=== PATIENT | male | born 1950 | race Caucasian/White ===

== ENCOUNTER → 2018-08-21 | Outpatient (CLI) | payer MEDICARE, BC ==
--- NOTE | 2018-08-21 12:12 | ECHOF ---
Referral Reason:I35.0 Nonrheumatic aortic valve stenosis MEASUREMENTS -------- HEIGHT: 170.2 cm WEIGHT: 112.9 kg BP: RVIDd: 3.4 cm (< 3.3) IVSd: 1.4 cm (0.6 - 1.1) LVIDd: 4.1 cm (3.9 - 5.3) LVPWd: 1.6 cm (0.6 - 1.1) IVSs: 1.8 cm LVIDs: 1.9 cm LVPWs: 1.7 cm Ao Diam: 2.8 cm (2.0 - 3.7) AV Cusp: 1.3 cm (1.5 - 2.6) LA Diam: 4.0 cm (2.7 - 3.8) EPSS: 0.7 cm MV E Musa: 0.61 m/s MV DecT: 271 ms MV A Musa: 0.91 m/s MV E/A Ratio: 0.67 AV maxP.73 mmHg AV meanP.42 mmHg RAP: 5.00 mmHg RVSP: 33.34 mmHg MV EF SLOPE: 54.34 mm/s (70 - 150) MV EXCURSION: 1.47 cm (> 18.000) FINDINGS -------- Sinus rhythm. This was a technically difficult study with suboptimal views. The left ventricular size is normal. There is moderate concentric left ventricular hypertrophy. O verall left ventricular systolic function is normal with, an EF between 55 - 60 %. The right ventricle is mildly enlarged. The left atrial size is normal. The right atrial size is normal. Lumason used Aortic valve is trileaflet and is moderately thickened. Trace amount of aortic regurgitation. Th ere is moderate aortic stenosis present. Peak/mean gradient across the valve is 32.73mmHg / 19.42mm Hg. The mitral valve leaflets are mildly thickened. Mild mitral regurgitation is present. Mild tricuspid regurgitation present. Right ventricular systolic pressure is normal at < 35 mmHg. The aortic root size is normal. The inferior vena cava was not well visualized. There is no pericardial effusion. CONCLUSIONS -------- 1. Sinus rhythm. 2. This was a technically difficult study with suboptimal views. 3. The left ventricular size is normal. 4. There is moderate concentric left ventricular hypertrophy. 5. Overall left ventricular systolic function is normal with, an EF between 55 - 60 %. 6. The right ventricle is mildly enlarged. 7. The left atrial size is normal. 8. The right atrial size is normal. 9. Lumason used 10. Aortic valve is trileaflet and is moderately thickened. 11. Trace amount of aortic regurgitation. 12. There is moderate aortic stenosis present. 13. Peak/mean gradient across the valve is 32.73mmHg / 19.42mmHg. 14. The mitral valve leaflets are mildly thickened. 15. Mild mitral regurgitation is present. 16. Mild tricuspid regurgitation present. 17. Right ventricular systolic pressure is normal at < 35 mmHg. 18. The aortic root size is normal. 19. The inferior vena cava was not well visualized. 20. There is no pericardial effusion. ASSEMBLER [employer] FRAMES: Gretchen Tillman RDCS
== END | disposition home or self-care (01) ==
LOC: RADECHMAIN 11:07
PROVIDERS: ATTEND Internal Medicine
DX: I08.3 Combined rheumatic disorders of mitral, aortic and tricuspid valves (principal)
CPT/HCPCS: 93306; Q9950

== ENCOUNTER → 2021-07-05 | Outpatient (CLI) | payer MEDICARE, BC ==
[2021-07-05 14:36] LABS: Anisocytosis Slight; HCT 52.4 % (39.0-53.0); HGB 17.4 gm/dL (13.0-17.5); MCH 30.4 pg (25.0-35.0); MCHC 33.2 g/dL (31.0-37.0); MCV 91.7 fL (80.0-100.0); Mean Platelet Volume 7.3; Platelet Count 239 k/uL (150-450); RBC 5.71 m/uL (4.30-5.90); RDW 16.1 % (11.5-15.5); WBC 11.8 k/uL (3.8-10.6)
[2021-07-05 15:43] LABS: Band Neutrophils % 1 %; Basophils # (M) 0.12 k/uL (0-0.2); Eosinophils # (M) 0.47 k/uL (0-0.7); Lymphocytes # (M) 1.65 k/uL (1.0-4.8); Monocytes # (M) 1.06 k/uL (0-1.0); Neutrophils % (M) 71 %; Nucleated Red Blood Cells 0 /100 WBC (0-0); Total Cells Counted 100
== END | disposition home or self-care (01) ==
LOC: LABWHC1 11:24
PROVIDERS: ATTEND Internal Medicine
DX: D72.829 Elevated white blood cell count, unspecified (principal); R68.83 Chills (without fever)
CPT/HCPCS: 36415; 84443; 85025

== ENCOUNTER → 2021-07-21 | Outpatient (CLI) | payer MEDICARE, BC ==
[2021-07-21 15:39] LABS: Anisocytosis Slight; Basophils # (A) 0.1 k/uL (0-0.2); Basophils % (A) 1 %; Eosinophils # (A) 0.5 k/uL (0-0.7); Eosinophils % (A) 5 %; HCT 48.2 % (39.0-53.0); HGB 16.3 gm/dL (13.0-17.5); Lymphocytes # (A) 2.3 k/uL (1.0-4.8); Lymphocytes % (A) 23 %; MCH 31.2 pg (25.0-35.0); MCHC 33.8 g/dL (31.0-37.0); MCV 92.2 fL (80.0-100.0); Mean Platelet Volume 7.2; Monocytes # (A) 0.7 k/uL (0-1.0); Monocytes % (A) 7 %; Neutrophils # (A) 6.5 k/uL (1.3-7.7); Neutrophils % (A) 63 %; Platelet Count 234 k/uL (150-450); RBC 5.23 m/uL (4.30-5.90); RDW 16.2 % (11.5-15.5); WBC 10.3 k/uL (3.8-10.6)
== END | disposition home or self-care (01) ==
LOC: LABWHC1 14:42
PROVIDERS: ATTEND Internal Medicine
DX: D72.829 Elevated white blood cell count, unspecified (principal)
CPT/HCPCS: 36415; 85025

== ENCOUNTER → 2021-09-16 | Outpatient (CLI) | payer MEDICARE, BC ==
[2021-09-16 17:47] LABS: HCT 48.3 % (39.6-50.0); HGB 15.7 g/dL (13.0-17.0); MCH 29.6 pg (27.0-32.0); MCHC 32.5 g/dL (32.0-37.0); MCV 91.1 fL (80.0-97.0); Mean Platelet Volume 9.3 fL (9.5-12.2); NRBC Per 100 WBC 0 /100 WBCS (0.0-0.0); Platelet Count 215 X 10*3/uL (140-440); RDW 15.2 % (11.5-14.5); WBC 9.38 X 10*3/uL (4.50-10.00)
[2021-09-16 17:58] LABS: African American GFR (CKD) 98.5 (60.0-200.0); Anion Gap 10.8 mmol/L (10.00-18.00); Blood Urea Nitrogen 19.5 mg/dL (9.0-27.0); Carbon Dioxide 27.2 mmol/L (20.0-27.5); Potassium 4.9 mmol/L (3.5-5.5)
== END | disposition home or self-care (01) ==
LOC: LABPAT 10:44
PROVIDERS: ATTEND Internal Medicine Interventional Cardiology
DX: Z01.812 Encounter for preprocedural laboratory examination (principal); R94.39 Abnormal result of other cardiovascular function study; I25.10 Atherosclerotic heart disease of native coronary artery without angina pectoris
CPT/HCPCS: 80051; 82565; 84520; 85027

== ENCOUNTER 2021-10-01 05:56 | Day surgery (SDC) | payer MEDICARE, BC ==
[2021-09-29 10:38] VITALS: BMI 39.5
[~2021-10-01 05:56] MED LIST: ALPRAZolam 0.25 MG TAB PO PRN; ALPRAZolam 0.5 MG TAB PO PRN; NITROGLYCERIN SL TABS 0.4 MG TAB SUBLINGUAL PRN; SODIUM CHLORIDE 0.9% 1,000 ML in EMPTY BAG 1 BAG IV SCH
[2021-10-01 06:24] VITALS: TEMP 97.8
[2021-10-01 06:30] LABS: Glucose,Whole Blood 108 mg/dL (70-110)
[2021-10-01] MEDS ORDERED: ASPIRIN 325 MG TAB PO ONE (07:00)
[2021-10-01] MEDS ORDERED: VERAPAMIL 2.5 MG/ML 2 ML AMP ONE (07:15)
[2021-10-01] MEDS ORDERED: fentaNYL (PF) 50 MCG/ML 2 ML AMP ONE (07:15)
[2021-10-01] MEDS ORDERED: HEPARIN SODIUM 1,000 UN/ML (10ML VL) ONE (07:15)
[2021-10-01] MEDS ORDERED: fentaNYL (PF) 50 MCG/ML 2 ML AMP IV ONE (07:35)
[2021-10-01] MEDS ORDERED: LIDOCAINE 1% INJ 10MG/ML (5 ML VIAL-PF) SQ ONE (07:38)
[2021-10-01] MEDS ORDERED: VERAPAMIL SYRINGE (5 MG/10 ML) INTRAARTER ONE (07:39)
[2021-10-01] MEDS: HEPARIN SODIUM 1,000 UN/ML (10ML VL) IV ONE ×3 (07:50→08:06)
[2021-10-01] MEDS ORDERED: CLOPIDOGREL 75 MG TAB ONE (07:54)
[2021-10-01] MEDS ORDERED: CLOPIDOGREL 75 MG TAB PO ONE (07:55)
[2021-10-01] MEDS ORDERED: MIDAZOLAM 2 MG/2 ML VIAL IV ONE (07:57)
[2021-10-01] MEDS ORDERED: IOPAMIDOL-370 125ML BTL INJ ONE (08:10)
[2021-10-01] MEDS ORDERED: NITROGLYCERIN 1000MCG/10ML SYRINGE INTRACORON ONE (08:13)
[2021-10-01] MEDS ORDERED: IOPAMIDOL-370 100ML BTL INJ ONE (08:28)
[2021-10-01] MEDS ORDERED: MAG HYDROX/AL HYDROX/SIMETH 30 ML CUP PO PRN (08:39)
[2021-10-01] MEDS ORDERED: NITROGLYCERIN SL TABS 0.4 MG TAB SUBLINGUAL PRN (08:39)
[2021-10-01] MEDS ORDERED: RX INFO: IV CONTRAST WAS GIVEN 1 EACH MISC MISCELLANE PRN (08:39)
[2021-10-01] MEDS ORDERED: ZOLPIDEM 5 MG TAB PO PRN (08:39)
[2021-10-01] MEDS ORDERED: ATROPINE SULFATE 0.1 MG/ML 10ML SYRINGE IV PRN (08:39)
[2021-10-01] MEDS ORDERED: SODIUM CHLORIDE 0.9% 1,000 ML in EMPTY BAG 1 BAG IV SCH (08:45)
--- NOTE | 2021-10-01 08:52 | P.CARDCATH ---
Date of Procedure: 10/01/21 Description of Procedure: Cardiac Catheterization: The patient is a 70-year-old male with known history of hypertension, hyperlipidemia and diabetes mellitus who has been complaining of episode of chest discomfort and had an abnormal MPI. Recommendations were made regarding cardiac catheterization, the risks and the complications were discussed with the patient who is in full understanding and agreement. Procedure Description: Patient was brought to airport maintenance laborer in fasting semi-sedated state after receiving Fentanyl and Benadryl achieiving moderate conscious sedated state. Using Xylocaine Anesthesia and Seldinger technique, a 6-Beninese sheath was introduced in the left radial artery . Subsequently, selective coronary angiography was performed using a 5-Beninese 4 bend Tamir catheter. Multiple views of the coronary artery including hemiaxial views were obtained. Following the angioplasty and stenting was performed, a 6- Beninese FL 4 guiding catheter was introduced and the system after cannulating the left main a 0.014 BMW J wire was advanced across the first OM, a 2.5 x 12 mm NC Treck was advanced into inflation at 8 tiffany were done. Attempts to advance a 2.75 X23 mm Xience Bonny point was unsuccessful, the stent was removed and a guide liner was advanced and the stent was advanced, deployed and dilated at 16 tiffany. After removing the balloon images were obtained and revealed stable successful stenting. Following that, catheter and sheath were removed. Hemostasis was obtained with deployment of TR band . There was no immediate complication. Patient was returned to room in stable condition. Of note, the patient received a total of 8000 units of intravenous heparin as well as intra-arterial verapamil. He received an oral loading dose of clopidogrel. His ACT was followed. He had no chest discomfort or EKG changes Findings: Fluoroscopy: Calcification of the LAD was noted Left main: This is a large-size vessel, bifurcating LAD and left circumflex the left main has no high-grade stenosis LAD: This vessel is large in caliber, calcified, the proximal LAD has 30-40% plaque in the mid vessel has diffuse intimal disease up to 30% with no high- grade stenosis Left circumflex: This is a large non-dominant vessel giving rise to 2 obtuse marginal branch, the first obtuse marginal branch has a long lesion of up to 90% the rest of the vessel has no high-grade stenosis RCA: This is a dominant vessel, bifurcating distally to PDA and PLV, the proximal and mid RCA has intimal disease up to 20-30%. The PLV is totally occluded at the ostium with minimal late filling. Collaterals there is collaterals from the left cornea system toward the right PLV Conclusion: 1. Calcified LAD 2. Chronically occluded PLV with collaterals from the left system 3. Critical stenosis involving OM1 4. Successful stenting of OM1 with reduction of stenosis from 90% to 0% Recommendations: The patient will continue on dual antiplatelet treatment with aspirin and Plavix without any interruption for 6 months, aggressive coronary risks modifications will be continued. If he continues to have symptoms attempt to recanalize the PLV would be done. The findings and the recommendations were discussed with the patient and the family and they were in full understanding and agreement. Duration of sedation is 52 minutes.
[2021-10-01] MEDS ORDERED: EZETIMIBE 10 MG TAB PO SCH (09:00)
[2021-10-01] MEDS ORDERED: ASPIRIN 81 MG PO SCH (09:00)
[2021-10-01] MEDS ORDERED: GLIMEPIRIDE 2 MG TAB PO SCH (09:00)
[2021-10-01] MEDS ORDERED: NON FORMULARY DRUG (Omeprazole [Prilosec] 20 MG Capsule.Dr) PO SCH (09:00)
[2021-10-01] MEDS ORDERED: PIOGLITAZONE 15 MG TAB PO SCH (09:00)
[2021-10-01] MEDS ORDERED: amLODIPine 5 MG TAB PO SCH (09:00)
[2021-10-01] MEDS ORDERED: DULoxetine HCL 30 MG CAPSULE.DR PO SCH (09:00)
[2021-10-01] MEDS ORDERED: BENAZEPRIL 10 MG PO SCH (09:00)
[2021-10-01 09:26] VITALS: RESP 16
[2021-10-01 11:18] VITALS: BP 123/72; PULSE 75
[2021-10-02] MEDS ORDERED: CLOPIDOGREL 75 MG TAB PO SCH (09:00)
== END 2021-10-01 12:07 | disposition home or self-care (01) ==
LOC: CATHCVL 05:56
PROVIDERS: ATTEND Internal Medicine Interventional Cardiology
DX: I25.10 Atherosclerotic heart disease of native coronary artery without angina pectoris (principal); I25.84 Coronary atherosclerosis due to calcified coronary lesion; I10 Essential (primary) hypertension; R94.39 Abnormal result of other cardiovascular function study; E78.2 Mixed hyperlipidemia; E11.9 Type 2 diabetes mellitus without complications; Z20.822 Contact with and (suspected) exposure to COVID-19; Z82.49 Family history of ischemic heart disease and other diseases of the circulatory system; E78.00 Pure hypercholesterolemia, unspecified; H81.09 Meniere's disease, unspecified ear; Z87.891 Personal history of nicotine dependence; I35.0 Nonrheumatic aortic (valve) stenosis; Z79.84 Long term (current) use of oral hypoglycemic drugs; Z79.82 Long term (current) use of aspirin; Z79.899 Other long term (current) drug therapy; Z88.8 Allergy status to other drugs, medicaments and biological substances
CPT/HCPCS: 93454; 87635; C9600; C1769 ×3; C1887 ×2; C1894; C1725; C1874; J2250; J2001; J3010; J1644; Q9967 ×2

== ENCOUNTER → 2021-10-28 | Outpatient (CLI) | payer MEDICARE, BC ==
--- NOTE | 2021-10-28 13:39 | NM ---
EXAMINATION TYPE: NM bone scan whole body DATE OF EXAM: 10/28/2021 COMPARISON: NONE HISTORY: Prostate cancer Delayed whole-body scanning was performed following the injection of 24.8 mCi Tc 99m MDP. Images acq uired 4 hours post injection. FINDINGS: There is abnormal uptake involving the knees bilaterally, feet bilaterally, and shoulders bilaterally most available post arthritic change. Abnormal uptake involving the right sternoclavicular joint also likely osteoarthritic. There is moderate intensity uptake throughout the thoracic and lumbar spine. Favor degenerative ramírez e over metastases. IMPRESSION: 1. No diagnostic evidence of metastases. Abnormal uptake involving the vertebral column is most likel y degenerative
== END | disposition home or self-care (01) ==
LOC: RADNMMAIN 08:41
PROVIDERS: ATTEND Radiology Radiation Oncology
DX: C61 Malignant neoplasm of prostate (principal)
CPT/HCPCS: 78306; A9503

== ENCOUNTER → 2021-12-07 | Outpatient (CLI) | payer MEDICARE, BC ==
[2021-12-07 10:30] LABS: ALT 27 U/L (10-49); AST 29 U/L (14-35); African American GFR (CKD) 102.4 (60.0-200.0); Albumin 4.2 g/dL (3.8-4.9); Albumin/Globulin Ratio 1.18 (1.60-3.17); Alkaline Phosphatase 108 U/L (41-126); BUN/Creat Ratio 22.07 Ratio (12.00-20.00); Blood Urea Nitrogen 18.1 mg/dL (9.0-27.0); Calcium 9.2 mg/dL (8.7-10.3); Carbon Dioxide 29.9 mmol/L (20.0-27.5); Chloride 100 mmol/L (96-109); Chol/HDL Ratio 5.34 Ratio; Globulin 3.5 g/dL (1.6-3.3); Glucose 146 mg/dL (70-110); LDL Cholesterol,Calculated 129.8 mg/dL (0.0-131.0); Non-African American GFR(CKD) 88.3 (60.0-200.0); Sodium 138 mmol/L (135-145); Total Protein 7.7 g/dL (6.2-8.2)
== END | disposition home or self-care (01) ==
LOC: LABWHC1 07:36
PROVIDERS: ATTEND Internal Medicine Interventional Cardiology
DX: E78.2 Mixed hyperlipidemia (principal)
CPT/HCPCS: 36415; 80053; 80061

== ENCOUNTER → 2022-10-26 | Outpatient (CLI) | payer MEDICARE, BC ==
[2022-10-26 15:34] LABS: Chol/HDL Ratio 7.63 Ratio; LDL Cholesterol,Calculated 160.9 mg/dL (0.0-131.0)
== END | disposition home or self-care (01) ==
LOC: LABWHC1 09:44
PROVIDERS: ATTEND Family Medicine
DX: E11.9 Type 2 diabetes mellitus without complications (principal)
CPT/HCPCS: 36415; 80061; 83036

== ENCOUNTER 2023-06-06 10:50 | Inpatient (IN) | payer MEDICARE, BC ==
--- NOTE | 2023-06-06 11:28 | ED ---
General Adult HPI - General Chief complaint: Shortness of Breath Stated complaint: Tightness in chest Time Seen by Provider: 06/06/23 11:07 Source: patient, family Mode of arrival: ambulatory Limitations: no limitations - History of Present Illness Initial comments: Dictation was produced using [employer] dictation software. please excuse any grammatical, word or spelling errors. Chief Complaint: 72-year-old male with history of coronary artery disease p resents to the ER for worsening weakness History of Present Illness: Patient 72-year-old male he has past medical history coronary artery disease he has a coronary artery stent. Patient states over the last month he has been having worsening exertional dyspnea and exertional weakness. He does complain of some mild tightening to his substernal chest. Patient also reports chronic intermittent episodes of rectal bleeding. Denies any current abdominal pain. Denies any constitutional symptoms. The ROS documented in this emergency department record has been reviewed and confirmed by me. Those systems with pertinent positive or negative responses have been documented in the HPI. All other systems are other negative and/or noncontributory. - Related Data Home Medications Medication Instructions Recorded Confirmed Aspirin 81 mg PO DAILY 07/11/13 10/01/21 Omeprazole [PriLOSEC] 20 mg PO DAILY 07/11/13 10/01/21 Benazepril [Lotensin] 10 mg PO DAILY 09/29/21 10/01/21 DULoxetine HCL [Cymbalta] 30 mg PO DAILY 09/29/21 10/01/21 Glimepiride [Amaryl] 2 mg PO BID 09/29/21 10/01/21 Pioglitazone [Actos] 15 mg PO DAILY 09/29/21 10/01/21 amLODIPine [Norvasc] 5 mg PO DAILY 09/29/21 10/01/21 Previous Rx's Medication Instructions Recorded Clopidogrel [Plavix] 75 mg PO DAILY #90 tab 10/01/21 Ezetimibe [Zetia] 10 mg PO DAILY #90 tab 10/01/21 Nitroglycerin Sl Tabs [Nitrostat] 0.4 mg SUBLINGUAL Q5M PRN #25 tab 10/01/21 Allergies Allergy/AdvReac Type Severity Reaction Status Date / Time Pidkrzh-GYN-JgU Reductase AdvReac MUSCLE Verified 06/06/23 11:00 Inhibitor CRAMPS IN [Rbqwsaz-Trs-Ayi Reductase LEGS Inhibitor] Review of Systems ROS Statement: Those systems with pertinent positive or pertinent negative responses have been documented in the HPI. ROS Other: All systems not noted in ROS Statement are negative. Past Medical History Past Medical History: Cancer, Chest Pain / Angina, Diabetes Mellitus, GERD/Reflux, Hearing Disorder / Deafness, Hyperlipidemia, Hypertension, Osteoarthritis (OA) Additional Past Medical History / Comment(s): HX. MENIERE'S. HX. HIATAL HERNIA. HX. 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 HX ARTHRITIS- IN HANDS,FINGERS & SHOULDERS. NEW DX PROSTATE CANCER ABOUT 2 WEEKS AGO History of Any Multi-Drug Resistant Organisms: None Reported Past Surgical History: No Surgical Hx Reported Additional Past Surgical History / Comment(s): DEVIATED SEPTUM SX. COLONOSCOPY Past Anesthesia/Blood Transfusion Reactions: No Reported Reaction Past Psychological History: Anxiety Smoking Status: Never smoker - Past Family History Mother Family Medical History: No Reported History General Exam - General Exam Comments Initial Comments: PHYSICAL EXAM: General Impression: Alert and oriented x3, not in acute distress HEENT: Normocephalic atraumatic, extra-ocular movements intact, pupils equal and reactive to light bilaterally, mucous membranes moist. Cardiovascular: Heart regular rate and rhythm Chest: Able to complete full sentences, no retractions, no tachypnea Abdomen: abdomen soft, non-tender, non-distended, no organomegaly Musculoskeletal: Pulses present and equal in all extremities, no peripheral edema Motor: no focal deficits noted Neurological: CN II-XII grossly intact, no focal motor or sensory deficits noted Skin: Intact with no visualized rashes Psych: Normal affect and mood Limitations: no limitations Course Vital Signs 06/06/23 06/06/23 10:54 11:15 Temperature 98.6 F Pulse Rate 90 Respiratory 20 18 Rate Blood Pressure 169/97 O2 Sat by Pulse 94 L Oximetry EKG Findings - EKG Comments: EKG Findings:: My EKG interpretation: Ventricular rate 84, sinus rhythm,. Number 02/27/1943, QRS 105, QTc 4 9. No [place] prolongation, no QTC prolongation, no ST or T-wave changes noted. Overall, this EKG is unremarkable Medical Decision Making - Medical Decision Making Was pt. sent in by a medical professional or institution (, PA, MOBILE GAME ENGINEER, urgent care, hospital, or prison...) When possible be specific @ -No Did you speak to anyone other than the patient for history (EMS, parent, family, police, friend...)? What history was obtained from this source @ -No Did you review nursing and triage notes (agree or disagree)? Why? @ -I reviewed and agree with nursing and triage notes Were old charts reviewed (outside hosp., previous admission, EMS record, old EK G, old radiological studies, urgent care reports/EKG's, prison records)? Report findings @ -No old charts were reviewed Differential Diagnosis (chest pain, altered mental status, abdominal pain women, abdominal pain men, vaginal bleeding, musculoskeletal, weakness, fever, dyspnea, syncope, headache, dizziness, GI bleed, back pain, seizure, CVA, palpatations, mental health)? @ -Differential Dyspnea: Coronary syndrome, arrhythmia, tamponade, asthma, COPD, pulmonary embolism, pneumonia, pneumothorax, pulmonary effusion, anaphylaxis, diabetic ketoacidosis, flailed chest, pulmonary contusion, diaphragmatic rupture, anemia, neuromuscular, this is not meant to be an all-inclusive list. EKG interpreted by me (3pts min.). @ -See above X-rays interpreted by me (1pt min.). @ -Chest x-ray shows either CHF versus pneumonia CT interpreted by me (1pt min.). @ -None done U/S interpreted by me (1pt. min.). @ -None done What testing was considered but not performed or refused? (CT, X-rays, U/S, labs)? Why? @ -None What meds were considered but not given or refused? Why? @ -None Did you discuss the management of the patient with other professionals (professionals i.e. , PA, MOBILE GAME ENGINEER, lab, RT, psych nurse, social work administrator, medical records custodian, teacher, state patrol officer, case management assistant)? Give summary @ -Case discussed with hospitalist for admission Was smoking cessation discussed for >3mins.? @ -No Was critical care preformed (if so, how long)? @ -No Were there social determinants of health that impacted care today? How? (Homelessness, low income, unemployed, alcoholism, drug addiction, transpor tation, low edu. Level, literacy, decrease access to med. care, longterm, rehab)? @ -No Was there de-escalation of care discussed even if they declined (Discuss DNR or withdrawal of care, Hospice)? DNR status @ -No What co-morbidities impacted this encounter? (DM, HTN, Smoking, COPD, CAD, Cancer, CVA, ARF, Chemo, Hep., AIDS, mental health diagnosis, sleep apnea, morbid obesity)? @ -None Was patient admitted / discharged? Hospital course, mention meds given and route, prescriptions, significant lab abnormalities, going to OR and other pertinent info. @ -72-year-old male presents emergency department for worsening exertional dyspnea. His symptoms are concerning for acute coronary syndrome. Vital signs upon arrival are within acceptable limits. Laboratory evaluation is unremarkable. BNP and troponin are negative. Chest x-ray shows vague CHF versus pneumonia. Disposition options were discussed. Patient agreeable for observation admission with cardiology consultation. Undiagnosed new problem with uncertain prognosis? @ -No Drug Therapy requiring intensive monitoring for toxicity (Heparin, Nitro, Insulin, Cardizem)? @ -No Were any procedures done? @ -No Diagnosis/symptom? Acute, or Chronic, or Acute on Chronic? Uncomplicated (without systemic symptoms) or Complicated (systemic symptoms)? @ -Exertional dyspnea Side effects of treatment? @ -No Exacerbation, Progression, or Severe Exacerbation? @ -No Poses a threat to life or bodily function? How? (Chest pain, [place], [place], pneumonia, PE, COPD, DKA, ARF, appy, cholecystitis, CVA, Diverticulitis, Homicidal, Suicidal, threat to staff... and all critical care pts) @ -yes - Lab Data Result diagrams: 06/06/23 11:25 06/06/23 11:25 Lab Results 06/06/23 06/06/23 06/06/23 Range/Units 11:25 11:25 11:25 WBC 10.6 (3.8-10.6) k/uL RBC 4.91 (4.30-5.90) m/uL Hgb 15.1 (13.0-17.5) gm/dL Hct 43.8 (39.0-53.0) % MCV 89.4 (80.0-100.0) fL MCH 30.8 (25.0-35.0) pg MCHC 34.5 (31.0-37.0) g/dL RDW 16.3 H (11.5-15.5) % Plt Count 212 (150-450) k/uL MPV 8.0 Neutrophils % 76 % Lymphocytes % 9 % Monocytes % 6 % Eosinophils % 5 % Basophils % 1 % Neutrophils # 8.0 H (1.3-7.7) k/uL Lymphocytes # 1.0 (1.0-4.8) k/uL Monocytes # 0.7 (0-1.0) k/uL Eosinophils # 0.5 (0-0.7) k/uL Basophils # 0.1 (0-0.2) k/uL Poikilocytosis Slight Anisocytosis Slight PT 13.1 H (10.0-12.5) sec INR 1.2 H (<1.2) APTT 25.3 (22.0-30.0) sec D-Dimer (<0.60) mg/L FEU Sodium 139 (137-145) mmol/L Potassium 4.3 (3.5-5.1) mmol/L Chloride 105 (98-107) mmol/L Carbon Dioxide 27 (22-30) mmol/L Anion Gap 7 mmol/L BUN 16 (9-20) mg/dL Creatinine 0.63 L (0.66-1.25) mg/dL Est GFR (CKD-EPI)AfAm >90 (>60 ml/min/1.73 sqM) Est GFR (CKD-EPI)NonAf >90 (>60 ml/min/1.73 sqM) Glucose 194 H (74-99) mg/dL Calcium 8.6 (8.4-10.2) mg/dL Total Bilirubin 1.0 (0.2-1.3) mg/dL AST 31 (17-59) U/L ALT 29 (4-49) U/L Alkaline Phosphatase 90 (38-126) U/L Troponin I (0.000-0.034) ng/mL NT-Pro-B Natriuret Pep 291 pg/mL Total Protein 6.7 (6.3-8.2) g/dL Albumin 3.8 (3.5-5.0) g/dL 06/06/23 06/06/23 Range/Units 11:25 11:25 WBC (3.8-10.6) k/uL RBC (4.30-5.90) m/uL Hgb (13.0-17.5) gm/dL Hct (39.0-53.0) % MCV (80.0-100.0) fL MCH (25.0-35.0) pg MCHC (31.0-37.0) g/dL RDW (11.5-15.5) % Plt Count (150-450) k/uL MPV Neutrophils % % Lymphocytes % % Monocytes % % Eosinophils % % Basophils % % Neutrophils # (1.3-7.7) k/uL Lymphocytes # (1.0-4.8) k/uL Monocytes # (0-1.0) k/uL Eosinophils # (0-0.7) k/uL Basophils # (0-0.2) k/uL Poikilocytosis Anisocytosis PT (10.0-12.5) sec INR (<1.2) APTT (22.0-30.0) sec D-Dimer 0.40 (<0.60) mg/L FEU Sodium (137-145) mmol/L Potassium (3.5-5.1) mmol/L Chloride (98-107) mmol/L Carbon Dioxide (22-30) mmol/L Anion Gap mmol/L BUN (9-20) mg/dL Creatinine (0.66-1.25) mg/dL Est GFR (CKD-EPI)AfAm (>60 ml/min/1.73 sqM) Est GFR (CKD-EPI)NonAf (>60 ml/min/1.73 sqM) Glucose (74-99) mg/dL Calcium (8.4-10.2) mg/dL Total Bilirubin (0.2-1.3) mg/dL AST (17-59) U/L ALT (4-49) U/L Alkaline Phosphatase (38-126) U/L Troponin I <0.012 (0.000-0.034) ng/mL NT-Pro-B Natriuret Pep pg/mL Total Protein (6.3-8.2) g/dL Albumin (3.5-5.0) g/dL Disposition Clinical Impression: Exertional dyspnea Disposition: ADMITTED IP TO THIS [facility] Condition: Fair Referrals: None,Stated [REFERRING] - 1-2 days Decision Time: 15:02
[2023-06-06 11:36] LABS: Anisocytosis Slight; Basophils # (A) 0.1 k/uL (0-0.2); Basophils % (A) 1 %; Eosinophils # (A) 0.5 k/uL (0-0.7); Eosinophils % (A) 5 %; HCT 43.8 % (39.0-53.0); HGB 15.1 gm/dL (13.0-17.5); Lymphocytes % (A) 9 %; MCH 30.8 pg (25.0-35.0); MCHC 34.5 g/dL (31.0-37.0); MCV 89.4 fL (80.0-100.0); Monocytes # (A) 0.7 k/uL (0-1.0); Monocytes % (A) 6 %; Neutrophils % (A) 76 %; Platelet Count 212 k/uL (150-450); Poikilocytosis Slight; RBC 4.91 m/uL (4.30-5.90); RDW 16.3 % (11.5-15.5); WBC 10.6 k/uL (3.8-10.6)
[2023-06-06 11:46] LABS: ALT 29 U/L (4-49); AST 31 U/L (17-59); African American GFR (CKD) >90 (>60 ml/min/1.73 sqM); Albumin 3.8 g/dL (3.5-5.0); Alkaline Phosphatase 90 U/L (38-126); Anion Gap 7 mmol/L; Blood Urea Nitrogen 16 mg/dL (9-20); Calcium 8.6 mg/dL (8.4-10.2); Carbon Dioxide 27 mmol/L (22-30); Chloride 105 mmol/L (98-107); Glucose 194 mg/dL (74-99); Non-African American GFR(CKD) >90 (>60 ml/min/1.73 sqM); Potassium 4.3 mmol/L (3.5-5.1); Sodium 139 mmol/L (137-145); Total Protein 6.7 g/dL (6.3-8.2)
[2023-06-06 11:48] LABS: INR 1.2 (<1.2); Partial Thromboplastin Time 25.3 sec (22.0-30.0); Prothrombin Time 13.1 sec (10.0-12.5)
[2023-06-06 11:54] LABS: NT-Pro-B-Type Natriuretic Pept 291 pg/mL
--- NOTE | 2023-06-06 12:01 | XR ---
EXAMINATION TYPE: XR chest 2V DATE OF EXAM: 06/06/2023 COMPARISON: 07/12/2023 TECHNIQUE: PA and lateral views submitted. HISTORY: Chest pain FINDINGS: Bilateral consolidation. Coarsened interstitium. No pneumothorax. Degenerative changes of the spine. Heart size upper limits of normal. Suspected retrocardiac density or hiatal hernia. Arthropathy of th e shoulders and diffuse osteopenia. No pneumothorax. IMPRESSION: 1. Correlate for mild CHF otherwise consider pneumonia.
[2023-06-06] MEDS ORDERED: NITROGLYCERIN SL TABS 0.4 MG TAB SUBLINGUAL PRN (14:59)
[2023-06-06] MEDS ORDERED: DEXTROSE 50% SYRINGE 50 ML IVP PRN ×2 (15:55)
[2023-06-06 16:35] LABS: Glucose,Whole Blood 169 mg/dL (70-110)
[2023-06-06] MEDS: ASPIRIN 81 MG PO STA (16:44)
[2023-06-06] MEDS: HEPARIN SODIUM,PORCINE 5,000 UNIT/ML 1 ML VIAL SQ SCH (16:44)
--- NOTE | 2023-06-06 17:12 | P.HPIM ---
History of Present Illness H&P Date: 06/06/23 Patient is a 72-year-old male with a history of CAD status post stent, hypertension, diabetes, GERD presenting with exertional dyspnea. He claims that over the last 1 month he has been noticing increasing exertional dyspnea and occasional chest tightness with exertion. He also has PND, does not complain of any orthopnea, uses 1 pillow at night. Occasional cough with minimal sputum pro duction. Denies any fevers or chills. He did recently moved from [place], and was having similar symptoms when he was down there. His last echocardiogram was 1 year ago. He denies any smoking, occasional alcohol use, no illicit drug use. In the ED, temperature was 98.6, pulse 90, respiratory rate 20, blood pressure 169/97, saturating at 94% on room air. WBC 10.6, hemoglobin 15.1, platelet 212, D-dimer 0.4, creatinine 0.63, troponin negative, proBNP 291. EKG independently interpreted, shows normal sinus rhythm. Chest x-ray independently interpreted, shows some interstitial opacities. Patient admitted for cardiac workup for progressive exertional dyspnea. Cardiology consulted. Pertinent positives and negatives as discussed in HPI, a complete review of systems was performed and all other systems are negative. Patient seen and examined at bedside. Vital signs reviewed General: nontoxic, no distress, appears at stated age, morbid obesity Derm: warm, dry Head: atraumatic, normocephalic, symmetric Eyes: EOMI, no lid lag, anicteric sclera, pupils equal round reactive to light ENT: Nose and ears atraumatic Neck: No thyromegaly, supple Mouth: no lip lesion, mucus membranes moist Cardiovascular: S1S2 reg, systolic murmur, trace peripheral edema Lungs: Bibasilar rales, no wheeze, no accessory muscle use Abdominal: soft, nontender to palpation, no guarding, no appreciable or ganomegaly Ext: no gross muscle atrophy, muscle strength muscle strength 5 out of 5 in all 4 extremities, no contractures Neuro: CN II-XII grossly intact Psych: Alert, oriented, appropriate affect Assessment/Plan: Progressive exertional dyspnea Suspected CHF exacerbation, unknown EF Aspirin 81 mg, patient has an allergy listed for statin - Continue telemetry - Cardiology consulted - Repeat troponin pending, rule out ACS - Echocardiogram ordered - One-time order of 40 IV Lasix Hypertension - Continue amlodipine 5, benazepril 10 GERD - Continue omeprazole 20 Type 2 diabetes - Sliding scale insulin, monitor for hypoglycemia -Hold home medications Morbidly obese - Structured outpatient weight loss program The patient is admitted with an anticipated less than 2 midnight stay as obser vation status for evaluation of exertional dyspnea. Surrogate decision-maker: significant other CODE STATUS: Full code DVT prophylaxis: Subcu heparin Anticipated discharge date: Pending clinical course Anticipated discharge place: Pending clinical course A total of 55 minutes was spent on the care of this complex patient more than 50% of the time was spent in counseling and care coordination. Past Medical History Past Medical History: Cancer, Chest Pain / Angina, Diabetes Mellitus, GERD/Reflux, Hearing Disorder / Deafness, Hyperlipidemia, Hypertension, Osteoarthritis (OA) Additional Past Medical History / Comment(s): HX. MENIERE'S. HX. HIATAL HERNIA. HX. 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 HX ARTHRITIS- IN HANDS,FINGERS & SHOULDERS. NEW DX PROSTATE CANCER ABOUT 2 WEEKS AGO History of Any Multi-Drug Resistant Organisms: None Reported Past Surgical History: No Surgical Hx Reported Additional Past Surgical History / Comment(s): DEVIATED SEPTUM SX. COLONOSCOPY Past Anesthesia/Blood Transfusion Reactions: No Reported Reaction Past Psychological History: Anxiety Smoking Status: Never smoker Past Alcohol Use History: Rare Past Drug Use History: None Reported - Past Family History Mother Family Medical History: No Reported History Medications and Allergies Home Medications Medication Instructions Recorded Confirmed Type Omeprazole [PriLOSEC] 20 mg PO AC-LUNCH 07/11/13 06/06/23 History Benazepril [Lotensin] 10 mg PO DAILY 09/29/21 06/06/23 History Glimepiride [Amaryl] 2 mg PO BID 09/29/21 06/06/23 History Pioglitazone [Actos] 15 mg PO HS 09/29/21 06/06/23 History amLODIPine [Norvasc] 5 mg PO DAILY 09/29/21 06/06/23 History Allergies Allergy/AdvReac Type Severity Reaction Status Date / Time Zwspaqo-KIN-DxK Reductase AdvReac MUSCLE Verified 06/06/23 15:05 Inhibitor CRAMPS IN [Ppcmevk-Ank-Wzh Reductase LEGS Inhibitor] Physical Exam Vitals: Vital Signs Temp Pulse Pulse Resp BP BP Pulse Ox 06/06/23 16:26 97.5 F L 83 16 159/94 93 L 06/06/23 16:08 79 16 131/82 94 L 06/06/23 11:15 18 06/06/23 10:54 98.6 F 90 20 169/97 94 L Intake and Output 06/06/23 06/06/23 06/06/23 06:59 14:59 22:59 Other: Weight 113.398 kg 113.398 kg Results CBC & Chem 7: 06/06/23 11:25 06/06/23 11:25 Labs: Abnormal Lab Results - Last 24 Hours (Table) 06/06/23 06/06/23 06/06/23 Range/Units 11:25 11:25 11:25 RDW 16.3 H (11.5-15.5) % Neutrophils # 8.0 H (1.3-7.7) k/uL PT 13.1 H (10.0-12.5) sec INR 1.2 H (<1.2) Creatinine 0.63 L (0.66-1.25) mg/dL Glucose 194 H (74-99) mg/dL POC Glucose (mg/dL) (70-110) mg/dL 06/06/23 Range/Units 16:34 RDW (11.5-15.5) % Neutrophils # (1.3-7.7) k/uL PT (10.0-12.5) sec INR (<1.2) Creatinine (0.66-1.25) mg/dL Glucose (74-99) mg/dL POC Glucose (mg/dL) 169 H (70-110) mg/dL
[2023-06-06] MEDS: FUROSEMIDE 10 MG/ML 4 ML VIAL IV STA (17:37)
[2023-06-06] MEDS: INSULIN ASPART (NovoLOG) 100 UNIT/ML VIAL SQ SCH (18:26)
[2023-06-06 20:16] LABS: Glucose,Whole Blood 214 mg/dL (70-110)
[2023-06-07 06:34] LABS: Glucose,Whole Blood 159 mg/dL (70-110)
[2023-06-07] MEDS ORDERED: ASPIRIN 325 MG TAB PO SCH (09:00)
[2023-06-07] MEDS: amLODIPine 5 MG TAB PO SCH (09:09)
[2023-06-07] MEDS: lisinopriL 10 MG TAB PO SCH (09:09)
[2023-06-07] MEDS: ASPIRIN 81 MG PO SCH (09:10)
[2023-06-07 11:37] LABS: BUN/Creat Ratio 14.67 Ratio (12.00-20.00); Blood Urea Nitrogen 13.2 mg/dL (9.0-27.0); Carbon Dioxide 28.4 mmol/L (21.6-31.8); Chloride 100 mmol/L (96-109); Chol/HDL Ratio 7.38 Ratio; Glucose 179 mg/dL (70-110); LDL Cholesterol,Calculated 142.1 mg/dL (0.0-131.0); Magnesium 2.1 mg/dL (1.5-2.4); Sodium 141 mmol/L (135-145)
[2023-06-07] MEDS ORDERED: ALPRAZolam 0.25 MG TAB PO PRN (12:08)
[2023-06-07] MEDS ORDERED: ALPRAZolam 0.5 MG TAB PO PRN (12:08)
[2023-06-07] MEDS ORDERED: NITROGLYCERIN SL TABS 0.4 MG TAB SUBLINGUAL PRN (12:08)
[2023-06-07] MEDS: PANTOPRAZOLE 40 MG TABLET PO SCH (12:48)
[2023-06-07 12:49] LABS: Glucose,Whole Blood 189 mg/dL (70-110)
--- NOTE | 2023-06-07 14:21 | P.PN ---
Subjective Progress Note Date: 06/07/23 Hospital Course: 72-year-old male with a history of CAD status post stent, hypertension, diabet es, GERD presenting with exertional dyspnea. In the ED, temperature was 98.6, pulse 90, respiratory rate 20, blood pressure 169/97, saturating at 94% on room air. WBC 10.6, hemoglobin 15.1, platelet 212, D-dimer 0.4, creatinine 0.63, troponin negative, proBNP 291. EKG independently interpreted, shows normal sinus rhythm. Chest x-ray independently interpreted, shows some interstitial opacities. Patient admitted for cardiac workup for progressive exertional dyspnea. Cardiology consulted. Patient given a dose of IV Lasix. Symptoms improved. Echocardiogram pending. Likely getting cardiac cath. Subjective: Patient seen and examined at bedside. No acute events overnight. Claims that respiratory function has improved. Pertinent positives and negatives as discussed above, a complete review of systems was performed and all other systems are negative. Vitals Signs Reviewed. General: Nontoxic, no distress, appears at stated age Derm: Warm, dry Head: Atraumatic, normocephalic, symmetric Eyes: EOMI, no lid lag, anicteric sclera Mouth: No lip lesion, mucus membranes moist Cardiovascular: S1S2 reg, systolic murmur Lungs: CTA bilateral, no rhonchi, no rales, no accessory muscle use Abdominal: Soft, nontender to palpation, no guarding, no appreciable organomegaly Ext: No gross muscle atrophy, no edema, no contractures Neuro: CN II-XI grossly intact, no focal neuro deficits Psych: Alert, oriented, appropriate affect Data Reviewed Today: Pertinent Labs: Potassium 4, creatinine 0.9, blood sugars range between 150 9189, total cholesterol 200, LDL 142, magnesium 2.1, A1c 7.6 Imaging: EKG independently interpreted, shows normal sinus rhythm Assessment and Plan: Progressive exertional dyspnea Suspected CHF exacerbation, unknown EF History of CAD Aspirin 81 mg, patient has an allergy listed for statin - Continue telemetry - Cardiology consulted - Echocardiogram ordered Hypertension - Continue amlodipine 5, benazepril 10 GERD History of intermittent GI bleed - Continue omeprazole 20 Plan for outpatient colonoscopy Type 2 diabetes - Sliding scale insulin, monitor for hypoglycemia -Hold home medications Morbidly obese - Structured outpatient weight loss program DVT ppx: subq heparin Code status: Anticipated discharge place: pending clinical course Anticipated discharge time: pending clinical course Objective - Vital Signs Vital signs: Vital Signs Temp 97.9 F 06/07/23 07:00 Pulse 72 06/07/23 14:00 Resp 19 06/07/23 14:00 BP 145/80 06/07/23 07:00 Pulse Ox 94 L 06/07/23 07:00 FiO2 Intake & Output 06/06/23 06/07/23 06/07/23 18:59 06:59 18:59 Intake Total 180 Balance 180 Weight 113.398 kg Intake: Oral 180 Other: Voiding Method Toilet Toilet # Voids 3 3 - Labs CBC & Chem 7: 06/06/23 11:25 06/07/23 06:44 Labs: Abnormal Lab Results - Last 24 Hours (Table) 06/06/23 06/06/23 06/07/23 Range/Units 16:34 20:15 06:33 Anion Gap (4.00-12.00) mmol/L Glucose (70-110) mg/dL POC Glucose (mg/dL) 169 H 214 H 159 H (70-110) mg/dL Hemoglobin A1c (<=6.0) % Triglycerides (0.00-149.00) mg/dL LDL Cholesterol, Calc (0.0-131.0) mg/dL HDL Cholesterol (40.00-60.00) mg/dL 06/07/23 06/07/23 06/07/23 Range/Units 06:44 06:44 12:42 Anion Gap 12.60 H (4.00-12.00) mmol/L Glucose 179 H (70-110) mg/dL POC Glucose (mg/dL) 189 H (70-110) mg/dL Hemoglobin A1c 7.6 H (<=6.0) % Triglycerides 154.00 H (0.00-149.00) mg/dL LDL Cholesterol, Calc 142.1 H (0.0-131.0) mg/dL HDL Cholesterol 27.10 L (40.00-60.00) mg/dL
[2023-06-07 18:03] LABS: Glucose,Whole Blood 142 mg/dL (70-110)
[2023-06-07 20:12] LABS: Glucose,Whole Blood 160 mg/dL (70-110)
--- NOTE | 2023-06-07 21:09 | CONS ---
CONSULTATION Mr. Chilo Alvarez is a 72-year-old gentleman, a patient of Dr. Benson with a known diagnosis of CAD, previous PCI of obtuse marginal branch of circumflex. This procedure was performed in 2021. The patient has followed up with Dr. Benson. His echo from June of last year revealed a preserved ejection fraction with ozlijncp-[id number] aortic stenosis, a mean gradient of about 35 mmHg. He came into the hospital with increasing shortness of breath with mild activity, even walking about 30 feet makes him short of breath. This is a change in the symptoms in the last 3 weeks. He has other comorbid conditions in addition to CAD and CVT RN of obtuse marginal, hypertension, diabetes, and hyperlipidemia. He is resting comfortably at the time of my evaluation. Three sets of troponins are unremarkable. EKG revealed sinus mechanism with mild borderline IVCD. No acute changes. At the time of my evaluation, the patient is resting comfortably. PAST MEDICAL HISTORY: 1. CAD with PCI of obtuse marginal branch of circumflex performed in September 2021. 2. Hypertension. 3. Diabetes. 4. Hyperlipidemia. 5. Fgjxlwqb-nx-gacvnx aortic stenosis. PHYSICAL EXAMINATION: VITAL SIGNS: Blood pressure is 140/70, pulse rate is 70 per minute. HEENT: Unremarkable. Fundus was not examined by me. NECK: Supple. There is no significant JVD. There is no carotid bruit. HEART: Reveals S1 and S2 with ejection systolic murmur. Second heart sound is not well heard. Murmur is peaking late. LUNGS: Revealed decent air entry. ABDOMEN: Soft, nontender. LOWER EXTREMITIES: Reveal normal pulses. No edema. CENTRAL NERVOUS SYSTEM: Normal. LABORATORY DATA: Suggests no evidence of any elevation of troponin. D-dimer is normal and BNP is normal. IMPRESSION: 1. Shortness of breath, recent onset. Probably manifestation of severe aortic stenosis which has progressed somewhat quickly. 2. Stable coronary artery disease with previous PCI of obtuse marginal. 3. Hypertension. 4. Hyperlipidemia. 5. Type 2 diabetes mellitus. RECOMMENDATIONS: I am recommending that we optimize his current management, discontinue the IV Lasix and place him on his home medications. I will place him also on subcu heparin. I will recommend coronary angiography and transesophageal echo to assess the severity of aortic stenosis. I will perform a transthoracic echo and discuss with Dr. Benson. I discussed my thoughts in detail with the patient. Thank you very much for the consult. SHAW / IJN: [id number] /
[2023-06-08 05:21] LABS: Glucose,Whole Blood 174 mg/dL (70-110)
[2023-06-08] MEDS: ATORVASTATIN 80 MG TAB PO ONE (05:22)
[2023-06-08] MEDS: ASPIRIN 325 MG TAB PO ONE (05:23)
[2023-06-08] MEDS ORDERED: HEPARIN SODIUM,PORCINE 10,000 UNIT in SODIUM CHLORIDE 0.9% 1,000 ML IRRIGATION PRN (07:00)
[2023-06-08] MEDS ORDERED: HEPARIN SODIUM,PORCINE (1 ML) 2,500 UNIT in SODIUM CHLORIDE 0.9% 250 ML IRRIGATION PRN (07:00)
--- NOTE | 2023-06-08 08:22 | CA ---
Transthoracic Echo Report Name: Chilo Alvarez Age: 72 Gender: M : 1950 Exam Date: 06/07/2023 11:56 Exam Location: [facility] Ht (in): 66 Wt (lb): 250 Ordering Physician: Jaime Garcia MD Attending/Referring Phys: Manager Local ML Procedure CPT: Indications: chf? Cardiac Hx: Technical Quality: Contrast 1: Definity Total Dose (mL): 3 Contrast 2: Total Dose (mL): MEASUREMENTS (Male / Female) Normal Values 2D ECHO LV Diastolic Diameter PLAX 4.3 cm 4.2 - 5.9 / 3.9 - 5.3 cm LV Systolic Diameter PLAX 3.8 cm IVS Diastolic Thickness 1.3 cm 0.6 - 1.0 / 0.6 - 0.9 cm LVPW Diastolic Thickness 1.2 cm 0.6 - 1.0 / 0.6 - 0.9 cm LV Relative Wall Thickness 0.6 Aortic Root Diameter 3.3 cm LA Systolic Diameter LX 4.6 cm 3.0 - 4.0 / 2.7 - 3.8 cm DOPPLER AV Peak Velocity 392.9 cm/s AV Peak Gradient 61.7 mmHg AV Mean Velocity 294.7 cm/s AV Mean Gradient 38.5 mmHg AV Velocity Time Integral 72.1 cm LVOT Peak Velocity 126.3 cm/s LVOT Peak Gradient 6.4 mmHg LVOT Velocity Time Integral 23.4 cm MV Area PHT 2.9 cm??? Mitral E Point Velocity 65.0 cm/s Mitral A Point Velocity 112.5 cm/s Mitral E to A Ratio 0.6 MV Deceleration Time 266.1 ms PV Peak Velocity 69.4 cm/s PV Peak Gradient 1.9 mmHg FINDINGS Left Ventricle Left ventricular ejection fraction is estimated at 50%. Moderate concentric left ventricular hypertrophy. Right Ventricle Normal right ventricular size. Right Atrium Normal right atrial size. Left Atrium Mildly increased left atrial diameter. Mitral Valve Trace to mild mitral regurgitation. Aortic Valve Severe aortic stenosis with a peak gradient of 69.38 mmHg and a mean gradient of 40.40mmHg. Tricuspid Valve Trace to mild tricuspid regurgitation. Pulmonic Valve No pulmonic regurgitation. Pericardium No pericardial effusion. Aorta Normal size aortic root. CONCLUSIONS Left ventricle is of a normal size with moderate concentric LVH preserved systolic function. There is severe aortic stenosis with a mean gradient of 40 mmHg. No pericardial effusion. No significant aortic regurgitation. Right- sided pressures are not well quantified but I don't believe there is significant pulmonary hypertension Previewed by: Dr. Sarah Cadena MD (Electronically Signed) Final Date: 08 June 2023 08:22
--- NOTE | 2023-06-08 10:25 | P.PN ---
Subjective Progress Note Date: 06/08/23 Hospital Course: 72-year-old male with a history of CAD status post stent, hypertension, diabet es, GERD presenting with exertional dyspnea. In the ED, temperature was 98.6, pulse 90, respiratory rate 20, blood pressure 169/97, saturating at 94% on room air. WBC 10.6, hemoglobin 15.1, platelet 212, D-dimer 0.4, creatinine 0.63, troponin negative, proBNP 291. EKG independently interpreted, shows normal sinus rhythm. Chest x-ray independently interpreted, shows some interstitial opacities. Patient admitted for cardiac workup for progressive exertional dyspnea. Cardiology consulted. Patient given a dose of IV Lasix. Symptoms improved. Echocardiogram shows severe aortic stenosis, LVEF 50%. Pending CATHERINE and cardiac cath. Subjective: Patient seen and examined at bedside. No acute events overnight. Claims that respiratory function has improved. Pertinent positives and negatives as discussed above, a complete review of systems was performed and all other systems are negative. Vitals Signs Reviewed. General: Nontoxic, no distress, appears at stated age Derm: Warm, dry Head: Atraumatic, normocephalic, symmetric Eyes: EOMI, no lid lag, anicteric sclera Mouth: No lip lesion, mucus membranes moist Cardiovascular: S1S2 reg, systolic murmur Lungs: CTA bilateral, no rhonchi, no rales, no accessory muscle use Abdominal: Soft, nontender to palpation, no guarding, no appreciable organomegaly Ext: No gross muscle atrophy, no edema, no contractures Neuro: CN II-XI grossly intact, no focal neuro deficits Psych: Alert, oriented, appropriate affect Data Reviewed Today: Pertinent 1 42-1 89Labs:No new changes Blood sugars range between Imaging: Echocardiogram shows LVEF 50%, and severe aortic stenosis Assessment and Plan: Symptomatic severe aortic stenosis History of CAD -Aspirin 81 mg, patient has an allergy listed for statin - Continue telemetry - Cardiology following, pending cardiac cath and CATHERINE Hypertension - Continue amlodipine 5, benazepril 10 GERD History of intermittent GI bleed - Continue omeprazole 20 Plan for outpatient colonoscopy Type 2 diabetes - Sliding scale insulin, monitor for hypoglycemia -Hold home medications Morbidly obese - Structured outpatient weight loss program DVT ppx: subq heparin Code status: Anticipated discharge place: pending clinical course Anticipated discharge time: pending clinical course Patient switched to inpatient status due to progressive symptomatic severe aortic stenosis, requiring further cardiac workup and possible intervention. Objective - Vital Signs Vital signs: Vital Signs Temp 98.6 F 06/08/23 06:26 Pulse 56 L 06/08/23 08:00 Resp 16 06/08/23 08:00 BP 147/79 06/08/23 06:26 Pulse Ox 94 L 06/08/23 06:26 FiO2 Intake & Output 06/07/23 06/08/23 06/08/23 18:59 06:59 18:59 Other: Voiding Method Toilet Toilet Toilet # Voids 3 1 - Labs CBC & Chem 7: 06/06/23 11:25 06/07/23 06:44 Labs: Abnormal Lab Results - Last 24 Hours (Table) 06/07/23 06/07/23 06/07/23 Range/Units 06:44 06:44 12:42 Anion Gap 12.60 H (4.00-12.00) mmol/L Glucose 179 H (70-110) mg/dL POC Glucose (mg/dL) 189 H (70-110) mg/dL Hemoglobin A1c 7.6 H (<=6.0) % Triglycerides 154.00 H (0.00-149.00) mg/dL LDL Cholesterol, Calc 142.1 H (0.0-131.0) mg/dL HDL Cholesterol 27.10 L (40.00-60.00) mg/dL 06/07/23 06/07/23 06/08/23 Range/Units 18:02 20:10 05:19 Anion Gap (4.00-12.00) mmol/L Glucose (70-110) mg/dL POC Glucose (mg/dL) 142 H 160 H 174 H (70-110) mg/dL Hemoglobin A1c (<=6.0) % Triglycerides (0.00-149.00) mg/dL LDL Cholesterol, Calc (0.0-131.0) mg/dL HDL Cholesterol (40.00-60.00) mg/dL
[2023-06-08] MEDS ORDERED: HEPARIN SODIUM 1,000 UN/ML (10ML VL) ONE (12:13)
[2023-06-08] MEDS ORDERED: fentaNYL (PF) 50 MCG/ML 2 ML AMP ONE (12:14)
[2023-06-08] MEDS ORDERED: VERAPAMIL 2.5 MG/ML 2 ML AMP ONE (12:14)
[2023-06-08] MEDS ORDERED: LIDOCAINE 1% INJ 10MG/ML (20 ML MDV) ONE (12:14)
[2023-06-08] MEDS: fentaNYL (PF) 50 MCG/ML 2 ML AMP IVP ONE (12:25)
[2023-06-08] MEDS: MIDAZOLAM 2 MG/2 ML VIAL IVP ONE ×2 (12:25→13:22)
[2023-06-08] MEDS: BENZOCAINE SPRAY 1 CAN TOPICAL ONE (12:25)
[2023-06-08] MEDS: IV FLUID CONTINUATION 700 ML IV ONE (12:26)
--- NOTE | 2023-06-08 12:45 | P.PCN ---
Date of Procedure: 06/08/23 Description of Procedure: Indication: Aortic stenosis Procedure Description: After explaining the procedure to the patient, it's risk and complications, blood pressure, heart rate and O2 saturation were monitored. The throat was sprayed with Cetacaine. Patient received 2 mg intravenous Versed, 50 mcg intra venous fentanyl. The probe was introduced into the esophagus without difficulty. Images were obtained. Following that, the probe was removed. There was no immediate complication. Findings: Left atrial size is mildly dilated, left atrial appendage is normal. The left ventricle size and systolic function are normal. The aortic valve is a tricuspid valve with severe fibrocalcific changes and reduced opening. By planimetry the aortic valve area is 0.6 cm. Mitral and is calcification was noted. The tricuspid valve appears to be normal. Descending thoracic aorta appears to be normal. Contrast bubble study revealed no shunting across the interatrial septum with Valsalva maneuver. Doppler: Pulse wave and color Doppler were obtained, and revealed mild to moderate mitral and aortic regurgitation. The peak gradient across the aortic valve was 53 mmHg with a mean of 36 mmHg. There was no shunting by color Doppler study. Conclusion: 1. Mildly dilated left atrium 2. Normal ventricle size and systolic function 3. Severe aortic stenosis with mild to moderate aortic regurgitation 4. Mild to moderate mitral regurgitation 5. No shunting across the interatrial septum
[2023-06-08] MEDS: LIDOCAINE 1% INJ 10MG/ML (20 ML MDV) SQ ONE (12:52)
[2023-06-08] MEDS: VERAPAMIL SYRINGE (5 MG/10 ML) INTRAARTER ONE (12:53)
[2023-06-08] MEDS: HEPARIN SODIUM 1,000 UN/ML (10ML VL) IV ONE (13:19)
[2023-06-08 13:23] LABS: O2 Sat Blood Gas 75.8 %
[2023-06-08 13:25] LABS: O2 Sat Blood Gas 94.9 %
[2023-06-08 13:33] LABS: O2 Sat Blood Gas 73.4 %
[2023-06-08] MEDS: IOPAMIDOL-370 100ML BTL INJ ONE ×2 (13:44→13:50)
[2023-06-08] MEDS ORDERED: RX INFO: IV CONTRAST WAS GIVEN 1 EACH MISC MISCELLANE PRN (14:05)
--- NOTE | 2023-06-08 14:14 | P.CARDCATH ---
Date of Procedure: 06/08/23 Description of Procedure: Cardiac Catheterization: The patient is a 72-year-old male with a known history of CAD, status post stenting history of hypertension, diabetes and history of aortic valve disease who presented with symptoms of progressive dyspnea and was found to have significant progression of his aortic stenosis. Recommendations were made regarding cardiac catheterization, the risks and the complications were discussed with the patient who is in full understanding and agreement. Procedure Description: Patient was brought to labourers in fasting semi-sedated state after receiving Fentanyl and Benadryl achieiving moderate conscious sedated state. Using Xylocaine Anesthesia and modified Seldinger technique, a 6-Portuguese sheath was introduced in the right radial artery . The venous catheter in the right basilic vein was exchanged to a 6 Portuguese sheath and right heart catheterization was performed using Stryker-Ileana catheter, multiple samples and pressures were obtained. Cardiac output by thermodilution was calculated. Because of significant spasm in the right radial artery and tortuosity using a micro puncture catheter a 6 Portuguese sheath was introduced in the right femoral artery. Subsequently, selective coronary angiography was performed using a 6-Portuguese 4 bend Tamir catheter. Multiple views of the coronary artery including hemiaxial views were obtained. Attempt to cannulate the right coronary artery from the right radial using a 5 Portuguese 3.5 and 5 bend right Tamir as well is a 5 Portuguese Amado were unsuccessful. The right Tamir catheter was used to cross the aortic valve and LVEDP was calculated. Following that, catheter and sheath were removed. Hemostasis was obtained with deployment of vascular band . There was no immediate complication. Patient was returned to room in stable condition. Of note, the patient received a total of 5000 units of intravenous heparin as well as intra-arterial verapamil. Findings: Fluoroscopy: Calcification of the coronary arteries was noted Left main: This is a large size vessel, bifurcating into LAD and left circumflex, left main has no significant obstructive disease LAD: This is a large size vessel, reaching to the apex, giving rise to 2 diagonal branch. The LAD has intimal disease in the proximal and mid segment of 20 to 30% with no high-grade stenosis Left circumflex: This is a nondominant vessel large in caliber giving rise to 2 obtuse marginal branch. The stented segment in the first obtuse marginal branch shows no evidence of restenosis. There is mild plaque distal to the first obtuse marginal branch of 20 to 30%. RCA: This is a large dominant vessel, bifurcating to PDA and PLV. The right coronary artery in the mid segment has diffuse intimal disease of the 30 to 40%. The right PLV is chronically occluded at the ostium with collaterals from the left system. Left Ventriculogram: Not performed Hemodynamics: Cardiac output by Tyler 7.6 L/min and by thermodilution 6 L/min. Right atrial saturation 76%, pulmonary artery 73%, arterial 95%. Pulmonary artery systolic pressure 35, diastolic 12 with a mean of 20 mmHg. Pulmonary capillary wedge pressure A-wave of 6 V wave of 6 with a mean of 5 mmHg. Right ventricle systolic pressure of 34 with a diastolic of 6 mmHg. Right atrium A wave of 8 V wave of 4 with a mean of 4 mmHg. Left ventricle end-diastolic pressure of 16 to 18 mmHg. Peak gradient across the aortic valve of 51 mmHg and a mean of 53 mmHg, aortic valve area of 1.8 cm. Conclusion: 1. Calcified coronary arteries 2. Patent stent in the left circumflex 3. Chronically occluded right PLV 4. Mild disease in the LAD 5. Severe aortic stenosis Recommendations: I have recommended to proceed with evaluation for aortic valve replacement with TAVR. In the meantime he will continue aggressive coronary risks modifications. The findings and the recommendations were discussed with the patient and the family and they were in full understanding and agreement. Duration of sedation is 63 minutes.
[2023-06-08 14:25] LABS: Glucose,Whole Blood 134 mg/dL (70-110)
[2023-06-08] MEDS: SODIUM CHLORIDE 0.9% 1,000 ML IV SCH (14:36)
[2023-06-08 15:45] LABS: African American GFR (CKD) >90 (>60 ml/min/1.73 sqM); Anion Gap 6 mmol/L; Blood Urea Nitrogen 18 mg/dL (9-20); Calcium 8.5 mg/dL (8.4-10.2); Carbon Dioxide 24 mmol/L (22-30); Chloride 106 mmol/L (98-107); Glucose 141 mg/dL (74-99); Non-African American GFR(CKD) >90 (>60 ml/min/1.73 sqM); Sodium 136 mmol/L (137-145)
[2023-06-08] MEDS: ACETAMINOPHEN TAB 325 MG TAB PO PRN (15:49)
[2023-06-08 18:04] LABS: Glucose,Whole Blood 214 mg/dL (70-110)
[2023-06-08 19:09] LABS: Anisocytosis Slight; Basophils # (A) 0.1 k/uL (0-0.2); Basophils % (A) 1 %; Eosinophils # (A) 0.6 k/uL (0-0.7); Eosinophils % (A) 6 %; HCT 45.3 % (39.0-53.0); Lymphocytes # (A) 1.2 k/uL (1.0-4.8); Lymphocytes % (A) 12 %; MCH 30.3 pg (25.0-35.0); MCHC 33.1 g/dL (31.0-37.0); MCV 91.5 fL (80.0-100.0); Monocytes # (A) 0.6 k/uL (0-1.0); Monocytes % (A) 6 %; Neutrophils # (A) 7.3 k/uL (1.3-7.7); Neutrophils % (A) 74 %; Platelet Count 219 k/uL (150-450); RBC 4.95 m/uL (4.30-5.90); RDW 16.2 % (11.5-15.5)
[2023-06-08 21:05] LABS: Glucose,Whole Blood 217 mg/dL (70-110)
--- NOTE | 2023-06-09 | PN ---
PROGRESS NOTE SUBJECTIVE: Mr. Alvarez is a gentleman with aortic stenosis and CAD. Echo revealed severe aortic stenosis. I am recommending a transesophageal echo and cardiac cath and discussed with Dr. Benson who agrees. Procedure will be performed today. OBJECTIVE: VITAL SIGNS: Stable. NECK: No JVD. HEART: S1, S2 with ejection systolic murmur, late-peaking. LUNGS: Clear. ABDOMEN: Unchanged. EXTREMITIES: Lower extremity exam unchanged. PLAN: To proceed with cardiac cath and based on findings intervention as advised by Dr. Benson. MMODL / IJN: [id number] /
[2023-06-09 06:26] LABS: Glucose,Whole Blood 165 mg/dL (70-110)
[2023-06-09 07:17] VITALS: BP 127/72; RESP 19; TEMP 97.9
[2023-06-09] MEDS: ASPIRIN 81 MG PO SCH (10:02)
--- NOTE | 2023-06-09 10:58 | P.DS ---
Providers Date of admission: 06/08/23 09:00 Expected date of discharge: 06/09/23 Attending physician: Gale Pérez DO Consults: 06/06/23 14:59 Consult Physician Urgent Consulting Provider: Oscar Osborn Consult Reason/Comments: exertional dyspnea Do you want consulting provider notified?: Yes Primary care physician: David Neville MD Hospital Course: Discharge Diagnosis: Symptomatic severe aortic stenosis History of CAD s/p stent Hypertension GERD History of intermittent GI bleed Type 2 diabetes Morbidly obese Hospital Course: 72-year-old male with a history of CAD status post stent, hypertension, diabetes, GERD presenting with exertional dyspnea. In the ED, temperature was 98.6, pulse 90, respiratory rate 20, blood pressure 169/97, saturating at 94% on room air. WBC 10.6, hemoglobin 15.1, platelet 212, D-dimer 0.4, creatinine 0.63, troponin negative, proBNP 291. EKG independently interpreted, shows normal sinus rhythm. Chest x-ray independently interpreted, shows some interstitial opacities. Patient admitted for cardiac workup for progressive exertional dyspnea. Cardiology consulted. Patient given a dose of IV Lasix. Symptoms improved. Echocardiogram shows severe aortic stenosis, LVEF 50%. CATHERINE showed mildly dilated left atrium, severe aortic stenosis with mild to moderate aortic regurgitation, mild to moderate mitral regurgitation. Cardiac cath showed calcified coronary arteries, patent stent in the left circumflex, chronically occluded right PLV, mild disease in the LAD and severe aortic stenosis. Plan for TAVR in the near future. Patient being discharged home with close follow-up with cardiology. Patient has plans for follow-up with GI for outpatient colonoscopy for intermittent rectal bleeding. Patient seen and examined at bedside. Vital signs reviewed and stable. General: Nontoxic, no distress, appears at stated age, morbidly obese Derm: Warm, dry Head: Atraumatic, normocephalic, symmetric Eyes: EOMI, no lid lag, anicteric sclera Mouth: No lip lesion, mucus membranes moist Cardiovascular: S1S2 reg, systolic murmur Lungs: CTA bilateral, no rhonchi, no rales, no accessory muscle use Abdominal: Soft, nontender to palpation, no guarding, no appreciable organomegaly Ext: No gross muscle atrophy, no edema, no contractures Neuro: CN II-XI grossly intact, no focal neuro deficits Psych: Alert, oriented, appropriate affect A total of 33 minutes of time were spent preparing this complex discharge summary. Patient was discharged on 06/09/2023 at 949. Patient Condition at Discharge: Stable Plan - Discharge Summary Discharge Rx Participant: No New Discharge Prescriptions: New Aspirin 81 mg PO DAILY #60 tab Continue Omeprazole [PriLOSEC] 20 mg PO AC-LUNCH Benazepril [Lotensin] 10 mg PO DAILY amLODIPine [Norvasc] 5 mg PO DAILY Pioglitazone [Actos] 15 mg PO HS Glimepiride [Amaryl] 2 mg PO BID Discharge Medication List Omeprazole [PriLOSEC] 20 mg PO AC-LUNCH 07/11/13 [History] Benazepril [Lotensin] 10 mg PO DAILY 09/29/21 [History] Glimepiride [Amaryl] 2 mg PO BID 09/29/21 [History] Pioglitazone [Actos] 15 mg PO HS 09/29/21 [History] amLODIPine [Norvasc] 5 mg PO DAILY 09/29/21 [History] Aspirin 81 mg PO DAILY #60 tab 06/09/23 [Rx] Follow up Appointment(s)/Referral(s): Anastacio Benson MD [STAFF PHYSICIAN] - 06/20/23 10:30 am America Chandler MD [REFERRING] - 1 Week None,Stated [REFERRING] - 1-2 days Patient Instructions/Handouts: *Surgery [facility] - After Heart Catheterization - Senior Program Analyst Instructions, Aortic Stenosis (DC), Heart Catheterization (DC), After Radial Heart Catheterization (GEN), Angio-Seal (DC) Activity/Diet/Wound Care/Special Instructions: Please see cardiology and PCP. Cardiothoracic surgery will call you and schedule outpatient follow up for TAVR procedure. Discharge Disposition: HOME SELF-CARE
[2023-06-09 11:33] VITALS: PULSE 77
--- NOTE | 2023-06-09 12:51 | PN ---
PROGRESS NOTE SUBJECTIVE: Mr. Alvarez is a patient with CAD and aortic stenosis. He underwent a cardiac catheterization and transesophageal echo surgery. These studies suggested severe aortic stenosis, no significant progression of CAD, has a PLV branch occlusion of RCA, stented obtuse marginal is patent. He is doing well otherwise. I have advised that he can be discharged with an appointment in the [facility] for aortic valve replacement by percutaneous approach. OBJECTIVE: VITALS: Stable. HEART: S1, S2 with ejection systolic murmur is audible. His cath sites are clean and dry. He can be discharged and follow up with Dr. Benson in 1 week. Advised not to do any strenuous activity. MMODL / IJN: [id number] /
== END 2023-06-09 11:56 | disposition home or self-care (01) | DRG 287 ==
LOC: EC 10:50 → 6NMEDSUR 15:01 → OBSVTOIN 06-08 09:00
PROVIDERS: ADMIT Internal Medicine; ATTEND Internal Medicine
PROC: B246ZZ4 Ultrasonography of Right and Left Heart, Transesophageal (ICD-10-PCS; 2023-06-07)
PROC: 4A023N7 Measurement of Cardiac Sampling and Pressure, Left Heart, Percutaneous Approach (ICD-10-PCS; principal; 2023-06-08 09:00)
PROC: B2111ZZ Fluoroscopy of Multiple Coronary Arteries using Low Osmolar Contrast (ICD-10-PCS; 2023-06-08 09:00)
DX: I08.3 Combined rheumatic disorders of mitral, aortic and tricuspid valves (principal); K62.5 Hemorrhage of anus and rectum; K21.9 Gastro-esophageal reflux disease without esophagitis; E66.01 Morbid (severe) obesity due to excess calories; I25.10 Atherosclerotic heart disease of native coronary artery without angina pectoris; Z95.5 Presence of coronary angioplasty implant and graft; E78.5 Hyperlipidemia, unspecified; I11.0 Hypertensive heart disease with heart failure; I50.9 Heart failure, unspecified; F41.9 Anxiety disorder, unspecified; I08.1 Rheumatic disorders of both mitral and tricuspid valves; H91.91 Unspecified hearing loss, right ear; J44.9 Chronic obstructive pulmonary disease, unspecified; E11.9 Type 2 diabetes mellitus without complications; M19.90 Unspecified osteoarthritis, unspecified site; Z79.02 Long term (current) use of antithrombotics/antiplatelets; Z79.82 Long term (current) use of aspirin; Z79.84 Long term (current) use of oral hypoglycemic drugs; Z79.899 Other long term (current) drug therapy; Z85.46 Personal history of malignant neoplasm of prostate
CPT/HCPCS: 36415; 71046; 80048; 80053; 80061; 82810; 83036; 83735; 83880; 84484; 85018; 85025; 85379; 85610; 85730; 93005; 93306; 93312; 93320; 93325; 93460; 99285

== ENCOUNTER → 2023-06-15 | Outpatient (CLI) | payer MEDICARE, BC ==
[2023-06-15 10:30] LABS: INR 1.2 (<1.2); Partial Thromboplastin Time 24.9 sec (22.0-30.0); Prothrombin Time 12.6 sec (10.0-12.5)
[2023-06-15 10:31] LABS: Anisocytosis Slight; Basophils # (A) 0.2 k/uL (0-0.2); Basophils % (A) 2 %; Eosinophils # (A) 0.5 k/uL (0-0.7); Eosinophils % (A) 6 %; HCT 45.5 % (39.0-53.0); HGB 15.1 gm/dL (13.0-17.5); Lymphocytes # (A) 1.2 k/uL (1.0-4.8); Lymphocytes % (A) 13 %; MCH 30.5 pg (25.0-35.0); MCHC 33.1 g/dL (31.0-37.0); MCV 92.1 fL (80.0-100.0); Mean Platelet Volume 7.7; Monocytes # (A) 0.4 k/uL (0-1.0); Monocytes % (A) 5 %; Neutrophils # (A) 6.8 k/uL (1.3-7.7); Neutrophils % (A) 73 %; Platelet Count 237 k/uL (150-450); RBC 4.95 m/uL (4.30-5.90); RDW 16.3 % (11.5-15.5); WBC 9.3 k/uL (3.8-10.6)
[2023-06-15 11:12] LABS: ALT 27 U/L (4-49); AST 30 U/L (17-59); African American GFR (CKD) >90 (>60 ml/min/1.73 sqM); Albumin 4.1 g/dL (3.5-5.0); Albumin/Globulin Ratio 1.4; Alkaline Phosphatase 114 U/L (38-126); Anion Gap 9 mmol/L; Blood Urea Nitrogen 23 mg/dL (9-20); Carbon Dioxide 26 mmol/L (22-30); Chloride 105 mmol/L (98-107); Glucose 237 mg/dL (74-99); Magnesium 2.1 mg/dL (1.6-2.3); Non-African American GFR(CKD) >90 (>60 ml/min/1.73 sqM); Potassium 4.5 mmol/L (3.5-5.1); Sodium 140 mmol/L (137-145); Total Bilirubin 0.8 mg/dL (0.2-1.3); Total Protein 7.1 g/dL (6.3-8.2)
[2023-06-15 11:16] LABS: NT-Pro-B-Type Natriuretic Pept 91 pg/mL
[2023-06-15 11:33] LABS: Appearance,Urine Cloudy (Clear); Bilirubin,Urine Negative (Negative); Blood,Urine Negative (Negative); Color,Urine Light Yellow; Glucose,Urine (UA) 4+ (Negative); Ketones,Urine Negative (Negative); Leukocyte Esterase,Urine Negative (Negative); Mucus,Urine Rare /hpf; Nitrite,Urine Negative (Negative); Protein,Urine Trace (Negative); RBC,Urine 1 /hpf (0-5); Specific Gravity,Urine 1.031 (1.001-1.035); Squamous Epithelial Cell,Urine <1 /hpf (0-4); Uric Acid Crystals,Urine Rare /hpf; Urobilinogen,Urine <2.0 mg/dL (<2.0); WBC,Urine 1 /hpf (0-5)
[2023-06-15 16:17] LABS: Chol/HDL Ratio 6.45 Ratio; LDL Cholesterol,Calculated 113.7 mg/dL (0.0-131.0)
[2023-06-15 16:34] LABS: Hepatitis A Antibody IgM Nonreactive (Nonreactive); Hepatitis B Core IgM Nonreactive (Nonreactive); Hepatitis B Surface Antigen Nonreactive (Nonreactive); Hepatitis C IgG Antibody Nonreactive (Nonreactive)
--- NOTE | 2023-06-15 17:12 | US ---
EXAMINATION TYPE: US carotid duplex BILAT DATE OF EXAM: 06/15/2023 COMPARISON: NONE CLINICAL INDICATION: Male, 72 years old with history of R55 SYNCOPE AND COLLAPSE; TAVR TECHNIQUE: Carotid duplex ultrasound examination. Indirect Doppler criteria was utilized. FINDINGS: EXAM MEASUREMENTS: RIGHT: Peak Systolic Velocity (PSV) cm/sec ----- Right CCA: 69.0 ----- Right ICA: 74.2 ----- Right ECA: 86.9 ICA/CCA ratio: 1.1 RIGHT: End Diastole cm/sec ----- Right CCA: 23.3 ----- Right ICA: 24.7 ----- Right ECA: 10.9 LEFT: Peak Systolic Velocity (PSV) cm/sec ----- Left CCA: 42.6 ----- Left ICA: 76.3 ----- Left ECA: 36.6 ICA/CCA ratio: 1.8 LEFT: End Diastole cm/sec ----- Left CCA: 14.2 ----- Left ICA: 23.0 ----- Left ECA: 10.8 VERTEBRALS (direction of flow): Right Vertebral: Antegrade Left Vertebral: Antegrade Rhythm: Normal INSOLE RASPER NOTES: Mild atherosclerotic, examination of lt ICA limited due to deep diving tortuous c ourse of vessel IMPRESSION: Minimal plaque formation in the carotid bifurcations but based on peak systolic velocities and ratios as well as color and grayscale imaging, no hemodynamically significant stenosis bilaterally. Criteria for Assigning % of Stenosis / Diameter reduction (Estimation based on the indirect measurements of the internal carotid artery velocities (ICA PSV). 1. Normal (no stenosis)=ICA PSV < 125 cm/s: ratio < 2.0: ICA EDV<40 cm/s. 2. Less than 50% stenosis=ICA PSV < 125 cm/s: ratio < 2.0: ICA EDV<40 cm/s. 3. 50 to 69% stenosis=ICA PSV of 125 to 230 cm/s: ration 2.0 ? 4.0: ICA EDV 40-100 cm/s. 4. Greater than 70% stenosis to near occlusion= ICA PSV > 230 cm/s: ratio > 4.0: ICA EDV > 100 cm/s. 5. Near occlusion= ICA PSV velocities may be low or undetectable: variable ratio and ICA EDV. 6. Total occlusion=unable to detect flow.
--- NOTE | 2023-06-16 16:06 | CT ---
EXAMINATION TYPE: CT TAVR Planning DATE OF EXAM: 06/15/2023 COMPARISON: None HISTORY: Non-rheumatic aortic valve stenosis TAVR planning CT DLP: 2990.50 mGycm Automated exposure control for dose reduction was used. Contrast: None Technique: Axial images 5 mm thick sections. FINDINGS: There is a 0.9 cm nodule along the inferior lateral right costophrenic angle. Series 10 image 67. Great vessels appear unremarkable. Ascending thoracic aorta at the main pulmonary artery is 3.7 cm. The main pulmonary artery at the bifurcation measures 3.2 cm. Coronary artery calcifications noted. Significant calcification within the aorta is not identified. T here is a moderate-sized hiatal hernia present. IMPRESSION: 1. CT FOR TAVR PLANNING
== END | disposition home or self-care (01) ==
LOC: LABWHC1 09:38
PROVIDERS: ATTEND Thoracic Surgery (Cardiothoracic Vascular Surgery)
DX: Z01.818 Encounter for other preprocedural examination (principal); I35.0 Nonrheumatic aortic (valve) stenosis; E87.8 Other disorders of electrolyte and fluid balance, not elsewhere classified; E11.9 Type 2 diabetes mellitus without complications; N28.9 Disorder of kidney and ureter, unspecified; E78.5 Hyperlipidemia, unspecified; E07.9 Disorder of thyroid, unspecified; R35.0 Frequency of micturition; R55 Syncope and collapse; Z79.899 Other long term (current) drug therapy; Z79.01 Long term (current) use of anticoagulants
CPT/HCPCS: 94150; 83880; 80061; 80053; 80074; 84443; 83735; 85025; 85610; 85730; 81001; 87086; 83036; 93880; 71275; 74174; 36415; Q9967

== ENCOUNTER 2023-08-01 07:05 | Observation (INO) | payer MEDICARE, BC ==
[2023-08-01 07:53] LABS: Anisocytosis Slight; Basophils # (A) 0.1 k/uL (0-0.2); Basophils % (A) 0 %; Eosinophils # (A) 0.3 k/uL (0-0.7); Eosinophils % (A) 1 %; HCT 44.1 % (39.0-53.0); HGB 14.5 gm/dL (13.0-17.5); Lymphocytes # (A) 0.8 k/uL (1.0-4.8); Lymphocytes % (A) 3 %; MCH 30.2 pg (25.0-35.0); MCHC 32.9 g/dL (31.0-37.0); MCV 91.5 fL (80.0-100.0); Mean Platelet Volume 8.2; Monocytes # (A) 1.2 k/uL (0-1.0); Monocytes % (A) 5 %; Neutrophils # (A) 21.5 k/uL (1.3-7.7); Neutrophils % (A) 89 %; Platelet Count 231 k/uL (150-450); RBC 4.82 m/uL (4.30-5.90); RDW 16.7 % (11.5-15.5); WBC 24.1 k/uL (3.8-10.6)
[2023-08-01 08:03] LABS: INR 1.4 (<1.2); Partial Thromboplastin Time 26.2 sec (22.0-30.0); Prothrombin Time 14.5 sec (10.0-12.5)
[2023-08-01 08:10] LABS: ALT 29 U/L (4-49); AST 32 U/L (17-59); African American GFR (CKD) >90 (>60 ml/min/1.73 sqM); Albumin 4.1 g/dL (3.5-5.0); Alkaline Phosphatase 95 U/L (38-126); Anion Gap 6 mmol/L; Blood Urea Nitrogen 14 mg/dL (9-20); Calcium 8.6 mg/dL (8.4-10.2); Carbon Dioxide 26 mmol/L (22-30); Chloride 105 mmol/L (98-107); Glucose 164 mg/dL (74-99); Magnesium 1.9 mg/dL (1.6-2.3); Non-African American GFR(CKD) 88 (>60 ml/min/1.73 sqM); Potassium 4.1 mmol/L (3.5-5.1); Sodium 137 mmol/L (137-145); Total Bilirubin 1.9 mg/dL (0.2-1.3); Total Protein 6.8 g/dL (6.3-8.2)
[2023-08-01] MEDS ORDERED: NALOXONE 0.4 MG/ML 1 ML VIAL IV PRN (09:07)
--- NOTE | 2023-08-01 09:07 | ED ---
GI Bleed HPI - General Chief complaint: GI Bleed Stated complaint: Post op complications from colonostapy Source: patient Mode of arrival: ambulatory Limitations: no limitations - History of Present Illness Initial comments: 72-year-old male who presents emergency department reporting GI bleed. Patient had a colonoscopy yesterday with Dr. Rodrigez and was diagnosed with radiation prostatitis. States that since he went home last night his bleeding has been heavier. He called Dr. Rodrigez this morning who told him to come back to the hospital. He does not take any blood thinners. Admits to fatigue. No syncope but admits to near syncope. Denies any hematemesis. No other alleviating, precipitating or modifying factors - Related Data Home Medications Medication Instructions Recorded Confirmed Omeprazole [PriLOSEC] 20 mg PO AC-LUNCH 07/11/13 06/06/23 Benazepril [Lotensin] 10 mg PO DAILY 09/29/21 06/06/23 Glimepiride [Amaryl] 2 mg PO BID 09/29/21 06/06/23 Pioglitazone [Actos] 15 mg PO HS 09/29/21 06/06/23 amLODIPine [Norvasc] 5 mg PO DAILY 09/29/21 06/06/23 Previous Rx's Medication Instructions Recorded Aspirin 81 mg PO DAILY #60 tab 06/09/23 Allergies Allergy/AdvReac Type Severity Reaction Status Date / Time Mgtqugf-KJB-CyQ Reductase AdvReac MUSCLE Verified 08/01/23 07:10 Inhibitor CRAMPS IN [Jyzadli-Aon-Nsa Reductase LEGS Inhibitor] Review of Systems ROS Statement: Those systems with pertinent positive or pertinent negative responses have been documented in the HPI. ROS Other: All systems not noted in ROS Statement are negative. Past Medical History Past Medical History: Cancer, Chest Pain / Angina, Diabetes Mellitus, GERD/Reflux, Hearing Disorder / Deafness, Hyperlipidemia, Hypertension, Oste oarthritis (OA) Additional Past Medical History / Comment(s): HX. MENIERE'S. HX. HIATAL HERNIA. HX. 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 HX ARTHRITIS- IN EPSTEIN DS,FINGERS & SHOULDERS. NEW DX PROSTATE CANCER ABOUT 2 WEEKS AGO History of Any Multi-Drug Resistant Organisms: None Reported Past Surgical History: No Surgical Hx Reported Additional Past Surgical History / Comment(s): DEVIATED SEPTUM SX. COLONOSCOPY Past Anesthesia/Blood Transfusion Reactions: No Reported Reaction Past Psychological History: Anxiety Smoking Status: Never smoker Past Alcohol Use History: Rare Past Drug Use History: None Reported - Past Family History Mother Family Medical History: No Reported History General Exam Limitations: no limitations Course Vital Signs 08/01/23 08/01/23 07:08 09:04 Temperature 98.3 F Pulse Rate 87 68 Respiratory 20 18 Rate Blood Pressure 128/82 123/72 O2 Sat by Pulse 93 L Oximetry Medical Decision Making - Lab Data Result diagrams: 08/01/23 07:39 08/01/23 07:39 Lab Results 08/01/23 08/01/23 08/01/23 Range/Units 07:39 07:39 07:39 WBC 24.1 H (3.8-10.6) k/uL RBC 4.82 (4.30-5.90) m/uL Hgb 14.5 (13.0-17.5) gm/dL Hct 44.1 (39.0-53.0) % MCV 91.5 (80.0-100.0) fL MCH 30.2 (25.0-35.0) pg MCHC 32.9 (31.0-37.0) g/dL RDW 16.7 H (11.5-15.5) % Plt Count 231 (150-450) k/uL MPV 8.2 Neutrophils % 89 % Lymphocytes % 3 % Monocytes % 5 % Eosinophils % 1 % Basophils % 0 % Neutrophils # 21.5 H (1.3-7.7) k/uL Lymphocytes # 0.8 L (1.0-4.8) k/uL Monocytes # 1.2 H (0-1.0) k/uL Eosinophils # 0.3 (0-0.7) k/uL Basophils # 0.1 (0-0.2) k/uL Anisocytosis Slight PT 14.5 H (10.0-12.5) sec INR 1.4 H (<1.2) APTT 26.2 (22.0-30.0) sec Sodium 137 (137-145) mmol/L Potassium 4.1 (3.5-5.1) mmol/L Chloride 105 (98-107) mmol/L Carbon Dioxide 26 (22-30) mmol/L Anion Gap 6 mmol/L BUN 14 (9-20) mg/dL Creatinine 0.81 (0.66-1.25) mg/dL Est GFR (CKD-EPI)AfAm >90 (>60 ml/min/1.73 sqM) Est GFR (CKD-EPI)NonAf 88 (>60 ml/min/1.73 sqM) Glucose 164 H (74-99) mg/dL Plasma Lactic Acid Russ (0.7-2.0) mmol/L Calcium 8.6 (8.4-10.2) mg/dL Magnesium 1.9 (1.6-2.3) mg/dL Total Bilirubin 1.9 H (0.2-1.3) mg/dL AST 32 (17-59) U/L ALT 29 (4-49) U/L Alkaline Phosphatase 95 (38-126) U/L Troponin I (0.000-0.034) ng/mL Total Protein 6.8 (6.3-8.2) g/dL Albumin 4.1 (3.5-5.0) g/dL Blood Type Blood Type Confirm Blood Type Recheck Bld Type Recheck Status Antibody Screen Spec Expiration Date 08/01/23 08/01/23 08/01/23 Range/Units 07:39 07:39 07:39 WBC (3.8-10.6) k/uL RBC (4.30-5.90) m/uL Hgb (13.0-17.5) gm/dL Hct (39.0-53.0) % MCV (80.0-100.0) fL MCH (25.0-35.0) pg MCHC (31.0-37.0) g/dL RDW (11.5-15.5) % Plt Count (150-450) k/uL MPV Neutrophils % % Lymphocytes % % Monocytes % % Eosinophils % % Basophils % % Neutrophils # (1.3-7.7) k/uL Lymphocytes # (1.0-4.8) k/uL Monocytes # (0-1.0) k/uL Eosinophils # (0-0.7) k/uL Basophils # (0-0.2) k/uL Anisocytosis PT (10.0-12.5) sec INR (<1.2) APTT (22.0-30.0) sec Sodium (137-145) mmol/L Potassium (3.5-5.1) mmol/L Chloride (98-107) mmol/L Carbon Dioxide (22-30) mmol/L Anion Gap mmol/L BUN (9-20) mg/dL Creatinine (0.66-1.25) mg/dL Est GFR (CKD-EPI)AfAm (>60 ml/min/1.73 sqM) Est GFR (CKD-EPI)NonAf (>60 ml/min/1.73 sqM) Glucose (74-99) mg/dL Plasma Lactic Acid Russ 1.7 (0.7-2.0) mmol/L Calcium (8.4-10.2) mg/dL Magnesium (1.6-2.3) mg/dL Total Bilirubin (0.2-1.3) mg/dL AST (17-59) U/L ALT (4-49) U/L Alkaline Phosphatase (38-126) U/L Troponin I 0.013 (0.000-0.034) ng/mL Total Protein (6.3-8.2) g/dL Albumin (3.5-5.0) g/dL Blood Type O Negative Blood Type Confirm Blood Type Recheck No Previous Record Bld Type Recheck Status CABO Indicated Antibody Screen NEGATIVE Spec Expiration Date 08/04/2023 - 233808/01/23 Range/Units 07:40 WBC (3.8-10.6) k/uL RBC (4.30-5.90) m/uL Hgb (13.0-17.5) gm/dL Hct (39.0-53.0) % MCV (80.0-100.0) fL MCH (25.0-35.0) pg MCHC (31.0-37.0) g/dL RDW (11.5-15.5) % Plt Count (150-450) k/uL MPV Neutrophils % % Lymphocytes % % Monocytes % % Eosinophils % % Basophils % % Neutrophils # (1.3-7.7) k/uL Lymphocytes # (1.0-4.8) k/uL Monocytes # (0-1.0) k/uL Eosinophils # (0-0.7) k/uL Basophils # (0-0.2) k/uL Anisocytosis PT (10.0-12.5) sec INR (<1.2) APTT (22.0-30.0) sec Sodium (137-145) mmol/L Potassium (3.5-5.1) mmol/L Chloride (98-107) mmol/L Carbon Dioxide (22-30) mmol/L Anion Gap mmol/L BUN (9-20) mg/dL Creatinine (0.66-1.25) mg/dL Est GFR (CKD-EPI)AfAm (>60 ml/min/1.73 sqM) Est GFR (CKD-EPI)NonAf (>60 ml/min/1.73 sqM) Glucose (74-99) mg/dL Plasma Lactic Acid Russ (0.7-2.0) mmol/L Calcium (8.4-10.2) mg/dL Magnesium (1.6-2.3) mg/dL Total Bilirubin (0.2-1.3) mg/dL AST (17-59) U/L ALT (4-49) U/L Alkaline Phosphatase (38-126) U/L Troponin I (0.000-0.034) ng/mL Total Protein (6.3-8.2) g/dL Albumin (3.5-5.0) g/dL Blood Type Blood Type Confirm O Negative Blood Type Recheck Bld Type Recheck Status Antibody Screen Spec Expiration Date Disposition Clinical Impression: Hematochezia Disposition: ADMITTED IP TO THIS [facility] Condition: Serious Is patient prescribed a controlled substance at d/c from ED?: No Referrals: David Neville MD [Primary Care Provider] - 1-2 days Time of Disposition: 09:07 Decision to Admit Reason: Admit from EC Decision Date: 08/01/23 Decision Time: 09:07
[2023-08-01] MEDS: SODIUM CHLORIDE 0.9% 1,000 ML IV SCH (10:35)
--- NOTE | 2023-08-01 10:47 | P.HPIM ---
History of Present Illness H&P Date: 08/01/23 History of Presenting Illness: Patient is a very pleasant 72-year-old male with a past medical history of prostate cancer status post radiation therapy, valvular heart disease, hypertension, GERD, and type II mwr-khcbnen-diafatvcu diabetes mellitus. He presented to the emergency department secondary to rectal bleeding with reports of bright red blood per rectum along with multiple clots status post colonoscopy with polypectomy on 07/31/2023. He reports he underwent colonoscopy secondary to intermittent episodes of rectal bleeding over the past 5 months resulting in diagnosis of proctitis with cauterization of site. Patient reports in addition to rectal bleeding he has also been experiencing intermittent cramping to suprapubic/left lower quadrant of his abdomen. He denies having any fevers, chills, diaphoresis, headache, lightheadedness, dizziness, chest pain, palpitations, shortness of breath, nausea, vomiting, or any other complaints at this time. On arrival to our facility, patient underwent evaluation in the emergency department. Vital signs upon arrival show blood pressure 128/82, heart rate 87, respiratory rate 20, temp 98.3 F, and SpO2 of 93% on room air. KUB negative for acute abdominal process. Labs completed and reviewed. CBC showing leukocytosis with WBC count of 24.1 stable hemoglobin of 14.5 and platelet count of 231. Coagulation profile showing elevated PT of 14.5 and INR of 1.4. BMP showing hyperglycemia with glucose of 164 otherwise normal findings. Magnesium 1.9. Lactic acid 1.7. Liver profile showing elevated total bili of 1.9 otherwise normal findings. Troponin was 0.013. Fecal occult was positive. Patient was admitted under our services with consultation to gastroenterology for evaluation. Review of systems: Pertinent positives and negatives as discussed in HPI, a complete review of systems was performed and all other systems are negative. Physical exam: Vital signs reviewed and stable. General: Nontoxic, no distress and appears stated age. Obese. Derm: Skin warm and dry, normal coloration for ethnicity. Head: Atraumatic, normocephalic and symmetric. Eyes: EOMs intact, no lid lag, and anicteric sclera Mouth: no lip lesions, mucus membranes moist Cardiovascular: regular rate and rhythm with normal S1S2, systolic murmur, positive posterior tibial pulses bilaterally, and cap refill < 2 seconds. Lungs: Respirations even, regular, and unlabored on room air. Lungs CTA bilaterally, no rhonchi, no rales, no wheezing, and no accessory muscle usage. Abdominal: soft, mild discomfort reported to left lower quadrant/suprapubic region upon palpation, no guarding, no appreciable organomegaly Ext: ROM intact. No gross muscle atrophy, 1+ bilateral lower extremity edema, no contractures Neuro: Speech clear, face symmetrical and CN II-XII grossly intact with no noted focal neuro deficits Psych: Alert and oriented to person, place, time, and situation. Appropriate and pleasant affect. Assessment and Plan of Care: GI bleed status post colonoscopy and polypectomy History of prostate cancer status postradiation therapy and recent diagnosis of proctitis Leukocytosis, likely reactive -Commercial Roofing Estimator consulted, appreciate recommendations. -N.p.o. pending evaluation by GI -GI prophylaxis with Protonix 40 mg IVP twice daily -Hold aspirin -Trend hemoglobin with repeat CBC and transfuse as indicated for symptomatic anemia and/for hemoglobin less than 7. -CHARMAINE gilmore and Ej for DVT prophylaxis -Telemetry monitoring. -Continue with gentle IV fluid hydration with 0.9% normal saline at 75 cc/h. Type II slo-yjjtepz-ozmrtjlqz diabetes mellitus with hyperglycemia -Hold Actos and glimepiride and place patient on glycemic protocol with NovoLog sliding scale. Valvular heart disease Hypertension -Hold aspirin secondary to GI bleeding continue daily medication regimen with amlodipine 5 mg daily and benazepril 10 mg daily. Data and imaging reviewed: As stated above in HPI. The patient is admitted with an anticipated greater than 2 midnight stay for evaluation of hematochezia CODE STATUS: Full code DVT prophylaxis: CHARMAINE gilmore and AMANDAs Anticipated discharge date: Pending clinical course Anticipated discharge place: Patient was seen independently by Nurse Practitioner. This document was prepared using [employer] dictation software. Please allow for errors in environmental emergencies planner while rare they do occur. Ramírez Jaeger NP rendered care for this patient independently, reviewed the findings and plan as documented in the note above. I did not physically speak with or examine the patient on this date. Past Medical History Past Medical History: Cancer, Chest Pain / Angina, Diabetes Mellitus, GERD/Reflux, Hearing Disorder / Deafness, Hyperlipidemia, Hypertension, Osteoarthritis (OA) Additional Past Medical History / Comment(s): HX. MENIERE'S. HX. HIATAL HERNIA. HX. 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 HX ARTHRITIS- IN HANDS,FINGERS & SHOULDERS. NEW DX PROSTATE CANCER ABOUT 2 WEEKS AGO History of Any Multi-Drug Resistant Organisms: None Reported Past Surgical History: No Surgical Hx Reported Additional Past Surgical History / Comment(s): DEVIATED SEPTUM SX. COLONOSCOPY Past Anesthesia/Blood Transfusion Reactions: No Reported Reaction Past Psychological History: Anxiety Smoking Status: Never smoker Past Alcohol Use History: Rare Past Drug Use History: None Reported - Past Family History Mother Family Medical History: No Reported History Medications and Allergies Home Medications Medication Instructions Recorded Confirmed Type Omeprazole [PriLOSEC] 20 mg PO AC-LUNCH 07/11/13 08/01/23 History Benazepril [Lotensin] 10 mg PO DAILY 09/29/21 08/01/23 History Glimepiride [Amaryl] 2 mg PO BID 09/29/21 08/01/23 History Pioglitazone [Actos] 15 mg PO HS 09/29/21 08/01/23 History amLODIPine [Norvasc] 5 mg PO DAILY 09/29/21 08/01/23 History Aspirin 81 mg PO DAILY #60 tab 06/09/23 08/01/23 Rx Allergies Allergy/AdvReac Type Severity Reaction Status Date / Time Kybwrog-TKA-KbB Reductase AdvReac MUSCLE Verified 08/01/23 10:19 Inhibitor CRAMPS IN [Ygwnlsn-Etk-Hkx Reductase LEGS Inhibitor] Physical Exam Vitals: Vital Signs Temp Pulse Resp BP Pulse Ox 08/01/23 10:31 16 104/85 08/01/23 09:04 68 18 123/72 08/01/23 07:08 98.3 F 87 20 128/82 93 L Intake and Output 07/31/23 08/01/23 08/01/23 22:59 06:59 14:59 Other: Weight 110.223 kg Results CBC & Chem 7: 08/02/23 07:25 08/02/23 07:25 Labs: Abnormal Lab Results - Last 24 Hours (Table) 08/01/23 08/01/23 08/01/23 Range/Units 07:39 07:39 07:39 WBC 24.1 H (3.8-10.6) k/uL RDW 16.7 H (11.5-15.5) % Neutrophils # 21.5 H (1.3-7.7) k/uL Lymphocytes # 0.8 L (1.0-4.8) k/uL Monocytes # 1.2 H (0-1.0) k/uL PT 14.5 H (10.0-12.5) sec INR 1.4 H (<1.2) Glucose 164 H (74-99) mg/dL Total Bilirubin 1.9 H (0.2-1.3) mg/dL
[2023-08-01] MEDS: PANTOPRAZOLE 40 MG/10 ML VIAL IVP SCH (11:41)
--- NOTE | 2023-08-01 12:04 | XR ---
EXAMINATION TYPE: XR abdomen acute w cxr DATE OF EXAM: 08/01/2023 11:46 AM CLINICAL INDICATION:Male, 72 years old with history of lower abdominal pain hematochezia s/p colonosc opy; [facility] COMPARISON: 06/15/2023 TECHNIQUE: Two radiographic views of the abdomen (upright and supine) and a frontal chest radiograph were obtained. FINDINGS CHEST: Lungs/Pleura: The lungs are clear. There is no evidence of pleural effusion, focal consolidation or p neumothorax. Mediastinum: Unremarkable. Small hiatal hernia present. Vasculature: Normal. Heart: Normal in size. Musculoskeletal: The osseous structures are intact. Other findings: No significant. FINDINGS ABDOMEN: Bowel gas pattern: Normal without dilated loops of small or large bowel. Fecal material and gas are d emonstrated throughout the colon and rectum. Abnormal calcifications: None. Musculoskeletal: Multilevel degeneration changes throughout the spine. Degeneration of the hips with osteophyte formation. Other: None. IMPRESSION: 1. No radiographic evidence for acute abdominal process. Consider cross-sectional imaging if this con cern for perforation. 2. No acute cardiopulmonary process
[2023-08-01] MEDS ORDERED: DEXTROSE 50% SYRINGE 50 ML IVP PRN ×2 (12:05)
[2023-08-01 12:15] LABS: Glucose,Whole Blood 106 mg/dL (70-110)
[2023-08-01] MEDS: INSULIN ASPART (NovoLOG) 100 UNIT/ML VIAL SQ SCH (12:20)
--- NOTE | 2023-08-01 14:58 | P.CONS ---
History of Present Illness - Reason for Consult Consult date: 08/01/23 Lower GI bleed Requesting physician: Yanni Ramirez - Chief Complaint Rectal bleeding - History of Present Illness This is a pleasant 72-year-old male who presented to the emergency department with complaints of rectal bleeding with clots. He underwent colonoscopy yesterd ay with Dr. Jensen at [facility]. He has a history of prostate cancer status post radiation therapy and states that he has been having bleeding for 4 to 5 months. He has coronary artery disease and was initially going to undergo possible TAVR but now will need to have open heart surgery.. He was noted to have proctitis with some oozing which was cauterized, also had 1 colon polyp status post polypectomy.. Patient states that he had gone home and later in the evening he had bloody bowel movement and had 4-5 more throughout the night with clots in it. He denies any anticoagulation use, does take a baby aspirin 81 mg daily. Noted to have leukocytosis with WBC 24, hemoglobin 14.5 platelet count 231,000 INR 1.4. Bleeding has slowed down and subsided. He states he has some lower abdominal cramping and fullness. No nausea or vomiting. He has been afebrile. He was reporting some dizziness and weakness. No shortness of breath or chest pain. Review of Systems REVIEW OF SYSTEMS: CARDIOPULMONARY: No chest pain or shortness of breath. Gastrointestinal: Abdominal bloating, cramping. No nausea or vomiting. No hematemesis, coffee-ground emesis. Rectal bleeding bright red blood with clots. GENITOURINARY: No dysuria or hematuria. MUSCULOSKELETAL: Reports normal range of motion. SKIN: No rashes. No jaundice. ENDOCRINE: No chills, fevers. No excessive weight gain or loss. No polydipsia or polyuria. PSYCHIATRIC: Unremarkable. NEUROLOGY: No change in mental status. Reports dizziness. ENT: Vision unremarkable. CONSTITUTIONAL: No recent weight loss. No fever, chills, night sweats. Generalized weakness. Past Medical History Past Medical History: Cancer, Chest Pain / Angina, Diabetes Mellitus, GERD/Reflux, Hearing Disorder / Deafness, Hyperlipidemia, Hypertension, Osteoarthritis (OA) Additional Past Medical History / Comment(s): HX. MENIERE'S. HX. HIATAL HERNIA. HX. 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 HX ARTHRITIS- IN HANDS,FINGERS & SHOULDERS. NEW DX PROSTATE CANCER ABOUT 2 WEEKS AGO History of Any Multi-Drug Resistant Organisms: None Reported Past Surgical History: No Surgical Hx Reported Additional Past Surgical History / Comment(s): DEVIATED SEPTUM SX. COLONOSCOPY Past Anesthesia/Blood Transfusion Reactions: No Reported Reaction Past Psychological History: Anxiety Smoking Status: Never smoker Past Alcohol Use History: Rare Past Drug Use History: None Reported - Past Family History Mother Family Medical History: No Reported History Medications and Allergies Home Medications Medication Instructions Recorded Confirmed Type Omeprazole [PriLOSEC] 20 mg PO AC-LUNCH 07/11/13 08/01/23 History Benazepril [Lotensin] 10 mg PO DAILY 09/29/21 08/01/23 History Glimepiride [Amaryl] 2 mg PO BID 09/29/21 08/01/23 History Pioglitazone [Actos] 15 mg PO HS 09/29/21 08/01/23 History amLODIPine [Norvasc] 5 mg PO DAILY 09/29/21 08/01/23 History Aspirin 81 mg PO DAILY #60 tab 06/09/23 08/01/23 Rx Allergies Allergy/AdvReac Type Severity Reaction Status Date / Time Hydsaoq-IQB-XbD Reductase AdvReac MUSCLE Verified 08/01/23 10:19 Inhibitor CRAMPS IN [Uvohmrq-Irh-Kuu Reductase LEGS Inhibitor] Physical Exam Vitals: Vital Signs Temp Pulse Resp BP Pulse Ox 08/01/23 13:53 98.5 F 64 18 105/73 08/01/23 11:39 99.0 F 69 16 106/87 08/01/23 10:31 16 104/85 08/01/23 09:04 68 18 123/72 08/01/23 07:08 98.3 F 87 20 128/82 93 L Intake and Output 07/31/23 08/01/23 08/01/23 22:59 06:59 14:59 Other: Weight 110.223 kg General appearance: The patient is alert, oriented, appears in no acute distress. HET: Head is normocephalic and atraumatic. Conjunctiva pink. Sclera anicteric. Neck: Supple without lymphadenopathy. Trachea midline. Heart: Regular. Lungs: Equal expansion, normal respiratory effort. Abdomen: Soft, mild lower abdominal tenderness, nondistended. Skin: No rashes. No jaundice. Extremities: Normal skin color and turgor. No pedal edema. Neurological: No focal deficits. Alert and oriented x3. Results CBC & Chem 7: 08/01/23 07:39 08/01/23 07:39 Labs: Abnormal Lab Results - Last 24 Hours (Table) 08/01/23 08/01/23 08/01/23 Range/Units 07:39 07:39 07:39 WBC 24.1 H (3.8-10.6) k/uL RDW 16.7 H (11.5-15.5) % Neutrophils # 21.5 H (1.3-7.7) k/uL Lymphocytes # 0.8 L (1.0-4.8) k/uL Monocytes # 1.2 H (0-1.0) k/uL PT 14.5 H (10.0-12.5) sec INR 1.4 H (<1.2) Glucose 164 H (74-99) mg/dL Total Bilirubin 1.9 H (0.2-1.3) mg/dL Assessment and Plan (1) Hematochezia Narrative/Plan: 72-year-old male who underwent colonoscopy yesterday for history of rectal bleeding and screening for prior to open heart surgery. Patient was noted to have proctitis he is status post radiation therapy for prostate cancer. He had some oozing which was treated with cautery. Also status post polypectomy. Apparently he had some further bleeding yesterday evening 4-5 times with some clots. He was concerned and presented to the emergency department. Patient to be admitted will plan for flex sigmoidoscopy tomorrow with argon plasma coagulation. Monitor CBC, transfuse for hemoglobin less than 7. Current Visit: Yes Status: Acute Code(s): K92.1 - MELENA SNOMED Code(s): 575653513 Plan: 1. Patient may have clear liquid diet 2. N.p.o. after midnight 3. Plan for flex sigmoidoscopy tomorrow with possible argon plasma coagulation 4. Patient will need to fleets enema, 1 to 2 hours prior and one 1 hour prior to sigmoidoscopy 5. Daily CBC, transfuse for hemoglobin less than 7 Thank you for this consultation, we will continue to follow. Dr. Juan Jensen I agree with the dictator's note, documented as a scribe by Renee Leong.
[2023-08-01 16:01] LABS: Anisocytosis Slight; HCT 41.1 % (39.0-53.0); HGB 13.4 gm/dL (13.0-17.5); MCH 29.8 pg (25.0-35.0); MCHC 32.5 g/dL (31.0-37.0); MCV 91.7 fL (80.0-100.0); Mean Platelet Volume 7.9; Platelet Count 232 k/uL (150-450); RBC 4.49 m/uL (4.30-5.90); RDW 16.9 % (11.5-15.5); WBC 21.9 k/uL (3.8-10.6)
[2023-08-01 17:25] LABS: Glucose,Whole Blood 104 mg/dL (70-110)
[2023-08-01 20:03] LABS: Glucose,Whole Blood 166 mg/dL (70-110)
[2023-08-02 01:41] VITALS: RESP 18
[2023-08-02] MEDS: SODIUM CHLORIDE 0.9% 500 ML 500 ML IV ONE (02:30)
[2023-08-02 07:18] LABS: Glucose,Whole Blood 131 mg/dL (70-110)
[2023-08-02] MEDS: lisinopriL 10 MG TAB PO SCH (09:02)
[2023-08-02] MEDS: amLODIPine 5 MG TAB PO SCH (09:03)
[2023-08-02 10:30] LABS: Blood Urea Nitrogen 8.8 mg/dL (9.0-27.0); Glucose 136 mg/dL (70-110)
[2023-08-02 10:31] LABS: ALT 20 U/L (10-49); AST 20 U/L (14-35); Albumin 3.8 g/dL (3.8-4.9); Albumin/Globulin Ratio 1.73 Ratio (1.60-3.17); Alkaline Phosphatase 86 U/L (41-126); Calcium 8.6 mg/dL (8.7-10.3); Chloride 104 mmol/L (96-109); Globulin 2.2 g/dL (1.6-3.3); Sodium 139 mmol/L (135-145); Total Bilirubin 1.2 mg/dL (0.3-1.2)
[2023-08-02 10:36] LABS: Basophils # (A) 0.08 X 10*3/uL (0.00-0.10); Basophils % (A) 0.6 %; Eosinophils # (A) 0.31 X 10*3/uL (0.04-0.35); Eosinophils % (A) 2.4 %; HCT 39.8 % (39.6-50.0); HGB 13.1 g/dL (13.0-17.0); Lymphocytes # (A) 0.94 X 10*3/uL (0.90-5.00); Lymphocytes % (A) 7.3 %; MCH 30.2 pg (27.0-32.0); MCHC 32.9 g/dL (32.0-37.0); MCV 91.7 FL (80.0-97.0); Mean Platelet Volume 9.7 FL (9.5-12.2); Monocytes # (A) 0.92 X 10*3/uL (0.20-1.00); Monocytes % (A) 7.1 %; NRBC Per 100 WBC 0 X 10*3/uL (0.00-0.01); Neutrophils # (A) 10.58 X 10*3/uL (1.80-7.70); Neutrophils % (A) 81.8 %; Platelet Count 191 X 10*3/uL (140-440); RBC 4.34 X 10*6/uL (4.40-5.60); WBC 12.93 X 10*3/uL (4.50-10.00)
[2023-08-02] MEDS: NA PHOS,M-B/NA PHOS,DI-BA 133 ML ENEMA RECTAL ONE ×2 (10:49→11:58)
[2023-08-02] MEDS ORDERED: ZINC OXIDE PASTE (Z-GUARD) 1 APPLIC TOPICAL PRN (12:08)
[2023-08-02 12:31] LABS: Glucose,Whole Blood 125 mg/dL (70-110)
[2023-08-02] MEDS ORDERED: PROPOFOL 10 MG/ML 20 ML VIAL IV ONE (14:00)
[2023-08-02] MEDS: IV FLUID CONTINUATION 300 ML IV ONE (14:07)
--- NOTE | 2023-08-02 14:23 | P.PCN ---
Date of Procedure: 08/02/23 Procedure(s) Performed: BRIEF HISTORY: Patient is a 74-year-old pleasant white male admitted to hospital with severe rectal bleeding of 2 days duration. He had an outpatient colonoscopy 2 days ago at [facility] for intermittent rectal bleeding and was diagnosed with radiation proctitis. He underwent cautery for the radiation proctitis. The following day he had several episodes of bright red blood per rectum with clots and hence he was admitted to hospital for further management. Hemoglobin stable at 13 g/dL. He is scheduled for a flexible sigmoidoscopy Procedure PERFORMED: Flexible sigmoidoscopy with argon plasma coagulation PREOPERATIVE DIAGNOSIS: Rectal bleeding from radiation proctitis. IV sedation per Anesthesia. PROCEDURE: After informed consent was obtained, the patient, was brought into the endoscopy unit. IV sedation was administered by Anesthesia under continuous monitoring. Digital rectal examination was normal. Initially the Olympus CF-160 flexible video colonoscope was then inserted in the rectum, gradually advanced into the descending colon. Mucosa of the descending colon, sigmoid colon appeared normal. There was some oozing noted in the distal rectum may be related telangiectasias consistent with radiation proctitis. There are some cauterized areas from recent colonoscopy with cautery noted in the distal rectum. At this time other possible coagulation was performed and all the telangiectasias in the distal rectum probably related. The patient tolerated the procedure well. IMPRESSION: Mild oozing in the distal rectum with scattered telangiectasias consistent with radiation proctitis s/p other plasma coagulation as described above Cauterized areas in the distal rectum from recent colonoscopy done 2 days ago RECOMMENDATIONS: Findings of this examination were discussed with the patient as well as his family. He was advised to be on a high-fiber diet and stool softeners and avoid straining and constipation. Follow-up in the office in 2 weeks following discharge from the hospital
--- NOTE | 2023-08-02 16:57 | P.PN ---
Subjective Progress Note Date: 08/02/23 Hospital Course: Patient is a very pleasant 72-year-old male with a past medical history of prostate cancer status post radiation therapy, valvular heart disease, hypertension, GERD, and type II wic-fgonykj-clyuoggna diabetes mellitus. He pre sented to the emergency department secondary to rectal bleeding with reports of bright red blood per rectum along with multiple clots status post colonoscopy with polypectomy on 07/31/2023. He reports he underwent colonoscopy secondary to intermittent episodes of rectal bleeding over the past 5 months resulting in diagnosis of proctitis with cauterization of site. Patient reports in addition to rectal bleeding he has also been experiencing intermittent cramping to suprapubic/left lower quadrant of his abdomen. He denies having any fevers, chills, diaphoresis, headache, lightheadedness, dizziness, chest pain, palpitations, shortness of breath, nausea, vomiting, or any other complaints at this time. On arrival to our facility, patient underwent evaluation in the emergency department. Vital signs upon arrival show blood pressure 128/82, heart rate 87, respiratory rate 20, temp 98.3 F, and SpO2 of 93% on room air. KUB negative for acute abdominal process. Labs completed and reviewed. CBC showing leukocytosis with WBC count of 24.1 stable hemoglobin of 14.5 and platelet count of 231. Coagulation profile showing elevated PT of 14.5 and INR of 1.4. BMP showing hyperglycemia with glucose of 164 otherwise normal findings. Magnesium 1.9. Lactic acid 1.7. Liver profile showing elevated total bili of 1.9 otherwise normal findings. Troponin was 0.013. Fecal occult was positive. Patient was admitted under our services with consultation to gastroenterology for evaluation. Physical exam: Patient seen and fully evaluated at bedside. He currently reports abdominal pain/discomfort has resolved at this time. He does report intermittent cramping to left lower quadrant/suprapubic region, but nontender upon palpation this morning. Patient awaiting to be taken down for sigmoidoscopy with g astroenterologist later today. Vital signs reviewed and stable. General: Nontoxic, no distress and appears stated age. Obese. Derm: Skin warm and dry, normal coloration for ethnicity. Head: Atraumatic, normocephalic and symmetric. Eyes: EOMs intact, no lid lag, and anicteric sclera Mouth: no lip lesions, mucus membranes moist Cardiovascular: regular rate and rhythm with normal S1S2, systolic murmur, positive posterior tibial pulses bilaterally, and cap refill < 2 seconds. Lungs: Respirations even, regular, and unlabored on room air. Lungs CTA bilaterally, no rhonchi, no rales, no wheezing, and no accessory muscle usage. Abdominal: soft, mild discomfort reported to left lower quadrant/suprapubic region upon palpation, no guarding, no appreciable organomegaly Ext: ROM intact. No gross muscle atrophy, 1+ bilateral lower extremity edema, no contractures Neuro: Speech clear, face symmetrical and CN II-XII grossly intact with no noted focal neuro deficits Psych: Alert and oriented to person, place, time, and situation. Appropriate and pleasant affect. Assessment and Plan of Care: GI bleed status post colonoscopy and polypectomy History of prostate cancer status postradiation therapy and recent diagnosis of radiation proctitis Leukocytosis, likely reactive -Ham Facer consulted, taking patient for sigmoidoscopy later today. -N.p.o. -GI prophylaxis with Protonix 40 mg IVP twice daily -Hold aspirin -Trend hemoglobin with repeat CBC and transfuse as indicated for symptomatic anemia and/for hemoglobin less than 7. Hemoglobin was trended throughout the night resulting at 14.5, 13.4, and 13.1 -CHARMAINE gilmore and AMANDAs for DVT prophylaxis -Telemetry monitoring. -Continue with gentle IV fluid hydration with 0.9% normal saline at 75 cc/h. Type II drb-fnyuimd-haibaxohn diabetes mellitus with hyperglycemia -Hold Actos and glimepiride and place patient on glycemic protocol with NovoLog sliding scale.. -Hemoglobin A1c 6.6%. Valvular heart disease Hypertension -Hold aspirin secondary to GI bleeding continue daily medication regimen with amlodipine 5 mg daily and benazepril 10 mg daily. Data and imaging reviewed: Hemoglobin was trended throughout the night resulting at 14.5, 13.4, and 13.1. Repeat morning CBC showing significant improvement of leukocytosis decreasing from initial 21.9 down to 12.93. Hemoglobin A1c 6.6%. Vital signs reviewed. Blood pressure 116/74, heart rate 65, respiratory rate 18, temp 98.1 F, and SpO2 of 94% on room air. CODE STATUS: Full code DVT prophylaxis: CHARMAINE gilmore and SCDs Anticipated discharge date: Pending clinical course Anticipated discharge place: Patient was seen independently by Nurse Practitioner. This document was prepared using the grafter dictation software. Please allow for errors in automotive service advisor while rare they do occur. Ramírez Jaeger, BACK ROLL LATHE OPERATOR rendered care for this patient independently, reviewed the findings and plan as documented in the note above. I did not physically speak with or examine the patient on this date. Objective - Vital Signs Vital signs: Vital Signs Temp 98.1 F 08/02/23 07:16 Pulse 65 08/02/23 07:16 Resp 18 08/02/23 07:16 BP 116/74 08/02/23 07:16 Pulse Ox 94 L 08/02/23 07:16 FiO2 Intake & Output 08/01/23 08/02/23 08/02/23 18:59 06:59 18:59 Output Total 400 Balance -400 Weight 110.223 kg 110.223 kg Output: Urine 400 - Labs CBC & Chem 7: 08/02/23 07:25 08/02/23 07:25 Labs: Abnormal Lab Results - Last 24 Hours (Table) 08/01/23 08/01/23 08/02/23 Range/Units 15:21 19:54 07:17 WBC 21.9 H (3.8-10.6) k/uL RDW 16.9 H (11.5-15.5) % POC Glucose (mg/dL) 166 H 131 H (70-110) mg/dL
[2023-08-02 17:17] LABS: Glucose,Whole Blood 176 mg/dL (70-110)
[2023-08-02 20:19] LABS: Glucose,Whole Blood 158 mg/dL (70-110)
[2023-08-03 01:48] VITALS: TEMP 98.7
[2023-08-03 07:23] LABS: Glucose,Whole Blood 139 mg/dL (70-110)
[2023-08-03 08:45] VITALS: BP 133/85; PULSE 66
[2023-08-03 09:47] LABS: ALT 17 U/L (10-49); AST 20 U/L (14-35); Albumin 3.5 g/dL (3.8-4.9); Albumin/Globulin Ratio 1.52 Ratio (1.60-3.17); Alkaline Phosphatase 89 U/L (41-126); BUN/Creat Ratio 12.11 Ratio (12.00-20.00); Blood Urea Nitrogen 10.9 mg/dL (9.0-27.0); Calcium 8.2 mg/dL (8.7-10.3); Carbon Dioxide 23.9 mmol/L (21.6-31.8); Chloride 106 mmol/L (96-109); Globulin 2.3 g/dL (1.6-3.3); Glucose 128 mg/dL (70-110); Magnesium 2.1 mg/dL (1.5-2.4); Sodium 140 mmol/L (135-145); Total Bilirubin 0.8 mg/dL (0.3-1.2); Total Protein 5.8 g/dL (6.2-8.2)
[2023-08-03 09:53] LABS: HCT 38.7 % (39.6-50.0); HGB 12.7 g/dL (13.0-17.0); MCH 29.8 pg (27.0-32.0); MCHC 32.8 g/dL (32.0-37.0); MCV 90.8 FL (80.0-97.0); Mean Platelet Volume 9.4 FL (9.5-12.2); NRBC Per 100 WBC 0 X 10*3/uL (0.00-0.01); Platelet Count 201 X 10*3/uL (140-440); RBC 4.26 X 10*6/uL (4.40-5.60); RDW 15.9 % (11.5-14.5); WBC 13.65 X 10*3/uL (4.50-10.00)
[2023-08-03 11:45] LABS: Glucose,Whole Blood 119 mg/dL (70-110)
--- NOTE | 2023-08-03 11:49 | P.DS ---
Providers Date of admission: 08/01/23 09:07 Expected date of discharge: 08/03/23 Attending physician: Bandar Leal MD Consults: 08/01/23 09:07 Consult Physician Urgent Consulting Provider: Imelda Jensen Consult Reason/Comments: lower gi bleed Do you want consulting provider notified?: Already Contacted Primary care physician: David Neville MD Hospital Course: Discharge Diagnosis: GI bleed status post colonoscopy and polypectomy secondary to radiation proctitis. Acute blood loss anemia secondary to GI bleed History of prostate cancer status postradiation therapy and recent diagnosis of radiation proctitis Leukocytosis, likely reactive Type II wmx-cwjypkp-bkzyfmdns diabetes mellitus with hyperglycemia Hemoglobin A1c 6.6%. Valvular heart disease Hypertension Hospital Course: Patient is a very pleasant 72-year-old male with a past medical history of prostate cancer status post radiation therapy, valvular heart disease, hypertension, GERD, and type II zgq-qtjtxry-ecnrikilf diabetes mellitus. He presented to the emergency department secondary to rectal bleeding with reports of bright red blood per rectum along with multiple clots status post colonoscopy with polypectomy on 07/31/2023. He reports he underwent colonoscopy secondary to intermittent episodes of rectal bleeding over the past 5 months resulting in diagnosis of proctitis with cauterization of site. Patient reports in addition to rectal bleeding he has also been experiencing intermittent cramping to suprapubic/left lower quadrant of his abdomen. He denies having any fevers, chills, diaphoresis, headache, lightheadedness, dizziness, chest pain, palpitations, shortness of breath, nausea, vomiting, or any other complaints at this time. On arrival to our facility, patient underwent evaluation in the emergency department. Vital signs upon arrival show blood pressure 128/82, heart rate 87, respiratory rate 20, temp 98.3 F, and SpO2 of 93% on room air. KUB negative for acute abdominal process. Labs completed and reviewed. CBC showing leukocytosis with WBC count of 24.1 stable hemoglobin of 14.5 and platelet count of 231. Coagulation profile showing elevated PT of 14.5 and INR of 1.4. BMP showing hyperglycemia with glucose of 164 otherwise normal findings. Magnesium 1.9. Lactic acid 1.7. Liver profile showing elevated total bili of 1.9 otherwise normal findings. Troponin was 0.013. Fecal occult was positive. Patient was admitted under our services with consultation to gastroenterology for evaluation. Hemoglobin was trended throughout the night resulting at 14.5, 13.4, and 13.1. On 08/02/2023 patient was taken to the OR by chemical reclamation equipment operator and underwent flexible sigmoidoscopy with argon plasma coagulation secondary to his rectal bleeding from radiation proctitis. Patient monitored overnight. Hemoglobin remained stable. Patient reports rectal bleeding significantly improved and states only a small amount on wiping. Repeat morning labs reviewed showing WBC count of 13.65, stable hemoglobin of 12.7, and platelet count of 201. BMP was unremarkable. Magnesium normal findings at 2.1. Patient again evaluated by gastroenterology clearing patient from their perspective recommending outpatient follow-up in office in 2 weeks. Medically, patient stable for discharge at this time. Patient cleared to resume aspirin along with daily medications including Protonix, Lotensin, amlodipine, Actos, and glimepiride. Patient to follow-up outpatient with PCP in 1 to 2 days and with chemical reclamation equipment operator in 1 to 2 weeks. Physical exam: Vital signs reviewed and stable. General: Nontoxic, no distress and appears stated age. Obese. Derm: Skin warm and dry, normal coloration for ethnicity. Head: Atraumatic, normocephalic and symmetric. Eyes: EOMs intact, no lid lag, and anicteric sclera Mouth: no lip lesions, mucus membranes moist Cardiovascular: regular rate and rhythm with normal S1S2, systolic murmur, positive posterior tibial pulses bilaterally, and cap refill < 2 seconds. Lungs: Respirations even, regular, and unlabored on room air. Lungs CTA bilaterally, no rhonchi, no rales, no wheezing, and no accessory muscle usage. Abdominal: soft, nontender upon palpation, no guarding, no appreciable organomegaly Ext: ROM intact. No gross muscle atrophy, 1+ bilateral lower extremity edema, no contractures Neuro: Speech clear, face symmetrical and CN II-XII grossly intact with no noted focal neuro deficits Psych: Alert and oriented to person, place, time, and situation. Appropriate and pleasant affect. A total of 36 minutes of time were spent preparing this complex discharge summary. Pt was discharged on 08/03/23 at 11:48 AM Patient was seen independently by Nurse Practitioner. This document was prepared using Mabaya dictation software. Please allow for errors in change management manager while rare they do occur. Ramírez Heide, GLASSWARE MAKER DEMONSTRATOR rendered care for this patient independently, reviewed the findings and plan as documented in the note above. I did not physically speak with or examine the patient on this date. Patient Condition at Discharge: Stable Plan - Discharge Summary Discharge Rx Participant: Yes New Discharge Prescriptions: Continue Omeprazole [PriLOSEC] 20 mg PO AC-LUNCH Benazepril [Lotensin] 10 mg PO DAILY amLODIPine [Norvasc] 5 mg PO DAILY Pioglitazone [Actos] 15 mg PO HS Glimepiride [Amaryl] 2 mg PO BID Aspirin 81 mg PO DAILY #60 tab Discharge Medication List Omeprazole [PriLOSEC] 20 mg PO AC-LUNCH 07/11/13 [History] Benazepril [Lotensin] 10 mg PO DAILY 09/29/21 [History] Glimepiride [Amaryl] 2 mg PO BID 09/29/21 [History] Pioglitazone [Actos] 15 mg PO HS 09/29/21 [History] amLODIPine [Norvasc] 5 mg PO DAILY 09/29/21 [History] Aspirin 81 mg PO DAILY #60 tab 06/09/23 [Rx] Follow up Appointment(s)/Referral(s): David Neville MD [Primary Care Provider] - 08/07/23 8:00 am (appointment G Hodge GLASSWARE MAKER DEMONSTRATOR) Imelda Jensen MD [STAFF PHYSICIAN] - 1 Week (please call the office to schedule a follow up appointment.) Patient Instructions/Handouts: Gastrointestinal Bleeding (DC) Activity/Diet/Wound Care/Special Instructions: Activity: As tolerated. Take breaks as needed. Diet: Heart healthy and carb consistent diet. Avoid salts, or foods with hidden salts such as canned or boxed foods and frozen dinners. Extra salt makes your heart work harder and traps the fluid in your body for longer. Special Instructions: Take all of your medications as directed and remember to keep all of your doctor's appointments and follow-up as needed. Thank you for allowing us to participate in your care, it was truly a pleasure having you for our patient!!! Discharge Disposition: HOME SELF-CARE
== END 2023-08-03 12:56 | disposition home or self-care (01) ==
LOC: EC 07:05 → 5NMEDONC 09:07
PROVIDERS: ADMIT Internal Medicine; ATTEND Internal Medicine
DX: K62.7 Radiation proctitis (principal); Y84.2 Radiological procedure and radiotherapy as the cause of abnormal reaction of the patient, or of later complication, without mention of misadventure at the time of the procedure; D62 Acute posthemorrhagic anemia; D72.829 Elevated white blood cell count, unspecified; E11.65 Type 2 diabetes mellitus with hyperglycemia; I10 Essential (primary) hypertension; I38 Endocarditis, valve unspecified; K21.9 Gastro-esophageal reflux disease without esophagitis; E78.5 Hyperlipidemia, unspecified; F41.9 Anxiety disorder, unspecified; I25.10 Atherosclerotic heart disease of native coronary artery without angina pectoris; Z85.46 Personal history of malignant neoplasm of prostate; Z79.82 Long term (current) use of aspirin; Z79.84 Long term (current) use of oral hypoglycemic drugs; Z79.899 Other long term (current) drug therapy
CPT/HCPCS: 96376 ×3; 96361; 96374; 99285; 36415; 86900; 86901; 80053 ×3; 83605; 83735 ×3; 84484; 85025 ×2; 85027 ×2; 85610; 85730; 86850; 82272; 83036; 74022; 45334; G0378 ×3; J2704; C9113 ×3

== ENCOUNTER → 2023-08-17 | Outpatient (CLI) | payer MEDICARE, BC ==
[2023-08-17 12:38] LABS: INR 1.3 (<1.2); Partial Thromboplastin Time 25.4 sec (22.0-30.0); Prothrombin Time 13.6 sec (10.0-12.5)
--- NOTE | 2023-08-17 13:07 | XR ---
EXAMINATION TYPE: XR chest 2V DATE OF EXAM: 08/17/2023 11:32 AM CLINICAL INDICATION:Male, 72 years old with history of R06.02 SHORTNESS OF BREATH; PHH COMPARISON: Chest radiographs from 06/06/2023 TECHNIQUE: XR chest 2V Frontal and lateral views of the chest. FINDINGS: Lungs/Pleura: There is no evidence of pleural effusion, focal consolidation, or pneumothorax. Pulmonary vascularity: Unremarkable. Heart/mediastinum: Cardiomediastinal silhouette is unremarkable. Musculoskeletal: No acute osseous pathology. IMPRESSION: No acute cardiopulmonary disease/process.
[2023-08-17 14:20] LABS: Basophils # (A) 0.13 X 10*3/uL (0.00-0.10); Basophils % (A) 1.3 %; HCT 43.9 % (39.6-50.0); HGB 14.8 g/dL (13.0-17.0); Lymphocytes # (A) 1.53 X 10*3/uL (0.90-5.00); Lymphocytes % (A) 15.3 %; MCH 29.8 pg (27.0-32.0); MCHC 33.7 g/dL (32.0-37.0); MCV 88.5 FL (80.0-97.0); Mean Platelet Volume 9.7 FL (9.5-12.2); Monocytes # (A) 0.84 X 10*3/uL (0.20-1.00); Monocytes % (A) 8.4 %; NRBC Per 100 WBC 0 X 10*3/uL (0.00-0.01); Neutrophils # (A) 6.85 X 10*3/uL (1.80-7.70); Neutrophils % (A) 68.8 %; Platelet Count 275 X 10*3/uL (140-440); RBC 4.96 X 10*6/uL (4.40-5.60); RDW 16.1 % (11.5-14.5); WBC 9.97 X 10*3/uL (4.50-10.00)
[2023-08-17 14:57] LABS: ALT 37 U/L (10-49); AST 34 U/L (14-35); Albumin 4.4 g/dL (3.8-4.9); Albumin/Globulin Ratio 1.57 Ratio (1.60-3.17); Alkaline Phosphatase 101 U/L (41-126); BUN/Creat Ratio 23.75 Ratio (12.00-20.00); Calcium 9.5 mg/dL (8.7-10.3); Carbon Dioxide 26.7 mmol/L (21.6-31.8); Chloride 104 mmol/L (96-109); Globulin 2.8 g/dL (1.6-3.3); Glucose 120 mg/dL (70-110); Magnesium 2.1 mg/dL (1.5-2.4); Potassium 4.8 mmol/L (3.5-5.5); Sodium 142 mmol/L (135-145); Total Bilirubin 0.7 mg/dL (0.3-1.2); Total Protein 7.2 g/dL (6.2-8.2)
[2023-08-17 19:02] LABS: Appearance,Urine Clear (Clear); Bilirubin,Urine Negative (Negative); Blood,Urine Negative (Negative); Color,Urine Yellow (Yellow); Ketones,Urine Trace (Negative); Nitrite,Urine Negative (Negative); Specific Gravity,Urine 1.027 (1.001-1.030)
== END | disposition home or self-care (01) ==
LOC: LABPAT 11:12
PROVIDERS: ATTEND Thoracic Surgery (Cardiothoracic Vascular Surgery)
DX: Z01.818 Encounter for other preprocedural examination (principal); I35.1 Nonrheumatic aortic (valve) insufficiency; R58 Hemorrhage, not elsewhere classified; R06.02 Shortness of breath; Z79.899 Other long term (current) drug therapy
CPT/HCPCS: 71046; 80053; 81003; 83735; 85025; 85610; 85730; 86850; 86900; 86901; 86920; 87086

== ENCOUNTER 2023-08-23 05:35 | Inpatient (IN) | payer MEDICARE, BC ==
[~2023-08-23 05:35] MED LIST changes: +ALBUMIN HUMAN 25% 50 ML IV ONE; +ALBUMIN HUMAN 5% 500 ML IVPB ONE; -ALPRAZolam 0.25 MG TAB PO PRN; -ALPRAZolam 0.5 MG TAB PO PRN; +ASPIRIN 325 MG TAB PO ONE; +CALCIUM CHLORIDE 100 MG/ML 10 ML SYRINGE IV ONE; +CARDIOPLEGIC SOLN (K+ 16 MEQ/L 1,000 ML with SODIUM BICARB (1 MEQ/ML) 20 ML, LIDOCAINE ... PERFUSION ONE; +CHLORHEXIDINE GLUCONATE 15 ML CUP MUCOUS MEM ONE; +CLEVIDIPINE BUTYRATE 25 MG in EMPTY BAG 1 BAG IV ONE; +HEPARIN SODIUM 1,000 UN/ML (10ML VL) IV ONE; +HEPARIN SODIUM,PORCINE (1 ML) 5,000 UNIT in SODIUM CHLORIDE 0.9% 500 ML 500 ML IV ONE; +INSULIN REGULAR 100 UNIT in SODIUM CHLORIDE 0.9% 100 ML IV ONE; +MAGNESIUM SULFATE 16.24 MEQ in EMPTY SYRINGE 1 SYR IV ONE; +MANNITOL 25% 12.5 GM/50 ML VIAL IV ONE; +NITROGLYCERIN SL TABS 0.4 MG TAB SUBLINGUAL ONE; -NITROGLYCERIN SL TABS 0.4 MG TAB SUBLINGUAL PRN; +NITROGLYCERIN-D5W PMX 25 MG/250 ML BTL IV ONE; +NITROGLYCERIN-D5W PMX 50 MG in DEXTROSE/WATER 1 250ML.BAG IV ONE; +NOREPINEPHRINE 4 MG in SODIUM CHLORIDE 0.9% 250 ML IV ONE; +PAPAVERINE 360 MG in SODIUM CHLORIDE 0.9% 90 ML IV ONE; +PHENYLEPHRINE 10 MG/ML VIAL IV ONE; +PHENYLEPHRINE 40 MG in SODIUM CHLORIDE 0.9% 250 ML IV ONE; +PROTAMINE SULFATE 10 MG/ML 25 ML VIAL IV ONE; +PROTAMINE SULFATE 250 MG in EMPTY BAG 1 BAG IV ONE; +SODIUM BICARB 8.4% 50 ML SYR (1 MEQ/ML) IV ONE; +SODIUM CHLORIDE 0.9% 1,000 ML IV ONE; -SODIUM CHLORIDE 0.9% 1,000 ML in EMPTY BAG 1 BAG IV SCH; +TRANEXAMIC ACID 2,000 MG in SODIUM CHLORIDE 0.9% 80 ML IV ONE; +ceFAZolin 1,000 MG in SODIUM CHLORIDE 0.9% IRRIGATIO 1,000 ML IRRIGATION ONE; +propofoL 1,000 MG/100 ML VIAL IV ONE
[2023-08-23 06:23] LABS: Glucose,Whole Blood 136 mg/dL (70-110)
[2023-08-23] MEDS: METOPROLOL TARTRATE 12.5 MG TAB PO ONE (06:29)
[2023-08-23] MEDS: LACTATED RINGERS 1,000 ML IV ONE (06:29)
[2023-08-23] MEDS: IV FLUID CONTINUATION 1,000 ML IV ONE (06:31)
[2023-08-23] MEDS: ATORVASTATIN 10 MG TAB PO ONE (06:38)
[2023-08-23] MEDS ORDERED: VECURONIUM 10 MG VIAL IV ONE (07:37)
[2023-08-23] MEDS ORDERED: INSULIN REGULAR 100 UNIT/ML VIAL (IV) ONE (07:37)
[2023-08-23] MEDS ORDERED: TRANEXAMIC 1,000 MG/100ML-NACL PREMIX BAG ONE (07:37)
[2023-08-23] MEDS ORDERED: CALCIUM CHLORIDE 100 MG/ML 10 ML SYRINGE ONE (07:37)
[2023-08-23] MEDS ORDERED: MIDAZOLAM HCL 10 MG/10 ML VIAL ONE (07:37)
[2023-08-23] MEDS ORDERED: PROPOFOL 10 MG/ML 20 ML VIAL IV ONE (07:37)
[2023-08-23] MEDS ORDERED: HEPARIN SODIUM,PORCINE 10,000 UNIT/ML 1 ML VIAL ONE (07:37)
[2023-08-23] MEDS ORDERED: PROTAMINE SULFATE 10 MG/ML 25 ML VIAL IV ONE (07:37)
[2023-08-23] MEDS ORDERED: fentaNYL (PF) 50 MCG/ML 50 ML VIAL ONE (07:37)
[2023-08-23] MEDS ORDERED: LIDOCAINE 2% SYG (PF) 100 MG/5 ML ONE (07:37)
[2023-08-23] MEDS ORDERED: SODIUM BICARB 8.4% 50 ML SYR (1 MEQ/ML) ONE (07:37)
[2023-08-23 08:26] LABS: ABG Base Excess -1.4 mmol/L; ABG Glucose Whole Blood 120 mg/dL (75-99); ABG HCO3 24 mmol/L (21-25); ABG Hematocrit 37 % (34.0-46.0); ABG Ionized Calcium 4.5 mg/dL (4.5-5.3); ABG Oxygen Saturation 96.7 % (94-97); ABG PCO2 41 mmHg (35-45); ABG PH 7.38 (7.35-7.45); ABG PO2 165 mmHg (83-108); ABG Potassium Whole Blood 4.1 mmol/L (3.4-4.5); ABG Sodium Whole Blood 138 mmol/L (135-146); ABG TCO2 22 mmol/L (19-24); Allen Test Performed? Yes
--- NOTE | 2023-08-23 08:59 | P.ANPRN ---
Procedure Note - Anesthesia - Invasive Line Right Central Line Time Out Performed: Yes (0715) Date of Procedure: 08/23/23 Time of Procedure: 07:16 Location of Patient: PreOp Preparation: Sterile Prep, Sterile Dressing Central Line Location: Internal Jugular (right IJ COrdis) Ultrasound Used: Yes Purpose - Visualization and Identification of Vasculature: Yes Needle Guage: 18g angio Image Stored and Saved: Yes Narrative: Invasive line placement per sterile protocol utilized. Anesthesia note Procedure: Right internal jugular central venous catheter insertion: 8.5-[place] Cordis Sterile protocol followed. Right neck prepped. Ultrasound used. Lidocaine 1% used. Using ultrasound local anesthetic was instilled site over right Internal Jugular vein. Angiocath was used to gain access via ultrasound. Once free flow non-pulsatile blood flow was confirmed, 12 inch extension tubing was then placed on Angiocath. Once central venous pressure was confirmed, J-wire was then placed through Angiocath. Angiocath was then withdrawn. Local was instilled at J-wire site. Small skin mago was then made with provided sterile scalpel. 8.5- [place] Cordis was then inserted over the wire while maintaining control of wire at all times. Uneventful insertion with dilation. Free flow nonpulsatile blood flow through Cordis. Hooked up to IV tubing. Secured with suture. Dressings applied. Drapes Removed. Attempts x1.
--- NOTE | 2023-08-23 09:00 | P.ANPRN ---
Procedure Note - Anesthesia - Invasive Line Right Hemlock Ileana Time Out Performed: Yes (0715) Date of Procedure: 08/23/23 Time of Procedure: 07:27 Location of Patient: Phase I Preparation: Sterile Prep, Sterile Dressing Hemlock Ileana Line Location: Internal Jugular (Right) Ultrasound Used: No Purpose - Visualization and Identification of Vasculature: No Image Stored and Saved: No Narrative: Invasive line placement per sterile protocol utilized. Anesthesia note Procedure right Hemlock-Ileana catheter placed through right internal jugular central venous catheter Sterile protocol maintained from previous procedure. Hemlock-Ileana catheter sterilely placed in sheath and flushed prior to insertion. After advancing 15 cm Hemlock-Ielana catheter was then slowly inserted with balloon up. Advanced through CVP, RV to PA waveform. Hemlock-Ileana catheter wedged around 51 cm. Balloon down. Catheter withdrawn 5 cm. . No wedge. Proximal and distal sites locked on sheath. Attempts x1. Sterile drapes removed and dressings applied.
--- NOTE | 2023-08-23 09:03 | P.ANPRN ---
Procedure Note - Anesthesia - CATHERINE Intraop Pre Bypass CATHERINE Intraop - Anesthesia Indication: Aortic stenosis Date of Procedure: 08/23/23 Pre-operative Diagnosis: Aortic stenosis Post-operative Diagnosis: Same Surgeon: Javi Glaser (.) Left Ventricle: Mild LVH Ejection Fraction: Normal Regional Wall Motion Abnormalities: None Left Ventricle Hypertrophy: Yes Right Ventricle: Within normal limits R. Ventricle Function: Normal Aortic Valve: Calcified. Planimetry 0.5 cm. Peak gradient 80 mean 39. Anatomy: Trileaflet Aortic Stenosis: Severe Aortic Regurgitation: Mild Mitral Stenosis: None Mitral Regurgitation: Mild Tricuspid Stenosis: None Pulmonic Stenosis: None Pulmonic Regurgitation: None R. Atrial Dilation: No R. Atrial PFO: No L. Atrial Dilation: No Aorta: Enlarged 3.5 cm Aortic Dissection: No Aortic Calcification: None Plural Effusion: None
[2023-08-23 09:04] LABS: ABG Base Excess -0.4 mmol/L; ABG Glucose Whole Blood 113 mg/dL (75-99); ABG HCO3 25 mmol/L (21-25); ABG Hematocrit 37 % (34.0-46.0); ABG Ionized Calcium 4.5 mg/dL (4.5-5.3); ABG Lactic Acid Whole Blood 1.6 mmol/L (0.5-1.6); ABG PCO2 40 mmHg (35-45); ABG PO2 217 mmHg (83-108); ABG Potassium Whole Blood 4.2 mmol/L (3.4-4.5); ABG Sodium Whole Blood 138 mmol/L (135-146); ABG TCO2 22 mmol/L (19-24); Allen Test Performed? Yes
[2023-08-23] MEDS: ceFAZolin 1,000 MG in SODIUM CHLORIDE 0.9% 1,000 ML IRRIGATION ONE (09:14)
[2023-08-23] MEDS: SODIUM CHLORIDE 0.9% 500 ML 500 ML with HEPARIN SODIUM,PORCINE (1 ML) 5,000 UNIT IV ONE (09:14)
[2023-08-23 09:26] LABS: ABG Base Excess 1.5 mmol/L; ABG Glucose Whole Blood 114 mg/dL (75-99); ABG HCO3 27 mmol/L (21-25); ABG Hematocrit 30 % (34.0-46.0); ABG Ionized Calcium 3.9 mg/dL (4.5-5.3); ABG Lactic Acid Whole Blood 1.3 mmol/L (0.5-1.6); ABG Oxygen Saturation 97.9 % (94-97); ABG PCO2 43 mmHg (35-45); ABG Potassium Whole Blood 4.2 mmol/L (3.4-4.5); ABG Sodium Whole Blood 140 mmol/L (135-146); ABG TCO2 25 mmol/L (19-24); Allen Test Performed? Yes
[2023-08-23 10:40] LABS: ABG Glucose Whole Blood 150 mg/dL (75-99); ABG HCO3 26 mmol/L (21-25); ABG Ionized Calcium 4.4 mg/dL (4.5-5.3); ABG Lactic Acid Whole Blood 1.4 mmol/L (0.5-1.6); ABG PCO2 49 mmHg (35-45); ABG PH 7.33 (7.35-7.45); ABG Potassium Whole Blood 4.6 mmol/L (3.4-4.5); ABG Sodium Whole Blood 139 mmol/L (135-146); Allen Test Performed? Yes
[2023-08-23 11:11] LABS: ABG Glucose Whole Blood 153 mg/dL (75-99); ABG HCO3 25 mmol/L (21-25); ABG Ionized Calcium 4.5 mg/dL (4.5-5.3); ABG Lactic Acid Whole Blood 1.4 mmol/L (0.5-1.6); ABG PCO2 48 mmHg (35-45); ABG PH 7.32 (7.35-7.45); ABG PO2 415 mmHg (83-108); ABG Potassium Whole Blood 4.7 mmol/L (3.4-4.5); ABG Sodium Whole Blood 140 mmol/L (135-146); Allen Test Performed? Yes
[2023-08-23 12:01] LABS: ABG Lactic Acid Whole Blood 2.5 mmol/L (0.5-1.6)
[2023-08-23 12:03] LABS: ABG PO2 >420 mmHg (83-108)
[2023-08-23 12:06] LABS: ABG Base Excess -0.4 mmol/L; ABG Oxygen Saturation 97.7 % (94-97); ABG PO2 >420 mmHg (83-108); ABG TCO2 25 mmol/L (19-24)
[2023-08-23 12:07] LABS: ABG Hematocrit 31 % (34.0-46.0)
[2023-08-23 12:10] LABS: ABG Base Excess -1.3 mmol/L; ABG Hematocrit 33 % (34.0-46.0); ABG Oxygen Saturation 97.5 % (94-97); ABG TCO2 24 mmol/L (19-24)
[2023-08-23 12:43] LABS: ABG Glucose Whole Blood 111 mg/dL (75-99); ABG HCO3 24 mmol/L (21-25); ABG Ionized Calcium 4.2 mg/dL (4.5-5.3); ABG Lactic Acid Whole Blood 1.9 mmol/L (0.5-1.6); ABG PCO2 43 mmHg (35-45); ABG PH 7.36 (7.35-7.45); ABG Sodium Whole Blood 143 mmol/L (135-146); Allen Test Performed? Yes
[2023-08-23 12:47] LABS: ABG Base Excess -1.6 mmol/L; ABG Hematocrit 25 % (34.0-46.0); ABG Oxygen Saturation 98.9 % (94-97); ABG PO2 >420 mmHg (83-108); ABG TCO2 23 mmol/L (19-24)
[2023-08-23] MEDS ORDERED: DEXTROSE 5% IN WATER 100 ML with AMIODARONE 150 MG IV PRN (12:58)
[2023-08-23] MEDS ORDERED: METOCLOPRAMIDE 5 MG/ML 2 ML VIAL IVP PRN (12:58)
[2023-08-23] MEDS ORDERED: DEXTROSE 50% SYRINGE 50 ML IVP PRN ×2 (12:58)
[2023-08-23] MEDS ORDERED: BENZOCAINE/MENTHOL LOZENG 1 EACH LOZENGE MUCOUS MEM PRN (12:58)
[2023-08-23] MEDS ORDERED: ALBUMIN HUMAN 5% 250 ML in EMPTY BAG 1 BAG IVPB PRN (12:58)
[2023-08-23] MEDS ORDERED: hydrALAZINE HCL 20 MG/ML 1 ML VIAL IVP PRN (12:58)
[2023-08-23] MEDS ORDERED: AMIODARONE 450 MG in DEXTROSE 5% IN WATER 250 ML IV PRN (12:58)
[2023-08-23] MEDS ORDERED: Magnesium Replacement Protocol 1 EACH MISC MISCELLANE PRN (12:58)
[2023-08-23] MEDS ORDERED: Potassium Replacement Protocol 1 EACH MISC MISCELLANE PRN (12:58)
[2023-08-23] MEDS ORDERED: AMIODARONE 360 MG in DEXTROSE 5% IN WATER 200 ML IV PRN (12:58)
[2023-08-23] MEDS ORDERED: DEXMEDETOMIDINE/0.9% NACL(PMX) 400 MCG in EMPTY BAG 1 BAG IV SCH (12:58)
--- NOTE | 2023-08-23 13:03 | P.OP ---
Date of Procedure: 08/23/23 Preoperative Diagnosis: Symptomatic calcific tricuspid aortic stenosis Postoperative Diagnosis: Same Procedure(s) Performed: Aortic valve replacement with 29 mm Zheng Inspiris bovine pericardial valve, root enlargement with Hemashield patch (Héctor Whitfield technique), epiaortic ultrasound, ligation of left atrial appendage with 35mm AtriCure clip. Implants: 29 mm Zheng bovine pericardial valve, Hemashield patch, AtriCure clip, plates and screws for sternal closure Anesthesia: BRITTA Surgeon: aJvi Glaser Car Pre Cooler #1: Jaswant Lechuga Car Pre Cooler #2: Paul Mckee Estimated Blood Loss (ml): 700 IV fluids (ml): 2,500 Urine output (ml): 500 Pathology: other (Aortic valve) Condition: stable Disposition: ICU Indications for Procedure: 72-year-old male presents with significantly symptomatic calcific aortic stenosis. He has calcific coronary artery disease without significant obstructive lesion. He was evaluated in the TAVR clinic. He was seen in [facility] rt with Dr. Cholo Obrien. Due to the patient's size and small aortic annulus and low surgical risk, it was felt he was best served by SAVR with root enlargement. Appropriate workup was performed he was seen back in the clinic and scheduled for elective surgery. Operative Findings: There was significant LVH and trivial mitral regurgitation on preoperative CATHERINE. Aortic valve was heavily calcific with high gradient. It appeared to be of tricuspid valve. Overall left ventricular function was good. On surgical exploration, heart was clearly enlarged. Aortic annulus was measured with CATHERINE of 22 mm. The aortic valve was calcific and tricuspid with significant calcium in the annulus. Epiaortic ultrasound revealed a relatively normal ascending aorta. A 21 mm sizer passed easily however a 23 mm sizer was extremely tight consistent with an aortic annulus at about 22 mm. The aortic annulus was enlarged using Hemashield patch and Héctor Whitfield technique. A 21 mm valve was now able to be implanted. Postoperative CATHERINE demonstrated good ventricular function, no mitral regurgitation and no paravalvular leak. Description of Procedure: Patient was brought to the operating room and placed supine in the operating table. General anesthesia was induced. The anterior torso and bilateral lower extremities were sterilely prepped and draped. Standard midline sternotomy was performed. Epiaortic ultrasonography was performed with findings as noted above. Left pleural space was opened widely and the right pleural space was opened slightly. Pericardium was opened in the midline and the heart was exposed with pericardial sutures. Patient was heparinized and cannulated for cardiopulmonary bypass with a 7 mm soft flow cannula in the distal ascending aorta and a two-stage venous cannula through the right atrial appendage into the inferior vena cava. Antegrade and retrograde cardioplegia lines were placed in standard fashion. Patient was placed on cardiopulmonary bypass and stabilized. A 35 mm clip was placed on the base of the left atrial appendage. A left atrial vent was placed through the right superior pulmonary vein. Aorta was crossclamped and the heart was arrested with cold crystalloid antegrade cardioplegia followed by retrograde cardioplegia. Immediately became evident that there was a rupture of the coronary sinus and this was repaired with pledgeted 4-0 Prolene suture. This resulted in ability to flow retrograde cardioplegia. A TachoSil was placed over this to assure good hemostasis. The aorta was opened transversely and the valve was explored. The valve leaflets were excised. Sizing immediately revealed that we would need to enlarge the valve is anticipated. The incision was carried down through the commissure between the left and noncoronary cusps onto the fibrous skeleton of the heart and CATHERINE both to the left and to the right is much as possible. Hemashield patch was then sewn into place with running 5-0 Prolene suture across the resultant to the opening and up to the sinotubular junction on either side. We now placed circumferential valve sutures first in the right coronary cusp annulus and then around onto the patch from both the right send none coronary cusp and from the left coronary cusp. We now resized the valve and opted for a 29 Zheng Inspira's bovine pericardial prosthesis. This was brought up on the field and the valve sutures were placed through the sewing ring of the valve. The valve was seated and noted to seat well and the valve sutures were tied. We now put valve sutures through the sewing ring of the valve into the patch and tied them externally completing the fixation of the annulus of the valve. Copious irrigation was performed intermittently throughout. Intermittent doses of intermittent doses of antegrade cardioplegia were administered through the root directly into the coronary artery ostia. We checked the seating of the valve and were very happy. We irrigated 1 more time and then completed the aortic closure using the remaining portion of the patch and the 5-0 Prolene suture. The left atrial vent line was removed. The patient was placed in Trendelenburg. Some CoSeal was used to seal the suture lines on the aorta and the root. Cross-clamp was removed. Atrial and ventricular pacing wires were placed. The retrograde cardioplegia line was removed. Patient was initially paced. Lung function was reinitiated with the ventilator and the heart was de-aired through the apex with an 18-gauge Angiocath. This was oversewn with a 6-0 Prolene suture. After appropriate rewarming and checking for hemostasis, we from cardiopulmonary bypass without difficulty. The aortic vent line was removed and reinforced with a 4-0 pledgeted Prolene suture. After assuring good hemodynamics and excellent findings on the CATHERINE, heparin was reversed with protamine. The patient was decannulated in standard fashion and the aortic site reinforced with a 4 oh pledgeted Prolene suture. Good hemostasis was now obtained throughout. The left pleural space was drained with a 32 Gamb[place] chest tube. The mediastinum was drained with 2 36 [place]ian chest tubes. Chest was irrigated with antibiotic solution. Sternum was reapproximated with 4 sternal wires. Sternal closure was completed with 3 plates. Fascia was closed with 0 Ethibond. Subcutaneous and subcuticular layers were closed with layers of Vicryl suture. Dry sterile dressings were applied and the patient was transferred to ICU in stable condition on no inotropic support having received no blood transfusions.
--- NOTE | 2023-08-23 13:17 | P.ANPRN ---
Procedure Note - Anesthesia - CATHERINE Intraop Post Bypass CATHERINE Intraop Post Bypass Procedure Performed: AVR, Aortic Root Enlargement Left Ventricle: unchanged Ejection Fraction: Normal Regional Wall Motion Abnormalities: None R. Ventricle Function: Normal Aortic Valve: Prosthetic valve in place. Opens well. No perivalvular leak. Residual mean gradient 4. Mitral Valve: Unchanged Tricuspid: Unchanged Pulmonic: Unchanged Aortic Dissection: No
[2023-08-23 13:25] LABS: Glucose,Whole Blood 159 mg/dL (70-110)
[2023-08-23] MEDS: IPRATROPIUM-ALBUTEROL 3 ML NEB INHALATION SCH ×2 (13:26→20:21)
[2023-08-23] MEDS: IPRATROPIUM-ALBUTEROL 3 ML NEB INHALATION PRN (13:26)
[2023-08-23 13:48] LABS: ABG Base Excess -2.5 mmol/L; ABG HCO3 24 mmol/L (21-25); ABG Oxygen Saturation 98.5 % (94-97); ABG PCO2 47 mmHg (35-45); ABG PH 7.31 (7.35-7.45); ABG PO2 248 mmHg (83-108); ABG TCO2 25 mmol/L (19-24); Allen Test Performed? Yes
[2023-08-23 13:51] LABS: Anisocytosis Slight; Basophils # (A) 0.1 k/uL (0-0.2); Basophils % (A) 0 %; Eosinophils # (A) 0.1 k/uL (0-0.7); Eosinophils % (A) 1 %; HCT 26.8 % (39.0-53.0); Lymphocytes # (A) 0.6 k/uL (1.0-4.8); Lymphocytes % (A) 3 %; MCHC 32.3 g/dL (31.0-37.0); MCV 93.1 fL (80.0-100.0); Monocytes # (A) 1.1 k/uL (0-1.0); Monocytes % (A) 6 %; Neutrophils # (A) 17.4 k/uL (1.3-7.7); Neutrophils % (A) 90 %; Platelet Count 123 k/uL (150-450); RBC 2.88 m/uL (4.30-5.90); RDW 16.7 % (11.5-15.5); WBC 19.5 k/uL (3.8-10.6)
[2023-08-23 13:52] LABS: INR 1.7 (<1.2); Partial Thromboplastin Time 30.8 sec (22.0-30.0); Prothrombin Time 17.1 sec (10.0-12.5)
[2023-08-23 13:57] LABS: HGB 8.7 gm/dL (13.0-17.5)
[2023-08-23 13:58] LABS: Ionized Calcium 4.2 mg/dL (4.5-5.3)
[2023-08-23] MEDS: NOREPINEPHRINE 4 MG in SODIUM CHLORIDE 0.9% 250 ML IV SCH (14:00)
[2023-08-23] MEDS: LACTATED RINGERS 1,000 ML IV SCH (14:00)
[2023-08-23] MEDS: CLEVIDIPINE BUTYRATE 25 MG in EMPTY BAG 1 BAG IV SCH (14:00)
[2023-08-23] MEDS: INSULIN REGULAR 100 UNIT in SODIUM CHLORIDE 0.9% 100 ML IV SCH (14:02)
--- NOTE | 2023-08-23 14:07 | XR ---
EXAMINATION TYPE: XR chest 1V portable DATE OF EXAM: 08/23/2023 1:59 PM CLINICAL INDICATION:Male, 72 years old with history of Post Operative Cardiac Surgery; [facility] COMPARISON: Chest radiographs from 08/17/2023. TECHNIQUE: XR chest 1V portable Frontal view of the chest. FINDINGS: Lungs/Pleura: There is no evidence of pleural effusion, focal consolidation, or pneumothorax. Pulmonary vascularity: Pulmonary vascular congestion. Heart/mediastinum: Cardiomediastinal silhouette is unremarkable. Left atrial appendage occlusion paola ce. Aortic valvular repair changes. Musculoskeletal: No acute osseous pathology. Sternotomy fixation present. Other findings: None Lines/Tubes: Endotracheal tube with distal tip 1.5 cm above the carmen. Nasogastric tube with its distal tip and side-port projecting under the diaphragm. There is a [place]-Ileana catheter with tip projecting over the spine. Left thoracotomy tube is present without evidence of pneumothorax. IMPRESSION: Postsurgical changes with mild pulmonary edema. Lines and tubes in appropriate position.
[2023-08-23 14:09] LABS: ALT 17 U/L (4-49); AST 39 U/L (17-59); African American GFR (CKD) >90 (>60 ml/min/1.73 sqM); Alkaline Phosphatase 42 U/L (38-126); Anion Gap 9 mmol/L; Blood Urea Nitrogen 14 mg/dL (9-20); Calcium 7.3 mg/dL (8.4-10.2); Carbon Dioxide 22 mmol/L (22-30); Chloride 110 mmol/L (98-107); Glucose 146 mg/dL (74-99); Magnesium 3.1 mg/dL (1.6-2.3); Non-African American GFR(CKD) >90 (>60 ml/min/1.73 sqM); Potassium 4.4 mmol/L (3.5-5.1); Sodium 141 mmol/L (137-145); Total Bilirubin 1.4 mg/dL (0.2-1.3); Total Protein 5.5 g/dL (6.3-8.2)
[2023-08-23] MEDS: ACETAMINOPHEN IV (For NPO) 1,000 MG in EMPTY BAG 1 BAG IVPB SCH (14:09)
[2023-08-23 14:27] LABS: Glucose,Whole Blood 151 mg/dL (70-110)
--- NOTE | 2023-08-23 14:48 | P.CNPUL ---
History of Present Illness Consult date: 08/23/23 Requesting physician: Javi Glaser Reason for consult: other (Mechanical ventilator/critical care management) Chief complaint: Dyspnea on exertion, extreme fatigue History of present illness: This is a 72-year-old male patient with a history of GI bleeding, prostate cancer with previous radiation. He had been having symptoms of progressive dyspnea on exertion and extreme fatigue. He was found to have critical aortic stenosis and was brought in today for aortic valve replacement. He had undergone aortic valve replacement with a 29 mm Zheng Inspiris bovine pericardial valve and root enlargement with Hemashield patchas well as a left atrial appendage ligation with a 35 mm atrial cure clip. He is seen postoperatively in the intensive care unit. He is intubated on the mechanical v entilator and assist-control mode at a rate of 14, tidal volume 500, FiO2 100% and a PEEP of 10. Blood gases revealed a PaO2 of 248, pCO2 of 47 and a pH of 7.31. He has a mediastinal, right and left pleural chest tubes in place. Pacer wires in place. Right IJ [place]-Ileana catheter in place. Cardiac output 4.5. Cardiac index 2.1. PA pressure 51/34, CVP 25. He is on an insulin drip at 2 units/h. He is sedated on propofol 20 mcg/kg/min. He has lactated Ringer's at 50 MLS per hour. Chest x-ray reveals catheters and lines in place. No evidence of pneumothorax. White count 19.5. Hemoglobin 8.7. Platelets 123. INR 1.7. Sodium 141. Potassium 4.4. Bicarb 22. BUN 14. Creatinine 0.59. Glucose 146. Review of Systems ROS unobtainable: due to endotracheal tube Past Medical History Past Medical History: Cancer, Diabetes Mellitus, GERD/Reflux, Hearing Disorder / Deafness, Hyperlipidemia, Hypertension, Osteoarthritis (OA) Additional Past Medical History / Comment(s): HX. MENIERE'S. HX. HIATAL HERNIA. HX. 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 HX ARTHRITIS- IN PATEL NDS,FINGERS & SHOULDERS. NEW DX PROSTATE CANCER ABOUT 2021 History of Any Multi-Drug Resistant Organisms: None Reported Past Surgical History: Heart Catheterization Additional Past Surgical History / Comment(s): DEVIATED SEPTUM SX. COLONOSCOPY Past Anesthesia/Blood Transfusion Reactions: No Reported Reaction Additional Past Anesthesia/Blood Transfusion Reaction / Comment(s): robert hx blood tranfusion Smoking Status: Never smoker - Past Family History Mother Family Medical History: No Reported History Medications and Allergies Home Medications Medication Instructions Recorded Confirmed Type Omeprazole [PriLOSEC] 20 mg PO AC-LUNCH 07/11/13 08/23/23 History Benazepril [Lotensin] 10 mg PO DAILY 09/29/21 08/21/23 History Glimepiride [Amaryl] 2 mg PO QAM 09/29/21 08/23/23 History Pioglitazone [Actos] 15 mg PO HS 09/29/21 08/23/23 History amLODIPine [Norvasc] 5 mg PO DAILY 09/29/21 08/22/23 History Aspirin 81 mg PO DAILY #60 tab 06/09/23 08/23/23 Rx Glimepiride [Amaryl] 4 mg PO HS 08/18/23 08/23/23 History "Cholesterol Med" 1 dose SQ Q90D 08/21/23 08/23/23 History Allergies Allergy/AdvReac Type Severity Reaction Status Date / Time Amoftjp-GGP-PdD Reductase AdvReac MUSCLE Verified 08/23/23 05:49 Inhibitor CRAMPS IN [Wdrofnv-Anh-Jcg Reductase LEGS Inhibitor] Physical Exam Osteopathic Statement: *. No significant issues noted on an osteopathic structural exam other than those noted in the History and Physical/Consult. Vitals: Vital Signs Temp Pulse Pulse Resp BP BP Pulse Ox 08/23/23 14:15 80 28 H 99 08/23/23 14:00 80 33 H 100 08/23/23 13:45 80 14 99 08/23/23 13:30 80 14 98 08/23/23 13:28 08/23/23 13:27 79 08/23/23 13:18 80 14 98 08/23/23 12:48 08/23/23 06:35 97.1 F L 64 16 141/65 170/77 95 FiO2 08/23/23 14:15 08/23/23 14:00 08/23/23 13:45 08/23/23 13:30 08/23/23 13:28 100 08/23/23 13:27 08/23/23 13:18 08/23/23 12:48 100 08/23/23 06:35 Intake and Output 08/22/23 08/23/23 08/23/23 22:59 06:59 14:59 Intake Total 2 Output Total 1050 Balance -1048 Intake: IV 2 Output: Urine 350 Estimated Blood Loss 700 Other: Weight 111.2 kg ABP, PAP, CO, CI - Last 8 Hours Arterial Blood Pressure 109/64 Arterial Blood Pressure 107/66 Arterial Blood Pressure 111/67 Arterial Blood Pressure 104/58 Arterial Blood Pressure 102/56 Pulmonary Artery Pressure 51/34 Pulmonary Artery Pressure 55/40 Pulmonary Artery Pressure 52/37 Cardiac Output 4.5 Cardiac Index 2.1 GENERAL EXAM: Intubated, sedated 72-year-old male patient on the mechanical ventilator, in no apparent distress. HEAD: Normocephalic. EYES: Sluggish reaction of pupils, equal size. NOSE: Clear with pink turbinates. THROAT: Oral endotracheal and gastric tube secured in place. No erythema or exudates. NECK: Right IJ [place]-Ileana catheter in place. No masses, no JVD. CHEST: Sternal dressing dry and intact. Right left and mediastinal chest tubes in place. Pacer wires in place. LUNGS: Equal air entry with no crackles, wheeze, rhonchi or dullness. CVS: S1 and S2 normal with no audible murmur, regular rhythm. ABDOMEN: No hepatosplenomegaly, no guarding or rigidity. SPINE: No scoliosis or deformity SKIN: No rashes CENTRAL NERVOUS SYSTEM: No focal deficits, tone is normal in all 4 extremities. EXTREMITIES: Right radial arterial line in place. Subhash wraps to the lower extremities. SCDs in place. Peripheral pulses are intact. Results - Laboratory Findings CBC and BMP: 08/23/23 13:20 08/23/23 13:20 ABG ABG pH 7.31 (7.35-7.45) L 08/23/23 13:38 ABG pCO2 47 mmHg (35-45) H 08/23/23 13:38 ABG pO2 248 mmHg (83-108) H 08/23/23 13:38 ABG O2 Saturation 98.5 % (94-97) H 08/23/23 13:38 PT/INR, D-dimer PT 17.1 sec (10.0-12.5) H 08/23/23 13:20 INR 1.7 (<1.2) H 08/23/23 13:20 Abnormal lab findings: Abnormal Labs 08/17/23 08/23/23 08/23/23 11:26 06:18 08:28 WBC RBC Hgb Hct RDW Plt Count Neutrophils # Lymphocytes # Monocytes # PT INR APTT ABG pH ABG pCO2 ABG pO2 165 H ABG HCO3 ABG Total CO2 ABG O2 Saturation ABG Hematocrit ABG Potassium ABG Ionized Calcium ABG Glucose 120 H ABG Lactic Acid 2.5 H* Hemoglobin 12.0 L Chloride Creatinine Glucose POC Glucose (mg/dL) 136 H Calcium Ionized Calcium [place] Magnesium Total Bilirubin Total Protein Arterial Blood Potassium Arterial Blood Glucose 120 H Crossmatch See Detail 08/23/23 08/23/23 08/23/23 09:06 09:28 10:42 WBC RBC Hgb Hct RDW Plt Count Neutrophils # Lymphocytes # Monocytes # PT INR APTT ABG pH 7.33 L ABG pCO2 49 H ABG pO2 217 H >420 H >420 H ABG HCO3 27 H 26 H ABG Total CO2 25 H 25 H ABG O2 Saturation 97.9 H 97.7 H ABG Hematocrit 30 L 31 L ABG Potassium 4.6 H ABG Ionized Calcium 3.9 L 4.4 L ABG Glucose 113 H 114 H 150 H ABG Lactic Acid Hemoglobin 12.1 L 9.8 L 10.1 L Chloride Creatinine Glucose POC Glucose (mg/dL) Calcium Ionized Calcium [place] Magnesium Total Bilirubin Total Protein Arterial Blood Potassium 4.6 H Arterial Blood Glucose 113 H 114 H 150 H Crossmatch 08/23/23 08/23/23 08/23/23 11:13 12:44 13:20 WBC 19.5 H RBC 2.88 L Hgb 8.7 L D Hct 26.8 L RDW 16.7 H Plt Count 123 L Neutrophils # 17.4 H Lymphocytes # 0.6 L Monocytes # 1.1 H PT INR APTT ABG pH 7.32 L ABG pCO2 48 H ABG pO2 415 H >420 H ABG HCO3 ABG Total CO2 ABG O2 Saturation 97.5 H 98.9 H ABG Hematocrit 33 L 25 L ABG Potassium 4.7 H ABG Ionized Calcium 4.2 L ABG Glucose 153 H 111 H ABG Lactic Acid 1.9 H Hemoglobin 10.8 L 8.3 L Chloride Creatinine Glucose POC Glucose (mg/dL) Calcium Ionized Calcium [place] Magnesium Total Bilirubin Total Protein Arterial Blood Potassium 4.7 H Arterial Blood Glucose 153 H 111 H Crossmatch 08/23/23 08/23/23 08/23/23 13:20 13:20 13:23 WBC RBC Hgb Hct RDW Plt Count Neutrophils # Lymphocytes # Monocytes # PT 17.1 H INR 1.7 H APTT 30.8 H ABG pH ABG pCO2 ABG pO2 ABG HCO3 ABG Total CO2 ABG O2 Saturation ABG Hematocrit ABG Potassium ABG Ionized Calcium ABG Glucose ABG Lactic Acid Hemoglobin Chloride 110 H Creatinine 0.59 L Glucose 146 H POC Glucose (mg/dL) 159 H Calcium 7.3 L Ionized Calcium [place] 4.2 L Magnesium 3.1 H Total Bilirubin 1.4 H Total Protein 5.5 L Arterial Blood Potassium Arterial Blood Glucose Crossmatch 08/23/23 08/23/23 13:38 14:26 WBC RBC Hgb Hct RDW Plt Count Neutrophils # Lymphocytes # Monocytes # PT INR APTT ABG pH 7.31 L ABG pCO2 47 H ABG pO2 248 H ABG HCO3 ABG Total CO2 25 H ABG O2 Saturation 98.5 H ABG Hematocrit ABG Potassium ABG Ionized Calcium ABG Glucose ABG Lactic Acid Hemoglobin Chloride Creatinine Glucose POC Glucose (mg/dL) 151 H Calcium Ionized Calcium [place] Magnesium Total Bilirubin Total Protein Arterial Blood Potassium Arterial Blood Glucose Crossmatch - Diagnostic Findings Chest x-ray: image reviewed Assessment and Plan Assessment: Severe aortic stenosis status post aortic valve replacement with a 29 mm Zheng Inspiris bovine pericardial valve, root enlargement with Hemashield patch and ligation of the left atrial appendage with a 35 mm atrial cure clip. 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 Number of minutes spent on the visit: 20.
[2023-08-23] MEDS: CALCIUM GLUCONATE IN NACL 2 GM in SALINE 1 100ML.BAG IVPB PRN (15:04)
[2023-08-23 15:26] LABS: Glucose,Whole Blood 136 mg/dL (70-110)
[2023-08-23 16:03] LABS: Glucose,Whole Blood 152 mg/dL (70-110)
[2023-08-23 16:29] LABS: Anisocytosis Slight; Basophils % (A) 0 %; Eosinophils # (A) 0.1 k/uL (0-0.7); Eosinophils % (A) 0 %; HCT 26.4 % (39.0-53.0); HGB 8.6 gm/dL (13.0-17.5); Lymphocytes # (A) 0.5 k/uL (1.0-4.8); Lymphocytes % (A) 4 %; MCH 30.2 pg (25.0-35.0); MCHC 32.5 g/dL (31.0-37.0); MCV 92.8 fL (80.0-100.0); Mean Platelet Volume 9.2; Monocytes # (A) 0.8 k/uL (0-1.0); Monocytes % (A) 6 %; Neutrophils # (A) 12.8 k/uL (1.3-7.7); Neutrophils % (A) 89 %; Platelet Count 133 k/uL (150-450); RBC 2.85 m/uL (4.30-5.90); RDW 16.6 % (11.5-15.5); WBC 14.3 k/uL (3.8-10.6)
[2023-08-23] MEDS: HEPARIN SODIUM,PORCINE 5,000 UNIT/ML 1 ML VIAL SQ SCH (16:29)
[2023-08-23 17:07] LABS: Glucose,Whole Blood 145 mg/dL (70-110)
[2023-08-23 17:45] LABS: ABG Base Excess -1.8 mmol/L; ABG HCO3 24 mmol/L (21-25); ABG Oxygen Saturation 95.9 % (94-97); ABG PCO2 44 mmHg (35-45); ABG PH 7.34 (7.35-7.45); ABG PO2 90 mmHg (83-108); ABG TCO2 25 mmol/L (19-24); Allen Test Performed? Yes
[2023-08-23] MEDS: ONDANSETRON 4 MG/2 ML VIAL IVP PRN (18:20)
[2023-08-23 18:21] LABS: Glucose,Whole Blood 144 mg/dL (70-110)
[2023-08-23 19:02] LABS: Glucose,Whole Blood 139 mg/dL (70-110)
[2023-08-23 19:09] LABS: Anisocytosis Slight; Basophils % (A) 0 %; Eosinophils # (A) 0.1 k/uL (0-0.7); Eosinophils % (A) 0 %; HCT 28.6 % (39.0-53.0); HGB 9.1 gm/dL (13.0-17.5); Lymphocytes # (A) 0.5 k/uL (1.0-4.8); Lymphocytes % (A) 3 %; MCH 29.2 pg (25.0-35.0); MCHC 31.8 g/dL (31.0-37.0); MCV 91.6 fL (80.0-100.0); Mean Platelet Volume 9.8; Monocytes # (A) 0.8 k/uL (0-1.0); Monocytes % (A) 5 %; Neutrophils # (A) 13.7 k/uL (1.3-7.7); Neutrophils % (A) 90 %; Platelet Count 126 k/uL (150-450); RBC 3.12 m/uL (4.30-5.90); RDW 16.7 % (11.5-15.5); WBC 15.2 k/uL (3.8-10.6)
[2023-08-23] MEDS ORDERED: MUPIROCIN 2% OINT 22 GM TUBE NASAL ONE (19:45)
[2023-08-23 19:57] LABS: Glucose,Whole Blood 130 mg/dL (70-110)
[2023-08-23 20:51] LABS: Glucose,Whole Blood 131 mg/dL (70-110)
[2023-08-23] MEDS: SENNOSIDES-DOCUSATE SODIUM 1 EACH TAB PO SCH (21:50)
[2023-08-23 22:05] LABS: Glucose,Whole Blood 130 mg/dL (70-110)
[2023-08-23 23:18] LABS: Glucose,Whole Blood 126 mg/dL (70-110)
[2023-08-24 00:08] LABS: Glucose,Whole Blood 128 mg/dL (70-110)
[2023-08-24 01:04] LABS: Glucose,Whole Blood 121 mg/dL (70-110)
[2023-08-24 02:10] LABS: Glucose,Whole Blood 119 mg/dL (70-110)
[2023-08-24 03:12] LABS: Glucose,Whole Blood 125 mg/dL (70-110)
[2023-08-24 04:23] LABS: Glucose,Whole Blood 127 mg/dL (70-110)
[2023-08-24 05:44] LABS: Glucose,Whole Blood 126 mg/dL (70-110)
[2023-08-24 06:48] LABS: Anisocytosis Slight; Basophils # (A) 0.1 k/uL (0-0.2); Basophils % (A) 0 %; Eosinophils # (A) 0.1 k/uL (0-0.7); Eosinophils % (A) 0 %; HCT 28.6 % (39.0-53.0); HGB 9.3 gm/dL (13.0-17.5); Hypochromasia Slight; Lymphocytes # (A) 0.8 k/uL (1.0-4.8); Lymphocytes % (A) 5 %; MCHC 32.4 g/dL (31.0-37.0); MCV 92.7 fL (80.0-100.0); Mean Platelet Volume 8.9; Monocytes # (A) 1.1 k/uL (0-1.0); Monocytes % (A) 7 %; Neutrophils # (A) 13.6 k/uL (1.3-7.7); Neutrophils % (A) 86 %; Platelet Count 145 k/uL (150-450); RBC 3.08 m/uL (4.30-5.90); RDW 16.8 % (11.5-15.5); WBC 15.8 k/uL (3.8-10.6)
[2023-08-24 07:01] LABS: Ionized Calcium 4.6 mg/dL (4.5-5.3)
[2023-08-24 07:10] LABS: ALT 24 U/L (4-49); AST 61 U/L (17-59); African American GFR (CKD) >90 (>60 ml/min/1.73 sqM); Albumin 3.8 g/dL (3.5-5.0); Alkaline Phosphatase 43 U/L (38-126); Anion Gap 5 mmol/L; Blood Urea Nitrogen 17 mg/dL (9-20); Calcium 8.4 mg/dL (8.4-10.2); Carbon Dioxide 24 mmol/L (22-30); Chloride 110 mmol/L (98-107); Glucose 104 mg/dL (74-99); Magnesium 2.3 mg/dL (1.6-2.3); Non-African American GFR(CKD) >90 (>60 ml/min/1.73 sqM); Potassium 4.6 mmol/L (3.5-5.1); Sodium 139 mmol/L (137-145); Total Bilirubin 1.3 mg/dL (0.2-1.3); Total Protein 5.5 g/dL (6.3-8.2)
[2023-08-24 07:10] LABS: Glucose,Whole Blood 132 mg/dL (70-110)
[2023-08-24 08:17] LABS: Glucose,Whole Blood 168 mg/dL (70-110)
[2023-08-24] MEDS: ATORVASTATIN 40 MG TAB PO SCH (08:30)
[2023-08-24] MEDS: METOPROLOL TARTRATE 12.5 MG TAB PO SCH (08:30)
[2023-08-24] MEDS: ASPIRIN 81 MG PO SCH (08:30)
[2023-08-24] MEDS: PANTOPRAZOLE 40 MG/10 ML VIAL IVP SCH (08:31)
--- NOTE | 2023-08-24 08:48 | XR ---
EXAMINATION TYPE: XR chest 1V portable DATE OF EXAM: 08/24/2023 5:42 AM CLINICAL INDICATION:Male, 72 years old with history of Post Operative Cardiac Surgery; H COMPARISON: Chest radiographs from TECHNIQUE: XR chest 1V portable Frontal view of the chest. FINDINGS: Lungs/Pleura: There is no evidence of pleural effusion, focal consolidation, or pneumothorax. Pulmonary vascularity: Pulmonary vascular congestion. Heart/mediastinum: Cardiomediastinal silhouette is unremarkable. Left atrial appendage occlusion paola ce. Aortic valvular repair changes. Musculoskeletal: No acute osseous pathology. Sternotomy fixation present. Other findings: None Lines/Tubes: Endotracheal tube has been removed. Nasogastric tube has been removed. There is a [place]-Ileana catheter with tip projecting over the spine. Drainage tubes with tips projecting over the mediastinum. IMPRESSION: Removal of endotracheal nasogastric tubes with postsurgical changes with mild pulmonary edema.
--- NOTE | 2023-08-24 08:50 | P.PN ---
Subjective Progress Note Date: 08/24/23 Principal diagnosis: Symptomatic calcific tricuspid aortic stenosis. Past medical history significant for coronary artery disease status post PCI to his obtuse marginal coronary artery in 2021, hypertension, hyperlipidemia, diabetes mellitus type 2, prostate cancer, GI bleed, hard of hearing and is a lifetime non-smoker. POD #1 Aortic valve replacement with 29 mm Zheng Inspiris bovine pericardial valve, root enlargement with Hemashield patch (Héctor Whitfield technique), epiaortic ultrasound, ligation of left atrial appendage with 35mm AtriCure clip and plates and screws for sternal closure. Postoperative acute blood loss anemia, expected given hemodilution and cardiopulmonary bypass. The patient was seen and examined in follow-up today August 24, 2023 at his bedside in the intensive care unit. He was successfully extubated at 5:58 PM, is currently on 2 L nasal cannula with oxygen saturations 96% and achieving 500 mL on his incentive spirometry with encouragement. He is currently sitting up to the bedside chair, is awake, alert, oriented x 3 and is in no acute apparent distress. He is complaining of some surgical type pain to his chest tube insertion site and taking a deep breath currently rating his pain 5 out of 10 on the pain scale. Denies any complaints of shortness of breath or nausea at this time. Right IJ cordis and Paoli-Ileana catheter remain in place with current hemodynamic showing a cardiac output of 4.4, cardiac index 2.0, PA pressures 44/21, CVP 11 mmHg and SVR 1289. Mediastinal and left pleural chest tubes remain in place to low continuous wall suction -20 cm H2O. Mediastinal chest tube drained 90 mL output thin serosanguineous drainage in the last 8 hours and 400 mL since surgery. Mediastinal right ankle chest tube drained 20 mL thin serosanguineous drainage in the last 8 hours and 210 since surgery. Left pleural chest tube drained 35 mL of thin serosanguineous drainage in the last 8 hours and 160 mL since surgery. Bedside telemetry showing normal sinus rhythm heart rate 75 bpm. Atrial and ventricular epicardial pacemaker wires remain in place and currently and connected to backup bedside pacemaker generator on a VVI mode of 50. Chest x-ray and laboratory results were reviewed. Objective - Vital Signs Vital signs: Vital Signs Temp 99.1 F 08/24/23 04:00 Pulse 75 06/27/24 07:00 Resp 21 08/24/23 07:00 BP 141/65 08/23/23 06:35 Pulse Ox 94 L 08/24/23 07:00 FiO2 50 08/23/23 16:00 Intake & Output 08/23/23 08/24/23 08/24/23 18:59 06:59 18:59 Intake Total 692.220 972.998 79 Output Total 1660 1065 40 Balance -967.780 -92.002 39 Weight 116.8 kg Intake: IV 647 948 79 .9 NS CO/CI 100 140 20 .9 NS pressure bags 45 108 9 ACETAMINOPHEN IV (For NPO 100 100 ) 1,000 mg In Empty Bag 1 bag @ 400 mls/hr IVPB Q6H RONNIE Rx#:[id number] Calcium Gluconate in NaCl 100 2 gm In Saline 1 100ml. bag @ 100 mls/hr IVPB ONCE PRN Rx#:[id number] Lactated Ringers 1,000 ml 250 600 50 @ 20 mls/hr IV .Q24H RONNIE Rx#:[id number] ceFAZolin 2 gm In Sodium 50 Chloride 0.9% 50 ml @ 100 mls/hr IVPB Q8HR RONNIE Rx# :[id number] Intake, IV Titration 45.220 24.998 Amount Insulin Regular 100 unit 12.583 24.998 In Sodium Chloride 0.9% 100 ml @ Per Protocol IV .Q0M RONNIE Rx#:[id number] propofoL 1,000 mg In 32.637 Empty Bag 1 bag @ Titrate IV .Q0M RONNIE Rx#: [id number] Output: Chest Tube Drainage 325 455 0 Chest Tube Left 40 130 0 Chest Tube Mediastinal 170 230 0 Chest Tube Right 115 95 0 Mediastinal Urine 635 610 40 Estimated Blood Loss 700 Other: Voiding Method Indwelling Catheter Indwelling Catheter ABP, PAP, CO, CI - Last Documented Arterial Blood Pressure 136/61 Pulmonary Artery Pressure 43/19 Cardiac Output 4.4 Cardiac Index 2 - Exam CONSTITUTIONAL: Sitting up to the bedside chair in the intensive care unit, appears comfortable, cooperative, no apparent acute distress. HEENT: Neck is supple, no JVD, no lymphadenopathy. Right IJ Cordis and Paoli- Ileana catheter in place and functioning. RESPIRATORY: Lungs sounds essentially clear throughout, diminished to his bilateral bases. Respirations are symmetrical and nonlabored. Currently on 2 L nasal cannula with oxygen saturations 96%. Able to achieve 500 mL on their incentive spirometry. Strong cough. CARDIOVASCULAR: Regular rhythm and rate. S1 and S2 present, negative for S3, gallop or murmur. Sternum is stable. Palpable peripheral pulses bilaterally, +1 edema to his bilateral lower extremities. No calf pain or tenderness noted. Heart hugger in place with patient demonstrating appropriate use. Knee-high CHARMAINE hose and sequential compression devices in place to his bilateral lower extremities. GASTROINTESTINAL: Abdomen soft, nontender, nondistended. Hypoactive bowel sounds present 4 quadrants. Tolerating diet. Denies passing flatus. No guarding or rigidity. GENITOURINARY: Mullins present draining clear, yellow urine. Urine output 305 mL in the last 8 hours INTEGUMENTARY: Skin is warm and dry with no evidence of clubbing or cyanosis. Midline sternal incision clean dry and well approximated, covered with dry intact dressing. NEUROLOGIC: Cranial nerves II through XII intact. No focal deficits. MUSKULOSKELETAL: Able to move all extremities, strength equal bilaterally, generalized weakness. PSYCHIATRIC: Alert and oriented to person place and time, appropriate affect, intact judgment and insight. INVASIVE LINES AND TUBES: Mediastinal/left pleural chest tubes present and connected to low continuous wall suction, no air leaks present. Mediastinal tube with 90 mL of thin serosanguineous drainage overnight, 400 mL output since surgery. Right ankle mediastinal chest tube with 20 mL of thin serosanguineous drainage overnight, 210 mL output since surgery. left pleural chest tube with 35 mL of thin serosanguineous drainage overnight, 160 mL output since surgery. Atrial and ventricular epicardial pacemaker wires present, connected to generator, VVI backup rate 50 bpm. Right internal jugular Paoli/Cordis, right radial arterial line present. Last CO 4.4, CI 2.0, PA 44/21 and CVP 11 mmHg, SVR 1289. - Allied health notes Allied health notes reviewed: nursing - Labs CBC & Chem 7: 08/24/23 05:40 08/24/23 05:40 Labs: Abnormal Lab Results - Last 24 Hours (Table) 08/17/23 08/23/23 08/23/23 Range/Units 11:26 08:28 09:06 WBC (3.8-10.6) k/uL RBC (4.30-5.90) m/uL Hgb (13.0-17.5) gm/dL Hct (39.0-53.0) % RDW (11.5-15.5) % Plt Count (150-450) k/uL Neutrophils # (1.3-7.7) k/uL Lymphocytes # (1.0-4.8) k/uL Monocytes # (0-1.0) k/uL PT (10.0-12.5) sec INR (<1.2) APTT (22.0-30.0) sec ABG pH (7.35-7.45) ABG pCO2 (35-45) mmHg ABG pO2 165 H 217 H (83-108) mmHg ABG HCO3 (21-25) mmol/L ABG Total CO2 (19-24) mmol/L ABG O2 Saturation (94-97) % ABG Hematocrit (34.0-46.0) % ABG Potassium (3.4-4.5) mmol/L ABG Ionized Calcium (4.5-5.3) mg/dL ABG Glucose 120 H 113 H (75-99) mg/dL ABG Lactic Acid 2.5 H* (0.5-1.6) mmol/L Hemoglobin 12.0 L 12.1 L (13.0-17.5) gm/dL Chloride (98-107) mmol/L Creatinine (0.66-1.25) mg/dL Glucose (74-99) mg/dL POC Glucose (mg/dL) (70-110) mg/dL Calcium (8.4-10.2) mg/dL Ionized Calcium Cortez (4.5-5.3) mg/dL Magnesium (1.6-2.3) mg/dL Total Bilirubin (0.2-1.3) mg/dL AST (17-59) U/L Total Protein (6.3-8.2) g/dL Arterial Blood Potassium (3.4-4.5) mmol/L Arterial Blood Glucose 120 H 113 H (75-99) mg/dL Crossmatch See Detail 08/23/23 08/23/23 08/23/23 Range/Units 09:28 10:42 11:13 WBC (3.8-10.6) k/uL RBC (4.30-5.90) m/uL Hgb (13.0-17.5) gm/dL Hct (39.0-53.0) % RDW (11.5-15.5) % Plt Count (150-450) k/uL Neutrophils # (1.3-7.7) k/uL Lymphocytes # (1.0-4.8) k/uL Monocytes # (0-1.0) k/uL PT (10.0-12.5) sec INR (<1.2) APTT (22.0-30.0) sec ABG pH 7.33 L 7.32 L (7.35-7.45) ABG pCO2 49 H 48 H (35-45) mmHg ABG pO2 >420 H >420 H 415 H (83-108) mmHg ABG HCO3 27 H 26 H (21-25) mmol/L ABG Total CO2 25 H 25 H (19-24) mmol/L ABG O2 Saturation 97.9 H 97.7 H 97.5 H (94-97) % ABG Hematocrit 30 L 31 L 33 L (34.0-46.0) % ABG Potassium 4.6 H 4.7 H (3.4-4.5) mmol/L ABG Ionized Calcium 3.9 L 4.4 L (4.5-5.3) mg/dL ABG Glucose 114 H 150 H 153 H (75-99) mg/dL ABG Lactic Acid (0.5-1.6) mmol/L Hemoglobin 9.8 L 10.1 L 10.8 L (13.0-17.5) gm/dL Chloride (98-107) mmol/L Creatinine (0.66-1.25) mg/dL Glucose (74-99) mg/dL POC Glucose (mg/dL) (70-110) mg/dL Calcium (8.4-10.2) mg/dL Ionized Calcium Cortez (4.5-5.3) mg/dL Magnesium (1.6-2.3) mg/dL Total Bilirubin (0.2-1.3) mg/dL AST (17-59) U/L Total Protein (6.3-8.2) g/dL Arterial Blood Potassium 4.6 H 4.7 H (3.4-4.5) mmol/L Arterial Blood Glucose 114 H 150 H 153 H (75-99) mg/dL Crossmatch 08/23/23 08/23/23 08/23/23 Range/Units 12:44 13:20 13:20 WBC 19.5 H (3.8-10.6) k/uL RBC 2.88 L (4.30-5.90) m/uL Hgb 8.7 L D (13.0-17.5) gm/dL Hct 26.8 L (39.0-53.0) % RDW 16.7 H (11.5-15.5) % Plt Count 123 L (150-450) k/uL Neutrophils # 17.4 H (1.3-7.7) k/uL Lymphocytes # 0.6 L (1.0-4.8) k/uL Monocytes # 1.1 H (0-1.0) k/uL PT 17.1 H (10.0-12.5) sec INR 1.7 H (<1.2) APTT 30.8 H (22.0-30.0) sec ABG pH (7.35-7.45) ABG pCO2 (35-45) mmHg ABG pO2 >420 H (83-108) mmHg ABG HCO3 (21-25) mmol/L ABG Total CO2 (19-24) mmol/L ABG O2 Saturation 98.9 H (94-97) % ABG Hematocrit 25 L (34.0-46.0) % ABG Potassium (3.4-4.5) mmol/L ABG Ionized Calcium 4.2 L (4.5-5.3) mg/dL ABG Glucose 111 H (75-99) mg/dL ABG Lactic Acid 1.9 H (0.5-1.6) mmol/L Hemoglobin 8.3 L (13.0-17.5) gm/dL Chloride (98-107) mmol/L Creatinine (0.66-1.25) mg/dL Glucose (74-99) mg/dL POC Glucose (mg/dL) (70-110) mg/dL Calcium (8.4-10.2) mg/dL Ionized Calcium Cortez (4.5-5.3) mg/dL Magnesium (1.6-2.3) mg/dL Total Bilirubin (0.2-1.3) mg/dL AST (17-59) U/L Total Protein (6.3-8.2) g/dL Arterial Blood Potassium (3.4-4.5) mmol/L Arterial Blood Glucose 111 H (75-99) mg/dL Crossmatch 08/23/23 08/23/23 08/23/23 Range/Units 13:20 13:23 13:38 WBC (3.8-10.6) k/uL RBC (4.30-5.90) m/uL Hgb (13.0-17.5) gm/dL Hct (39.0-53.0) % RDW (11.5-15.5) % Plt Count (150-450) k/uL Neutrophils # (1.3-7.7) k/uL Lymphocytes # (1.0-4.8) k/uL Monocytes # (0-1.0) k/uL PT (10.0-12.5) sec INR (<1.2) APTT (22.0-30.0) sec ABG pH 7.31 L (7.35-7.45) ABG pCO2 47 H (35-45) mmHg ABG pO2 248 H (83-108) mmHg ABG HCO3 (21-25) mmol/L ABG Total CO2 25 H (19-24) mmol/L ABG O2 Saturation 98.5 H (94-97) % ABG Hematocrit (34.0-46.0) % ABG Potassium (3.4-4.5) mmol/L ABG Ionized Calcium (4.5-5.3) mg/dL ABG Glucose (75-99) mg/dL ABG Lactic Acid (0.5-1.6) mmol/L Hemoglobin (13.0-17.5) gm/dL Chloride 110 H (98-107) mmol/L Creatinine 0.59 L (0.66-1.25) mg/dL Glucose 146 H (74-99) mg/dL POC Glucose (mg/dL) 159 H (70-110) mg/dL Calcium 7.3 L (8.4-10.2) mg/dL Ionized Calcium Cortez 4.2 L (4.5-5.3) mg/dL Magnesium 3.1 H (1.6-2.3) mg/dL Total Bilirubin 1.4 H (0.2-1.3) mg/dL AST (17-59) U/L Total Protein 5.5 L (6.3-8.2) g/dL Arterial Blood Potassium (3.4-4.5) mmol/L Arterial Blood Glucose (75-99) mg/dL Crossmatch 08/23/23 08/23/23 08/23/23 Range/Units 14:26 15:24 16:01 WBC (3.8-10.6) k/uL RBC (4.30-5.90) m/uL Hgb (13.0-17.5) gm/dL Hct (39.0-53.0) % RDW (11.5-15.5) % Plt Count (150-450) k/uL Neutrophils # (1.3-7.7) k/uL Lymphocytes # (1.0-4.8) k/uL Monocytes # (0-1.0) k/uL PT (10.0-12.5) sec INR (<1.2) APTT (22.0-30.0) sec ABG pH (7.35-7.45) ABG pCO2 (35-45) mmHg ABG pO2 (83-108) mmHg ABG HCO3 (21-25) mmol/L ABG Total CO2 (19-24) mmol/L ABG O2 Saturation (94-97) % ABG Hematocrit (34.0-46.0) % ABG Potassium (3.4-4.5) mmol/L ABG Ionized Calcium (4.5-5.3) mg/dL ABG Glucose (75-99) mg/dL ABG Lactic Acid (0.5-1.6) mmol/L Hemoglobin (13.0-17.5) gm/dL Chloride (98-107) mmol/L Creatinine (0.66-1.25) mg/dL Glucose (74-99) mg/dL POC Glucose (mg/dL) 151 H 136 H 152 H (70-110) mg/dL Calcium (8.4-10.2) mg/dL Ionized Calcium Cortez (4.5-5.3) mg/dL Magnesium (1.6-2.3) mg/dL Total Bilirubin (0.2-1.3) mg/dL AST (17-59) U/L Total Protein (6.3-8.2) g/dL Arterial Blood Potassium (3.4-4.5) mmol/L Arterial Blood Glucose (75-99) mg/dL Crossmatch 08/23/23 08/23/23 08/23/23 Range/Units 16:03 17:06 17:34 WBC 14.3 H (3.8-10.6) k/uL RBC 2.85 L (4.30-5.90) m/uL Hgb 8.6 L (13.0-17.5) gm/dL Hct 26.4 L (39.0-53.0) % RDW 16.6 H (11.5-15.5) % Plt Count 133 L (150-450) k/uL Neutrophils # 12.8 H (1.3-7.7) k/uL Lymphocytes # 0.5 L (1.0-4.8) k/uL Monocytes # (0-1.0) k/uL PT (10.0-12.5) sec INR (<1.2) APTT (22.0-30.0) sec ABG pH 7.34 L (7.35-7.45) ABG pCO2 (35-45) mmHg ABG pO2 (83-108) mmHg ABG HCO3 (21-25) mmol/L ABG Total CO2 25 H (19-24) mmol/L ABG O2 Saturation (94-97) % ABG Hematocrit (34.0-46.0) % ABG Potassium (3.4-4.5) mmol/L ABG Ionized Calcium (4.5-5.3) mg/dL ABG Glucose (75-99) mg/dL ABG Lactic Acid (0.5-1.6) mmol/L Hemoglobin (13.0-17.5) gm/dL Chloride (98-107) mmol/L Creatinine (0.66-1.25) mg/dL Glucose (74-99) mg/dL POC Glucose (mg/dL) 145 H (70-110) mg/dL Calcium (8.4-10.2) mg/dL Ionized Calcium Cortez (4.5-5.3) mg/dL Magnesium (1.6-2.3) mg/dL Total Bilirubin (0.2-1.3) mg/dL AST (17-59) U/L Total Protein (6.3-8.2) g/dL Arterial Blood Potassium (3.4-4.5) mmol/L Arterial Blood Glucose (75-99) mg/dL Crossmatch 08/23/23 08/23/23 08/23/23 Range/Units 18:09 18:57 18:57 WBC 15.2 H (3.8-10.6) k/uL RBC 3.12 L (4.30-5.90) m/uL Hgb 9.1 L (13.0-17.5) gm/dL Hct 28.6 L (39.0-53.0) % RDW 16.7 H (11.5-15.5) % Plt Count 126 L (150-450) k/uL Neutrophils # 13.7 H (1.3-7.7) k/uL Lymphocytes # 0.5 L (1.0-4.8) k/uL Monocytes # (0-1.0) k/uL PT (10.0-12.5) sec INR (<1.2) APTT (22.0-30.0) sec ABG pH (7.35-7.45) ABG pCO2 (35-45) mmHg ABG pO2 (83-108) mmHg ABG HCO3 (21-25) mmol/L ABG Total CO2 (19-24) mmol/L ABG O2 Saturation (94-97) % ABG Hematocrit (34.0-46.0) % ABG Potassium (3.4-4.5) mmol/L ABG Ionized Calcium (4.5-5.3) mg/dL ABG Glucose (75-99) mg/dL ABG Lactic Acid (0.5-1.6) mmol/L Hemoglobin (13.0-17.5) gm/dL Chloride (98-107) mmol/L Creatinine (0.66-1.25) mg/dL Glucose (74-99) mg/dL POC Glucose (mg/dL) 144 H 139 H (70-110) mg/dL Calcium (8.4-10.2) mg/dL Ionized Calcium Cortez (4.5-5.3) mg/dL Magnesium (1.6-2.3) mg/dL Total Bilirubin (0.2-1.3) mg/dL AST (17-59) U/L Total Protein (6.3-8.2) g/dL Arterial Blood Potassium (3.4-4.5) mmol/L Arterial Blood Glucose (75-99) mg/dL Crossmatch 08/23/23 08/23/23 08/23/23 Range/Units 19:55 20:50 22:04 WBC (3.8-10.6) k/uL RBC (4.30-5.90) m/uL Hgb (13.0-17.5) gm/dL Hct (39.0-53.0) % RDW (11.5-15.5) % Plt Count (150-450) k/uL Neutrophils # (1.3-7.7) k/uL Lymphocytes # (1.0-4.8) k/uL Monocytes # (0-1.0) k/uL PT (10.0-12.5) sec INR (<1.2) APTT (22.0-30.0) sec ABG pH (7.35-7.45) ABG pCO2 (35-45) mmHg ABG pO2 (83-108) mmHg ABG HCO3 (21-25) mmol/L ABG Total CO2 (19-24) mmol/L ABG O2 Saturation (94-97) % ABG Hematocrit (34.0-46.0) % ABG Potassium (3.4-4.5) mmol/L ABG Ionized Calcium (4.5-5.3) mg/dL ABG Glucose (75-99) mg/dL ABG Lactic Acid (0.5-1.6) mmol/L Hemoglobin (13.0-17.5) gm/dL Chloride (98-107) mmol/L Creatinine (0.66-1.25) mg/dL Glucose (74-99) mg/dL POC Glucose (mg/dL) 130 H 131 H 130 H (70-110) mg/dL Calcium (8.4-10.2) mg/dL Ionized Calcium Cortez (4.5-5.3) mg/dL Magnesium (1.6-2.3) mg/dL Total Bilirubin (0.2-1.3) mg/dL AST (17-59) U/L Total Protein (6.3-8.2) g/dL Arterial Blood Potassium (3.4-4.5) mmol/L Arterial Blood Glucose (75-99) mg/dL Crossmatch 08/23/23 08/24/23 08/24/23 Range/Units 23:17 00:06 01:03 WBC (3.8-10.6) k/uL RBC (4.30-5.90) m/uL Hgb (13.0-17.5) gm/dL Hct (39.0-53.0) % RDW (11.5-15.5) % Plt Count (150-450) k/uL Neutrophils # (1.3-7.7) k/uL Lymphocytes # (1.0-4.8) k/uL Monocytes # (0-1.0) k/uL PT (10.0-12.5) sec INR (<1.2) APTT (22.0-30.0) sec ABG pH (7.35-7.45) ABG pCO2 (35-45) mmHg ABG pO2 (83-108) mmHg ABG HCO3 (21-25) mmol/L ABG Total CO2 (19-24) mmol/L ABG O2 Saturation (94-97) % ABG Hematocrit (34.0-46.0) % ABG Potassium (3.4-4.5) mmol/L ABG Ionized Calcium (4.5-5.3) mg/dL ABG Glucose (75-99) mg/dL ABG Lactic Acid (0.5-1.6) mmol/L Hemoglobin (13.0-17.5) gm/dL Chloride (98-107) mmol/L Creatinine (0.66-1.25) mg/dL Glucose (74-99) mg/dL POC Glucose (mg/dL) 126 H 128 H 121 H (70-110) mg/dL Calcium (8.4-10.2) mg/dL Ionized Calcium Cortez (4.5-5.3) mg/dL Magnesium (1.6-2.3) mg/dL Total Bilirubin (0.2-1.3) mg/dL AST (17-59) U/L Total Protein (6.3-8.2) g/dL Arterial Blood Potassium (3.4-4.5) mmol/L Arterial Blood Glucose (75-99) mg/dL Crossmatch 08/24/23 08/24/23 08/24/23 Range/Units 02:08 03:11 04:21 WBC (3.8-10.6) k/uL RBC (4.30-5.90) m/uL Hgb (13.0-17.5) gm/dL Hct (39.0-53.0) % RDW (11.5-15.5) % Plt Count (150-450) k/uL Neutrophils # (1.3-7.7) k/uL Lymphocytes # (1.0-4.8) k/uL Monocytes # (0-1.0) k/uL PT (10.0-12.5) sec INR (<1.2) APTT (22.0-30.0) sec ABG pH (7.35-7.45) ABG pCO2 (35-45) mmHg ABG pO2 (83-108) mmHg ABG HCO3 (21-25) mmol/L ABG Total CO2 (19-24) mmol/L ABG O2 Saturation (94-97) % ABG Hematocrit (34.0-46.0) % ABG Potassium (3.4-4.5) mmol/L ABG Ionized Calcium (4.5-5.3) mg/dL ABG Glucose (75-99) mg/dL ABG Lactic Acid (0.5-1.6) mmol/L Hemoglobin (13.0-17.5) gm/dL Chloride (98-107) mmol/L Creatinine (0.66-1.25) mg/dL Glucose (74-99) mg/dL POC Glucose (mg/dL) 119 H 125 H 127 H (70-110) mg/dL Calcium (8.4-10.2) mg/dL Ionized Calcium Cortez (4.5-5.3) mg/dL Magnesium (1.6-2.3) mg/dL Total Bilirubin (0.2-1.3) mg/dL AST (17-59) U/L Total Protein (6.3-8.2) g/dL Arterial Blood Potassium (3.4-4.5) mmol/L Arterial Blood Glucose (75-99) mg/dL Crossmatch 08/24/23 08/24/23 08/24/23 Range/Units 05:40 05:40 05:43 WBC 15.8 H (3.8-10.6) k/uL RBC 3.08 L (4.30-5.90) m/uL Hgb 9.3 L (13.0-17.5) gm/dL Hct 28.6 L (39.0-53.0) % RDW 16.8 H (11.5-15.5) % Plt Count 145 L (150-450) k/uL Neutrophils # 13.6 H (1.3-7.7) k/uL Lymphocytes # 0.8 L (1.0-4.8) k/uL Monocytes # 1.1 H (0-1.0) k/uL PT (10.0-12.5) sec INR (<1.2) APTT (22.0-30.0) sec ABG pH (7.35-7.45) ABG pCO2 (35-45) mmHg ABG pO2 (83-108) mmHg ABG HCO3 (21-25) mmol/L ABG Total CO2 (19-24) mmol/L ABG O2 Saturation (94-97) % ABG Hematocrit (34.0-46.0) % ABG Potassium (3.4-4.5) mmol/L ABG Ionized Calcium (4.5-5.3) mg/dL ABG Glucose (75-99) mg/dL ABG Lactic Acid (0.5-1.6) mmol/L Hemoglobin (13.0-17.5) gm/dL Chloride 110 H (98-107) mmol/L Creatinine (0.66-1.25) mg/dL Glucose 104 H (74-99) mg/dL POC Glucose (mg/dL) 126 H (70-110) mg/dL Calcium (8.4-10.2) mg/dL Ionized Calcium Cortez (4.5-5.3) mg/dL Magnesium (1.6-2.3) mg/dL Total Bilirubin (0.2-1.3) mg/dL AST 61 H (17-59) U/L Total Protein 5.5 L (6.3-8.2) g/dL Arterial Blood Potassium (3.4-4.5) mmol/L Arterial Blood Glucose (75-99) mg/dL Crossmatch 08/24/23 Range/Units 07:09 WBC (3.8-10.6) k/uL RBC (4.30-5.90) m/uL Hgb (13.0-17.5) gm/dL Hct (39.0-53.0) % RDW (11.5-15.5) % Plt Count (150-450) k/uL Neutrophils # (1.3-7.7) k/uL Lymphocytes # (1.0-4.8) k/uL Monocytes # (0-1.0) k/uL PT (10.0-12.5) sec INR (<1.2) APTT (22.0-30.0) sec ABG pH (7.35-7.45) ABG pCO2 (35-45) mmHg ABG pO2 (83-108) mmHg ABG HCO3 (21-25) mmol/L ABG Total CO2 (19-24) mmol/L ABG O2 Saturation (94-97) % ABG Hematocrit (34.0-46.0) % ABG Potassium (3.4-4.5) mmol/L ABG Ionized Calcium (4.5-5.3) mg/dL ABG Glucose (75-99) mg/dL ABG Lactic Acid (0.5-1.6) mmol/L Hemoglobin (13.0-17.5) gm/dL Chloride (98-107) mmol/L Creatinine (0.66-1.25) mg/dL Glucose (74-99) mg/dL POC Glucose (mg/dL) 132 H (70-110) mg/dL Calcium (8.4-10.2) mg/dL Ionized Calcium Cortez (4.5-5.3) mg/dL Magnesium (1.6-2.3) mg/dL Total Bilirubin (0.2-1.3) mg/dL AST (17-59) U/L Total Protein (6.3-8.2) g/dL Arterial Blood Potassium (3.4-4.5) mmol/L Arterial Blood Glucose (75-99) mg/dL Crossmatch - Imaging and Cardiology Chest x-ray: report reviewed, image reviewed Assessment and Plan Assessment: Symptomatic calcific tricuspid aortic stenosis, status post aortic valve replacement with a 29 mm Zheng Inspiris bovine pericardial valve with root enlargement with a hemashield patch Héctor Whitfield technique Coronary artery disease status post PCI to his obtuse marginal coronary artery in 2021 Hypertension Hyperlipidemia, triglycerides 213, HDL 28.7 Diabetes mellitus type 2, preoperative hemoglobin A1C 6.6% History of prostate cancer History of GI bleed Hard of hearing Lifetime non-smoker, preoperative FEV1 2.27 L predicted value, 85% Postoperative acute blood loss anemia, expected given hemodilution and cardiopulmonary bypass Plan: Continue to maximize medical therapy with aspirin, statin, and beta-david. Will increase beta-david as tolerated. Wean oxygen as tolerated. Bronchodilator management per pulmonary/critical care medicine recommendations. Encourage incentive spirometry use 10 times every hour while awake. Increase activity, ambulate as tolerated. PT/OT/cardiac rehab consulted. Will monitor daily labs and chest x-rays. Electrolyte replacement per protocol. GI/DVT prophylaxis. Protonix increased to 40 mg p.o. AC twice daily due to the patient's history of GI bleed. Insulin management per internal medicine, patient should remain on continuous IV insulin for 48 hours, then may transition to subcutaneous per protocol. Patient is a diabetic, with a preoperative hemoglobin A1c 6.6% Pain control with current medication regimen. Will avoid Toradol at this time due to the patient's history of GI bleed. Remove right IJ Paoli Judith catheter, keep right IJ cordis in place with continuous CVP monitoring, continue arterial line for now. Continue chest tubes for another 24 hours, monitor output. Continue Mullins catheter for another 24 hours, continue to monitor strict accurate intake and output More recommendations to follow based on patient's clinical course. Time with Patient: Greater than 30
[2023-08-24] MEDS ORDERED: CLOPIDOGREL 75 MG TAB PO SCH (09:00)
[2023-08-24] MEDS ORDERED: MAGNESIUM HYDROXIDE 2,400 MG/30 ML CUP PO PRN (09:00)
[2023-08-24] MEDS ORDERED: ASPIRIN 325 MG TAB PO SCH ×2 (09:00)
[2023-08-24] MEDS ORDERED: bisacodyL 10 MG SUPP RECTAL PRN (09:00)
[2023-08-24 09:58] LABS: Glucose,Whole Blood 150 mg/dL (70-110)
[2023-08-24 10:26] VITALS: BMI 41.5
[2023-08-24 11:06] LABS: Glucose,Whole Blood 132 mg/dL (70-110)
[2023-08-24] MEDS: ACETAMINOPHEN TAB 325 MG TAB PO PRN (11:08)
--- NOTE | 2023-08-24 11:55 | P.PN ---
Subjective Progress Note Date: 08/24/23 This is a 72-year-old male patient with a history of GI bleeding, prostate cancer with previous radiation. He had been having symptoms of progressive dyspnea on exertion and extreme fatigue. He was found to have critical aortic stenosis and was brought in today for aortic valve replacement. He had unde rgone aortic valve replacement with a 29 mm Zheng Inspiris bovine pericardial valve and root enlargement with Hemashield patchas well as a left atrial appendage ligation with a 35 mm atrial cure clip. He is seen postoperatively in the intensive care unit. He is intubated on the mechanical ventilator and assist-control mode at a rate of 14, tidal volume 500, FiO2 100% and a PEEP of 10. Blood gases revealed a PaO2 of 248, pCO2 of 47 and a pH of 7.31. He has a mediastinal, right and left pleural chest tubes in place. Pacer wires in place. Right IJ Quinn-Ileana catheter in place. Cardiac output 4.5. Cardiac index 2.1. PA pressure 51/34, CVP 25. He is on an insulin drip at 2 units/h. He is sedated on propofol 20 mcg/kg/min. He has lactated Ringer's at 50 MLS per hour. Chest x-ray reveals catheters and lines in place. No evidence of pneumothorax. White count 19.5. Hemoglobin 8.7. Platelets 123. INR 1.7. Sodium 141. Potassium 4.4. Bicarb 22. BUN 14. Creatinine 0.59. Glucose 146. The patient is seen today August 24, 2023 in follow-up in the intensive care unit. He is currently awake and alert in no acute distress. Sitting up in a chair. Maintaining good O2 saturations in the 90s on 2 L/min per nasal cannula. He is receiving lactated Ringer's at 20 MLS per hour. He remains on an insulin drip at 5.5 units/h. Cardiac output 4.8. Cardiac index 2.2. PA pressures 46/20. CVP 11. Today's chest x-ray reveals postsurgical changes with mild pulmonary edema. Chest tubes remain in place. White count 15.8. Hemoglobin 9.3. Platelets 145. Sodium 139. Potassium 4.6. Bicarb 24. BUN 17. Creatinine 0.67. Glucose 126. AST 61. ALT 24. Albumin 3.8. He is working well with the incentive spirometer. He remains on bronchodilators. Heparin for DVT prophylaxis. Objective - Vital Signs Vital signs: Vital Signs Temp 99.9 F H 08/24/23 09:00 Pulse 70 08/24/23 11:00 Resp 26 H 08/24/23 11:00 BP 141/65 08/23/23 06:35 Pulse Ox 93 L 08/24/23 11:00 FiO2 50 08/23/23 16:00 Intake & Output 08/23/23 08/24/23 08/24/23 18:59 06:59 18:59 Intake Total 692.220 972.998 419.335 Output Total 1660 1065 320 Balance -967.780 -92.002 99.335 Weight 116.8 kg 116.8 kg Intake: IV 647 948 263 .9 NS CO/CI 100 140 40 .9 NS pressure bags 45 108 33 ACETAMINOPHEN IV (For NPO 100 100 ) 1,000 mg In Empty Bag 1 bag @ 400 mls/hr IVPB Q6H [facility] Rx#:[id number] Calcium Gluconate in NaCl 100 2 gm In Saline 1 100ml. bag @ 100 mls/hr IVPB ONCE PRN Rx#:[id number] Lactated Ringers 1,000 ml 250 600 140 @ 20 mls/hr IV .Q24H [facility] Rx#:[id number] ceFAZolin 2 gm In Sodium 50 50 Chloride 0.9% 50 ml @ 100 mls/hr IVPB Q8HR [facility] Rx# :[id number] Intake, IV Titration 45.220 24.998 36.335 Amount Insulin Regular 100 unit 12.583 24.998 36.335 In Sodium Chloride 0.9% 100 ml @ Per Protocol IV .Q0M [facility] Rx#:[id number] propofoL 1,000 mg In 32.637 Empty Bag 1 bag @ Titrate IV .Q0M [facility] Rx#: [id number] Oral 120 Output: Chest Tube Drainage 325 455 160 Chest Tube Left 40 130 90 Chest Tube Mediastinal 170 230 30 Chest Tube Right 115 95 40 Mediastinal Urine 635 610 160 Estimated Blood Loss 700 Other: Voiding Method Indwelling Catheter Indwelling Catheter Indwelling Catheter ABP, PAP, CO, CI - Last Documented Arterial Blood Pressure 113/55 Pulmonary Artery Pressure 46/20 Cardiac Output 4.8 Cardiac Index 2.2 - Exam GENERAL EXAM: Alert, oriented 72-year-old male patient on 2 L nasal cannula, in no apparent distress. HEAD: Normocephalic. EYES: Normal reaction of pupils, equal size. NOSE: Clear with pink turbinates. THROAT: No erythema or exudates. NECK: Right IJ Quinn-Ileana catheter in place. No masses, no JVD. CHEST: Sternal dressing dry and intact. Right left and mediastinal chest tubes in place. Pacer wires in place. LUNGS: Equal air entry with no crackles, wheeze, rhonchi or dullness. CVS: S1 and S2 normal with no audible murmur, regular rhythm. ABDOMEN: No hepatosplenomegaly, no guarding or rigidity. SPINE: No scoliosis or deformity SKIN: No rashes CENTRAL NERVOUS SYSTEM: No focal deficits, tone is normal in all 4 extremities. EXTREMITIES: Right radial arterial line in place. Subhash wraps to the lower extremities. SCDs in place. Peripheral pulses are intact. - Labs CBC & Chem 7: 08/24/23 05:40 08/24/23 05:40 Labs: Abnormal Lab Results - Last 24 Hours (Table) 08/17/23 08/23/23 08/23/23 Range/Units 11:26 08:28 09:06 WBC (3.8-10.6) k/uL RBC (4.30-5.90) m/uL Hgb (13.0-17.5) gm/dL Hct (39.0-53.0) % RDW (11.5-15.5) % Plt Count (150-450) k/uL Neutrophils # (1.3-7.7) k/uL Lymphocytes # (1.0-4.8) k/uL Monocytes # (0-1.0) k/uL PT (10.0-12.5) sec INR (<1.2) APTT (22.0-30.0) sec ABG pH (7.35-7.45) ABG pCO2 (35-45) mmHg ABG pO2 165 H 217 H (83-108) mmHg ABG HCO3 (21-25) mmol/L ABG Total CO2 (19-24) mmol/L ABG O2 Saturation (94-97) % ABG Hematocrit (34.0-46.0) % ABG Potassium (3.4-4.5) mmol/L ABG Ionized Calcium (4.5-5.3) mg/dL ABG Glucose 120 H 113 H (75-99) mg/dL ABG Lactic Acid 2.5 H* (0.5-1.6) mmol/L Hemoglobin 12.0 L 12.1 L (13.0-17.5) gm/dL Chloride (98-107) mmol/L Creatinine (0.66-1.25) mg/dL Glucose (74-99) mg/dL POC Glucose (mg/dL) (70-110) mg/dL Calcium (8.4-10.2) mg/dL Ionized Calcium Cortez (4.5-5.3) mg/dL Magnesium (1.6-2.3) mg/dL Total Bilirubin (0.2-1.3) mg/dL AST (17-59) U/L Total Protein (6.3-8.2) g/dL Arterial Blood Potassium (3.4-4.5) mmol/L Arterial Blood Glucose 120 H 113 H (75-99) mg/dL Crossmatch See Detail 08/23/23 08/23/23 08/23/23 Range/Units 09:28 10:42 11:13 WBC (3.8-10.6) k/uL RBC (4.30-5.90) m/uL Hgb (13.0-17.5) gm/dL Hct (39.0-53.0) % RDW (11.5-15.5) % Plt Count (150-450) k/uL Neutrophils # (1.3-7.7) k/uL Lymphocytes # (1.0-4.8) k/uL Monocytes # (0-1.0) k/uL PT (10.0-12.5) sec INR (<1.2) APTT (22.0-30.0) sec ABG pH 7.33 L 7.32 L (7.35-7.45) ABG pCO2 49 H 48 H (35-45) mmHg ABG pO2 >420 H >420 H 415 H (83-108) mmHg ABG HCO3 27 H 26 H (21-25) mmol/L ABG Total CO2 25 H 25 H (19-24) mmol/L ABG O2 Saturation 97.9 H 97.7 H 97.5 H (94-97) % ABG Hematocrit 30 L 31 L 33 L (34.0-46.0) % ABG Potassium 4.6 H 4.7 H (3.4-4.5) mmol/L ABG Ionized Calcium 3.9 L 4.4 L (4.5-5.3) mg/dL ABG Glucose 114 H 150 H 153 H (75-99) mg/dL ABG Lactic Acid (0.5-1.6) mmol/L Hemoglobin 9.8 L 10.1 L 10.8 L (13.0-17.5) gm/dL Chloride (98-107) mmol/L Creatinine (0.66-1.25) mg/dL Glucose (74-99) mg/dL POC Glucose (mg/dL) (70-110) mg/dL Calcium (8.4-10.2) mg/dL Ionized Calcium Cortez (4.5-5.3) mg/dL Magnesium (1.6-2.3) mg/dL Total Bilirubin (0.2-1.3) mg/dL AST (17-59) U/L Total Protein (6.3-8.2) g/dL Arterial Blood Potassium 4.6 H 4.7 H (3.4-4.5) mmol/L Arterial Blood Glucose 114 H 150 H 153 H (75-99) mg/dL Crossmatch 08/23/23 08/23/23 08/23/23 Range/Units 12:44 13:20 13:20 WBC 19.5 H (3.8-10.6) k/uL RBC 2.88 L (4.30-5.90) m/uL Hgb 8.7 L D (13.0-17.5) gm/dL Hct 26.8 L (39.0-53.0) % RDW 16.7 H (11.5-15.5) % Plt Count 123 L (150-450) k/uL Neutrophils # 17.4 H (1.3-7.7) k/uL Lymphocytes # 0.6 L (1.0-4.8) k/uL Monocytes # 1.1 H (0-1.0) k/uL PT 17.1 H (10.0-12.5) sec INR 1.7 H (<1.2) APTT 30.8 H (22.0-30.0) sec ABG pH (7.35-7.45) ABG pCO2 (35-45) mmHg ABG pO2 >420 H (83-108) mmHg ABG HCO3 (21-25) mmol/L ABG Total CO2 (19-24) mmol/L ABG O2 Saturation 98.9 H (94-97) % ABG Hematocrit 25 L (34.0-46.0) % ABG Potassium (3.4-4.5) mmol/L ABG Ionized Calcium 4.2 L (4.5-5.3) mg/dL ABG Glucose 111 H (75-99) mg/dL ABG Lactic Acid 1.9 H (0.5-1.6) mmol/L Hemoglobin 8.3 L (13.0-17.5) gm/dL Chloride (98-107) mmol/L Creatinine (0.66-1.25) mg/dL Glucose (74-99) mg/dL POC Glucose (mg/dL) (70-110) mg/dL Calcium (8.4-10.2) mg/dL Ionized Calcium Cortez (4.5-5.3) mg/dL Magnesium (1.6-2.3) mg/dL Total Bilirubin (0.2-1.3) mg/dL AST (17-59) U/L Total Protein (6.3-8.2) g/dL Arterial Blood Potassium (3.4-4.5) mmol/L Arterial Blood Glucose 111 H (75-99) mg/dL Crossmatch 08/23/23 08/23/23 08/23/23 Range/Units 13:20 13:23 13:38 WBC (3.8-10.6) k/uL RBC (4.30-5.90) m/uL Hgb (13.0-17.5) gm/dL Hct (39.0-53.0) % RDW (11.5-15.5) % Plt Count (150-450) k/uL Neutrophils # (1.3-7.7) k/uL Lymphocytes # (1.0-4.8) k/uL Monocytes # (0-1.0) k/uL PT (10.0-12.5) sec INR (<1.2) APTT (22.0-30.0) sec ABG pH 7.31 L (7.35-7.45) ABG pCO2 47 H (35-45) mmHg ABG pO2 248 H (83-108) mmHg ABG HCO3 (21-25) mmol/L ABG Total CO2 25 H (19-24) mmol/L ABG O2 Saturation 98.5 H (94-97) % ABG Hematocrit (34.0-46.0) % ABG Potassium (3.4-4.5) mmol/L ABG Ionized Calcium (4.5-5.3) mg/dL ABG Glucose (75-99) mg/dL ABG Lactic Acid (0.5-1.6) mmol/L Hemoglobin (13.0-17.5) gm/dL Chloride 110 H (98-107) mmol/L Creatinine 0.59 L (0.66-1.25) mg/dL Glucose 146 H (74-99) mg/dL POC Glucose (mg/dL) 159 H (70-110) mg/dL Calcium 7.3 L (8.4-10.2) mg/dL Ionized Calcium Cortez 4.2 L (4.5-5.3) mg/dL Magnesium 3.1 H (1.6-2.3) mg/dL Total Bilirubin 1.4 H (0.2-1.3) mg/dL AST (17-59) U/L Total Protein 5.5 L (6.3-8.2) g/dL Arterial Blood Potassium (3.4-4.5) mmol/L Arterial Blood Glucose (75-99) mg/dL Crossmatch 08/23/23 08/23/23 08/23/23 Range/Units 14:26 15:24 16:01 WBC (3.8-10.6) k/uL RBC (4.30-5.90) m/uL Hgb (13.0-17.5) gm/dL Hct (39.0-53.0) % RDW (11.5-15.5) % Plt Count (150-450) k/uL Neutrophils # (1.3-7.7) k/uL Lymphocytes # (1.0-4.8) k/uL Monocytes # (0-1.0) k/uL PT (10.0-12.5) sec INR (<1.2) APTT (22.0-30.0) sec ABG pH (7.35-7.45) ABG pCO2 (35-45) mmHg ABG pO2 (83-108) mmHg ABG HCO3 (21-25) mmol/L ABG Total CO2 (19-24) mmol/L ABG O2 Saturation (94-97) % ABG Hematocrit (34.0-46.0) % ABG Potassium (3.4-4.5) mmol/L ABG Ionized Calcium (4.5-5.3) mg/dL ABG Glucose (75-99) mg/dL ABG Lactic Acid (0.5-1.6) mmol/L Hemoglobin (13.0-17.5) gm/dL Chloride (98-107) mmol/L Creatinine (0.66-1.25) mg/dL Glucose (74-99) mg/dL POC Glucose (mg/dL) 151 H 136 H 152 H (70-110) mg/dL Calcium (8.4-10.2) mg/dL Ionized Calcium Cortez (4.5-5.3) mg/dL Magnesium (1.6-2.3) mg/dL Total Bilirubin (0.2-1.3) mg/dL AST (17-59) U/L Total Protein (6.3-8.2) g/dL Arterial Blood Potassium (3.4-4.5) mmol/L Arterial Blood Glucose (75-99) mg/dL Crossmatch 08/23/23 08/23/23 08/23/23 Range/Units 16:03 17:06 17:34 WBC 14.3 H (3.8-10.6) k/uL RBC 2.85 L (4.30-5.90) m/uL Hgb 8.6 L (13.0-17.5) gm/dL Hct 26.4 L (39.0-53.0) % RDW 16.6 H (11.5-15.5) % Plt Count 133 L (150-450) k/uL Neutrophils # 12.8 H (1.3-7.7) k/uL Lymphocytes # 0.5 L (1.0-4.8) k/uL Monocytes # (0-1.0) k/uL PT (10.0-12.5) sec INR (<1.2) APTT (22.0-30.0) sec ABG pH 7.34 L (7.35-7.45) ABG pCO2 (35-45) mmHg ABG pO2 (83-108) mmHg ABG HCO3 (21-25) mmol/L ABG Total CO2 25 H (19-24) mmol/L ABG O2 Saturation (94-97) % ABG Hematocrit (34.0-46.0) % ABG Potassium (3.4-4.5) mmol/L ABG Ionized Calcium (4.5-5.3) mg/dL ABG Glucose (75-99) mg/dL ABG Lactic Acid (0.5-1.6) mmol/L Hemoglobin (13.0-17.5) gm/dL Chloride (98-107) mmol/L Creatinine (0.66-1.25) mg/dL Glucose (74-99) mg/dL POC Glucose (mg/dL) 145 H (70-110) mg/dL Calcium (8.4-10.2) mg/dL Ionized Calcium Cortez (4.5-5.3) mg/dL Magnesium (1.6-2.3) mg/dL Total Bilirubin (0.2-1.3) mg/dL AST (17-59) U/L Total Protein (6.3-8.2) g/dL Arterial Blood Potassium (3.4-4.5) mmol/L Arterial Blood Glucose (75-99) mg/dL Crossmatch 08/23/23 08/23/23 08/23/23 Range/Units 18:09 18:57 18:57 WBC 15.2 H (3.8-10.6) k/uL RBC 3.12 L (4.30-5.90) m/uL Hgb 9.1 L (13.0-17.5) gm/dL Hct 28.6 L (39.0-53.0) % RDW 16.7 H (11.5-15.5) % Plt Count 126 L (150-450) k/uL Neutrophils # 13.7 H (1.3-7.7) k/uL Lymphocytes # 0.5 L (1.0-4.8) k/uL Monocytes # (0-1.0) k/uL PT (10.0-12.5) sec INR (<1.2) APTT (22.0-30.0) sec ABG pH (7.35-7.45) ABG pCO2 (35-45) mmHg ABG pO2 (83-108) mmHg ABG HCO3 (21-25) mmol/L ABG Total CO2 (19-24) mmol/L ABG O2 Saturation (94-97) % ABG Hematocrit (34.0-46.0) % ABG Potassium (3.4-4.5) mmol/L ABG Ionized Calcium (4.5-5.3) mg/dL ABG Glucose (75-99) mg/dL ABG Lactic Acid (0.5-1.6) mmol/L Hemoglobin (13.0-17.5) gm/dL Chloride (98-107) mmol/L Creatinine (0.66-1.25) mg/dL Glucose (74-99) mg/dL POC Glucose (mg/dL) 144 H 139 H (70-110) mg/dL Calcium (8.4-10.2) mg/dL Ionized Calcium Cortez (4.5-5.3) mg/dL Magnesium (1.6-2.3) mg/dL Total Bilirubin (0.2-1.3) mg/dL AST (17-59) U/L Total Protein (6.3-8.2) g/dL Arterial Blood Potassium (3.4-4.5) mmol/L Arterial Blood Glucose (75-99) mg/dL Crossmatch 08/23/23 08/23/23 08/23/23 Range/Units 19:55 20:50 22:04 WBC (3.8-10.6) k/uL RBC (4.30-5.90) m/uL Hgb (13.0-17.5) gm/dL Hct (39.0-53.0) % RDW (11.5-15.5) % Plt Count (150-450) k/uL Neutrophils # (1.3-7.7) k/uL Lymphocytes # (1.0-4.8) k/uL Monocytes # (0-1.0) k/uL PT (10.0-12.5) sec INR (<1.2) APTT (22.0-30.0) sec ABG pH (7.35-7.45) ABG pCO2 (35-45) mmHg ABG pO2 (83-108) mmHg ABG HCO3 (21-25) mmol/L ABG Total CO2 (19-24) mmol/L ABG O2 Saturation (94-97) % ABG Hematocrit (34.0-46.0) % ABG Potassium (3.4-4.5) mmol/L ABG Ionized Calcium (4.5-5.3) mg/dL ABG Glucose (75-99) mg/dL ABG Lactic Acid (0.5-1.6) mmol/L Hemoglobin (13.0-17.5) gm/dL Chloride (98-107) mmol/L Creatinine (0.66-1.25) mg/dL Glucose (74-99) mg/dL POC Glucose (mg/dL) 130 H 131 H 130 H (70-110) mg/dL Calcium (8.4-10.2) mg/dL Ionized Calcium Cortez (4.5-5.3) mg/dL Magnesium (1.6-2.3) mg/dL Total Bilirubin (0.2-1.3) mg/dL AST (17-59) U/L Total Protein (6.3-8.2) g/dL Arterial Blood Potassium (3.4-4.5) mmol/L Arterial Blood Glucose (75-99) mg/dL Crossmatch 08/23/23 08/24/23 08/24/23 Range/Units 23:17 00:06 01:03 WBC (3.8-10.6) k/uL RBC (4.30-5.90) m/uL Hgb (13.0-17.5) gm/dL Hct (39.0-53.0) % RDW (11.5-15.5) % Plt Count (150-450) k/uL Neutrophils # (1.3-7.7) k/uL Lymphocytes # (1.0-4.8) k/uL Monocytes # (0-1.0) k/uL PT (10.0-12.5) sec INR (<1.2) APTT (22.0-30.0) sec ABG pH (7.35-7.45) ABG pCO2 (35-45) mmHg ABG pO2 (83-108) mmHg ABG HCO3 (21-25) mmol/L ABG Total CO2 (19-24) mmol/L ABG O2 Saturation (94-97) % ABG Hematocrit (34.0-46.0) % ABG Potassium (3.4-4.5) mmol/L ABG Ionized Calcium (4.5-5.3) mg/dL ABG Glucose (75-99) mg/dL ABG Lactic Acid (0.5-1.6) mmol/L Hemoglobin (13.0-17.5) gm/dL Chloride (98-107) mmol/L Creatinine (0.66-1.25) mg/dL Glucose (74-99) mg/dL POC Glucose (mg/dL) 126 H 128 H 121 H (70-110) mg/dL Calcium (8.4-10.2) mg/dL Ionized Calcium Cortez (4.5-5.3) mg/dL Magnesium (1.6-2.3) mg/dL Total Bilirubin (0.2-1.3) mg/dL AST (17-59) U/L Total Protein (6.3-8.2) g/dL Arterial Blood Potassium (3.4-4.5) mmol/L Arterial Blood Glucose (75-99) mg/dL Crossmatch 08/24/23 08/24/23 08/24/23 Range/Units 02:08 03:11 04:21 WBC (3.8-10.6) k/uL RBC (4.30-5.90) m/uL Hgb (13.0-17.5) gm/dL Hct (39.0-53.0) % RDW (11.5-15.5) % Plt Count (150-450) k/uL Neutrophils # (1.3-7.7) k/uL Lymphocytes # (1.0-4.8) k/uL Monocytes # (0-1.0) k/uL PT (10.0-12.5) sec INR (<1.2) APTT (22.0-30.0) sec ABG pH (7.35-7.45) ABG pCO2 (35-45) mmHg ABG pO2 (83-108) mmHg ABG HCO3 (21-25) mmol/L ABG Total CO2 (19-24) mmol/L ABG O2 Saturation (94-97) % ABG Hematocrit (34.0-46.0) % ABG Potassium (3.4-4.5) mmol/L ABG Ionized Calcium (4.5-5.3) mg/dL ABG Glucose (75-99) mg/dL ABG Lactic Acid (0.5-1.6) mmol/L Hemoglobin (13.0-17.5) gm/dL Chloride (98-107) mmol/L Creatinine (0.66-1.25) mg/dL Glucose (74-99) mg/dL POC Glucose (mg/dL) 119 H 125 H 127 H (70-110) mg/dL Calcium (8.4-10.2) mg/dL Ionized Calcium Cortez (4.5-5.3) mg/dL Magnesium (1.6-2.3) mg/dL Total Bilirubin (0.2-1.3) mg/dL AST (17-59) U/L Total Protein (6.3-8.2) g/dL Arterial Blood Potassium (3.4-4.5) mmol/L Arterial Blood Glucose (75-99) mg/dL Crossmatch 08/24/23 08/24/23 08/24/23 Range/Units 05:40 05:40 05:43 WBC 15.8 H (3.8-10.6) k/uL RBC 3.08 L (4.30-5.90) m/uL Hgb 9.3 L (13.0-17.5) gm/dL Hct 28.6 L (39.0-53.0) % RDW 16.8 H (11.5-15.5) % Plt Count 145 L (150-450) k/uL Neutrophils # 13.6 H (1.3-7.7) k/uL Lymphocytes # 0.8 L (1.0-4.8) k/uL Monocytes # 1.1 H (0-1.0) k/uL PT (10.0-12.5) sec INR (<1.2) APTT (22.0-30.0) sec ABG pH (7.35-7.45) ABG pCO2 (35-45) mmHg ABG pO2 (83-108) mmHg ABG HCO3 (21-25) mmol/L ABG Total CO2 (19-24) mmol/L ABG O2 Saturation (94-97) % ABG Hematocrit (34.0-46.0) % ABG Potassium (3.4-4.5) mmol/L ABG Ionized Calcium (4.5-5.3) mg/dL ABG Glucose (75-99) mg/dL ABG Lactic Acid (0.5-1.6) mmol/L Hemoglobin (13.0-17.5) gm/dL Chloride 110 H (98-107) mmol/L Creatinine (0.66-1.25) mg/dL Glucose 104 H (74-99) mg/dL POC Glucose (mg/dL) 126 H (70-110) mg/dL Calcium (8.4-10.2) mg/dL Ionized Calcium Cortez (4.5-5.3) mg/dL Magnesium (1.6-2.3) mg/dL Total Bilirubin (0.2-1.3) mg/dL AST 61 H (17-59) U/L Total Protein 5.5 L (6.3-8.2) g/dL Arterial Blood Potassium (3.4-4.5) mmol/L Arterial Blood Glucose (75-99) mg/dL Crossmatch 08/24/23 08/24/23 08/24/23 Range/Units 07:09 08:15 09:56 WBC (3.8-10.6) k/uL RBC (4.30-5.90) m/uL Hgb (13.0-17.5) gm/dL Hct (39.0-53.0) % RDW (11.5-15.5) % Plt Count (150-450) k/uL Neutrophils # (1.3-7.7) k/uL Lymphocytes # (1.0-4.8) k/uL Monocytes # (0-1.0) k/uL PT (10.0-12.5) sec INR (<1.2) APTT (22.0-30.0) sec ABG pH (7.35-7.45) ABG pCO2 (35-45) mmHg ABG pO2 (83-108) mmHg ABG HCO3 (21-25) mmol/L ABG Total CO2 (19-24) mmol/L ABG O2 Saturation (94-97) % ABG Hematocrit (34.0-46.0) % ABG Potassium (3.4-4.5) mmol/L ABG Ionized Calcium (4.5-5.3) mg/dL ABG Glucose (75-99) mg/dL ABG Lactic Acid (0.5-1.6) mmol/L Hemoglobin (13.0-17.5) gm/dL Chloride (98-107) mmol/L Creatinine (0.66-1.25) mg/dL Glucose (74-99) mg/dL POC Glucose (mg/dL) 132 H 168 H 150 H (70-110) mg/dL Calcium (8.4-10.2) mg/dL Ionized Calcium Cortez (4.5-5.3) mg/dL Magnesium (1.6-2.3) mg/dL Total Bilirubin (0.2-1.3) mg/dL AST (17-59) U/L Total Protein (6.3-8.2) g/dL Arterial Blood Potassium (3.4-4.5) mmol/L Arterial Blood Glucose (75-99) mg/dL Crossmatch 08/24/23 Range/Units 11:05 WBC (3.8-10.6) k/uL RBC (4.30-5.90) m/uL Hgb (13.0-17.5) gm/dL Hct (39.0-53.0) % RDW (11.5-15.5) % Plt Count (150-450) k/uL Neutrophils # (1.3-7.7) k/uL Lymphocytes # (1.0-4.8) k/uL Monocytes # (0-1.0) k/uL PT (10.0-12.5) sec INR (<1.2) APTT (22.0-30.0) sec ABG pH (7.35-7.45) ABG pCO2 (35-45) mmHg ABG pO2 (83-108) mmHg ABG HCO3 (21-25) mmol/L ABG Total CO2 (19-24) mmol/L ABG O2 Saturation (94-97) % ABG Hematocrit (34.0-46.0) % ABG Potassium (3.4-4.5) mmol/L ABG Ionized Calcium (4.5-5.3) mg/dL ABG Glucose (75-99) mg/dL ABG Lactic Acid (0.5-1.6) mmol/L Hemoglobin (13.0-17.5) gm/dL Chloride (98-107) mmol/L Creatinine (0.66-1.25) mg/dL Glucose (74-99) mg/dL POC Glucose (mg/dL) 132 H (70-110) mg/dL Calcium (8.4-10.2) mg/dL Ionized Calcium Cortez (4.5-5.3) mg/dL Magnesium (1.6-2.3) mg/dL Total Bilirubin (0.2-1.3) mg/dL AST (17-59) U/L Total Protein (6.3-8.2) g/dL Arterial Blood Potassium (3.4-4.5) mmol/L Arterial Blood Glucose (75-99) mg/dL Crossmatch Assessment and Plan Assessment: Severe aortic stenosis status post aortic valve replacement with a 29 mm Zheng Inspiris bovine pericardial valve, root enlargement with Hemashield patch and ligation of the left atrial appendage with a 35 mm atrial cure clip. Postoperative day #1 Anemia and thrombocytopenia, expected outcome of surgery, stabilized Leukocytosis, suspect reactive Diabetes mellitus, type II Gastroesophageal reflux disease Hypertension History of prostate cancer status post radiation History of rectal bleeding from radiation proctitis Plan: The patient was seen and evaluated Chest x-ray, labs and medications reviewed Continue DuoNeb inhalations every 4 hours Continue to work well with the incentive spirometer Titrate down the FiO2 as tolerated Increase his activity as tolerated We will continue to follow I have personally seen and examined the patient, performed the documentation and the assessment and plan as written. Number of minutes spent on the visit: 10.
[2023-08-24 12:25] LABS: Glucose,Whole Blood 151 mg/dL (70-110)
--- NOTE | 2023-08-24 12:26 | P.CONS ---
History of Present Illness - Reason for Consult Consult date: 08/24/23 - History of Present Illness 72 year old M with PMH of CAD, HLD, HTN, DM, GERD, h/o GI bleed, h/o prostate CA, aortic stenosis presents to [facility] for elective surgery. He underwent AV replacement with Dr. Glaser on 08/22. [facility] consulted for medical management of this patient. He was extubated on 08/22. 08/23 Patient was seen and examined. He reports moderate pain at the site on incision. Currently on NS at 20 cc/hr. Insulin drip running at 5.5 units/hr. CBC WBC 15.8, Hg 9.3, Hct 38.6, Plt 145. CMP Cl 110, glu 104, AST 61, total protein 5.5. Mag 2.3. Ionized Ca 4.6. CT surgery note reviewed, DC right IJ [place], maximize medical therapy with ASA, statin, beta david. CXR done today shows mild pulmonary vascular congestion. POC glucose 119-168 over the past 24H. General: non toxic, no distress, appears at stated age Derm: warm, dry Head: atraumatic, normocephalic, symmetric, R IJ Eyes: EOMI, no lid lag, anicteric sclera Mouth: no lip lesion, mucus membranes moist Cardiovascular: S1S2 reg, no murmur, midsternal surgical scar dressing c/d/i, mediastinal + bilateral chest tubes in place Lungs: CTA bilateral, no rhonchi, no rales , no accessory muscle use Ext: no gross muscle atrophy, 1+ pitting bilateral lower extremity edema, no contractures Neuro: no focal neuro deficits Psych: Alert, oriented, appropriate affect +Mullins catheter in place Based on my assessment of this patient, this patient meets a high complexity level of care. Status post AV replacement POD 1 managed by Cardiothoracic surgery. Acute blood loss anemia: Expected result of surgery. Trend daily. Consider transfusion if Hg < 7. Leukocytosis: Likely reactive. No signs of active infection. Monitor fever profile. Thrombocytopenia: Monitor while on Heparin. Diabetes mellitus: Maintain insulin drip for another 24H. Accuchecks Q1H. Hypoglycemic precautions. Hypertension: Metoprolol as below. CAD: ASA 325 mg PO QD. Lipitor 40 mg PO QD. Metoprolol 12.5 mg PO BID. Dyslipidemia: Lipitor as above. GERD: Protonix 40 mg PO BID. CODE STATUS: FULL CODE DVT Prophylaxis: Heparin SQ GI Prophylaxis: Protonix PO Designated medical POA if patient is not able to make medical decisions for themselves: I have reviewed the following rewards consultant notes: Pulmonary, CT surgery I have reviewed the results of the following tests: CBC, CMP, Ionized Ca, Mag I have ordered the following tests: CBC, CMP I have discussed the care of this patient with the following independent historian: I have independently interpreted the following test below: CXR I have discussed the management of this patient with the following physician: Past Medical History Past Medical History: Cancer, Diabetes Mellitus, GERD/Reflux, Hearing Disorder / Deafness, Hyperlipidemia, Hypertension, Osteoarthritis (OA) Additional Past Medical History / Comment(s): HX. MENIERE'S. HX. HIATAL HERNIA. HX. 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 HX ARTHRITIS- IN HANDS,FINGERS & SHOULDERS. NEW DX PROSTATE CANCER ABOUT 2021 History of Any Multi-Drug Resistant Organisms: None Reported Past Surgical History: Heart Catheterization Additional Past Surgical History / Comment(s): DEVIATED SEPTUM SX. COLONOSCOPY Past Anesthesia/Blood Transfusion Reactions: No Reported Reaction Additional Past Anesthesia/Blood Transfusion Reaction / Comm: robert hx blood tranfusion Smoking Status: Never smoker - Past Family History Mother Family Medical History: No Reported History Medications and Allergies Home Medications Medication Instructions Recorded Confirmed Type Omeprazole [PriLOSEC] 20 mg PO AC-LUNCH 07/11/13 08/23/23 History Benazepril [Lotensin] 10 mg PO DAILY 09/29/21 08/21/23 History Glimepiride [Amaryl] 2 mg PO QAM 09/29/21 08/23/23 History Pioglitazone [Actos] 15 mg PO HS 09/29/21 08/23/23 History amLODIPine [Norvasc] 5 mg PO DAILY 09/29/21 08/22/23 History Aspirin 81 mg PO DAILY #60 tab 06/09/23 08/23/23 Rx Glimepiride [Amaryl] 4 mg PO HS 08/18/23 08/23/23 History "Cholesterol Med" 1 dose SQ Q90D 08/21/23 08/23/23 History Allergies Allergy/AdvReac Type Severity Reaction Status Date / Time [id number] Reductase AdvReac MUSCLE Verified 08/23/23 05:49 Inhibitor CRAMPS IN [[id number]-Vfw Reductase LEGS Inhibitor] Physical Exam Vitals: Vital Signs Temp Pulse Resp Pulse Ox FiO2 08/24/23 11:00 70 26 H 93 L 08/24/23 10:00 73 22 94 L 08/24/23 09:00 99.9 F H 24 94 L 08/24/23 08:30 75 25 H 95 08/24/23 08:15 76 24 95 08/24/23 08:00 100.0 F H 72 24 95 08/24/23 07:45 72 22 94 L 08/24/23 07:30 71 28 H 95 08/24/23 07:15 72 28 H 95 08/24/23 07:00 75 21 94 L 08/24/23 06:45 74 24 95 08/24/23 06:30 77 92 L 08/24/23 06:15 74 40 H 95 08/24/23 06:00 74 41 H 96 08/24/23 05:45 72 33 H 95 08/24/23 05:30 70 19 97 08/24/23 05:15 70 25 H 96 08/24/23 05:00 70 25 H 96 08/24/23 04:45 70 30 H 96 08/24/23 04:30 15 96 08/24/23 04:15 70 14 96 08/24/23 04:00 99.1 F 70 13 95 08/24/23 03:45 70 22 96 08/24/23 03:30 70 13 95 08/24/23 03:15 72 20 94 L 08/24/23 03:00 70 27 H 95 08/24/23 02:45 70 26 H 95 08/24/23 02:30 70 22 96 08/24/23 02:15 71 19 96 08/24/23 02:00 73 16 96 08/24/23 01:45 70 19 96 08/24/23 01:30 70 14 96 08/24/23 01:15 70 12 96 08/24/23 01:00 70 26 H 97 08/24/23 00:45 70 22 97 08/24/23 00:30 70 35 H 97 08/24/23 00:15 70 25 H 96 08/24/23 00:00 99.5 F 70 21 97 08/23/23 23:45 70 25 H 96 08/23/23 23:40 70 14 96 08/23/23 23:30 70 12 97 08/23/23 23:15 70 25 H 96 08/23/23 23:00 70 17 95 08/23/23 22:45 70 20 97 08/23/23 22:30 70 17 97 08/23/23 22:15 70 14 96 08/23/23 22:00 80 13 97 08/23/23 21:45 80 14 97 08/23/23 21:30 80 12 98 08/23/23 21:15 80 10 L 97 08/23/23 21:00 80 17 98 08/23/23 20:45 80 15 96 08/23/23 20:30 80 13 98 08/23/23 20:29 80 20 08/23/23 20:22 80 20 08/23/23 20:15 80 14 97 08/23/23 20:00 99.3 F 80 13 97 08/23/23 19:45 80 16 97 08/23/23 19:30 80 15 96 08/23/23 19:15 80 15 97 08/23/23 19:00 80 22 97 08/23/23 18:45 80 26 H 97 08/23/23 18:30 80 25 H 97 08/23/23 18:15 80 26 H 96 08/23/23 18:05 94 L 08/23/23 18:00 80 22 97 08/23/23 17:45 80 21 97 08/23/23 17:30 80 20 96 08/23/23 17:15 80 24 96 08/23/23 17:00 80 24 99 08/23/23 16:45 80 36 H 97 08/23/23 16:30 80 18 98 08/23/23 16:15 80 22 97 08/23/23 16:00 80 24 96 50 08/23/23 15:45 80 18 93 L 08/23/23 15:30 80 23 94 L 08/23/23 15:29 80 08/23/23 15:24 50 08/23/23 15:21 80 08/23/23 15:15 80 36 H 93 L 08/23/23 15:00 80 20 92 L 08/23/23 14:45 80 20 93 L 08/23/23 14:40 50 08/23/23 14:30 80 22 93 L 50 08/23/23 14:15 80 28 H 99 08/23/23 14:00 80 33 H 100 08/23/23 13:45 80 14 99 08/23/23 13:35 80 08/23/23 13:30 80 14 98 100 08/23/23 13:28 100 08/23/23 13:27 79 08/23/23 13:18 80 14 98 100 Intake and Output 08/23/23 08/24/23 08/24/23 22:59 06:59 14:59 Intake Total 1043.482 539.793 419.335 Output Total 871 649 320 Balance 172.482 -109.207 99.335 Intake: IV 992 522 263 .9 NS CO/CI 170 50 40 .9 NS pressure bags 72 72 33 ACETAMINOPHEN IV (For NPO 200 ) 1,000 mg In Empty Bag 1 bag @ 400 mls/hr IVPB Q6H RONNIE Rx#:[id number] Calcium Gluconate in NaCl 100 2 gm In Saline 1 100ml. bag @ 100 mls/hr IVPB ONCE PRN Rx#:[id number] Lactated Ringers 1,000 ml 400 400 140 @ 20 mls/hr IV .Q24H RONNIE Rx#:[id number] ceFAZolin 2 gm In Sodium 50 50 Chloride 0.9% 50 ml @ 100 mls/hr IVPB Q8HR RONNIE Rx# :[id number] Intake, IV Titration 51.482 17.793 36.335 Amount Insulin Regular 100 unit 18.845 17.793 36.335 In Sodium Chloride 0.9% 100 ml @ Per Protocol IV .Q0M RONNIE Rx#:[id number] propofoL 1,000 mg In 32.637 Empty Bag 1 bag @ Titrate IV .Q0M RONNIE Rx#: [id number] Oral 120 Output: Chest Tube Drainage 431 244 160 Chest Tube Left 70 95 90 Chest Tube Mediastinal 190 130 30 Chest Tube Right 171 19 40 Mediastinal Urine 440 405 160 Other: Voiding Method Indwelling Catheter Indwelling Catheter Indwelling Catheter Weight 116.8 kg 116.8 kg ABP, PAP, CO, CI - Last 8 Hours Arterial Blood Pressure 113/55 Arterial Blood Pressure 121/56 Arterial Blood Pressure 129/62 Arterial Blood Pressure 129/55 Arterial Blood Pressure 52/52 Arterial Blood Pressure 120/54 Arterial Blood Pressure 133/58 Arterial Blood Pressure 139/59 Arterial Blood Pressure 127/57 Arterial Blood Pressure 136/61 Arterial Blood Pressure 118/49 Arterial Blood Pressure 131/57 Arterial Blood Pressure 135/61 Arterial Blood Pressure 143/74 Arterial Blood Pressure 128/62 Arterial Blood Pressure 128/66 Arterial Blood Pressure 125/63 Arterial Blood Pressure 121/63 Arterial Blood Pressure 115/57 Arterial Blood Pressure 118/63 Pulmonary Artery Pressure 46/20 Pulmonary Artery Pressure 44/19 Pulmonary Artery Pressure 45/18 Pulmonary Artery Pressure 37/15 Pulmonary Artery Pressure 44/20 Pulmonary Artery Pressure 41/20 Pulmonary Artery Pressure 41/19 Pulmonary Artery Pressure 43/19 Pulmonary Artery Pressure 32/11 Pulmonary Artery Pressure 41/17 Pulmonary Artery Pressure 51/24 Pulmonary Artery Pressure 59/31 Pulmonary Artery Pressure 46/22 Pulmonary Artery Pressure 64/22 Pulmonary Artery Pressure 51/26 Pulmonary Artery Pressure 52/25 Pulmonary Artery Pressure 45/22 Pulmonary Artery Pressure 55/28 Cardiac Output 4.8 Cardiac Output 4.4 Cardiac Index 2.2 Cardiac Index 2 Results CBC & Chem 7: 08/24/23 05:40 08/24/23 05:40 Labs: Abnormal Lab Results - Last 24 Hours (Table) 08/17/23 08/23/23 08/23/23 Range/Units 11:26 12:44 13:20 WBC 19.5 H (3.8-10.6) k/uL RBC 2.88 L (4.30-5.90) m/uL Hgb 8.7 L D (13.0-17.5) gm/dL Hct 26.8 L (39.0-53.0) % RDW 16.7 H (11.5-15.5) % Plt Count 123 L (150-450) k/uL Neutrophils # 17.4 H (1.3-7.7) k/uL Lymphocytes # 0.6 L (1.0-4.8) k/uL Monocytes # 1.1 H (0-1.0) k/uL PT (10.0-12.5) sec INR (<1.2) APTT (22.0-30.0) sec ABG pH (7.35-7.45) ABG pCO2 (35-45) mmHg ABG pO2 >420 H (83-108) mmHg ABG Total CO2 (19-24) mmol/L ABG O2 Saturation 98.9 H (94-97) % ABG Hematocrit 25 L (34.0-46.0) % ABG Ionized Calcium 4.2 L (4.5-5.3) mg/dL ABG Glucose 111 H (75-99) mg/dL ABG Lactic Acid 1.9 H (0.5-1.6) mmol/L Hemoglobin 8.3 L (13.0-17.5) gm/dL Chloride (98-107) mmol/L Creatinine (0.66-1.25) mg/dL Glucose (74-99) mg/dL POC Glucose (mg/dL) (70-110) mg/dL Calcium (8.4-10.2) mg/dL Ionized Calcium Cortez (4.5-5.3) mg/dL Magnesium (1.6-2.3) mg/dL Total Bilirubin (0.2-1.3) mg/dL AST (17-59) U/L Total Protein (6.3-8.2) g/dL Arterial Blood Glucose 111 H (75-99) mg/dL Crossmatch See Detail 08/23/23 08/23/23 08/23/23 Range/Units 13:20 13:20 13:23 WBC (3.8-10.6) k/uL RBC (4.30-5.90) m/uL Hgb (13.0-17.5) gm/dL Hct (39.0-53.0) % RDW (11.5-15.5) % Plt Count (150-450) k/uL Neutrophils # (1.3-7.7) k/uL Lymphocytes # (1.0-4.8) k/uL Monocytes # (0-1.0) k/uL PT 17.1 H (10.0-12.5) sec INR 1.7 H (<1.2) APTT 30.8 H (22.0-30.0) sec ABG pH (7.35-7.45) ABG pCO2 (35-45) mmHg ABG pO2 (83-108) mmHg ABG Total CO2 (19-24) mmol/L ABG O2 Saturation (94-97) % ABG Hematocrit (34.0-46.0) % ABG Ionized Calcium (4.5-5.3) mg/dL ABG Glucose (75-99) mg/dL ABG Lactic Acid (0.5-1.6) mmol/L Hemoglobin (13.0-17.5) gm/dL Chloride 110 H (98-107) mmol/L Creatinine 0.59 L (0.66-1.25) mg/dL Glucose 146 H (74-99) mg/dL POC Glucose (mg/dL) 159 H (70-110) mg/dL Calcium 7.3 L (8.4-10.2) mg/dL Ionized Calcium Cortez 4.2 L (4.5-5.3) mg/dL Magnesium 3.1 H (1.6-2.3) mg/dL Total Bilirubin 1.4 H (0.2-1.3) mg/dL AST (17-59) U/L Total Protein 5.5 L (6.3-8.2) g/dL Arterial Blood Glucose (75-99) mg/dL Crossmatch 08/23/23 08/23/23 08/23/23 Range/Units 13:38 14:26 15:24 WBC (3.8-10.6) k/uL RBC (4.30-5.90) m/uL Hgb (13.0-17.5) gm/dL Hct (39.0-53.0) % RDW (11.5-15.5) % Plt Count (150-450) k/uL Neutrophils # (1.3-7.7) k/uL Lymphocytes # (1.0-4.8) k/uL Monocytes # (0-1.0) k/uL PT (10.0-12.5) sec INR (<1.2) APTT (22.0-30.0) sec ABG pH 7.31 L (7.35-7.45) ABG pCO2 47 H (35-45) mmHg ABG pO2 248 H (83-108) mmHg ABG Total CO2 25 H (19-24) mmol/L ABG O2 Saturation 98.5 H (94-97) % ABG Hematocrit (34.0-46.0) % ABG Ionized Calcium (4.5-5.3) mg/dL ABG Glucose (75-99) mg/dL ABG Lactic Acid (0.5-1.6) mmol/L Hemoglobin (13.0-17.5) gm/dL Chloride (98-107) mmol/L Creatinine (0.66-1.25) mg/dL Glucose (74-99) mg/dL POC Glucose (mg/dL) 151 H 136 H (70-110) mg/dL Calcium (8.4-10.2) mg/dL Ionized Calcium Cortez (4.5-5.3) mg/dL Magnesium (1.6-2.3) mg/dL Total Bilirubin (0.2-1.3) mg/dL AST (17-59) U/L Total Protein (6.3-8.2) g/dL Arterial Blood Glucose (75-99) mg/dL Crossmatch 08/23/23 08/23/23 08/23/23 Range/Units 16:01 16:03 17:06 WBC 14.3 H (3.8-10.6) k/uL RBC 2.85 L (4.30-5.90) m/uL Hgb 8.6 L (13.0-17.5) gm/dL Hct 26.4 L (39.0-53.0) % RDW 16.6 H (11.5-15.5) % Plt Count 133 L (150-450) k/uL Neutrophils # 12.8 H (1.3-7.7) k/uL Lymphocytes # 0.5 L (1.0-4.8) k/uL Monocytes # (0-1.0) k/uL PT (10.0-12.5) sec INR (<1.2) APTT (22.0-30.0) sec ABG pH (7.35-7.45) ABG pCO2 (35-45) mmHg ABG pO2 (83-108) mmHg ABG Total CO2 (19-24) mmol/L ABG O2 Saturation (94-97) % ABG Hematocrit (34.0-46.0) % ABG Ionized Calcium (4.5-5.3) mg/dL ABG Glucose (75-99) mg/dL ABG Lactic Acid (0.5-1.6) mmol/L Hemoglobin (13.0-17.5) gm/dL Chloride (98-107) mmol/L Creatinine (0.66-1.25) mg/dL Glucose (74-99) mg/dL POC Glucose (mg/dL) 152 H 145 H (70-110) mg/dL Calcium (8.4-10.2) mg/dL Ionized Calcium Cortez (4.5-5.3) mg/dL Magnesium (1.6-2.3) mg/dL Total Bilirubin (0.2-1.3) mg/dL AST (17-59) U/L Total Protein (6.3-8.2) g/dL Arterial Blood Glucose (75-99) mg/dL Crossmatch 08/23/23 08/23/23 08/23/23 Range/Units 17:34 18:09 18:57 WBC 15.2 H (3.8-10.6) k/uL RBC 3.12 L (4.30-5.90) m/uL Hgb 9.1 L (13.0-17.5) gm/dL Hct 28.6 L (39.0-53.0) % RDW 16.7 H (11.5-15.5) % Plt Count 126 L (150-450) k/uL Neutrophils # 13.7 H (1.3-7.7) k/uL Lymphocytes # 0.5 L (1.0-4.8) k/uL Monocytes # (0-1.0) k/uL PT (10.0-12.5) sec INR (<1.2) APTT (22.0-30.0) sec ABG pH 7.34 L (7.35-7.45) ABG pCO2 (35-45) mmHg ABG pO2 (83-108) mmHg ABG Total CO2 25 H (19-24) mmol/L ABG O2 Saturation (94-97) % ABG Hematocrit (34.0-46.0) % ABG Ionized Calcium (4.5-5.3) mg/dL ABG Glucose (75-99) mg/dL ABG Lactic Acid (0.5-1.6) mmol/L Hemoglobin (13.0-17.5) gm/dL Chloride (98-107) mmol/L Creatinine (0.66-1.25) mg/dL Glucose (74-99) mg/dL POC Glucose (mg/dL) 144 H (70-110) mg/dL Calcium (8.4-10.2) mg/dL Ionized Calcium Cortez (4.5-5.3) mg/dL Magnesium (1.6-2.3) mg/dL Total Bilirubin (0.2-1.3) mg/dL AST (17-59) U/L Total Protein (6.3-8.2) g/dL Arterial Blood Glucose (75-99) mg/dL Crossmatch 08/23/23 08/23/23 08/23/23 Range/Units 18:57 19:55 20:50 WBC (3.8-10.6) k/uL RBC (4.30-5.90) m/uL Hgb (13.0-17.5) gm/dL Hct (39.0-53.0) % RDW (11.5-15.5) % Plt Count (150-450) k/uL Neutrophils # (1.3-7.7) k/uL Lymphocytes # (1.0-4.8) k/uL Monocytes # (0-1.0) k/uL PT (10.0-12.5) sec INR (<1.2) APTT (22.0-30.0) sec ABG pH (7.35-7.45) ABG pCO2 (35-45) mmHg ABG pO2 (83-108) mmHg ABG Total CO2 (19-24) mmol/L ABG O2 Saturation (94-97) % ABG Hematocrit (34.0-46.0) % ABG Ionized Calcium (4.5-5.3) mg/dL ABG Glucose (75-99) mg/dL ABG Lactic Acid (0.5-1.6) mmol/L Hemoglobin (13.0-17.5) gm/dL Chloride (98-107) mmol/L Creatinine (0.66-1.25) mg/dL Glucose (74-99) mg/dL POC Glucose (mg/dL) 139 H 130 H 131 H (70-110) mg/dL Calcium (8.4-10.2) mg/dL Ionized Calcium Cortez (4.5-5.3) mg/dL Magnesium (1.6-2.3) mg/dL Total Bilirubin (0.2-1.3) mg/dL AST (17-59) U/L Total Protein (6.3-8.2) g/dL Arterial Blood Glucose (75-99) mg/dL Crossmatch 08/23/23 08/23/23 08/24/23 Range/Units 22:04 23:17 00:06 WBC (3.8-10.6) k/uL RBC (4.30-5.90) m/uL Hgb (13.0-17.5) gm/dL Hct (39.0-53.0) % RDW (11.5-15.5) % Plt Count (150-450) k/uL Neutrophils # (1.3-7.7) k/uL Lymphocytes # (1.0-4.8) k/uL Monocytes # (0-1.0) k/uL PT (10.0-12.5) sec INR (<1.2) APTT (22.0-30.0) sec ABG pH (7.35-7.45) ABG pCO2 (35-45) mmHg ABG pO2 (83-108) mmHg ABG Total CO2 (19-24) mmol/L ABG O2 Saturation (94-97) % ABG Hematocrit (34.0-46.0) % ABG Ionized Calcium (4.5-5.3) mg/dL ABG Glucose (75-99) mg/dL ABG Lactic Acid (0.5-1.6) mmol/L Hemoglobin (13.0-17.5) gm/dL Chloride (98-107) mmol/L Creatinine (0.66-1.25) mg/dL Glucose (74-99) mg/dL POC Glucose (mg/dL) 130 H 126 H 128 H (70-110) mg/dL Calcium (8.4-10.2) mg/dL Ionized Calcium Cortez (4.5-5.3) mg/dL Magnesium (1.6-2.3) mg/dL Total Bilirubin (0.2-1.3) mg/dL AST (17-59) U/L Total Protein (6.3-8.2) g/dL Arterial Blood Glucose (75-99) mg/dL Crossmatch 08/24/23 08/24/23 08/24/23 Range/Units 01:03 02:08 03:11 WBC (3.8-10.6) k/uL RBC (4.30-5.90) m/uL Hgb (13.0-17.5) gm/dL Hct (39.0-53.0) % RDW (11.5-15.5) % Plt Count (150-450) k/uL Neutrophils # (1.3-7.7) k/uL Lymphocytes # (1.0-4.8) k/uL Monocytes # (0-1.0) k/uL PT (10.0-12.5) sec INR (<1.2) APTT (22.0-30.0) sec ABG pH (7.35-7.45) ABG pCO2 (35-45) mmHg ABG pO2 (83-108) mmHg ABG Total CO2 (19-24) mmol/L ABG O2 Saturation (94-97) % ABG Hematocrit (34.0-46.0) % ABG Ionized Calcium (4.5-5.3) mg/dL ABG Glucose (75-99) mg/dL ABG Lactic Acid (0.5-1.6) mmol/L Hemoglobin (13.0-17.5) gm/dL Chloride (98-107) mmol/L Creatinine (0.66-1.25) mg/dL Glucose (74-99) mg/dL POC Glucose (mg/dL) 121 H 119 H 125 H (70-110) mg/dL Calcium (8.4-10.2) mg/dL Ionized Calcium Cortez (4.5-5.3) mg/dL Magnesium (1.6-2.3) mg/dL Total Bilirubin (0.2-1.3) mg/dL AST (17-59) U/L Total Protein (6.3-8.2) g/dL Arterial Blood Glucose (75-99) mg/dL Crossmatch 08/24/23 08/24/23 08/24/23 Range/Units 04:21 05:40 05:40 WBC 15.8 H (3.8-10.6) k/uL RBC 3.08 L (4.30-5.90) m/uL Hgb 9.3 L (13.0-17.5) gm/dL Hct 28.6 L (39.0-53.0) % RDW 16.8 H (11.5-15.5) % Plt Count 145 L (150-450) k/uL Neutrophils # 13.6 H (1.3-7.7) k/uL Lymphocytes # 0.8 L (1.0-4.8) k/uL Monocytes # 1.1 H (0-1.0) k/uL PT (10.0-12.5) sec INR (<1.2) APTT (22.0-30.0) sec ABG pH (7.35-7.45) ABG pCO2 (35-45) mmHg ABG pO2 (83-108) mmHg ABG Total CO2 (19-24) mmol/L ABG O2 Saturation (94-97) % ABG Hematocrit (34.0-46.0) % ABG Ionized Calcium (4.5-5.3) mg/dL ABG Glucose (75-99) mg/dL ABG Lactic Acid (0.5-1.6) mmol/L Hemoglobin (13.0-17.5) gm/dL Chloride 110 H (98-107) mmol/L Creatinine (0.66-1.25) mg/dL Glucose 104 H (74-99) mg/dL POC Glucose (mg/dL) 127 H (70-110) mg/dL Calcium (8.4-10.2) mg/dL Ionized Calcium Cortez (4.5-5.3) mg/dL Magnesium (1.6-2.3) mg/dL Total Bilirubin (0.2-1.3) mg/dL AST 61 H (17-59) U/L Total Protein 5.5 L (6.3-8.2) g/dL Arterial Blood Glucose (75-99) mg/dL Crossmatch 08/24/23 08/24/23 08/24/23 Range/Units 05:43 07:09 08:15 WBC (3.8-10.6) k/uL RBC (4.30-5.90) m/uL Hgb (13.0-17.5) gm/dL Hct (39.0-53.0) % RDW (11.5-15.5) % Plt Count (150-450) k/uL Neutrophils # (1.3-7.7) k/uL Lymphocytes # (1.0-4.8) k/uL Monocytes # (0-1.0) k/uL PT (10.0-12.5) sec INR (<1.2) APTT (22.0-30.0) sec ABG pH (7.35-7.45) ABG pCO2 (35-45) mmHg ABG pO2 (83-108) mmHg ABG Total CO2 (19-24) mmol/L ABG O2 Saturation (94-97) % ABG Hematocrit (34.0-46.0) % ABG Ionized Calcium (4.5-5.3) mg/dL ABG Glucose (75-99) mg/dL ABG Lactic Acid (0.5-1.6) mmol/L Hemoglobin (13.0-17.5) gm/dL Chloride (98-107) mmol/L Creatinine (0.66-1.25) mg/dL Glucose (74-99) mg/dL POC Glucose (mg/dL) 126 H 132 H 168 H (70-110) mg/dL Calcium (8.4-10.2) mg/dL Ionized Calcium Cortez (4.5-5.3) mg/dL Magnesium (1.6-2.3) mg/dL Total Bilirubin (0.2-1.3) mg/dL AST (17-59) U/L Total Protein (6.3-8.2) g/dL Arterial Blood Glucose (75-99) mg/dL Crossmatch 08/24/23 08/24/23 08/24/23 Range/Units 09:56 11:05 12:23 WBC (3.8-10.6) k/uL RBC (4.30-5.90) m/uL Hgb (13.0-17.5) gm/dL Hct (39.0-53.0) % RDW (11.5-15.5) % Plt Count (150-450) k/uL Neutrophils # (1.3-7.7) k/uL Lymphocytes # (1.0-4.8) k/uL Monocytes # (0-1.0) k/uL PT (10.0-12.5) sec INR (<1.2) APTT (22.0-30.0) sec ABG pH (7.35-7.45) ABG pCO2 (35-45) mmHg ABG pO2 (83-108) mmHg ABG Total CO2 (19-24) mmol/L ABG O2 Saturation (94-97) % ABG Hematocrit (34.0-46.0) % ABG Ionized Calcium (4.5-5.3) mg/dL ABG Glucose (75-99) mg/dL ABG Lactic Acid (0.5-1.6) mmol/L Hemoglobin (13.0-17.5) gm/dL Chloride (98-107) mmol/L Creatinine (0.66-1.25) mg/dL Glucose (74-99) mg/dL POC Glucose (mg/dL) 150 H 132 H 151 H (70-110) mg/dL Calcium (8.4-10.2) mg/dL Ionized Calcium Cortez (4.5-5.3) mg/dL Magnesium (1.6-2.3) mg/dL Total Bilirubin (0.2-1.3) mg/dL AST (17-59) U/L Total Protein (6.3-8.2) g/dL Arterial Blood Glucose (75-99) mg/dL Crossmatch
[2023-08-24] MEDS: ALBUMIN HUMAN 5% 250 ML in EMPTY BAG 1 BAG IVPB ONE (13:46)
[2023-08-24 13:53] LABS: Glucose,Whole Blood 131 mg/dL (70-110)
[2023-08-24 15:38] LABS: Glucose,Whole Blood 123 mg/dL (70-110)
--- NOTE | 2023-08-24 16:53 | P.CRDCN ---
History of Present Illness History of present illness: HISTORY OF PRESENTING ILLNESS This is a pleasant 72-year-old with past medical history significant for CAD with prior PCI of OM1 branch 2021, hypertension, hyperlipidemia, diabetes mellitus type 2, prior prostate cancer he and history of GI bleed and severe aortic stenosis. He follows in the office with Dr. Benson. Patient presented for elective surgical aortic valve replacement 08/22 which was completed successfully with a 29 mm Zheng Inspiris with aortic valve root enlargement. He was extubated and weaned from vasopressors with cardiac output in the 4.8 L/m range and cardiac index 2.2. She currently admits to significant chest pain around his incision and with deep inspiration. Does not have much of an appetite. Blood pressure borderline. Remains on amiodarone and in normal sinus rhythm. He did have some mild decrease in urine output and was placed on albumin with increasing urine output. REVIEW OF SYSTEMS At the time of my exam: CONSTITUTIONAL: Denies fever or chills. CARDIOVASCULAR: +chest pain, +shortness of breath, no orthopnea, PND or palpitations. RESPIRATORY: Denies cough. GASTROINTESTINAL: Denies abdominal pain, diarrhea, constipation, nausea or vomit ing. MUSCULOSKELETAL: Denies myalgias. NEUROLOGIC: Denies numbness, tingling or weakness. ENDOCRINE: Denies fatigue, weight change, polydipsia or polyurina. GENITOURINARY: Denies burning, hematuria or urgency with micturation. HEMATOLOGIC: Denies history of anemia or bleeding. PHYSICAL EXAMINATION Vital signs reviewed. CONSTITUTIONAL: No apparent distress. HEENT: Head is normocephalic. Pupils are equal, round. Sclerae anicteric. Mucous membranes of the mouth are moist. No JVD. No carotid bruit. CHEST EXAMINATION: Lungs are clear to auscultation. No chest wall tenderness is noted on palpation or with deep breathing. HEART EXAMINATION: Regular rate and rhythm. S1, S2 heard. No murmurs, gallops or rub. ABDOMEN: Soft, nontender. Positive bowel sounds. EXTREMITIES: 2+ peripheral pulses, no lower extremity edema and no calf tenderness. NEUROLOGIC EXAMINATION: Patient is awake, alert and oriented x3. ASSESSMENT Severe aortic stenosis status post surgical aortic valve replacement 08/22 with aortic root enlargement CAD with prior history PCI Hypertension Hyperlipidemia Anemia/acute blood loss anemia Diabetes mellitus type 2 History of prostate cancer History of GI bleed PLAN Patient appears to be recovering from surgery. Monitor urine output in response albumin. Lasix as needed. Cardiac output and cardiac index. Adequate with [place] catheter removed. Continue current supportive care. Further recommendations to follow. Past Medical History Past Medical History: Cancer, Diabetes Mellitus, GERD/Reflux, Hearing Disorder / Deafness, Hyperlipidemia, Hypertension, Osteoarthritis (OA) Additional Past Medical History / Comment(s): HX. MENIERE'S. HX. HIATAL HERNIA. HX. 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 HX ARTHRITIS- IN HANDS,FINGERS & SHOULDERS. NEW DX PROSTATE CANCER ABOUT 2021 History of Any Multi-Drug Resistant Organisms: None Reported Past Surgical History: Heart Catheterization Additional Past Surgical History / Comment(s): DEVIATED SEPTUM SX. COLONOSCOPY Past Anesthesia/Blood Transfusion Reactions: No Reported Reaction Additional Past Anesthesia/Blood Transfusion Reaction / Comment(s): robert hx blood tranfusion Smoking Status: Never smoker - Past Family History Mother Family Medical History: No Reported History Medications and Allergies Home Medications Medication Instructions Recorded Confirmed Type Omeprazole [PriLOSEC] 20 mg PO AC-LUNCH 07/11/13 08/23/23 History Benazepril [Lotensin] 10 mg PO DAILY 09/29/21 08/21/23 History Glimepiride [Amaryl] 2 mg PO QA 09/29/21 08/23/23 History Pioglitazone [Actos] 15 mg PO HS 09/29/21 08/23/23 History amLODIPine [Norvasc] 5 mg PO DAILY 09/29/21 08/22/23 History Aspirin 81 mg PO DAILY #60 tab 06/09/23 08/23/23 Rx Glimepiride [Amaryl] 4 mg PO HS 08/18/23 08/23/23 History "Cholesterol Med" 1 dose SQ Q90D 08/21/23 08/23/23 History Allergies Allergy/AdvReac Type Severity Reaction Status Date / Time Fjwczop-BPP-YyU Reductase AdvReac MUSCLE Verified 08/23/23 05:49 Inhibitor CRAMPS IN [Uiyuwpb-Lcn-Hoz Reductase LEGS Inhibitor] Physical Exam Vitals: Vital Signs Temp Pulse Resp Pulse Ox 08/24/23 16:00 97.8 F 73 27 H 96 08/24/23 15:32 83 08/24/23 15:19 83 08/24/23 15:00 74 28 H 96 08/24/23 14:00 71 24 96 08/24/23 13:00 70 28 H 95 08/24/23 12:00 97.7 F 70 26 H 96 08/24/23 11:00 70 26 H 93 L 08/24/23 10:00 73 22 94 L 08/24/23 09:00 99.9 F H 24 94 L 08/24/23 08:30 75 25 H 95 08/24/23 08:15 76 24 95 08/24/23 08:00 100.0 F H 72 24 95 08/24/23 07:45 72 22 94 L 08/24/23 07:30 71 28 H 95 08/24/23 07:15 72 28 H 95 08/24/23 07:00 75 21 94 L 08/24/23 06:45 74 24 95 08/24/23 06:30 77 92 L 08/24/23 06:15 74 40 H 95 08/24/23 06:00 74 41 H 96 08/24/23 05:45 72 33 H 95 08/24/23 05:30 70 19 97 08/24/23 05:15 70 25 H 96 08/24/23 05:00 70 25 H 96 08/24/23 04:45 70 30 H 96 08/24/23 04:30 15 96 08/24/23 04:15 70 14 96 08/24/23 04:00 99.1 F 70 13 95 08/24/23 03:45 70 22 96 08/24/23 03:30 70 13 95 08/24/23 03:15 72 20 94 L 08/24/23 03:00 70 27 H 95 08/24/23 02:45 70 26 H 95 08/24/23 02:30 70 22 96 08/24/23 02:15 71 19 96 08/24/23 02:00 73 16 96 08/24/23 01:45 70 19 96 08/24/23 01:30 70 14 96 08/24/23 01:15 70 12 96 08/24/23 01:00 70 26 H 97 08/24/23 00:45 70 22 97 08/24/23 00:30 70 35 H 97 08/24/23 00:15 70 25 H 96 08/24/23 00:00 99.5 F 70 21 97 06/26/24 23:45 70 25 H 96 08/23/23 23:40 70 14 96 08/23/23 23:30 70 12 97 08/23/23 23:15 70 25 H 96 08/23/23 23:00 70 17 95 08/23/23 22:45 70 20 97 08/23/23 22:30 70 17 97 08/23/23 22:15 70 14 96 08/23/23 22:00 80 13 97 08/23/23 21:45 80 14 97 08/23/23 21:30 80 12 98 08/23/23 21:15 80 10 L 97 08/23/23 21:00 80 17 98 08/23/23 20:45 80 15 96 08/23/23 20:30 80 13 98 08/23/23 20:29 80 20 08/23/23 20:22 80 20 08/23/23 20:15 80 14 97 08/23/23 20:00 99.3 F 80 13 97 08/23/23 19:45 80 16 97 08/23/23 19:30 80 15 96 08/23/23 19:15 80 15 97 08/23/23 19:00 80 22 97 08/23/23 18:45 80 26 H 97 08/23/23 18:30 80 25 H 97 08/23/23 18:15 80 26 H 96 08/23/23 18:05 94 L 08/23/23 18:00 80 22 97 08/23/23 17:45 80 21 97 08/23/23 17:30 80 20 96 08/23/23 17:15 80 24 96 08/23/23 17:00 80 24 99 Intake and Output 08/24/23 08/24/23 08/24/23 06:59 14:59 22:59 Intake Total 539.793 904.588 58.245 Output Total 649 460 80 Balance -109.207 444.588 -21.755 Intake: IV 522 367 52 .9 NS CO/CI 50 40 .9 NS pressure bags 72 57 12 Lactated Ringers 1,000 ml 400 220 40 @ 20 mls/hr IV .Q24H [facility] Rx#:[id number] ceFAZolin 2 gm In Sodium 50 Chloride 0.9% 50 ml @ 100 mls/hr IVPB Q8HR RONNIE Rx# :[id number] Intake, IV Titration 17.793 297.588 6.245 Amount Albumin Human 5% 250 ml 250 In Empty Bag 1 bag @ 250 mls/hr IVPB ONCE ONE Rx#: [id number] Insulin Regular 100 unit 17.793 47.588 6.245 In Sodium Chloride 0.9% 100 ml @ Per Protocol IV .Q0M [facility] Rx#:[id number] Oral 240 Output: Chest Tube Drainage 244 210 20 Chest Tube Left 95 120 10 Chest Tube Mediastinal 130 40 10 Chest Tube Right 19 50 0 Mediastinal Urine 405 250 60 Other: Voiding Method Indwelling Catheter Indwelling Catheter Indwelling Catheter Weight 116.8 kg 116.8 kg ABP, PAP, CO, CI - Last 8 Hours Arterial Blood Pressure 113/52 Arterial Blood Pressure 116/56 Arterial Blood Pressure 106/51 Arterial Blood Pressure 101/51 Arterial Blood Pressure 108/53 Arterial Blood Pressure 113/55 Arterial Blood Pressure 121/56 Arterial Blood Pressure 129/62 Pulmonary Artery Pressure 46/20 Results 08/24/23 05:40 08/24/23 05:40 Cardiac Enzymes 08/24/23 Range/Units 05:40 AST 61 H (17-59) U/L CBC 08/23/23 08/24/23 Range/Units 18:57 05:40 WBC 15.2 H 15.8 H (3.8-10.6) k/uL RBC 3.12 L 3.08 L (4.30-5.90) m/uL Hgb 9.1 L 9.3 L (13.0-17.5) gm/dL Hct 28.6 L 28.6 L (39.0-53.0) % Plt Count 126 L 145 L (150-450) k/uL Comprehensive Metabolic Panel 08/24/23 Range/Units 05:40 Sodium 139 (137-145) mmol/L Potassium 4.6 (3.5-5.1) mmol/L Chloride 110 H (98-107) mmol/L Carbon Dioxide 24 (22-30) mmol/L BUN 17 (9-20) mg/dL Creatinine 0.67 (0.66-1.25) mg/dL Glucose 104 H (74-99) mg/dL Calcium 8.4 (8.4-10.2) mg/dL AST 61 H (17-59) U/L ALT 24 (4-49) U/L Alkaline Phosphatase 43 (38-126) U/L Total Protein 5.5 L (6.3-8.2) g/dL Albumin 3.8 (3.5-5.0) g/dL Current Medications Generic Name Dose Route Start Last Admin Trade Name Freq PRN Reason Stop Dose Admin Acetaminophen 650 mg 08/24/23 07:19 08/24/23 11:08 Acetaminophen Tab 325 Mg Tab PO 650 mg Q4HR PRN Administration Fever and/ or Pain Albuterol/Ipratropium 3 ml 08/23/23 12:58 08/23/23 13:26 Ipratropium-Albuterol 3 Ml Neb INHALATION 3 ml RT-Q2H PRN Administration Shortness Of Breath Or Wheezing Albuterol/Ipratropium 3 ml 08/23/23 20:00 08/24/23 15:18 Ipratropium-Albuterol 3 Ml Neb INHALATION 3 ml RT-QID RONNIE Administration Aspirin 325 mg 08/25/23 09:00 Aspirin 325 Mg Tab PO DAILY RONNIE Atorvastatin Calcium 40 mg 08/24/23 09:00 08/24/23 08:30 Atorvastatin 40 Mg Tab PO 40 mg DAILY RONNIE Administration Benzocaine/Menthol 1 each 08/23/23 12:58 Benzocaine/Menthol Lozeng 1 Each Lozenge MUCOUS MEM Q2H PRN Sore Throat Bisacodyl 10 mg 08/24/23 09:00 Bisacodyl 10 Mg Supp RECTAL DAILY PRN Constipation Dextrose/Water 25 ml 08/23/23 12:58 Dextrose 50% Syringe 50 Ml IVP PER PROTOCOL PRN Hypoglycemia Protocol Dextrose/Water 50 ml 08/23/23 12:58 Dextrose 50% Syringe 50 Ml IVP PER PROTOCOL PRN Hypoglycemia Protocol Heparin Sodium (Porcine) 5,000 unit 08/23/23 16:00 08/24/23 16:23 Heparin Sodium,Porcine 5,000 Unit/Ml 1 Ml Vial SQ 5,000 unit Q8HR RONINE Administration Hydralazine HCl 10 mg 08/23/23 12:58 Hydralazine Hcl 20 Mg/Ml 1 Ml Vial IVP Q1H PRN Blood Pressure - High Amiodarone HCl 150 mg/ 103 mls @ 618 mls/hr 08/23/23 12:58 Dextrose/Water IV .Q10M PRN A.FIB/FLUTTER Protocol Amiodarone HCl 360 mg/ 207.2 mls @ 34.533 mls/hr 08/23/23 12:58 Dextrose/Water IV .Q6H PRN A.FIB/FLUTTER Protocol 1 MG/MIN Amiodarone HCl 450 mg/ 250 mls @ 16.667 mls/hr 08/23/23 12:58 Dextrose/Water IV .Q15H PRN A.FIB/FLUTTER Protocol 0.5 MG/MIN Albumin Human 250 ml/ IV 250 mls @ 250 mls/hr 08/23/23 12:58 Solution IVPB 08/25/23 12:59 Q1HR PRN For Volume Protocol Lactated Ringer's 1,000 mls @ 20 mls/hr 08/23/23 12:58 08/24/23 13:55 Lactated Ringers IV Not Given .Q24H RONNIE Insulin Human Regular 100 unit 101 mls @ 0 mls/hr 08/23/23 14:00 08/24/23 15:38 / Sodium Chloride IV 3 units/hr .Q0M RONNIE 3.03 mls/hr Titration Protocol Per Protocol Magnesium Hydroxide 2,400 mg 08/24/23 09:00 Magnesium Hydroxide 2,400 Mg/30 Ml Cup PO BID PRN Constipation Metoclopramide HCl 10 mg 08/23/23 12:58 Metoclopramide 5 Mg/Ml 2 Ml Vial IVP Q4H PRN Nausea And Vomiting Metoprolol Tartrate 12.5 mg 08/24/23 09:00 08/24/23 08:30 Metoprolol Tartrate 12.5 Mg Tab PO 12.5 mg BID RONNIE Administration Miscellaneous Information 1 each 08/23/23 12:58 Potassium Replacement Protocol 1 Each Misc MISCELLANE DAILY PRN Per Protocol Protocol Miscellaneous Information 1 each 08/23/23 12:58 Magnesium Replacement Protocol 1 Each Misc MISCELLANE DAILY PRN Per Protocol Protocol Ondansetron HCl 4 mg 08/23/23 12:58 08/23/23 18:20 Ondansetron 4 Mg/2 Ml Vial IVP 4 mg Q6HR PRN Administration Nausea And Vomiting Oxycodone HCl 5 mg 08/23/23 12:58 08/24/23 00:58 Oxycodone Hcl 5 Mg Tab PO 5 mg Q4HR PRN Administration Moderate Pain (Scale 4 to 6) Oxycodone HCl 10 mg 08/23/23 12:58 08/24/23 16:23 Oxycodone Hcl 5 Mg Tab PO 10 mg Q4HR PRN Administration Severe Pain (Scale 7 to 10) Pantoprazole Sodium 40 mg 08/24/23 17:30 Pantoprazole 40 Mg Tablet PO AC-BID RONNIE Senna/Docusate Sodium 2 each 08/23/23 21:00 08/23/23 21:50 Sennosides-Docusate Sodium 1 Each Tab PO 2 each HS RONNIE Administration Sodium Chloride 10 ml 08/23/23 21:00 08/24/23 08:31 Sodium Chloride 0.9% Flush 10 Ml Syringe IV Not Given BID RONNIE Intake and Output 08/24/23 08/24/23 08/24/23 06:59 14:59 22:59 Intake Total 539.793 904.588 58.245 Output Total 649 460 80 Balance -109.207 444.588 -21.755 Intake: IV 522 367 52 .9 NS CO/CI 50 40 .9 NS pressure bags 72 57 12 Lactated Ringers 1,000 ml 400 220 40 @ 20 mls/hr IV .Q24H [facility] Rx#:[id number] ceFAZolin 2 gm In Sodium 50 Chloride 0.9% 50 ml @ 100 mls/hr IVPB Q8HR [facility] Rx# :[id number] Intake, IV Titration 17.793 297.588 6.245 Amount Albumin Human 5% 250 ml 250 In Empty Bag 1 bag @ 250 mls/hr IVPB ONCE ONE Rx#: [id number] Insulin Regular 100 unit 17.793 47.588 6.245 In Sodium Chloride 0.9% 100 ml @ Per Protocol IV .Q0M [facility] Rx#:[id number] Oral 240 Output: Chest Tube Drainage 244 210 20 Chest Tube Left 95 120 10 Chest Tube Mediastinal 130 40 10 Chest Tube Right 19 50 0 Mediastinal Urine 405 250 60 Other: Voiding Method Indwelling Catheter Indwelling Catheter Indwelling Catheter Weight 116.8 kg 116.8 kg Patient Weight 08/25/23 06:59 Weight 116.8 kg 08/24/23 05:40 08/24/23 05:40
[2023-08-24 17:23] LABS: Glucose,Whole Blood 127 mg/dL (70-110)
[2023-08-24] MEDS: PANTOPRAZOLE 40 MG TABLET PO SCH (18:08)
[2023-08-24 19:08] LABS: Glucose,Whole Blood 178 mg/dL (70-110)
[2023-08-24 19:59] LABS: Glucose,Whole Blood 165 mg/dL (70-110)
[2023-08-24 20:55] LABS: Glucose,Whole Blood 144 mg/dL (70-110)
[2023-08-24 22:04] LABS: Glucose,Whole Blood 140 mg/dL (70-110)
[2023-08-24 23:02] LABS: Glucose,Whole Blood 136 mg/dL (70-110)
[2023-08-25 00:32] LABS: Glucose,Whole Blood 131 mg/dL (70-110)
[2023-08-25 01:49] LABS: Glucose,Whole Blood 128 mg/dL (70-110)
[2023-08-25 02:27] LABS: Glucose,Whole Blood 139 mg/dL (70-110)
[2023-08-25 04:22] LABS: Glucose,Whole Blood 125 mg/dL (70-110)
[2023-08-25 04:35] LABS: Anisocytosis Slight; Basophils # (A) 0.1 k/uL (0-0.2); Basophils % (A) 0 %; Eosinophils # (A) 0.1 k/uL (0-0.7); Eosinophils % (A) 0 %; HCT 29.7 % (39.0-53.0); HGB 9.3 gm/dL (13.0-17.5); Hypochromasia Slight; Lymphocytes % (A) 4 %; MCH 29.6 pg (25.0-35.0); MCHC 31.3 g/dL (31.0-37.0); MCV 94.5 fL (80.0-100.0); Mean Platelet Volume 10.5; Monocytes # (A) 1.8 k/uL (0-1.0); Monocytes % (A) 8 %; Neutrophils # (A) 20.2 k/uL (1.3-7.7); Neutrophils % (A) 86 %; Platelet Count 157 k/uL (150-450); RBC 3.14 m/uL (4.30-5.90); RDW 16.9 % (11.5-15.5); WBC 23.4 k/uL (3.8-10.6)
[2023-08-25 04:55] LABS: Ionized Calcium 4.8 mg/dL (4.5-5.3)
[2023-08-25 05:04] LABS: ALT 47 U/L (4-49); AST 77 U/L (17-59); African American GFR (CKD) >90 (>60 ml/min/1.73 sqM); Albumin 3.8 g/dL (3.5-5.0); Alkaline Phosphatase 52 U/L (38-126); Anion Gap 3 mmol/L; Blood Urea Nitrogen 21 mg/dL (9-20); Calcium 8.7 mg/dL (8.4-10.2); Carbon Dioxide 29 mmol/L (22-30); Chloride 107 mmol/L (98-107); Glucose 113 mg/dL (74-99); Non-African American GFR(CKD) >90 (>60 ml/min/1.73 sqM); Potassium 4.9 mmol/L (3.5-5.1); Sodium 139 mmol/L (137-145); Total Bilirubin 1.5 mg/dL (0.2-1.3); Total Protein 5.7 g/dL (6.3-8.2)
[2023-08-25 06:09] LABS: Glucose,Whole Blood 119 mg/dL (70-110)
[2023-08-25 06:58] LABS: Glucose,Whole Blood 129 mg/dL (70-110)
[2023-08-25 08:35] LABS: Glucose,Whole Blood 163 mg/dL (70-110)
[2023-08-25] MEDS ORDERED: HYDROcodone/APAP 5-325MG 1 EACH TAB PO PRN (08:51)
[2023-08-25] MEDS ORDERED: ACETYLCYSTEINE 800 MG/4 ML VIAL PO SCH (09:00)
--- NOTE | 2023-08-25 09:16 | P.PN ---
Subjective Progress Note Date: 08/25/23 Principal diagnosis: Symptomatic calcific tricuspid aortic stenosis. Past medical history significant for coronary artery disease status post PCI to his obtuse marginal coronary artery in 2021, hypertension, hyperlipidemia, diabetes mellitus type 2, prostate cancer, GI bleed, hard of hearing and is a lifetime non-smoker. POD #2 Aortic valve replacement with 29 mm Zheng Inspiris bovine pericardial valve, root enlargement with Hemashield patch (Héctor Whitfield technique), epiaortic ultrasound, ligation of left atrial appendage with 35mm AtriCure clip and plates and screws for sternal closure. Postoperative acute blood loss anemia, expected given hemodilution and cardiopulmonary bypass. The patient was seen and examined in follow-up today August 25, 2023 at his bedside in the intensive care unit. He is currently sitting up to the bedside chair, is awake, alert, oriented x 3 and is in no acute apparent distress. He denies any complaints of shortness of breath at this time, although is complaining of some surgical type pain to his chest tube insertion sites and with taking a deep breath currently rating his pain 3-4 out of 10 on the pain scale. He is complaining of a productive cough with whalen tenacious sputum. His Tmax temperature in the last 24 hours was 100 F. Right IJ cordis remains in place with continuous CVP monitoring, current CVP pressure 14 mmHg. He remains hemodynamically stable and is currently on no inotropic or pressor support. Oxygen saturations are 97% on 2 L nasal cannula and he is achieving 750 mL with much encouragement on his incentive spirometry. Mediastinal and left pleural chest tubes remain in place to low continuous wall suction -20 cm H2O. No air leak is present. Draining thin serosanguineous drainage. Mediastinal chest tube drained 30 mL output in the last 8 hours and 150 mL output in the last 24 hours. Right angled mediastinal chest tube draining thin serosanguineous drainage with 20 mL output in the last 8 hours and 40 mL output in the last 24 hours. Left pleural chest tube draining thin serosanguineous drainage with 80 mL output in the last 8 hours and 300 mL output in the last 24 hours. The patient reports he was up ambulating in the intensive care unit hallway yesterday with standby assistance nursing and therapy staff and tolerated well with minimal complaints of shortness of breath. Chest x-ray and laboratory results were reviewed. Objective - Vital Signs Vital signs: Vital Signs Temp 97.5 F L 08/25/23 08:00 Pulse 83 08/25/23 08:00 Resp 38 H 08/25/23 08:00 BP 141/65 08/23/23 06:35 Pulse Ox 94 L 08/25/23 08:00 FiO2 50 08/23/23 16:00 Intake & Output 08/24/23 08/25/23 08/25/23 18:59 06:59 18:59 Intake Total 1020.388 368.266 61.250 Output Total 690 625 210 Balance 330.388 -256.734 -148.750 Weight 116.8 kg 116.6 kg Intake: IV 471 312 52 .9 NS CO/CI 40 .9 NS pressure bags 81 72 12 Lactated Ringers 1,000 ml 300 240 40 @ 20 mls/hr IV .Q24H [facility] Rx#:[id number] ceFAZolin 2 gm In Sodium 50 Chloride 0.9% 50 ml @ 100 mls/hr IVPB Q8HR [facility] Rx# :[id number] Intake, IV Titration 309.388 56.266 9.250 Amount Albumin Human 5% 250 ml 250 In Empty Bag 1 bag @ 250 mls/hr IVPB ONCE ONE Rx#: [id number] Insulin Regular 100 unit 59.388 56.266 9.250 In Sodium Chloride 0.9% 100 ml @ Per Protocol IV .Q0M [facility] Rx#:[id number] Oral 240 Output: Chest Tube Drainage 320 210 110 Chest Tube Left 190 130 60 Chest Tube Mediastinal 70 50 20 Chest Tube Right 60 30 30 Mediastinal Urine 370 415 100 Other: Voiding Method Indwelling Catheter Indwelling Catheter ABP, PAP, CO, CI - Last Documented Arterial Blood Pressure 127/61 Pulmonary Artery Pressure 46/20 Cardiac Output 4.3 Cardiac Index 2 - Exam CONSTITUTIONAL: Sitting up to the bedside chair in the intensive care unit, appears comfortable, cooperative, no apparent acute distress. HEENT: Neck is supple, no JVD, no lymphadenopathy. Right IJ Cordis in place and functioning. RESPIRATORY: Lungs sounds essentially clear throughout, diminished to his bilateral bases. Respirations are symmetrical and nonlabored. Currently on 2 L nasal cannula with oxygen saturations 97%. Able to achieve 750 mL on his incentive spirometry. Strong cough productive cough with whalen tenacious sputum. CARDIOVASCULAR: Regular rhythm and rate. S1 and S2 present, negative for S3, gallop or murmur. Sternum is stable. Bedside telemetry showing normal sinus rhythm heart rate 82 bpm. Palpable peripheral pulses bilaterally, +1 edema to his bilateral lower extremities. No calf pain or tenderness noted. Heart hugger in place with patient demonstrating appropriate use. Knee-high CHARMAINE hose and sequential compression devices in place to his bilateral lower extremities. GASTROINTESTINAL: Abdomen soft, nontender, nondistended. Active bowel sounds present 4 quadrants. Tolerating diet. Passing flatus. No guarding or rigidity. GENITOURINARY: Mullins present draining clear, yellow urine. Urine output 280 mL in the last 8 hours. INTEGUMENTARY: Skin is warm and dry with no evidence of clubbing or cyanosis. Midline sternal incision clean dry and well approximated, covered with dry intact dressing. NEUROLOGIC: Cranial nerves II through XII intact. No focal deficits. MUSKULOSKELETAL: Able to move all extremities, strength equal bilaterally, generalized weakness. PSYCHIATRIC: Alert and oriented to person place and time, appropriate affect, intact judgment and insight. INVASIVE LINES AND TUBES: Mediastinal/left pleural chest tubes present and connected to low continuous wall suction, no air leaks present. Mediastinal tube with 30 mL of thin serosanguineous drainage overnight, 150 mL output in the last 24 hours. Right angle mediastinal chest tube with 20 mL of thin serosanguineous drainage overnight, 40 mL output in the last 24 hours. Left pleural chest tube with 80 mL of thin serosanguineous drainage overnight, 300 mL output in the last 24 hours. Atrial and ventricular epicardial pacemaker wires present, connected to generator, VVI backup rate 50 bpm. Right internal jugular Cordis, right radial arterial line present. Current CVP pressure 14 mmHg. - Allied health notes Allied health notes reviewed: nursing - Labs CBC & Chem 7: 08/25/23 04:30 08/25/23 04:30 Labs: Abnormal Lab Results - Last 24 Hours (Table) 08/24/23 08/24/23 08/24/23 Range/Units 09:56 11:05 12:23 WBC (3.8-10.6) k/uL RBC (4.30-5.90) m/uL Hgb (13.0-17.5) gm/dL Hct (39.0-53.0) % RDW (11.5-15.5) % Neutrophils # (1.3-7.7) k/uL Monocytes # (0-1.0) k/uL BUN (9-20) mg/dL Creatinine (0.66-1.25) mg/dL Glucose (74-99) mg/dL POC Glucose (mg/dL) 150 H 132 H 151 H (70-110) mg/dL Total Bilirubin (0.2-1.3) mg/dL AST (17-59) U/L Total Protein (6.3-8.2) g/dL 08/24/23 08/24/23 08/24/23 Range/Units 13:51 15:35 17:21 WBC (3.8-10.6) k/uL RBC (4.30-5.90) m/uL Hgb (13.0-17.5) gm/dL Hct (39.0-53.0) % RDW (11.5-15.5) % Neutrophils # (1.3-7.7) k/uL Monocytes # (0-1.0) k/uL BUN (9-20) mg/dL Creatinine (0.66-1.25) mg/dL Glucose (74-99) mg/dL POC Glucose (mg/dL) 131 H 123 H 127 H (70-110) mg/dL Total Bilirubin (0.2-1.3) mg/dL AST (17-59) U/L Total Protein (6.3-8.2) g/dL 08/24/23 08/24/23 08/24/23 Range/Units 19:06 19:58 20:53 WBC (3.8-10.6) k/uL RBC (4.30-5.90) m/uL Hgb (13.0-17.5) gm/dL Hct (39.0-53.0) % RDW (11.5-15.5) % Neutrophils # (1.3-7.7) k/uL Monocytes # (0-1.0) k/uL BUN (9-20) mg/dL Creatinine (0.66-1.25) mg/dL Glucose (74-99) mg/dL POC Glucose (mg/dL) 178 H 165 H 144 H (70-110) mg/dL Total Bilirubin (0.2-1.3) mg/dL AST (17-59) U/L Total Protein (6.3-8.2) g/dL 08/24/23 08/24/23 08/25/23 Range/Units 22:01 23:01 00:31 WBC (3.8-10.6) k/uL RBC (4.30-5.90) m/uL Hgb (13.0-17.5) gm/dL Hct (39.0-53.0) % RDW (11.5-15.5) % Neutrophils # (1.3-7.7) k/uL Monocytes # (0-1.0) k/uL BUN (9-20) mg/dL Creatinine (0.66-1.25) mg/dL Glucose (74-99) mg/dL POC Glucose (mg/dL) 140 H 136 H 131 H (70-110) mg/dL Total Bilirubin (0.2-1.3) mg/dL AST (17-59) U/L Total Protein (6.3-8.2) g/dL 08/25/23 08/25/23 08/25/23 Range/Units 01:46 02:26 04:21 WBC (3.8-10.6) k/uL RBC (4.30-5.90) m/uL Hgb (13.0-17.5) gm/dL Hct (39.0-53.0) % RDW (11.5-15.5) % Neutrophils # (1.3-7.7) k/uL Monocytes # (0-1.0) k/uL BUN (9-20) mg/dL Creatinine (0.66-1.25) mg/dL Glucose (74-99) mg/dL POC Glucose (mg/dL) 128 H 139 H 125 H (70-110) mg/dL Total Bilirubin (0.2-1.3) mg/dL AST (17-59) U/L Total Protein (6.3-8.2) g/dL 08/25/23 08/25/23 08/25/23 Range/Units 04:30 04:30 06:07 WBC 23.4 H (3.8-10.6) k/uL RBC 3.14 L (4.30-5.90) m/uL Hgb 9.3 L (13.0-17.5) gm/dL Hct 29.7 L (39.0-53.0) % RDW 16.9 H (11.5-15.5) % Neutrophils # 20.2 H (1.3-7.7) k/uL Monocytes # 1.8 H (0-1.0) k/uL BUN 21 H (9-20) mg/dL Creatinine 0.61 L (0.66-1.25) mg/dL Glucose 113 H (74-99) mg/dL POC Glucose (mg/dL) 119 H (70-110) mg/dL Total Bilirubin 1.5 H (0.2-1.3) mg/dL AST 77 H (17-59) U/L Total Protein 5.7 L (6.3-8.2) g/dL 08/25/23 08/25/23 Range/Units 06:56 08:33 WBC (3.8-10.6) k/uL RBC (4.30-5.90) m/uL Hgb (13.0-17.5) gm/dL Hct (39.0-53.0) % RDW (11.5-15.5) % Neutrophils # (1.3-7.7) k/uL Monocytes # (0-1.0) k/uL BUN (9-20) mg/dL Creatinine (0.66-1.25) mg/dL Glucose (74-99) mg/dL POC Glucose (mg/dL) 129 H 163 H (70-110) mg/dL Total Bilirubin (0.2-1.3) mg/dL AST (17-59) U/L Total Protein (6.3-8.2) g/dL - Imaging and Cardiology Chest x-ray: report reviewed, image reviewed Assessment and Plan Assessment: Symptomatic calcific tricuspid aortic stenosis, status post aortic valve replacement with a 29 mm Zheng Inspiris bovine pericardial valve with root enlargement with a hemashield patch Héctor Whitfield technique Coronary artery disease status post PCI to his obtuse marginal coronary artery in 2021 Hypertension Hyperlipidemia, triglycerides 213, HDL 28.7 Diabetes mellitus type 2, preoperative hemoglobin A1C 6.6% History of prostate cancer History of GI bleed Hard of hearing Lifetime non-smoker, preoperative FEV1 2.27 L predicted value, 85% Postoperative acute blood loss anemia, expected given hemodilution and cardiopulmonary bypass Plan: Continue to maximize medical therapy with aspirin, statin, and beta-david. Will increase metoprolol to tartrate to 25 mg p.o. 3 times daily with hold parameters. Wean oxygen as tolerated. Bronchodilator management per pulmonary/critical care medicine recommendations. Encourage incentive spirometry use 10 times every hour while awake. Increase activity, ambulate as tolerated. PT/OT/cardiac rehab following. Will monitor daily labs and chest x-rays. Electrolyte replacement per protocol. GI/DVT prophylaxis. Continue Protonix 40 mg p.o. AC twice daily due to the patient's history of GI bleed. Insulin management per internal medicine, patient should remain on continuous IV insulin for 48 hours, then may transition to subcutaneous per protocol. Patient is a diabetic, with a preoperative hemoglobin A1c 6.6% Pain control with current medication regimen. Will avoid Toradol at this time due to the patient's history of GI bleed. Keep right IJ cordis in place with continuous CVP monitoring, continue arterial line for now. We will remove his mediastinal chest tubes, continue left pleural chest tube for another 24 hours, monitor strict output. Continue Mullins catheter for another 24 hours, continue to monitor strict acc urate intake and output. Lasix 20 mg IV twice daily x 2 doses, potassium chloride 10 mEq p.o. twice daily x 2 doses. Send sputum sample. Mucinex 1200 mg p.o. twice daily and Mucomyst initiated. More recommendations to follow based on patient's clinical course. Time with Patient: Greater than 30
[2023-08-25 09:31] LABS: Glucose,Whole Blood 172 mg/dL (70-110)
[2023-08-25] MEDS: ASPIRIN 325 MG TAB PO SCH (09:41)
[2023-08-25] MEDS: guaiFENesin 600 MG TABLET.ER PO SCH (09:41)
[2023-08-25] MEDS: POTASSIUM CHLORIDE ER 10 MEQ TAB.ER.PRT PO SCH (09:42)
[2023-08-25] MEDS: FUROSEMIDE 10 MG/ML 2 ML VIAL IV SCH (09:42)
[2023-08-25] MEDS: METOPROLOL TARTRATE 25 MG TAB PO SCH (09:42)
[2023-08-25 10:35] LABS: Glucose,Whole Blood 155 mg/dL (70-110)
--- NOTE | 2023-08-25 11:05 | XR ---
EXAMINATION TYPE: XR chest 1V portable DATE OF EXAM: 08/25/2023 5:27 AM CLINICAL INDICATION:Male, 72 years old with history of Post Operative Cardiac Surgery; [facility] COMPARISON: Chest radiograph from one day prior. TECHNIQUE: XR chest 1V portable Frontal view of the chest. FINDINGS: Lungs/Pleura: There is no evidence of pleural effusion, focal consolidation, or pneumothorax. Pulmonary vascularity: Pulmonary vascular congestion. Heart/mediastinum: Cardiomediastinal silhouette is unremarkable. Left atrial appendage occlusion paola ce. Aortic valvular repair changes. Musculoskeletal: No acute osseous pathology. Sternotomy fixation present. Other findings: None Lines/Tubes: There is a Bagley-Ileana sheath remains present.. Drainage tubes with tips projecting over the mediastinum. Left thoracotomy tube is present without evidence of pneumothorax. IMPRESSION: Similar exam with mild pulmonary edema. Left thoracotomy tube without pneumothorax.
[2023-08-25 11:26] LABS: Glucose,Whole Blood 129 mg/dL (70-110)
--- NOTE | 2023-08-25 11:31 | P.PN ---
Subjective Progress Note Date: 08/25/23 72 year old M with PMH of CAD, HLD, HTN, DM, GERD, h/o GI bleed, h/o prostate CA, aortic stenosis presents to [facility] for elective surgery. He underwent AV replacement with Dr. Glaser on 08/22. [facility] consulted for medical management of this patient. He was extubated on 08/22. 08/23 Patient was seen and examined. He reports moderate pain at the site on incision. Currently on NS at 20 cc/hr. Insulin drip running at 5.5 units/hr. CBC WBC 15.8, Hg 9.3, Hct 38.6, Plt 145. CMP Cl 110, glu 104, AST 61, total protein 5.5. Mag 2.3. Ionized Ca 4.6. CT surgery note reviewed, DC right IJ [place] Ileana, maximize medical therapy with ASA, statin, beta david. CXR done today shows mild pulmonary vascular congestion. POC glucose 119-168 over the past 24H. 08/24 Patient was seen and examined. Patient reports shortness of breath and cough productive of brown sputum. He is on 1.5L NC. Insulin drip running at 6 units/hr. CXR shows pulmonary edema and he has been started on Lasix 20 mg IV BID for 2 doses, Mucinex, Muromyst and DuoNeb PRN by CT surgery. Mediastinal chest tubes discontinued today. CBC shows WBC 23.4, Hg 9.3, Hct 29.7. CMP BUN 21, Cr 0.61, glu 113, T. Bili 1.5, AST 77, total protein 5.7. POC glucose 123- 178 over the past 24H. General: non toxic, no distress, appears at stated age Derm: warm, dry Head: atraumatic, normocephalic, symmetric, R IJ Eyes: EOMI, no lid lag, anicteric sclera Mouth: no lip lesion, mucus membranes moist Cardiovascular: S1S2 reg, no murmur, midsternal surgical scar dressing c/d/i, left chest tubes in place Lungs: CTA bilateral, no rhonchi, no rales , no accessory muscle use Ext: no gross muscle atrophy, 1+ pitting bilateral lower extremity edema, no contractures Neuro: no focal neuro deficits Psych: Alert, oriented, appropriate affect +Mullins catheter in place Based on my assessment of this patient, this patient meets a high complexity level of care. Status post AV replacement POD 2 managed by Cardiothoracic surgery. Acute hypoxic respiratory failure likely due to pulmonary edema seen on CXR: Lasix 20 mg IV BID x 2 doses, Mucinex, Muromyst and DuoNeb PRN per CT surgery. DuoNeb PRN for SOB/wheezing. Sputum sample ordered. Monitor electrolytes and renal function while on Lasix. Acute blood loss anemia: Expected result of surgery. Trend daily. Consider transfusion if Hg < 7. Leukocytosis: Likely reactive. No signs of active infection. Monitor fever profile. Thrombocytopenia: Monitor while on Heparin. Diabetes mellitus: Maintain insulin drip for another 24H. Accuchecks Q1H. Hypoglycemic precautions. Hypertension: Metoprolol as below. CAD: ASA 325 mg PO QD. Lipitor 40 mg PO QD. Metoprolol 12.5 mg PO BID. Dyslipidemia: Lipitor as above. GERD: Protonix 40 mg PO BID. CODE STATUS: FULL CODE DVT Prophylaxis: Heparin SQ GI Prophylaxis: Protonix PO Designated medical POA if patient is not able to make medical decisions for themselves: I have reviewed the following technical marketing consultant notes: Pulmonary, Cardiology, CT surger y I have reviewed the results of the following tests: CBC, CMP, POC glucose I have ordered the following tests: CBC, CMP I have discussed the care of this patient with the following independent histor joy: I have independently interpreted the following test below: CXR I have discussed the management of this patient with the following physician: Objective - Vital Signs Vital signs: Vital Signs Temp 97.5 F L 08/25/23 08:00 Pulse 74 08/25/23 11:00 Resp 39 H 08/25/23 11:00 BP 141/65 08/23/23 06:35 Pulse Ox 96 08/25/23 11:00 FiO2 50 08/23/23 16:00 Intake & Output 08/24/23 08/25/23 08/25/23 18:59 06:59 18:59 Intake Total 1020.388 368.266 254.770 Output Total 690 625 510 Balance 330.388 -256.734 -255.230 Weight 116.8 kg 116.6 kg Intake: IV 471 312 130 .9 NS CO/CI 40 .9 NS pressure bags 81 72 30 Lactated Ringers 1,000 ml 300 240 100 @ 20 mls/hr IV .Q24H [facility] Rx#:[id number] ceFAZolin 2 gm In Sodium 50 Chloride 0.9% 50 ml @ 100 mls/hr IVPB Q8HR [facility] Rx# :[id number] Intake, IV Titration 309.388 56.266 24.770 Amount Albumin Human 5% 250 ml 250 In Empty Bag 1 bag @ 250 mls/hr IVPB ONCE ONE Rx#: [id number] Insulin Regular 100 unit 59.388 56.266 24.770 In Sodium Chloride 0.9% 100 ml @ Per Protocol IV .Q0M [facility] Rx#:[id number] Oral 240 100 Output: Chest Tube Drainage 320 210 180 Chest Tube Left 190 130 110 Chest Tube Mediastinal 70 50 30 Chest Tube Right 60 30 40 Mediastinal Urine 370 415 330 Other: Voiding Method Indwelling Catheter Indwelling Catheter Indwelling Catheter ABP, PAP, CO, CI - Last Documented Arterial Blood Pressure 114/58 Pulmonary Artery Pressure 46/20 Cardiac Output 4.3 Cardiac Index 2 - Labs CBC & Chem 7: 08/25/23 04:30 08/25/23 04:30 Labs: Abnormal Lab Results - Last 24 Hours (Table) 08/24/23 08/24/23 08/24/23 Range/Units 12:23 13:51 15:35 WBC (3.8-10.6) k/uL RBC (4.30-5.90) m/uL Hgb (13.0-17.5) gm/dL Hct (39.0-53.0) % RDW (11.5-15.5) % Neutrophils # (1.3-7.7) k/uL Monocytes # (0-1.0) k/uL BUN (9-20) mg/dL Creatinine (0.66-1.25) mg/dL Glucose (74-99) mg/dL POC Glucose (mg/dL) 151 H 131 H 123 H (70-110) mg/dL Total Bilirubin (0.2-1.3) mg/dL AST (17-59) U/L Total Protein (6.3-8.2) g/dL 08/24/23 08/24/23 08/24/23 Range/Units 17:21 19:06 19:58 WBC (3.8-10.6) k/uL RBC (4.30-5.90) m/uL Hgb (13.0-17.5) gm/dL Hct (39.0-53.0) % RDW (11.5-15.5) % Neutrophils # (1.3-7.7) k/uL Monocytes # (0-1.0) k/uL BUN (9-20) mg/dL Creatinine (0.66-1.25) mg/dL Glucose (74-99) mg/dL POC Glucose (mg/dL) 127 H 178 H 165 H (70-110) mg/dL Total Bilirubin (0.2-1.3) mg/dL AST (17-59) U/L Total Protein (6.3-8.2) g/dL 08/24/23 08/24/23 08/24/23 Range/Units 20:53 22:01 23:01 WBC (3.8-10.6) k/uL RBC (4.30-5.90) m/uL Hgb (13.0-17.5) gm/dL Hct (39.0-53.0) % RDW (11.5-15.5) % Neutrophils # (1.3-7.7) k/uL Monocytes # (0-1.0) k/uL BUN (9-20) mg/dL Creatinine (0.66-1.25) mg/dL Glucose (74-99) mg/dL POC Glucose (mg/dL) 144 H 140 H 136 H (70-110) mg/dL Total Bilirubin (0.2-1.3) mg/dL AST (17-59) U/L Total Protein (6.3-8.2) g/dL 08/25/23 08/25/23 08/25/23 Range/Units 00:31 01:46 02:26 WBC (3.8-10.6) k/uL RBC (4.30-5.90) m/uL Hgb (13.0-17.5) gm/dL Hct (39.0-53.0) % RDW (11.5-15.5) % Neutrophils # (1.3-7.7) k/uL Monocytes # (0-1.0) k/uL BUN (9-20) mg/dL Creatinine (0.66-1.25) mg/dL Glucose (74-99) mg/dL POC Glucose (mg/dL) 131 H 128 H 139 H (70-110) mg/dL Total Bilirubin (0.2-1.3) mg/dL AST (17-59) U/L Total Protein (6.3-8.2) g/dL 08/25/23 08/25/23 08/25/23 Range/Units 04:21 04:30 04:30 WBC 23.4 H (3.8-10.6) k/uL RBC 3.14 L (4.30-5.90) m/uL Hgb 9.3 L (13.0-17.5) gm/dL Hct 29.7 L (39.0-53.0) % RDW 16.9 H (11.5-15.5) % Neutrophils # 20.2 H (1.3-7.7) k/uL Monocytes # 1.8 H (0-1.0) k/uL BUN 21 H (9-20) mg/dL Creatinine 0.61 L (0.66-1.25) mg/dL Glucose 113 H (74-99) mg/dL POC Glucose (mg/dL) 125 H (70-110) mg/dL Total Bilirubin 1.5 H (0.2-1.3) mg/dL AST 77 H (17-59) U/L Total Protein 5.7 L (6.3-8.2) g/dL 08/25/23 08/25/23 08/25/23 Range/Units 06:07 06:56 08:33 WBC (3.8-10.6) k/uL RBC (4.30-5.90) m/uL Hgb (13.0-17.5) gm/dL Hct (39.0-53.0) % RDW (11.5-15.5) % Neutrophils # (1.3-7.7) k/uL Monocytes # (0-1.0) k/uL BUN (9-20) mg/dL Creatinine (0.66-1.25) mg/dL Glucose (74-99) mg/dL POC Glucose (mg/dL) 119 H 129 H 163 H (70-110) mg/dL Total Bilirubin (0.2-1.3) mg/dL AST (17-59) U/L Total Protein (6.3-8.2) g/dL 08/25/23 08/25/23 Range/Units 09:28 10:33 WBC (3.8-10.6) k/uL RBC (4.30-5.90) m/uL Hgb (13.0-17.5) gm/dL Hct (39.0-53.0) % RDW (11.5-15.5) % Neutrophils # (1.3-7.7) k/uL Monocytes # (0-1.0) k/uL BUN (9-20) mg/dL Creatinine (0.66-1.25) mg/dL Glucose (74-99) mg/dL POC Glucose (mg/dL) 172 H 155 H (70-110) mg/dL Total Bilirubin (0.2-1.3) mg/dL AST (17-59) U/L Total Protein (6.3-8.2) g/dL
[2023-08-25] MEDS: ACETYLCYSTEINE 800 MG/4 ML VIAL INHALATION SCH (11:35)
[2023-08-25 12:22] LABS: Glucose,Whole Blood 122 mg/dL (70-110)
[2023-08-25] MEDS: HYDROcodone/APAP 5-325MG 1 EACH TAB PO PRN (12:28)
--- NOTE | 2023-08-25 12:41 | P.PN ---
Subjective Progress Note Date: 08/25/23 This is a 72-year-old male patient with a history of GI bleeding, prostate cancer with previous radiation. He had been having symptoms of progressive dyspnea on exertion and extreme fatigue. He was found to have critical aortic stenosis and was brought in today for aortic valve replacement. He had unde rgone aortic valve replacement with a 29 mm Zheng Inspiris bovine pericardial valve and root enlargement with Hemashield patchas well as a left atrial appendage ligation with a 35 mm atrial cure clip. He is seen postoperatively in the intensive care unit. He is intubated on the mechanical ventilator and assist-control mode at a rate of 14, tidal volume 500, FiO2 100% and a PEEP of 10. Blood gases revealed a PaO2 of 248, pCO2 of 47 and a pH of 7.31. He has a mediastinal, right and left pleural chest tubes in place. Pacer wires in place. Right IJ Hartley-Ileana catheter in place. Cardiac output 4.5. Cardiac index 2.1. PA pressure 51/34, CVP 25. He is on an insulin drip at 2 units/h. He is sedated on propofol 20 mcg/kg/min. He has lactated Ringer's at 50 MLS per hour. Chest x-ray reveals catheters and lines in place. No evidence of pneumothorax. White count 19.5. Hemoglobin 8.7. Platelets 123. INR 1.7. Sodium 141. Potassium 4.4. Bicarb 22. BUN 14. Creatinine 0.59. Glucose 146. The patient is seen today August 24, 2023 in follow-up in the intensive care unit. He is currently awake and alert in no acute distress. Sitting up in a chair. Maintaining good O2 saturations in the 90s on 2 L/min per nasal cannula. He is receiving lactated Ringer's at 20 MLS per hour. He remains on an insulin drip at 5.5 units/h. Cardiac output 4.8. Cardiac index 2.2. PA pressures 46/20. CVP 11. Today's chest x-ray reveals postsurgical changes with mild pulmonary edema. Chest tubes remain in place. White count 15.8. Hemoglobin 9.3. Platelets 145. Sodium 139. Potassium 4.6. Bicarb 24. BUN 17. Creatinine 0.67. Glucose 126. AST 61. ALT 24. Albumin 3.8. He is working well with the incentive spirometer. He remains on bronchodilators. Heparin for DVT prophylaxis. The patient is seen today August 25, 2023 in follow-up in the intensive care unit. Postoperative day #2. He is currently sitting up in a chair at the bedside. Awake and alert in no acute distress. He is maintaining O2 saturations in the 90s on 2 L/min per nasal cannula. He has lactated Ringer's at KVO. Insulin drip at 6 units/h. Chest x-ray revealed similar mild pulmonary edema. Chest tu bes remains in place without pneumothorax. He is working fairly well with the incentive spirometer. White count 23.4. Hemoglobin 9.3. Platelets 157. Sodium 139. Potassium 4.9. Bicarb 29. BUN 21. Creatinine 0.61. Glucose 113. AST 77. ALT 47. He is continued on bronchodilators. Heparin for DVT prophylaxis. On Lasix 20 mg IV twice daily. Objective - Vital Signs Vital signs: Vital Signs Temp 97.5 F L 08/25/23 08:00 Pulse 73 08/25/23 11:53 Resp 39 H 08/25/23 11:00 BP 141/65 08/23/23 06:35 Pulse Ox 96 08/25/23 11:00 FiO2 50 08/23/23 16:00 Intake & Output 08/24/23 08/25/23 08/25/23 18:59 06:59 18:59 Intake Total 1020.388 368.266 256.874 Output Total 690 625 510 Balance 330.388 -256.734 -253.126 Weight 116.8 kg 116.6 kg Intake: IV 471 312 130 .9 NS CO/CI 40 .9 NS pressure bags 81 72 30 Lactated Ringers 1,000 ml 300 240 100 @ 20 mls/hr IV .Q24H RONNIE Rx#:[id number] ceFAZolin 2 gm In Sodium 50 Chloride 0.9% 50 ml @ 100 mls/hr IVPB Q8HR RONNIE Rx# :[id number] Intake, IV Titration 309.388 56.266 26.874 Amount Albumin Human 5% 250 ml 250 In Empty Bag 1 bag @ 250 mls/hr IVPB ONCE ONE Rx#: [id number] Insulin Regular 100 unit 59.388 56.266 26.874 In Sodium Chloride 0.9% 100 ml @ Per Protocol IV .Q0M RONNIE Rx#:[id number] Oral 240 100 Output: Chest Tube Drainage 320 210 180 Chest Tube Left 190 130 110 Chest Tube Mediastinal 70 50 30 Chest Tube Right 60 30 40 Mediastinal Urine 370 415 330 Other: Voiding Method Indwelling Catheter Indwelling Catheter Indwelling Catheter ABP, PAP, CO, CI - Last Documented Arterial Blood Pressure 114/58 Pulmonary Artery Pressure 46/20 Cardiac Output 4.3 Cardiac Index 2 - Exam GENERAL EXAM: Alert, pleasant 72-year-old male patient, sitting up in a chair, on 2 L nasal cannula, in no apparent distress. HEAD: Normocephalic. EYES: Normal reaction of pupils, equal size. NOSE: Clear with pink turbinates. THROAT: No erythema or exudates. NECK: Right IJ Hartley-Ileana catheter in place. No masses, no JVD. CHEST: Sternal dressing dry and intact. Right left and mediastinal chest tubes in place. Pacer wires in place. LUNGS: Equal air entry with no crackles, wheeze, rhonchi or dullness. CVS: S1 and S2 normal with no audible murmur, regular rhythm. ABDOMEN: No hepatosplenomegaly, no guarding or rigidity. SPINE: No scoliosis or deformity SKIN: No rashes CENTRAL NERVOUS SYSTEM: No focal deficits, tone is normal in all 4 extremities. EXTREMITIES: Right radial arterial line in place. Subhash wraps to the lower extremities. SCDs in place. Peripheral pulses are intact. - Labs CBC & Chem 7: 08/25/23 04:30 08/25/23 04:30 Labs: Abnormal Lab Results - Last 24 Hours (Table) 08/24/23 08/24/23 08/24/23 Range/Units 13:51 15:35 17:21 WBC (3.8-10.6) k/uL RBC (4.30-5.90) m/uL Hgb (13.0-17.5) gm/dL Hct (39.0-53.0) % RDW (11.5-15.5) % Neutrophils # (1.3-7.7) k/uL Monocytes # (0-1.0) k/uL BUN (9-20) mg/dL Creatinine (0.66-1.25) mg/dL Glucose (74-99) mg/dL POC Glucose (mg/dL) 131 H 123 H 127 H (70-110) mg/dL Total Bilirubin (0.2-1.3) mg/dL AST (17-59) U/L Total Protein (6.3-8.2) g/dL 08/24/23 08/24/23 08/24/23 Range/Units 19:06 19:58 20:53 WBC (3.8-10.6) k/uL RBC (4.30-5.90) m/uL Hgb (13.0-17.5) gm/dL Hct (39.0-53.0) % RDW (11.5-15.5) % Neutrophils # (1.3-7.7) k/uL Monocytes # (0-1.0) k/uL BUN (9-20) mg/dL Creatinine (0.66-1.25) mg/dL Glucose (74-99) mg/dL POC Glucose (mg/dL) 178 H 165 H 144 H (70-110) mg/dL Total Bilirubin (0.2-1.3) mg/dL AST (17-59) U/L Total Protein (6.3-8.2) g/dL 08/24/23 08/24/23 08/25/23 Range/Units 22:01 23:01 00:31 WBC (3.8-10.6) k/uL RBC (4.30-5.90) m/uL Hgb (13.0-17.5) gm/dL Hct (39.0-53.0) % RDW (11.5-15.5) % Neutrophils # (1.3-7.7) k/uL Monocytes # (0-1.0) k/uL BUN (9-20) mg/dL Creatinine (0.66-1.25) mg/dL Glucose (74-99) mg/dL POC Glucose (mg/dL) 140 H 136 H 131 H (70-110) mg/dL Total Bilirubin (0.2-1.3) mg/dL AST (17-59) U/L Total Protein (6.3-8.2) g/dL 08/25/23 08/25/23 08/25/23 Range/Units 01:46 02:26 04:21 WBC (3.8-10.6) k/uL RBC (4.30-5.90) m/uL Hgb (13.0-17.5) gm/dL Hct (39.0-53.0) % RDW (11.5-15.5) % Neutrophils # (1.3-7.7) k/uL Monocytes # (0-1.0) k/uL BUN (9-20) mg/dL Creatinine (0.66-1.25) mg/dL Glucose (74-99) mg/dL POC Glucose (mg/dL) 128 H 139 H 125 H (70-110) mg/dL Total Bilirubin (0.2-1.3) mg/dL AST (17-59) U/L Total Protein (6.3-8.2) g/dL 08/25/23 08/25/23 08/25/23 Range/Units 04:30 04:30 06:07 WBC 23.4 H (3.8-10.6) k/uL RBC 3.14 L (4.30-5.90) m/uL Hgb 9.3 L (13.0-17.5) gm/dL Hct 29.7 L (39.0-53.0) % RDW 16.9 H (11.5-15.5) % Neutrophils # 20.2 H (1.3-7.7) k/uL Monocytes # 1.8 H (0-1.0) k/uL BUN 21 H (9-20) mg/dL Creatinine 0.61 L (0.66-1.25) mg/dL Glucose 113 H (74-99) mg/dL POC Glucose (mg/dL) 119 H (70-110) mg/dL Total Bilirubin 1.5 H (0.2-1.3) mg/dL AST 77 H (17-59) U/L Total Protein 5.7 L (6.3-8.2) g/dL 08/25/23 08/25/23 08/25/23 Range/Units 06:56 08:33 09:28 WBC (3.8-10.6) k/uL RBC (4.30-5.90) m/uL Hgb (13.0-17.5) gm/dL Hct (39.0-53.0) % RDW (11.5-15.5) % Neutrophils # (1.3-7.7) k/uL Monocytes # (0-1.0) k/uL BUN (9-20) mg/dL Creatinine (0.66-1.25) mg/dL Glucose (74-99) mg/dL POC Glucose (mg/dL) 129 H 163 H 172 H (70-110) mg/dL Total Bilirubin (0.2-1.3) mg/dL AST (17-59) U/L Total Protein (6.3-8.2) g/dL 08/25/23 08/25/23 08/25/23 Range/Units 10:33 11:24 12:20 WBC (3.8-10.6) k/uL RBC (4.30-5.90) m/uL Hgb (13.0-17.5) gm/dL Hct (39.0-53.0) % RDW (11.5-15.5) % Neutrophils # (1.3-7.7) k/uL Monocytes # (0-1.0) k/uL BUN (9-20) mg/dL Creatinine (0.66-1.25) mg/dL Glucose (74-99) mg/dL POC Glucose (mg/dL) 155 H 129 H 122 H (70-110) mg/dL Total Bilirubin (0.2-1.3) mg/dL AST (17-59) U/L Total Protein (6.3-8.2) g/dL Assessment and Plan Assessment: Severe aortic stenosis status post aortic valve replacement with a 29 mm Zheng Inspiris bovine pericardial valve, root enlargement with Hemashield patch and ligation of the left atrial appendage with a 35 mm atrial cure clip. Postoperative day #2 Anemia and thrombocytopenia, expected outcome of surgery, stabilized Leukocytosis, suspect reactive Diabetes mellitus, type II Gastroesophageal reflux disease Hypertension History of prostate cancer status post radiation History of rectal bleeding from radiation proctitis Plan: The patient was seen and evaluated Chest x-ray, labs and medications reviewed Continue to work well with the incentive spirometer Lasix 20 mg IV every 12 hours Continue bronchodilators Heparin for DVT prophylaxis Titrate down the FiO2 as tolerated Increase his activity as tolerated We will continue to follow I have personally seen and examined the patient, performed the documentation and the assessment and plan as written. Number of minutes spent on the visit: 10.
[2023-08-25 14:23] LABS: Glucose,Whole Blood 173 mg/dL (70-110)
[2023-08-25 15:44] LABS: Glucose,Whole Blood 137 mg/dL (70-110)
[2023-08-25 16:56] LABS: Glucose,Whole Blood 101 mg/dL (70-110)
[2023-08-25 18:05] LABS: Glucose,Whole Blood 198 mg/dL (70-110)
[2023-08-25 18:51] LABS: Glucose,Whole Blood 203 mg/dL (70-110)
[2023-08-25 20:33] LABS: Glucose,Whole Blood 129 mg/dL (70-110)
[2023-08-25 22:04] LABS: Glucose,Whole Blood 106 mg/dL (70-110)
[2023-08-25 23:00] LABS: Glucose,Whole Blood 124 mg/dL (70-110)
--- NOTE | 2023-08-25 23:15 | P.PN ---
Subjective HISTORY OF PRESENTING ILLNESS This is a pleasant 72-year-old with past medical history significant for CAD with prior PCI of OM1 branch 2021, hypertension, hyperlipidemia, diabetes mellitus type 2, prior prostate cancer he and history of GI bleed and severe aortic stenosis. He follows in the office with Dr. Benson. Patient presented for elective surgical aortic valve replacement 08/22 which was completed successfully with a 29 mm Zheng Inspiris with aortic valve root enlargement. He was extubated and weaned from vasopressors with cardiac output in the 4.8 L/m range and cardiac index 2.2. She currently admits to significant chest pain ar ound his incision and with deep inspiration. Does not have much of an appetite. Blood pressure borderline. Remains on amiodarone and in normal sinus rhythm. He did have some mild decrease in urine output and was placed on albumin with increasing urine output. 08/24 Patient seen and examined. Patient denies any chest pain or pressure. He is having poor inspiratory effort however and x-ray shows worsened bilateral edema. He was given Lasix 20 mg IV total 2 with some urine output however overall not significantly negative over last 24 hours. Creatinine has remained stable. EKG concerning for minimal ST elevation, possible pericarditis however he denies any chest pain. Remains in sinus rhythm. Metoprolol was increased. Does have increased respiratory rate in the upper 20s and 30s. His prior CVP not majorly elevated and so his cortis in place as well as left chest tube. PHYSICAL EXAMINATION Vital signs reviewed. CONSTITUTIONAL: No apparent distress, however tachypnic and mild increased work of breathing HEENT: Head is normocephalic. Pupils are equal, round. Sclerae anicteric. Mucous membranes of the mouth are moist. No JVD. No carotid bruit. CHEST EXAMINATION: Decreased breath sounds bilaterally HEART EXAMINATION: Regular rate and rhythm. S1, S2 heard. No murmurs, gallops or rub. ABDOMEN: Soft, nontender. Positive bowel sounds. EXTREMITIES: 2+ peripheral pulses, no lower extremity edema and no calf tenderness. NEUROLOGIC EXAMINATION: Patient is awake, alert and oriented x3. ASSESSMENT Severe aortic stenosis status post surgical aortic valve replacement 08/22 with aortic root enlargement Acute on chronic respiratory failure with worsening chest Xray, possible ARDS vs CHF Acute on chronic diastolic heart failure Minimal diffuse ST elevation without reciprocal changes, may be early pericarditis CAD with prior history PCI Hypertension Hyperlipidemia Anemia/acute blood loss anemia Diabetes mellitus type 2 History of prostate cancer History of GI bleed PLAN somewhat increased work of breathing and tachypnea with worsening chest x-ray. May be related to ARDS however most likely consistent with CHF. Monitor response of diuretics and increase Lasix to 40 mg IV twice a day with only moderate urine output and has not had much significant negative output the last 24 hours. Monitor chest tube output. EKG does show concern of minimal ST elevation without reciprocal changes and may be early pericarditis however not having typical pain. Continue to monitor closely Objective - Vital Signs Vital signs: Vital Signs Temp 98.3 F 08/25/23 20:00 Pulse 73 08/25/23 21:20 Resp 19 08/25/23 21:00 BP 141/65 08/23/23 06:35 Pulse Ox 97 08/25/23 21:00 FiO2 50 08/23/23 16:00 Intake & Output 08/25/23 08/25/23 08/26/23 06:59 18:59 06:59 Intake Total 148.189 1960.615 476.290 Output Total 625 1440 75 Balance -256.734 -337.385 401.290 Weight 116.6 kg Intake: IV 312 338 52 .9 NS pressure bags 72 78 12 Lactated Ringers 1,000 ml 240 260 40 @ 20 mls/hr IV .Q24H RONNIE Rx#:[id number] Intake, IV Titration 56.266 64.615 24.290 Amount Insulin Regular 100 unit 56.266 64.615 24.290 In Sodium Chloride 0.9% 100 ml @ Per Protocol IV .Q0M RONNIE Rx#:[id number] Oral 700 400 Output: Chest Tube Drainage 210 230 0 Chest Tube Left 130 160 0 Chest Tube Mediastinal 50 30 Chest Tube Right 30 40 Mediastinal Urine 415 1210 75 Other: Voiding Method Indwelling Catheter Indwelling Catheter Indwelling Catheter ABP, PAP, CO, CI - Last Documented Arterial Blood Pressure 136/67 Pulmonary Artery Pressure 46/20 Cardiac Output 4.3 Cardiac Index 2 - Labs CBC & Chem 7: 08/25/23 04:30 08/25/23 04:30 Labs: Abnormal Lab Results - Last 24 Hours (Table) 08/25/23 08/25/23 08/25/23 Range/Units 00:31 01:46 02:26 WBC (3.8-10.6) k/uL RBC (4.30-5.90) m/uL Hgb (13.0-17.5) gm/dL Hct (39.0-53.0) % RDW (11.5-15.5) % Neutrophils # (1.3-7.7) k/uL Monocytes # (0-1.0) k/uL BUN (9-20) mg/dL Creatinine (0.66-1.25) mg/dL Glucose (74-99) mg/dL POC Glucose (mg/dL) 131 H 128 H 139 H (70-110) mg/dL Total Bilirubin (0.2-1.3) mg/dL AST (17-59) U/L Total Protein (6.3-8.2) g/dL 08/25/23 08/25/23 08/25/23 Range/Units 04:21 04:30 04:30 WBC 23.4 H (3.8-10.6) k/uL RBC 3.14 L (4.30-5.90) m/uL Hgb 9.3 L (13.0-17.5) gm/dL Hct 29.7 L (39.0-53.0) % RDW 16.9 H (11.5-15.5) % Neutrophils # 20.2 H (1.3-7.7) k/uL Monocytes # 1.8 H (0-1.0) k/uL BUN 21 H (9-20) mg/dL Creatinine 0.61 L (0.66-1.25) mg/dL Glucose 113 H (74-99) mg/dL POC Glucose (mg/dL) 125 H (70-110) mg/dL Total Bilirubin 1.5 H (0.2-1.3) mg/dL AST 77 H (17-59) U/L Total Protein 5.7 L (6.3-8.2) g/dL 08/25/23 08/25/23 08/25/23 Range/Units 06:07 06:56 08:33 WBC (3.8-10.6) k/uL RBC (4.30-5.90) m/uL Hgb (13.0-17.5) gm/dL Hct (39.0-53.0) % RDW (11.5-15.5) % Neutrophils # (1.3-7.7) k/uL Monocytes # (0-1.0) k/uL BUN (9-20) mg/dL Creatinine (0.66-1.25) mg/dL Glucose (74-99) mg/dL POC Glucose (mg/dL) 119 H 129 H 163 H (70-110) mg/dL Total Bilirubin (0.2-1.3) mg/dL AST (17-59) U/L Total Protein (6.3-8.2) g/dL 08/25/23 08/25/23 08/25/23 Range/Units 09:28 10:33 11:24 WBC (3.8-10.6) k/uL RBC (4.30-5.90) m/uL Hgb (13.0-17.5) gm/dL Hct (39.0-53.0) % RDW (11.5-15.5) % Neutrophils # (1.3-7.7) k/uL Monocytes # (0-1.0) k/uL BUN (9-20) mg/dL Creatinine (0.66-1.25) mg/dL Glucose (74-99) mg/dL POC Glucose (mg/dL) 172 H 155 H 129 H (70-110) mg/dL Total Bilirubin (0.2-1.3) mg/dL AST (17-59) U/L Total Protein (6.3-8.2) g/dL 08/25/23 08/25/23 08/25/23 Range/Units 12:20 14:21 15:42 WBC (3.8-10.6) k/uL RBC (4.30-5.90) m/uL Hgb (13.0-17.5) gm/dL Hct (39.0-53.0) % RDW (11.5-15.5) % Neutrophils # (1.3-7.7) k/uL Monocytes # (0-1.0) k/uL BUN (9-20) mg/dL Creatinine (0.66-1.25) mg/dL Glucose (74-99) mg/dL POC Glucose (mg/dL) 122 H 173 H 137 H (70-110) mg/dL Total Bilirubin (0.2-1.3) mg/dL AST (17-59) U/L Total Protein (6.3-8.2) g/dL 08/25/23 08/25/23 08/25/23 Range/Units 18:04 18:49 20:23 WBC (3.8-10.6) k/uL RBC (4.30-5.90) m/uL Hgb (13.0-17.5) gm/dL Hct (39.0-53.0) % RDW (11.5-15.5) % Neutrophils # (1.3-7.7) k/uL Monocytes # (0-1.0) k/uL BUN (9-20) mg/dL Creatinine (0.66-1.25) mg/dL Glucose (74-99) mg/dL POC Glucose (mg/dL) 198 H 203 H 129 H (70-110) mg/dL Total Bilirubin (0.2-1.3) mg/dL AST (17-59) U/L Total Protein (6.3-8.2) g/dL 08/25/23 Range/Units 22:58 WBC (3.8-10.6) k/uL RBC (4.30-5.90) m/uL Hgb (13.0-17.5) gm/dL Hct (39.0-53.0) % RDW (11.5-15.5) % Neutrophils # (1.3-7.7) k/uL Monocytes # (0-1.0) k/uL BUN (9-20) mg/dL Creatinine (0.66-1.25) mg/dL Glucose (74-99) mg/dL POC Glucose (mg/dL) 124 H (70-110) mg/dL Total Bilirubin (0.2-1.3) mg/dL AST (17-59) U/L Total Protein (6.3-8.2) g/dL
[2023-08-26 00:10] LABS: Glucose,Whole Blood 115 mg/dL (70-110)
[2023-08-26 01:41] LABS: Glucose,Whole Blood 92 mg/dL (70-110)
[2023-08-26 03:05] LABS: Glucose,Whole Blood 107 mg/dL (70-110)
[2023-08-26 04:37] LABS: Glucose,Whole Blood 118 mg/dL (70-110)
[2023-08-26 04:59] LABS: Anisocytosis Slight; Basophils % (A) 0 %; Eosinophils # (A) 0.1 k/uL (0-0.7); Eosinophils % (A) 1 %; HCT 28.7 % (39.0-53.0); HGB 9.2 gm/dL (13.0-17.5); Hypochromasia Slight; Lymphocytes # (A) 1.1 k/uL (1.0-4.8); Lymphocytes % (A) 5 %; MCH 30.1 pg (25.0-35.0); MCV 93.9 fL (80.0-100.0); Mean Platelet Volume 9.5; Monocytes # (A) 1.7 k/uL (0-1.0); Monocytes % (A) 7 %; Neutrophils % (A) 86 %; Platelet Count 185 k/uL (150-450); RBC 3.05 m/uL (4.30-5.90); RDW 16.8 % (11.5-15.5); WBC 23.3 k/uL (3.8-10.6)
[2023-08-26 05:07] LABS: ALT 84 U/L (4-49); AST 89 U/L (17-59); African American GFR (CKD) >90 (>60 ml/min/1.73 sqM); Albumin 3.7 g/dL (3.5-5.0); Alkaline Phosphatase 70 U/L (38-126); Anion Gap 5 mmol/L; Blood Urea Nitrogen 33 mg/dL (9-20); Calcium 8.8 mg/dL (8.4-10.2); Carbon Dioxide 29 mmol/L (22-30); Chloride 104 mmol/L (98-107); Glucose 105 mg/dL (74-99); Non-African American GFR(CKD) >90 (>60 ml/min/1.73 sqM); Potassium 4.7 mmol/L (3.5-5.1); Sodium 138 mmol/L (137-145); Total Bilirubin 1.8 mg/dL (0.2-1.3); Total Protein 5.6 g/dL (6.3-8.2)
[2023-08-26 05:18] LABS: Glucose,Whole Blood 121 mg/dL (70-110)
[2023-08-26 05:55] LABS: Glucose,Whole Blood 121 mg/dL (70-110)
--- NOTE | 2023-08-26 06:01 | XR ---
EXAMINATION TYPE: XR chest 1V portable DATE OF EXAM: 08/26/2023 CLINICAL HISTORY: Difficulty breathing progress study. Postoperative aVR TECHNIQUE: Single AP portable upright view of the chest is obtained. COMPARISON: Chest x-ray from one day earlier FINDINGS: Persistent cardiomegaly with central vascular congestion and small right pleural effusion. Persistent 2 left-sided chest tubes without pneumothorax. Osseous structures are intact. IMPRESSION: Persistent left-sided chest tubes without pneumothorax. Persistent cardiomegaly with cent ral vascular congestion and small to moderate size right pleural effusion. No significant change from one day earlier.
[2023-08-26 07:15] LABS: Glucose,Whole Blood 128 mg/dL (70-110)
[2023-08-26] MEDS: FUROSEMIDE 10 MG/ML 4 ML VIAL IV SCH (07:41)
--- NOTE | 2023-08-26 07:52 | P.PN ---
Subjective Progress Note Date: 08/26/23 Principal diagnosis: Symptomatic calcific tricuspid aortic stenosis. Past medical history significant for coronary artery disease status post PCI to his obtuse marginal coronary artery in 2021, hypertension, hyperlipidemia, diabetes mellitus type 2, prostate cancer, GI bleed, hard of hearing and is a lifetime non-smoker. POD #3 Aortic valve replacement with 29 mm Zheng Inspiris bovine pericardial valve, root enlargement with Hemashield patch (Héctor Whitfield technique), epiaortic ultrasound, ligation of left atrial appendage with 35mm AtriCure clip and plates and screws for sternal closure. Postoperative acute blood loss anemia, expected given hemodilution and cardiopulmonary bypass. The patient was seen and examined in follow-up today August 26, 2023 in the intensive care unit. He is currently sitting up to the bedside chair, is awake, alert, oriented x 3 and is in no acute apparent distress. He denies any complaints of shortness of breath, although his respirations are slightly tachypneic and he is complaining of some surgical type pain to his left chest tube insertion site rating his pain 4 out of 10 on the pain scale. He reports that his pain is much better controlled today than yesterday. He has been up ambulating in the intensive care unit hallway with standby assistance nursing and therapy staff and tolerating well. The patient states that it was easier to walk this morning than yesterday. Oxygen saturations are 98% on 2 L nasal cannula and he is achieving 1000 mL on his incentive spirometry with encouragement. He remains hemodynamically stable and is currently on no inotropic or pressor support. Right IJ cordis remains in place and is to continuous CVP monitoring, current CVP pressure 5 mmHg. Laboratory and chest x- ray results reviewed. Objective - Vital Signs Vital signs: Vital Signs Temp 98.7 F 08/26/23 04:00 Pulse 81 08/26/23 07:00 Resp 30 H 08/26/23 07:00 BP 141/65 08/23/23 06:35 Pulse Ox 97 08/26/23 07:00 FiO2 30 08/26/23 04:00 Intake & Output 08/25/23 08/26/23 08/26/23 18:59 06:59 18:59 Intake Total 0705.334 7123.456 226 Output Total 1440 995 110 Balance -645.861 2717.456 116 Weight 115.8 kg Intake: IV 338 286 26 .9 NS pressure bags 78 66 6 Lactated Ringers 1,000 ml 260 220 20 @ 20 mls/hr IV .Q24H RONNIE Rx#:[id number] Intake, IV Titration 64.615 28.456 Amount Insulin Regular 100 unit 64.615 28.456 In Sodium Chloride 0.9% 100 ml @ Per Protocol IV .Q0M RONNIE Rx#:[id number] Oral 700 2200 200 Output: Chest Tube Drainage 230 50 40 Chest Tube Left 160 50 40 Chest Tube Mediastinal 30 Chest Tube Right 40 Mediastinal Urine 1210 945 70 Other: Voiding Method Indwelling Catheter Indwelling Catheter ABP, PAP, CO, CI - Last Documented Arterial Blood Pressure 124/53 Pulmonary Artery Pressure 46/20 Cardiac Output 4.3 Cardiac Index 2 - Exam CONSTITUTIONAL: Sitting up to the bedside chair in the intensive care unit, appears comfortable, cooperative, no apparent acute distress. HEENT: Neck is supple, no JVD, no lymphadenopathy. Right IJ Cordis in place and functioning. RESPIRATORY: Lungs sounds essentially clear throughout, diminished to his bilateral bases, right greater than left. Respirations are tachypneic, symmetrical and nonlabored. Currently on 2 L nasal cannula with oxygen satura tions 98%. Able to achieve 1000 mL on his incentive spirometry. Strong cough productive cough with whalen tenacious sputum. CARDIOVASCULAR: Regular rhythm and rate. S1 and S2 present, negative for S3, gallop or murmur. Sternum is stable. Bedside telemetry showing normal sinus rhythm heart rate 83 bpm. Palpable peripheral pulses bilaterally, +1 edema to his bilateral lower extremities. No calf pain or tenderness noted. Heart hugger in place with patient demonstrating appropriate use. Knee-high CHARMAINE hose and sequential compression devices in place to his bilateral lower extremities. GASTROINTESTINAL: Abdomen soft, nontender, nondistended. Active bowel sounds present 4 quadrants. Tolerating diet. Passing flatus. No guarding or rigidity. GENITOURINARY: Mullins present draining clear, yellow urine. Urine output 520 mL in the last 8 hours. INTEGUMENTARY: Skin is jaundiced, warm and dry with no evidence of clubbing or cyanosis. Midline sternal incision clean dry and well approximated, covered with dry intact dressing. NEUROLOGIC: Cranial nerves II through XII intact. No focal deficits. MUSKULOSKELETAL: Able to move all extremities, strength equal bilaterally, generalized weakness. PSYCHIATRIC: Alert and oriented to person place and time, appropriate affect, intact judgment and insight. INVASIVE LINES AND TUBES: Left pleural chest tubes present and connected to low continuous wall suction, no air leaks present. Left pleural chest tube with 50 mL of thin serosanguineous drainage overnight, 240 mL output in the last 24 hours. Atrial and ventricular epicardial pacemaker wires present, connected to generator, VVI backup rate 50 bpm. Right internal jugular Cordis, right radial arterial line present. Current CVP pressure 5 mmHg. - Allied health notes Allied health notes reviewed: nursing - Labs CBC & Chem 7: 08/26/23 04:36 08/26/23 04:36 Labs: Abnormal Lab Results - Last 24 Hours (Table) 08/25/23 08/25/23 08/25/23 Range/Units 08:33 09:28 10:33 WBC (3.8-10.6) k/uL RBC (4.30-5.90) m/uL Hgb (13.0-17.5) gm/dL Hct (39.0-53.0) % RDW (11.5-15.5) % Neutrophils # (1.3-7.7) k/uL Monocytes # (0-1.0) k/uL BUN (9-20) mg/dL Glucose (74-99) mg/dL POC Glucose (mg/dL) 163 H 172 H 155 H (70-110) mg/dL Total Bilirubin (0.2-1.3) mg/dL AST (17-59) U/L ALT (4-49) U/L Total Protein (6.3-8.2) g/dL 08/25/23 08/25/23 08/25/23 Range/Units 11:24 12:20 14:21 WBC (3.8-10.6) k/uL RBC (4.30-5.90) m/uL Hgb (13.0-17.5) gm/dL Hct (39.0-53.0) % RDW (11.5-15.5) % Neutrophils # (1.3-7.7) k/uL Monocytes # (0-1.0) k/uL BUN (9-20) mg/dL Glucose (74-99) mg/dL POC Glucose (mg/dL) 129 H 122 H 173 H (70-110) mg/dL Total Bilirubin (0.2-1.3) mg/dL AST (17-59) U/L ALT (4-49) U/L Total Protein (6.3-8.2) g/dL 08/25/23 08/25/23 08/25/23 Range/Units 15:42 18:04 18:49 WBC (3.8-10.6) k/uL RBC (4.30-5.90) m/uL Hgb (13.0-17.5) gm/dL Hct (39.0-53.0) % RDW (11.5-15.5) % Neutrophils # (1.3-7.7) k/uL Monocytes # (0-1.0) k/uL BUN (9-20) mg/dL Glucose (74-99) mg/dL POC Glucose (mg/dL) 137 H 198 H 203 H (70-110) mg/dL Total Bilirubin (0.2-1.3) mg/dL AST (17-59) U/L ALT (4-49) U/L Total Protein (6.3-8.2) g/dL 08/25/23 08/25/23 08/26/23 Range/Units 20:23 22:58 00:08 WBC (3.8-10.6) k/uL RBC (4.30-5.90) m/uL Hgb (13.0-17.5) gm/dL Hct (39.0-53.0) % RDW (11.5-15.5) % Neutrophils # (1.3-7.7) k/uL Monocytes # (0-1.0) k/uL BUN (9-20) mg/dL Glucose (74-99) mg/dL POC Glucose (mg/dL) 129 H 124 H 115 H (70-110) mg/dL Total Bilirubin (0.2-1.3) mg/dL AST (17-59) U/L ALT (4-49) U/L Total Protein (6.3-8.2) g/dL 08/26/23 08/26/23 08/26/23 Range/Units 04:35 04:36 04:36 WBC 23.3 H (3.8-10.6) k/uL RBC 3.05 L (4.30-5.90) m/uL Hgb 9.2 L (13.0-17.5) gm/dL Hct 28.7 L (39.0-53.0) % RDW 16.8 H (11.5-15.5) % Neutrophils # 20.0 H (1.3-7.7) k/uL Monocytes # 1.7 H (0-1.0) k/uL BUN 33 H (9-20) mg/dL Glucose 105 H (74-99) mg/dL POC Glucose (mg/dL) 118 H (70-110) mg/dL Total Bilirubin 1.8 H (0.2-1.3) mg/dL AST 89 H (17-59) U/L ALT 84 H (4-49) U/L Total Protein 5.6 L (6.3-8.2) g/dL 08/26/23 08/26/23 08/26/23 Range/Units 05:15 05:53 07:14 WBC (3.8-10.6) k/uL RBC (4.30-5.90) m/uL Hgb (13.0-17.5) gm/dL Hct (39.0-53.0) % RDW (11.5-15.5) % Neutrophils # (1.3-7.7) k/uL Monocytes # (0-1.0) k/uL BUN (9-20) mg/dL Glucose (74-99) mg/dL POC Glucose (mg/dL) 121 H 121 H 128 H (70-110) mg/dL Total Bilirubin (0.2-1.3) mg/dL AST (17-59) U/L ALT (4-49) U/L Total Protein (6.3-8.2) g/dL - Imaging and Cardiology Chest x-ray: report reviewed, image reviewed Assessment and Plan Assessment: Symptomatic calcific tricuspid aortic stenosis, status post aortic valve replacement with a 29 mm Zheng Inspiris bovine pericardial valve with root enlargement with a hemashield patch Héctor Whitfield technique Coronary artery disease status post PCI to his obtuse marginal coronary artery in 2021 Hypertension Hyperlipidemia, triglycerides 213, HDL 28.7 Diabetes mellitus type 2, preoperative hemoglobin A1C 6.6% History of prostate cancer History of GI bleed Hard of hearing Lifetime non-smoker, preoperative FEV1 2.27 L predicted value, 85% Postoperative acute blood loss anemia, expected given hemodilution and cardiopulmonary bypass Elevated transaminase, AST 89, ALT 84 Plan: Continue to maximize medical therapy with aspirin, and beta-david. Will increase metoprolol tartrate to 50 mg p.o. twice daily with hold parameters. Wean oxygen as tolerated. Bronchodilator management per pulmonary/critical care medicine recommendations. Encourage incentive spirometry use 10 times every hour while awake. Increase activity, ambulate as tolerated. PT/OT/cardiac rehab following. Will monitor daily labs and chest x-rays. Electrolyte replacement per protocol. GI/DVT prophylaxis. Continue Protonix 40 mg p.o. AC twice daily due to the patient's history of GI bleed. Insulin management per internal medicine, Patient is a diabetic, with a preoperative hemoglobin A1c 6.6% Pain control with current medication regimen. Will avoid Toradol at this time due to the patient's history of GI bleed. Keep right IJ cordis in place with continuous CVP monitoring, continue arterial line for now. Continue left pleural chest tube for another 24 hours, monitor strict output. Continue Mullins catheter for another 24 hours, continue to monitor strict accurate intake and output. Lasix 40 mg IV twice daily x 2 doses. Sputum culture results remain pending. Mucinex 1200 mg p.o. twice daily and Mucomyst initiated. Hold statin until liver enzymes normalized. More recommendations to follow based on patient's clinical course. Time with Patient: Greater than 30
[2023-08-26 08:07] LABS: Glucose,Whole Blood 187 mg/dL (70-110)
[2023-08-26 09:04] LABS: Glucose,Whole Blood 184 mg/dL (70-110)
[2023-08-26] MEDS: METOPROLOL TARTRATE 50 MG TAB PO SCH (09:26)
[2023-08-26 10:05] LABS: Glucose,Whole Blood 163 mg/dL (70-110)
--- NOTE | 2023-08-26 10:15 | P.PN ---
Subjective Progress Note Date: 08/26/23 72 year old M with PMH of CAD, HLD, HTN, DM, GERD, h/o GI bleed, h/o prostate CA, aortic stenosis presents to [facility] for elective surgery. He underwent AV replacement with Dr. Glaser on 08/22. [facility] consulted for medical management of this patient. He was extubated on 08/22. 08/23 Patient was seen and examined. He reports moderate pain at the site on incision. Currently on NS at 20 cc/hr. Insulin drip running at 5.5 units/hr. CBC WBC 15.8, Hg 9.3, Hct 38.6, Plt 145. CMP Cl 110, glu 104, AST 61, total protein 5.5. Mag 2.3. Ionized Ca 4.6. CT surgery note reviewed, DC right IJ [place], maximize medical therapy with ASA, statin, beta david. CXR done today shows mild pulmonary vascular congestion. POC glucose 119-168 over the past 24H. 08/24 Patient was seen and examined. Patient reports shortness of breath and cough productive of brown sputum. He is on 1.5L NC. Insulin drip running at 6 units/hr. CXR shows pulmonary edema and he has been started on Lasix 20 mg IV BID for 2 doses, Mucinex, Muromyst and DuoNeb PRN by CT surgery. Mediastinal chest tubes discontinued today. CBC shows WBC 23.4, Hg 9.3, Hct 29.7. CMP BUN 21, Cr 0.61, glu 113, T. Bili 1.5, AST 77, total protein 5.7. POC glucose 123- 178 over the past 24H. 08/25 Patient was seen and examined. Continued SOB. He is on 1L NC. Insulin drip running at 6 7.5 units/hr. CXR shows pulmonary edema with right pleural effusion and Lasix increased to 40 mg IV BID x 2 doses. CBC shows WBC 23.3, Hg 9.2, Hct 2 8.7. CMP BUN 33, glu 105, T. Bili 1.8, AST 89, ALT 84, total protein 5.6. POC glucose 92-203 over the past 24H. General: appears SOB, no distress, appears at stated age Derm: warm, dry Head: atraumatic, normocephalic, symmetric, R IJ Eyes: EOMI, no lid lag, anicteric sclera Mouth: no lip lesion, mucus membranes moist Cardiovascular: S1S2 reg, no murmur, midsternal surgical scar dressing c/d/i, le ft chest tube in place Lungs: Decreased BS bilateral, no rhonchi, no rales , no accessory muscle use Ext: no gross muscle atrophy, 1+ pitting bilateral lower extremity edema, no contractures Neuro: no focal neuro deficits Psych: Alert, oriented, appropriate affect +Mullins catheter in place Based on my assessment of this patient, this patient meets a high complexity level of care. Status post AV replacement POD 3 managed by Cardiothoracic surgery. Acute hypoxic respiratory failure likely due to pulmonary edema seen on CXR: Lasix 40 mg IV BID x 2 doses, Mucinex, Muromyst and DuoNeb PRN per CT surgery. DuoNeb PRN for SOB/wheezing. Sputum sample ordered. Monitor electrolytes and renal function while on Lasix. Acute blood loss anemia: Expected result of surgery. Trend daily. Consider trans fusion if Hg < 7. Leukocytosis: Likely reactive. No signs of active infection. Monitor fever profile. Diabetes mellitus with hyperglycemia: Switch insulin drip to Levemir 15 units HS and Novolog 5 units TID along with ISS. Accuchecks ACHS. Hypoglycemic precautions. Prerenal azotemia likely due to forced diuresis Transaminits: Trending up. Monitor while patient is on statin. Hypertension: Metoprolol as below. CAD: ASA 325 mg PO QD. Lipitor 40 mg PO QD. Metoprolol 50 mg PO BID. Dyslipidemia: Lipitor as above. GERD: Protonix 40 mg PO BID. Resolved: Thrombocytopenia CODE STATUS: FULL CODE DVT Prophylaxis: Heparin SQ GI Prophylaxis: Protonix PO Designated medical POA if patient is not able to make medical decisions for themselves: I have reviewed the following group segment consultant notes: Pulmonary, Cardiology, CT surgery I have reviewed the results of the following tests: CBC, CMP, POC glucose I have ordered the following tests: CBC, CMP I have discussed the care of this patient with the following independent historian: RT I have independently interpreted the following test below: CXR I have discussed the management of this patient with the following physician: Objective - Vital Signs Vital signs: Vital Signs Temp 98.5 F 08/26/23 08:00 Pulse 83 08/26/23 09:00 Resp 32 H 08/26/23 09:00 BP 141/65 08/23/23 06:35 Pulse Ox 93 L 08/26/23 09:00 FiO2 30 08/26/23 04:00 Intake & Output 08/25/23 08/26/23 08/26/23 18:59 06:59 18:59 Intake Total 8130.311 8288.456 305.035 Output Total 1440 995 320 Balance -727.228 9631.456 -14.965 Weight 115.8 kg Intake: IV 338 286 78 .9 NS pressure bags 78 66 18 Lactated Ringers 1,000 ml 260 220 60 @ 20 mls/hr IV .Q24H RONNIE Rx#:[id number] Intake, IV Titration 64.615 28.456 27.035 Amount Insulin Regular 100 unit 64.615 28.456 27.035 In Sodium Chloride 0.9% 100 ml @ Per Protocol IV .Q0M RONNIE Rx#:[id number] Oral 700 2200 200 Output: Chest Tube Drainage 230 50 50 Chest Tube Left 160 50 50 Chest Tube Mediastinal 30 Chest Tube Right 40 Mediastinal Urine 1210 945 270 Other: Voiding Method Indwelling Catheter Indwelling Catheter Indwelling Catheter ABP, PAP, CO, CI - Last Documented Arterial Blood Pressure 118/55 Pulmonary Artery Pressure 46/20 Cardiac Output 4.3 Cardiac Index 2 - Labs CBC & Chem 7: 08/26/23 04:36 08/26/23 04:36 Labs: Abnormal Lab Results - Last 24 Hours (Table) 08/25/23 08/25/23 08/25/23 Range/Units 10:33 11:24 12:20 WBC (3.8-10.6) k/uL RBC (4.30-5.90) m/uL Hgb (13.0-17.5) gm/dL Hct (39.0-53.0) % RDW (11.5-15.5) % Neutrophils # (1.3-7.7) k/uL Monocytes # (0-1.0) k/uL BUN (9-20) mg/dL Glucose (74-99) mg/dL POC Glucose (mg/dL) 155 H 129 H 122 H (70-110) mg/dL Total Bilirubin (0.2-1.3) mg/dL AST (17-59) U/L ALT (4-49) U/L Total Protein (6.3-8.2) g/dL 08/25/23 08/25/23 08/25/23 Range/Units 14:21 15:42 18:04 WBC (3.8-10.6) k/uL RBC (4.30-5.90) m/uL Hgb (13.0-17.5) gm/dL Hct (39.0-53.0) % RDW (11.5-15.5) % Neutrophils # (1.3-7.7) k/uL Monocytes # (0-1.0) k/uL BUN (9-20) mg/dL Glucose (74-99) mg/dL POC Glucose (mg/dL) 173 H 137 H 198 H (70-110) mg/dL Total Bilirubin (0.2-1.3) mg/dL AST (17-59) U/L ALT (4-49) U/L Total Protein (6.3-8.2) g/dL 08/25/23 08/25/23 08/25/23 Range/Units 18:49 20:23 22:58 WBC (3.8-10.6) k/uL RBC (4.30-5.90) m/uL Hgb (13.0-17.5) gm/dL Hct (39.0-53.0) % RDW (11.5-15.5) % Neutrophils # (1.3-7.7) k/uL Monocytes # (0-1.0) k/uL BUN (9-20) mg/dL Glucose (74-99) mg/dL POC Glucose (mg/dL) 203 H 129 H 124 H (70-110) mg/dL Total Bilirubin (0.2-1.3) mg/dL AST (17-59) U/L ALT (4-49) U/L Total Protein (6.3-8.2) g/dL 08/26/23 08/26/23 08/26/23 Range/Units 00:08 04:35 04:36 WBC 23.3 H (3.8-10.6) k/uL RBC 3.05 L (4.30-5.90) m/uL Hgb 9.2 L (13.0-17.5) gm/dL Hct 28.7 L (39.0-53.0) % RDW 16.8 H (11.5-15.5) % Neutrophils # 20.0 H (1.3-7.7) k/uL Monocytes # 1.7 H (0-1.0) k/uL BUN (9-20) mg/dL Glucose (74-99) mg/dL POC Glucose (mg/dL) 115 H 118 H (70-110) mg/dL Total Bilirubin (0.2-1.3) mg/dL AST (17-59) U/L ALT (4-49) U/L Total Protein (6.3-8.2) g/dL 08/26/23 08/26/23 08/26/23 Range/Units 04:36 05:15 05:53 WBC (3.8-10.6) k/uL RBC (4.30-5.90) m/uL Hgb (13.0-17.5) gm/dL Hct (39.0-53.0) % RDW (11.5-15.5) % Neutrophils # (1.3-7.7) k/uL Monocytes # (0-1.0) k/uL BUN 33 H (9-20) mg/dL Glucose 105 H (74-99) mg/dL POC Glucose (mg/dL) 121 H 121 H (70-110) mg/dL Total Bilirubin 1.8 H (0.2-1.3) mg/dL AST 89 H (17-59) U/L ALT 84 H (4-49) U/L Total Protein 5.6 L (6.3-8.2) g/dL 08/26/23 08/26/23 08/26/23 Range/Units 07:14 08:06 09:02 WBC (3.8-10.6) k/uL RBC (4.30-5.90) m/uL Hgb (13.0-17.5) gm/dL Hct (39.0-53.0) % RDW (11.5-15.5) % Neutrophils # (1.3-7.7) k/uL Monocytes # (0-1.0) k/uL BUN (9-20) mg/dL Glucose (74-99) mg/dL POC Glucose (mg/dL) 128 H 187 H 184 H (70-110) mg/dL Total Bilirubin (0.2-1.3) mg/dL AST (17-59) U/L ALT (4-49) U/L Total Protein (6.3-8.2) g/dL
--- NOTE | 2023-08-26 11:10 | P.PN ---
Subjective Progress Note Date: 08/26/23 This is a 72-year-old male patient with a history of GI bleeding, prostate cancer with previous radiation. He had been having symptoms of progressive dyspnea on exertion and extreme fatigue. He was found to have critical aortic stenosis and was brought in today for aortic valve replacement. He had unde rgone aortic valve replacement with a 29 mm Zheng Inspiris bovine pericardial valve and root enlargement with Hemashield patchas well as a left atrial appendage ligation with a 35 mm atrial cure clip. He is seen postoperatively in the intensive care unit. He is intubated on the mechanical ventilator and assist-control mode at a rate of 14, tidal volume 500, FiO2 100% and a PEEP of 10. Blood gases revealed a PaO2 of 248, pCO2 of 47 and a pH of 7.31. He has a mediastinal, right and left pleural chest tubes in place. Pacer wires in place. Right IJ [place] catheter in place. Cardiac output 4.5. Cardiac index 2.1. PA pressure 51/34, CVP 25. He is on an insulin drip at 2 units/h. He is sedated on propofol 20 mcg/kg/min. He has lactated Ringer's at 50 MLS per hour. Chest x-ray reveals catheters and lines in place. No evidence of pneumothorax. White count 19.5. Hemoglobin 8.7. Platelets 123. INR 1.7. Sodium 141. Potassium 4.4. Bicarb 22. BUN 14. Creatinine 0.59. Glucose 146. The patient is seen today August 24, 2023 in follow-up in the intensive care unit. He is currently awake and alert in no acute distress. Sitting up in a chair. Maintaining good O2 saturations in the 90s on 2 L/min per nasal cannula. He is receiving lactated Ringer's at 20 MLS per hour. He remains on an insulin drip at 5.5 units/h. Cardiac output 4.8. Cardiac index 2.2. PA pressures 46/20. CVP 11. Today's chest x-ray reveals postsurgical changes with mild pulmonary edema. Chest tubes remain in place. White count 15.8. Hemoglobin 9.3. Platelets 145. Sodium 139. Potassium 4.6. Bicarb 24. BUN 17. Creatinine 0.67. Glucose 126. AST 61. ALT 24. Albumin 3.8. He is working well with the incentive spirometer. He remains on bronchodilators. Heparin for DVT prophylaxis. The patient is seen today August 25, 2023 in follow-up in the intensive care unit. Postoperative day #2. He is currently sitting up in a chair at the bedside. Awake and alert in no acute distress. He is maintaining O2 saturations in the 90s on 2 L/min per nasal cannula. He has lactated Ringer's at KVO. Insulin drip at 6 units/h. Chest x-ray revealed similar mild pulmonary edema. Chest tu bes remains in place without pneumothorax. He is working fairly well with the incentive spirometer. White count 23.4. Hemoglobin 9.3. Platelets 157. Sodium 139. Potassium 4.9. Bicarb 29. BUN 21. Creatinine 0.61. Glucose 113. AST 77. ALT 47. He is continued on bronchodilators. Heparin for DVT prophylaxis. On Lasix 20 mg IV twice daily. The patient is seen today August 26, 2023 in follow-up in the intensive care unit. Postoperative day #3. He is awake and alert in no acute distress. Maintaining good O2 saturations in the 90s on 2 L/min per nasal cannula. He is currently sitting up in a chair. He continues to be short of breath with minimal exertion. Chest x-ray is showing slight improvement in the fluid volume overload. He is currently on Lasix 40 mg IV every 12 hours. He is on lactated Ringer's at KVO. Insulin drip at 4.5 units/h. He is pulling approximately 750-1000 on the incentive spirometer. Left chest tube remains in place. He is continued on DuoNeb inhalations, Mucinex. Heparin for DVT prophylaxis. He is currently in a +1.2 L balance. White count 23.3. Hemoglobin 9.2. Sodium 138. Potassium 4.7. Bicarb 29. BUN 33. Creatinine 0.66. Glucose 105. Objective - Vital Signs Vital signs: Vital Signs Temp 98.5 F 08/26/23 08:00 Pulse 81 08/26/23 10:00 Resp 26 H 08/26/23 10:00 BP 141/65 08/23/23 06:35 Pulse Ox 93 L 08/26/23 09:00 FiO2 30 08/26/23 04:00 Intake & Output 08/25/23 08/26/23 08/26/23 18:59 06:59 18:59 Intake Total 3317.297 8372.456 311.035 Output Total 1440 995 495 Balance -181.958 6442.456 -183.965 Weight 115.8 kg Intake: IV 338 286 84 .9 NS pressure bags 78 66 24 Lactated Ringers 1,000 ml 260 220 60 @ 20 mls/hr IV .Q24H [facility] Rx#:[id number] Intake, IV Titration 64.615 28.456 27.035 Amount Insulin Regular 100 unit 64.615 28.456 27.035 In Sodium Chloride 0.9% 100 ml @ Per Protocol IV .Q0M [facility] Rx#:[id number] Oral 700 2200 200 Output: Chest Tube Drainage 230 50 50 Chest Tube Left 160 50 50 Chest Tube Mediastinal 30 Chest Tube Right 40 Mediastinal Urine 1210 945 445 Other: Voiding Method Indwelling Catheter Indwelling Catheter Indwelling Catheter ABP, PAP, CO, CI - Last Documented Arterial Blood Pressure 117/53 Pulmonary Artery Pressure 46/20 Cardiac Output 4.3 Cardiac Index 2 - Exam GENERAL EXAM: Alert, pleasant 72-year-old male, up in a chair, on 2 L nasal cannula, in no apparent distress. HEAD: Normocephalic. EYES: Normal reaction of pupils, equal size. NOSE: Clear with pink turbinates. THROAT: No erythema or exudates. NECK: No masses, no JVD. CHEST: Sternal dressing dry and intact. Heart hugger in place left chest tube in place. LUNGS: Equal air entry with basilar crackles. CVS: S1 and S2 normal with no audible murmur, regular rhythm. ABDOMEN: No hepatosplenomegaly, no guarding or rigidity. SPINE: No scoliosis or deformity SKIN: No rashes CENTRAL NERVOUS SYSTEM: No focal deficits, tone is normal in all 4 extremities. EXTREMITIES: Subhash wraps to the lower extremities. SCDs in place. Peripheral pulses are intact. - Labs CBC & Chem 7: 08/26/23 04:36 08/26/23 04:36 Labs: Abnormal Lab Results - Last 24 Hours (Table) 08/25/23 08/25/23 08/25/23 Range/Units 11:24 12:20 14:21 WBC (3.8-10.6) k/uL RBC (4.30-5.90) m/uL Hgb (13.0-17.5) gm/dL Hct (39.0-53.0) % RDW (11.5-15.5) % Neutrophils # (1.3-7.7) k/uL Monocytes # (0-1.0) k/uL BUN (9-20) mg/dL Glucose (74-99) mg/dL POC Glucose (mg/dL) 129 H 122 H 173 H (70-110) mg/dL Total Bilirubin (0.2-1.3) mg/dL AST (17-59) U/L ALT (4-49) U/L Total Protein (6.3-8.2) g/dL 08/25/23 08/25/23 08/25/23 Range/Units 15:42 18:04 18:49 WBC (3.8-10.6) k/uL RBC (4.30-5.90) m/uL Hgb (13.0-17.5) gm/dL Hct (39.0-53.0) % RDW (11.5-15.5) % Neutrophils # (1.3-7.7) k/uL Monocytes # (0-1.0) k/uL BUN (9-20) mg/dL Glucose (74-99) mg/dL POC Glucose (mg/dL) 137 H 198 H 203 H (70-110) mg/dL Total Bilirubin (0.2-1.3) mg/dL AST (17-59) U/L ALT (4-49) U/L Total Protein (6.3-8.2) g/dL 08/25/23 08/25/23 08/26/23 Range/Units 20:23 22:58 00:08 WBC (3.8-10.6) k/uL RBC (4.30-5.90) m/uL Hgb (13.0-17.5) gm/dL Hct (39.0-53.0) % RDW (11.5-15.5) % Neutrophils # (1.3-7.7) k/uL Monocytes # (0-1.0) k/uL BUN (9-20) mg/dL Glucose (74-99) mg/dL POC Glucose (mg/dL) 129 H 124 H 115 H (70-110) mg/dL Total Bilirubin (0.2-1.3) mg/dL AST (17-59) U/L ALT (4-49) U/L Total Protein (6.3-8.2) g/dL 08/26/23 08/26/23 08/26/23 Range/Units 04:35 04:36 04:36 WBC 23.3 H (3.8-10.6) k/uL RBC 3.05 L (4.30-5.90) m/uL Hgb 9.2 L (13.0-17.5) gm/dL Hct 28.7 L (39.0-53.0) % RDW 16.8 H (11.5-15.5) % Neutrophils # 20.0 H (1.3-7.7) k/uL Monocytes # 1.7 H (0-1.0) k/uL BUN 33 H (9-20) mg/dL Glucose 105 H (74-99) mg/dL POC Glucose (mg/dL) 118 H (70-110) mg/dL Total Bilirubin 1.8 H (0.2-1.3) mg/dL AST 89 H (17-59) U/L ALT 84 H (4-49) U/L Total Protein 5.6 L (6.3-8.2) g/dL 08/26/23 08/26/23 08/26/23 Range/Units 05:15 05:53 07:14 WBC (3.8-10.6) k/uL RBC (4.30-5.90) m/uL Hgb (13.0-17.5) gm/dL Hct (39.0-53.0) % RDW (11.5-15.5) % Neutrophils # (1.3-7.7) k/uL Monocytes # (0-1.0) k/uL BUN (9-20) mg/dL Glucose (74-99) mg/dL POC Glucose (mg/dL) 121 H 121 H 128 H (70-110) mg/dL Total Bilirubin (0.2-1.3) mg/dL AST (17-59) U/L ALT (4-49) U/L Total Protein (6.3-8.2) g/dL 08/26/23 08/26/23 08/26/23 Range/Units 08:06 09:02 10:03 WBC (3.8-10.6) k/uL RBC (4.30-5.90) m/uL Hgb (13.0-17.5) gm/dL Hct (39.0-53.0) % RDW (11.5-15.5) % Neutrophils # (1.3-7.7) k/uL Monocytes # (0-1.0) k/uL BUN (9-20) mg/dL Glucose (74-99) mg/dL POC Glucose (mg/dL) 187 H 184 H 163 H (70-110) mg/dL Total Bilirubin (0.2-1.3) mg/dL AST (17-59) U/L ALT (4-49) U/L Total Protein (6.3-8.2) g/dL Microbiology - Last 24 Hours (Table) 08/25/23 21:05 Gram Stain - Preliminary Sputum Assessment and Plan Assessment: Severe aortic stenosis status post aortic valve replacement with a 29 mm Zheng Inspiris bovine pericardial valve, root enlargement with Hemashield patch and ligation of the left atrial appendage with a 35 mm atrial cure clip. Postoperative day #3 Anemia and thrombocytopenia, expected outcome of surgery, stabilized Leukocytosis, suspect reactive Diabetes mellitus, type II Gastroesophageal reflux disease Hypertension History of prostate cancer status post radiation History of rectal bleeding from radiation proctitis Plan: The patient was seen and evaluated Chest x-ray, labs and medications reviewed Working well with the incentive spirometer Continue diuretics Continue bronchodilators Continue heparin for DVT prophylaxis Titrate down the FiO2 as tolerated Increase his activity as tolerated We will continue to follow I have personally seen and examined the patient, performed the documentation and the assessment and plan as written. Number of minutes spent on the visit: 10.
[2023-08-26 11:14] LABS: Glucose,Whole Blood 219 mg/dL (70-110)
[2023-08-26] MEDS: INSULIN ASPART (NovoLOG) 100 UNIT/ML VIAL SQ SCH ×2 (11:22→11:40)
--- NOTE | 2023-08-26 12:19 | P.PN ---
Subjective Progress Note Date: 08/26/23 HISTORY OF PRESENTING ILLNESS This is a pleasant 72-year-old with past medical history significant for CAD with prior PCI of OM1 branch 2021, hypertension, hyperlipidemia, diabetes mellitus type 2, prior prostate cancer he and history of GI bleed and severe aortic stenosis. He follows in the office with Dr. Benson. Patient presented for elective surgical aortic valve replacement 08/22 which was completed successfully with a 29 mm Zheng Inspiris with aortic valve root enlargement. He was extubated and weaned from vasopressors with cardiac output in the 4.8 L/m range and cardiac index 2.2. She currently admits to significant chest pain around his incision and with deep inspiration. Does not have much of an appetite. Blood pressure borderline. Remains on amiodarone and in normal sinus rhythm. He did have some mild decrease in urine output and was placed on albumin with increasing urine output. 08/24 Patient seen and examined. Patient denies any chest pain or pressure. He is having poor inspiratory effort however and x-ray shows worsened bilateral edema. He was given Lasix 20 mg IV total 2 with some urine output however overall not significantly negative over last 24 hours. Creatinine has remained stable. EKG concerning for minimal ST elevation, possible pericarditis however he denies any chest pain. Remains in sinus rhythm. Metoprolol was increased. Does have increased respiratory rate in the upper 20s and 30s. His prior CVP not majorly elevated and so his cortis in place as well as left chest tube. 08/25 Patient is seen and examined. He remains in the intensive care unit. Blood pressure 124/53, heart rate 80, pulse ox 93% on 1 L. He has been afebrile. Repeat blood work reveals WBC 23.3, hemoglobin 9.2. Sodium 138, potassium 4.7, BUN 33 creatinine 0.66. proBNP 2700. Mildly elevated liver function test. Repeat chest x-ray reveals persistent left-sided chest tubes without pneumo. Persistent cardiomegaly with central vascular congestion and small to moderate size right pleural effusion. No significant change. Patient states he feels a little short of breath but better from yesterday. He has been urinating well. He is utilizing IS. He denies chest pain. PHYSICAL EXAMINATION Vital signs reviewed. CONSTITUTIONAL: No apparent distress, however tachypnic and mild increased work of breathing HEENT: Head is normocephalic. Pupils are equal, round. Sclerae anicteric. Mucous membranes of the mouth are moist. No JVD. No carotid bruit. CHEST EXAMINATION: Decreased breath sounds bilaterally HEART EXAMINATION: Regular rate and rhythm. S1, S2 heard. No murmurs, gallops or rub. ABDOMEN: Soft, nontender. Positive bowel sounds. EXTREMITIES: 2+ peripheral pulses, Bilat lower extremity edema and no calf tenderness. NEUROLOGIC EXAMINATION: Patient is awake, alert and oriented x3. ASSESSMENT Severe aortic stenosis status post surgical aortic valve replacement 08/22 with aortic root enlargement Acute on chronic respiratory failure with worsening chest Xray, possible ARDS vs CHF Acute on chronic diastolic heart failure Minimal diffuse ST elevation without reciprocal changes, may be early pericarditis CAD with prior history PCI Hypertension Hyperlipidemia Anemia/acute blood loss anemia Diabetes mellitus type 2 History of prostate cancer History of GI bleed PLAN Monitor response of diuretics continue current dose of Lasix 40 mg IV twice a day, monitor TALAT, daily weights, electrolytes and renal function. Monitor chest tube output. EKG does show concern of minimal ST elevation without reciprocal changes and may be early pericarditis however not having typical pain. Repeat EKG will be reviewed. Continue to monitor closely Nurse practitioner note has been reviewed, I agree with documented findings and plan of care. Patient was seen and examined. Objective - Vital Signs Vital signs: Vital Signs Temp 98.7 F 08/26/23 04:00 Pulse 88 08/26/23 08:56 Resp 30 H 08/26/23 07:00 BP 141/65 08/23/23 06:35 Pulse Ox 93 L 08/26/23 08:40 FiO2 30 08/26/23 04:00 Intake & Output 08/25/23 08/26/23 08/26/23 18:59 06:59 18:59 Intake Total 5486.827 0408.456 263.649 Output Total 1440 995 185 Balance -425.401 7859.456 78.649 Weight 115.8 kg Intake: IV 338 286 52 .9 NS pressure bags 78 66 12 Lactated Ringers 1,000 ml 260 220 40 @ 20 mls/hr IV .Q24H [facility] Rx#:[id number] Intake, IV Titration 64.615 28.456 11.649 Amount Insulin Regular 100 unit 64.615 28.456 11.649 In Sodium Chloride 0.9% 100 ml @ Per Protocol IV .Q0M [facility] Rx#:[id number] Oral 700 2200 200 Output: Chest Tube Drainage 230 50 40 Chest Tube Left 160 50 40 Chest Tube Mediastinal 30 Chest Tube Right 40 Mediastinal Urine 1210 945 145 Other: Voiding Method Indwelling Catheter Indwelling Catheter Indwelling Catheter ABP, PAP, CO, CI - Last Documented Arterial Blood Pressure 124/53 Pulmonary Artery Pressure 46/20 Cardiac Output 4.3 Cardiac Index 2 - Labs CBC & Chem 7: 08/26/23 04:36 08/26/23 04:36 Labs: Abnormal Lab Results - Last 24 Hours (Table) 08/25/23 08/25/23 08/25/23 Range/Units 09:28 10:33 11:24 WBC (3.8-10.6) k/uL RBC (4.30-5.90) m/uL Hgb (13.0-17.5) gm/dL Hct (39.0-53.0) % RDW (11.5-15.5) % Neutrophils # (1.3-7.7) k/uL Monocytes # (0-1.0) k/uL BUN (9-20) mg/dL Glucose (74-99) mg/dL POC Glucose (mg/dL) 172 H 155 H 129 H (70-110) mg/dL Total Bilirubin (0.2-1.3) mg/dL AST (17-59) U/L ALT (4-49) U/L Total Protein (6.3-8.2) g/dL 08/25/23 08/25/23 08/25/23 Range/Units 12:20 14:21 15:42 WBC (3.8-10.6) k/uL RBC (4.30-5.90) m/uL Hgb (13.0-17.5) gm/dL Hct (39.0-53.0) % RDW (11.5-15.5) % Neutrophils # (1.3-7.7) k/uL Monocytes # (0-1.0) k/uL BUN (9-20) mg/dL Glucose (74-99) mg/dL POC Glucose (mg/dL) 122 H 173 H 137 H (70-110) mg/dL Total Bilirubin (0.2-1.3) mg/dL AST (17-59) U/L ALT (4-49) U/L Total Protein (6.3-8.2) g/dL 08/25/23 08/25/23 08/25/23 Range/Units 18:04 18:49 20:23 WBC (3.8-10.6) k/uL RBC (4.30-5.90) m/uL Hgb (13.0-17.5) gm/dL Hct (39.0-53.0) % RDW (11.5-15.5) % Neutrophils # (1.3-7.7) k/uL Monocytes # (0-1.0) k/uL BUN (9-20) mg/dL Glucose (74-99) mg/dL POC Glucose (mg/dL) 198 H 203 H 129 H (70-110) mg/dL Total Bilirubin (0.2-1.3) mg/dL AST (17-59) U/L ALT (4-49) U/L Total Protein (6.3-8.2) g/dL 08/25/23 08/26/23 08/26/23 Range/Units 22:58 00:08 04:35 WBC (3.8-10.6) k/uL RBC (4.30-5.90) m/uL Hgb (13.0-17.5) gm/dL Hct (39.0-53.0) % RDW (11.5-15.5) % Neutrophils # (1.3-7.7) k/uL Monocytes # (0-1.0) k/uL BUN (9-20) mg/dL Glucose (74-99) mg/dL POC Glucose (mg/dL) 124 H 115 H 118 H (70-110) mg/dL Total Bilirubin (0.2-1.3) mg/dL AST (17-59) U/L ALT (4-49) U/L Total Protein (6.3-8.2) g/dL 08/26/23 08/26/23 08/26/23 Range/Units 04:36 04:36 05:15 WBC 23.3 H (3.8-10.6) k/uL RBC 3.05 L (4.30-5.90) m/uL Hgb 9.2 L (13.0-17.5) gm/dL Hct 28.7 L (39.0-53.0) % RDW 16.8 H (11.5-15.5) % Neutrophils # 20.0 H (1.3-7.7) k/uL Monocytes # 1.7 H (0-1.0) k/uL BUN 33 H (9-20) mg/dL Glucose 105 H (74-99) mg/dL POC Glucose (mg/dL) 121 H (70-110) mg/dL Total Bilirubin 1.8 H (0.2-1.3) mg/dL AST 89 H (17-59) U/L ALT 84 H (4-49) U/L Total Protein 5.6 L (6.3-8.2) g/dL 08/26/23 08/26/23 08/26/23 Range/Units 05:53 07:14 08:06 WBC (3.8-10.6) k/uL RBC (4.30-5.90) m/uL Hgb (13.0-17.5) gm/dL Hct (39.0-53.0) % RDW (11.5-15.5) % Neutrophils # (1.3-7.7) k/uL Monocytes # (0-1.0) k/uL BUN (9-20) mg/dL Glucose (74-99) mg/dL POC Glucose (mg/dL) 121 H 128 H 187 H (70-110) mg/dL Total Bilirubin (0.2-1.3) mg/dL AST (17-59) U/L ALT (4-49) U/L Total Protein (6.3-8.2) g/dL 08/26/23 Range/Units 09:02 WBC (3.8-10.6) k/uL RBC (4.30-5.90) m/uL Hgb (13.0-17.5) gm/dL Hct (39.0-53.0) % RDW (11.5-15.5) % Neutrophils # (1.3-7.7) k/uL Monocytes # (0-1.0) k/uL BUN (9-20) mg/dL Glucose (74-99) mg/dL POC Glucose (mg/dL) 184 H (70-110) mg/dL Total Bilirubin (0.2-1.3) mg/dL AST (17-59) U/L ALT (4-49) U/L Total Protein (6.3-8.2) g/dL
[2023-08-26 16:18] LABS: Glucose,Whole Blood 146 mg/dL (70-110)
[2023-08-26] MEDS: INSULIN DETEMIR (LEVEMIR) 100 UNIT/ML SYR SQ SCH (20:02)
[2023-08-27 05:52] LABS: Anisocytosis Slight; Basophils # (A) 0.1 k/uL (0-0.2); Basophils % (A) 1 %; Eosinophils # (A) 0.8 k/uL (0-0.7); Eosinophils % (A) 4 %; HCT 30.1 % (39.0-53.0); HGB 9.5 gm/dL (13.0-17.5); Lymphocytes # (A) 1.2 k/uL (1.0-4.8); Lymphocytes % (A) 6 %; MCH 29.6 pg (25.0-35.0); MCHC 31.4 g/dL (31.0-37.0); MCV 94.1 fL (80.0-100.0); Mean Platelet Volume 8.4; Monocytes # (A) 1.3 k/uL (0-1.0); Monocytes % (A) 6 %; Neutrophils # (A) 18.4 k/uL (1.3-7.7); Neutrophils % (A) 83 %; Platelet Count 257 k/uL (150-450); RDW 17.3 % (11.5-15.5); WBC 22.2 k/uL (3.8-10.6)
[2023-08-27 06:24] LABS: ALT 64 U/L (4-49); AST 44 U/L (17-59); African American GFR (CKD) >90 (>60 ml/min/1.73 sqM); Albumin 3.4 g/dL (3.5-5.0); Alkaline Phosphatase 81 U/L (38-126); Anion Gap 3 mmol/L; Blood Urea Nitrogen 35 mg/dL (9-20); Calcium 8.5 mg/dL (8.4-10.2); Carbon Dioxide 35 mmol/L (22-30); Chloride 99 mmol/L (98-107); Glucose 126 mg/dL (74-99); Magnesium 1.9 mg/dL (1.6-2.3); Non-African American GFR(CKD) >90 (>60 ml/min/1.73 sqM); Potassium 3.9 mmol/L (3.5-5.1); Sodium 137 mmol/L (137-145); Total Bilirubin 1.5 mg/dL (0.2-1.3); Total Protein 5.7 g/dL (6.3-8.2)
[2023-08-27 06:48] LABS: Glucose,Whole Blood 134 mg/dL (70-110)
--- NOTE | 2023-08-27 08:55 | P.PN ---
Subjective Progress Note Date: 08/27/23 Principal diagnosis: Symptomatic calcific tricuspid aortic stenosis. Past medical history significant for coronary artery disease status post PCI to his obtuse marginal coronary artery in 2021, hypertension, hyperlipidemia, diabetes mellitus type 2, prostate cancer, GI bleed, hard of hearing and is a lifetime non-smoker. POD #4 Aortic valve replacement with 29 mm Zheng Inspiris bovine pericardial valve, root enlargement with Hemashield patch (Héctor Whitfield technique), epiaortic ultrasound, ligation of left atrial appendage with 35mm AtriCure clip and plates and screws for sternal closure. Postoperative acute blood loss anemia, expected given hemodilution and cardiopulmonary bypass. The patient was seen and examined in follow-up today August 27, 2023 at his bedside in the intensive care unit. The patient is currently sitting up to the bedside chair, is awake, alert, oriented x 3 and is in no acute apparent distress. Denies any complaints of pain at this time, and states his shortness of breath with ambulating has improved in the last 24 hours. He was up ambulating in the intensive care unit hallway this morning and tolerated well, and reports that he walked the furthest he has walked since surgery this morning. Oxygen saturations are 96% on 2 L nasal cannula and he is achieving 1000 to 1250 mL on his incentive spirometry with encouragement. Bedside telemetry is showing normal sinus rhythm heart rate 80 bpm. Right IJ cordis rem ains in place with current CVP pressure showing 7 mmHg. Left pleural chest tube was removed without incident yesterday. Atrial and ventricular epicardial pacemaker wires remain in place and are grounded. Laboratory and chest x-ray results reviewed. Objective - Vital Signs Vital signs: Vital Signs Temp 98.5 F 08/27/23 04:00 Pulse 82 08/27/23 08:35 Resp 30 H 08/27/23 07:00 BP 109/65 08/27/23 07:00 Pulse Ox 95 08/27/23 08:35 FiO2 30 08/26/23 04:00 Intake & Output 08/26/23 08/27/23 08/27/23 18:59 06:59 18:59 Intake Total 657.770 7801 546 Output Total 1695 1080 50 Balance -1190.965 196 496 Weight 111.8 kg Intake: IV 277 276 46 .9 NS pressure bags 57 36 6 Lactated Ringers 1,000 ml 220 240 40 @ 20 mls/hr IV .Q24H RONNIE Rx#:[id number] Intake, IV Titration 27.035 Amount Insulin Regular 100 unit 27.035 In Sodium Chloride 0.9% 100 ml @ Per Protocol IV .Q0M RONNIE Rx#:[id number] Oral 200 1000 500 Output: Chest Tube Drainage 50 Chest Tube Left 50 Urine 1645 1080 50 Other: Voiding Method Indwelling Catheter Indwelling Catheter External Catheter ABP, PAP, CO, CI - Last Documented Arterial Blood Pressure 109/53 Pulmonary Artery Pressure 46/20 Cardiac Output 4.3 Cardiac Index 2 - Exam CONSTITUTIONAL: Sitting up to the bedside chair in the intensive care unit, appears comfortable, cooperative, no apparent acute distress. HEENT: Neck is supple, no JVD, no lymphadenopathy. Right IJ Cordis in place and functioning. RESPIRATORY: Lungs sounds essentially clear throughout, diminished to his bilateral bases, right greater than left. Respirations are tachypneic, symmetrical and nonlabored. Currently on 2 L nasal cannula with oxygen saturations 96%. Able to achieve 6522-4506 mL on his incentive spirometry. Strong cough productive cough with whalen tenacious sputum. CARDIOVASCULAR: Regular rhythm and rate. S1 and S2 present, negative for S3, gallop or murmur. Sternum is stable. Bedside telemetry showing normal sinus rhythm heart rate 80 bpm. Palpable peripheral pulses bilaterally, +1 edema to his bilateral lower extremities. No calf pain or tenderness noted. Heart hugger in place with patient demonstrating appropriate use. Knee-high CHARMAINE hose and sequential compression devices in place to his bilateral lower extremities. GASTROINTESTINAL: Abdomen soft, nontender, nondistended. Active bowel sounds present 4 quadrants. Tolerating diet. Passing flatus. No guarding or rigidity. GENITOURINARY: External catheter in place, urine output 530 mL in the last 8 hours. INTEGUMENTARY: Skin is jaundiced, warm and dry with no evidence of clubbing or cyanosis. Midline sternal incision clean dry and well approximated, covered with dry intact dressing. NEUROLOGIC: Cranial nerves II through XII intact. No focal deficits. MUSKULOSKELETAL: Able to move all extremities, strength equal bilaterally, generalized weakness. PSYCHIATRIC: Alert and oriented to person place and time, appropriate affect, intact judgment and insight. INVASIVE LINES AND TUBES: Atrial and ventricular epicardial pacemaker wires present, and are grounded. Right internal jugular Cordis, right radial arterial line present. Current CVP pressure 7 mmHg. - Allied health notes Allied health notes reviewed: nursing - Labs CBC & Chem 7: 08/27/23 05:34 08/27/23 05:34 Labs: Abnormal Lab Results - Last 24 Hours (Table) 08/26/23 08/26/23 08/26/23 Range/Units 09:02 10:03 11:12 WBC (3.8-10.6) k/uL RBC (4.30-5.90) m/uL Hgb (13.0-17.5) gm/dL Hct (39.0-53.0) % RDW (11.5-15.5) % Neutrophils # (1.3-7.7) k/uL Monocytes # (0-1.0) k/uL Eosinophils # (0-0.7) k/uL Carbon Dioxide (22-30) mmol/L BUN (9-20) mg/dL Creatinine (0.66-1.25) mg/dL Glucose (74-99) mg/dL POC Glucose (mg/dL) 184 H 163 H 219 H (70-110) mg/dL Total Bilirubin (0.2-1.3) mg/dL ALT (4-49) U/L Total Protein (6.3-8.2) g/dL Albumin (3.5-5.0) g/dL 08/26/23 08/27/23 08/27/23 Range/Units 16:16 05:34 05:34 WBC 22.2 H (3.8-10.6) k/uL RBC 3.20 L (4.30-5.90) m/uL Hgb 9.5 L (13.0-17.5) gm/dL Hct 30.1 L (39.0-53.0) % RDW 17.3 H (11.5-15.5) % Neutrophils # 18.4 H (1.3-7.7) k/uL Monocytes # 1.3 H (0-1.0) k/uL Eosinophils # 0.8 H (0-0.7) k/uL Carbon Dioxide 35 H (22-30) mmol/L BUN 35 H (9-20) mg/dL Creatinine 0.63 L (0.66-1.25) mg/dL Glucose 126 H (74-99) mg/dL POC Glucose (mg/dL) 146 H (70-110) mg/dL Total Bilirubin 1.5 H (0.2-1.3) mg/dL ALT 64 H (4-49) U/L Total Protein 5.7 L (6.3-8.2) g/dL Albumin 3.4 L (3.5-5.0) g/dL 08/27/23 Range/Units 06:46 WBC (3.8-10.6) k/uL RBC (4.30-5.90) m/uL Hgb (13.0-17.5) gm/dL Hct (39.0-53.0) % RDW (11.5-15.5) % Neutrophils # (1.3-7.7) k/uL Monocytes # (0-1.0) k/uL Eosinophils # (0-0.7) k/uL Carbon Dioxide (22-30) mmol/L BUN (9-20) mg/dL Creatinine (0.66-1.25) mg/dL Glucose (74-99) mg/dL POC Glucose (mg/dL) 134 H (70-110) mg/dL Total Bilirubin (0.2-1.3) mg/dL ALT (4-49) U/L Total Protein (6.3-8.2) g/dL Albumin (3.5-5.0) g/dL Microbiology - Last 24 Hours (Table) 08/25/23 21:05 Gram Stain - Preliminary Sputum - Imaging and Cardiology Chest x-ray: report reviewed, image reviewed Assessment and Plan Assessment: Symptomatic calcific tricuspid aortic stenosis, status post aortic valve replacement with a 29 mm Zheng Inspiris bovine pericardial valve with root enlargement with a hemashield patch Héctor Whitfield technique Coronary artery disease status post PCI to his obtuse marginal coronary artery in 2021 Hypertension Hyperlipidemia, triglycerides 213, HDL 28.7 Diabetes mellitus type 2, preoperative hemoglobin A1C 6.6% History of prostate cancer History of GI bleed Hard of hearing Lifetime non-smoker, preoperative FEV1 2.27 L predicted value, 85% Postoperative acute blood loss anemia, expected given hemodilution and cardiopulmonary bypass Elevated transaminase, trending down Plan: Continue to maximize medical therapy with aspirin, and beta-david. Will increase metoprolol tartrate as tolerated with hold parameters. Wean oxygen as tolerated. Bronchodilator management per pulmonary/critical care medicine recommendations. Encourage incentive spirometry use 10 times every hour while awake. Increase activity, ambulate as tolerated. PT/OT/cardiac rehab following. Will monitor daily labs and chest x-rays. Electrolyte replacement per protocol. GI/DVT prophylaxis. Continue Protonix 40 mg p.o. AC twice daily due to the patient's history of GI bleed. Insulin management per internal medicine, Patient is a diabetic, with a preoperative hemoglobin A1c 6.6% Pain control with current medication regimen. Will avoid Toradol at this time due to the patient's history of GI bleed. Remove right IJ cordis. Continue to monitor strict accurate intake and output. May bladder scan every 6 hours and as needed postvoid residual. If greater than 300 mL of urine may straight cath. Sputum culture preliminary results showing rare polymorphonuclear leukocytes, few epithelial cells, moderate gram-positive bacilli, few gram-positive cocci. Will continue to follow final result. Continue Mucinex 1200 mg p.o. twice daily. Continue to hold statin until liver enzymes normalized. Patient takes Repatha at home. More recommendations to follow based on patient's clinical course. Time with Patient: Greater than 30
[2023-08-27] MEDS ORDERED: VANCOMYCIN IV PER PHARMACY 1 EACH MISC MISCELLANE PRN (09:00)
[2023-08-27] MEDS: metOLazone 2.5 MG TAB PO SCH ×2 (09:34→16:20)
--- NOTE | 2023-08-27 09:34 | P.PN ---
Subjective Progress Note Date: 08/27/23 This is a 72-year-old male patient with a history of GI bleeding, prostate cancer with previous radiation. He had been having symptoms of progressive dyspnea on exertion and extreme fatigue. He was found to have critical aortic stenosis and was brought in today for aortic valve replacement. He had unde rgone aortic valve replacement with a 29 mm Zheng Inspiris bovine pericardial valve and root enlargement with Hemashield patchas well as a left atrial appendage ligation with a 35 mm atrial cure clip. He is seen postoperatively in the intensive care unit. He is intubated on the mechanical ventilator and assist-control mode at a rate of 14, tidal volume 500, FiO2 100% and a PEEP of 10. Blood gases revealed a PaO2 of 248, pCO2 of 47 and a pH of 7.31. He has a mediastinal, right and left pleural chest tubes in place. Pacer wires in place. Right IJ [place]-Ileana catheter in place. Cardiac output 4.5. Cardiac index 2.1. PA pressure 51/34, CVP 25. He is on an insulin drip at 2 units/h. He is sedated on propofol 20 mcg/kg/min. He has lactated Ringer's at 50 MLS per hour. Chest x-ray reveals catheters and lines in place. No evidence of pneumothorax. White count 19.5. Hemoglobin 8.7. Platelets 123. INR 1.7. Sodium 141. Potassium 4.4. Bicarb 22. BUN 14. Creatinine 0.59. Glucose 146. The patient is seen today August 24, 2023 in follow-up in the intensive care unit. He is currently awake and alert in no acute distress. Sitting up in a chair. Maintaining good O2 saturations in the 90s on 2 L/min per nasal cannula. He is receiving lactated Ringer's at 20 MLS per hour. He remains on an insulin drip at 5.5 units/h. Cardiac output 4.8. Cardiac index 2.2. PA pressures 46/20. CVP 11. Today's chest x-ray reveals postsurgical changes with mild pulmonary edema. Chest tubes remain in place. White count 15.8. Hemoglobin 9.3. Platelets 145. Sodium 139. Potassium 4.6. Bicarb 24. BUN 17. Creatinine 0.67. Glucose 126. AST 61. ALT 24. Albumin 3.8. He is working well with the incentive spirometer. He remains on bronchodilators. Heparin for DVT prophylaxis. The patient is seen today August 25, 2023 in follow-up in the intensive care unit. Postoperative day #2. He is currently sitting up in a chair at the bedside. Awake and alert in no acute distress. He is maintaining O2 saturations in the 90s on 2 L/min per nasal cannula. He has lactated Ringer's at KVO. Insulin drip at 6 units/h. Chest x-ray revealed similar mild pulmonary edema. Chest tu bes remains in place without pneumothorax. He is working fairly well with the incentive spirometer. White count 23.4. Hemoglobin 9.3. Platelets 157. Sodium 139. Potassium 4.9. Bicarb 29. BUN 21. Creatinine 0.61. Glucose 113. AST 77. ALT 47. He is continued on bronchodilators. Heparin for DVT prophylaxis. On Lasix 20 mg IV twice daily. The patient is seen today August 26, 2023 in follow-up in the intensive care unit. Postoperative day #3. He is awake and alert in no acute distress. Maintaining good O2 saturations in the 90s on 2 L/min per nasal cannula. He is currently sitting up in a chair. He continues to be short of breath with minimal exertion. Chest x-ray is showing slight improvement in the fluid volume overload. He is currently on Lasix 40 mg IV every 12 hours. He is on lactated Ringer's at KVO. Insulin drip at 4.5 units/h. He is pulling approximately 750-1000 on the incentive spirometer. Left chest tube remains in place. He is continued on DuoNeb inhalations, Mucinex. Heparin for DVT prophylaxis. He is currently in a +1.2 L balance. White count 23.3. Hemoglobin 9.2. Sodium 138. Potassium 4.7. Bicarb 29. BUN 33. Creatinine 0.66. Glucose 105. The patient is seen today August 27, 2023 in follow-up in the intensive care unit. Postoperative day #4. He is sitting up in a chair. Awake and alert in no acute distress. Breathing easier today compared to yesterday. He is maintaining good O2 saturations in the 90s on 2 L/min per nasal cannula. Lactated Ringer's at 10 MLS per hour. He remains on Lasix 40 mg IV push every 12 hours. His chest x-ray continues to show significant fluid volume overload. He is currently in a -1 L balance. White count 22.2. Hemoglobin 9.5. Platelets 257. Sodium 137. Potassium 3.9. Bicarb 35. BUN 35. Creatinine 0.63. Glucose 126. He is working well with the incentive spirometer. He remains on bronchodilators. Remains on Mucinex. Heparin for DVT prophylaxis. Sputum culture showing moderate gram-positive bacilli. Procalcitonin pending. He has been initiated on vancomycin and Zosyn per CT services. Objective - Vital Signs Vital signs: Vital Signs Temp 98.3 F 08/27/23 08:00 Pulse 84 08/27/23 09:00 Resp 25 H 08/27/23 09:00 BP 101/56 08/27/23 09:00 Pulse Ox 96 08/27/23 09:00 FiO2 30 08/26/23 04:00 Intake & Output 08/26/23 08/27/23 08/27/23 18:59 06:59 18:59 Intake Total 916.897 9064 546 Output Total 1695 1080 150 Balance -1190.965 196 396 Weight 111.8 kg Intake: IV 277 276 46 .9 NS pressure bags 57 36 6 Lactated Ringers 1,000 ml 220 240 40 @ 20 mls/hr IV .Q24H RONNIE Rx#:[id number] Intake, IV Titration 27.035 Amount Insulin Regular 100 unit 27.035 In Sodium Chloride 0.9% 100 ml @ Per Protocol IV .Q0M RONNIE Rx#:[id number] Oral 200 1000 500 Output: Chest Tube Drainage 50 Chest Tube Left 50 Urine 1645 1080 150 Other: Voiding Method Indwelling Catheter Indwelling Catheter External Catheter ABP, PAP, CO, CI - Last Documented Arterial Blood Pressure 109/53 Pulmonary Artery Pressure 46/20 Cardiac Output 4.3 Cardiac Index 2 - Exam GENERAL EXAM: Alert, 72-year-old male, sitting up in a chair, on 2 L nasal cannula, in no apparent distress. HEAD: Normocephalic. EYES: Normal reaction of pupils, equal size. NOSE: Clear with pink turbinates. THROAT: No erythema or exudates. NECK: No masses, no JVD. CHEST: Sternal dressing dry and intact. Heart hugger in place. LUNGS: Equal air entry with basilar crackles few scattered rhonchi. CVS: S1 and S2 normal with no audible murmur, regular rhythm. ABDOMEN: No hepatosplenomegaly, no guarding or rigidity. SPINE: No scoliosis or deformity SKIN: No rashes CENTRAL NERVOUS SYSTEM: No focal deficits, tone is normal in all 4 extremities. EXTREMITIES: Subhash wraps to the lower extremities. SCDs in place. Peripheral pulses are intact. - Labs CBC & Chem 7: 08/27/23 05:34 08/27/23 05:34 Labs: Abnormal Lab Results - Last 24 Hours (Table) 08/26/23 08/26/23 08/26/23 Range/Units 10:03 11:12 16:16 WBC (3.8-10.6) k/uL RBC (4.30-5.90) m/uL Hgb (13.0-17.5) gm/dL Hct (39.0-53.0) % RDW (11.5-15.5) % Neutrophils # (1.3-7.7) k/uL Monocytes # (0-1.0) k/uL Eosinophils # (0-0.7) k/uL Carbon Dioxide (22-30) mmol/L BUN (9-20) mg/dL Creatinine (0.66-1.25) mg/dL Glucose (74-99) mg/dL POC Glucose (mg/dL) 163 H 219 H 146 H (70-110) mg/dL Total Bilirubin (0.2-1.3) mg/dL ALT (4-49) U/L Total Protein (6.3-8.2) g/dL Albumin (3.5-5.0) g/dL 08/27/23 08/27/23 08/27/23 Range/Units 05:34 05:34 06:46 WBC 22.2 H (3.8-10.6) k/uL RBC 3.20 L (4.30-5.90) m/uL Hgb 9.5 L (13.0-17.5) gm/dL Hct 30.1 L (39.0-53.0) % RDW 17.3 H (11.5-15.5) % Neutrophils # 18.4 H (1.3-7.7) k/uL Monocytes # 1.3 H (0-1.0) k/uL Eosinophils # 0.8 H (0-0.7) k/uL Carbon Dioxide 35 H (22-30) mmol/L BUN 35 H (9-20) mg/dL Creatinine 0.63 L (0.66-1.25) mg/dL Glucose 126 H (74-99) mg/dL POC Glucose (mg/dL) 134 H (70-110) mg/dL Total Bilirubin 1.5 H (0.2-1.3) mg/dL ALT 64 H (4-49) U/L Total Protein 5.7 L (6.3-8.2) g/dL Albumin 3.4 L (3.5-5.0) g/dL Microbiology - Last 24 Hours (Table) 08/25/23 21:05 Gram Stain - Preliminary Sputum Assessment and Plan Assessment: Severe aortic stenosis status post aortic valve replacement with a 29 mm Zheng Inspiris bovine pericardial valve, root enlargement with Hemashield patch and ligation of the left atrial appendage with a 35 mm atrial cure clip. Postop erative day #4 Anemia and thrombocytopenia, expected outcome of surgery, stabilized Leukocytosis, suspect reactive Diabetes mellitus, type II Gastroesophageal reflux disease Hypertension History of prostate cancer status post radiation History of rectal bleeding from radiation proctitis Plan: The patient was seen and evaluated Chest x-ray, labs and medications reviewed Chest x-ray showing increased patchy densities Initiated on vancomycin and Zosyn per CT service Procalcitonin pending Working well with the incentive spirometer Continue bronchodilators Continue heparin for DVT prophylaxis Titrate down the FiO2 as tolerated Increase his activity as tolerated We will continue to follow I have personally seen and examined the patient, performed the documentation and the assessment and plan as written. Number of minutes spent on the visit: 10.
--- NOTE | 2023-08-27 10:29 | P.PN ---
Subjective Progress Note Date: 08/27/23 72 year old M with PMH of CAD, HLD, HTN, DM, GERD, h/o GI bleed, h/o prostate CA, aortic stenosis presents to [facility] for elective surgery. He underwent AV replacement with Dr. Glaser on 08/22. [facility] consulted for medical management of this patient. He was extubated on 08/22. 08/23 Patient was seen and examined. He reports moderate pain at the site on incision. Currently on NS at 20 cc/hr. Insulin drip running at 5.5 units/hr. CBC WBC 15.8, Hg 9.3, Hct 38.6, Plt 145. CMP Cl 110, glu 104, AST 61, total protein 5.5. Mag 2.3. Ionized Ca 4.6. CT surgery note reviewed, DC right IJ Torrance Ileana, maximize medical therapy with ASA, statin, beta david. CXR done today shows mild pulmonary vascular congestion. POC glucose 119-168 over the past 24H. 08/24 Patient was seen and examined. Patient reports shortness of breath and cough productive of brown sputum. He is on 1.5L NC. Insulin drip running at 6 units/hr. CXR shows pulmonary edema and he has been started on Lasix 20 mg IV BID for 2 doses, Mucinex, Muromyst and DuoNeb PRN by CT surgery. Mediastinal chest tubes discontinued today. CBC shows WBC 23.4, Hg 9.3, Hct 29.7. CMP BUN 21, Cr 0.61, glu 113, T. Bili 1.5, AST 77, total protein 5.7. POC glucose 123- 178 over the past 24H. 08/25 Patient was seen and examined. Continued SOB. He is on 1L NC. Insulin drip running at 7.5 units/hr. CXR shows pulmonary edema with right pleural effusion and Lasix increased to 40 mg IV BID x 2 doses. CBC shows WBC 23.3, Hg 9.2, Hct 28.7. CMP BUN 33, glu 105, T. Bili 1.8, AST 89, ALT 84, total protein 5.6. POC glucose 92-203 over the past 24H. 08/26 Patient was seen and examined. Continued SOB with tachypnea, no real improvement. He is on 2L NC. R IJ cordis and L chest tube removed, Mullins catheter discontinued. Insulin drip switched to Levemir 15 units HS and Novolog 5 units TID with ISS yesterday. CXR shows persistent pulmonary edema with right pleural effusion, maintained on Lasix 40 mg IV BID. Negative 994 cc fluid balance over the past 24H. Weight 116.8 kg (08/23) - 111.8 kg (08/26. CBC shows WBC 22.2, Hg 9.5, Hct 30.1. CMP bicarb 35, BUN 35, Cr. 0.63, glu 126, T. Bili 1.5, ALT 64, total protein 5.7, alb 3.4. POC glucose 128-219 over the past 24H. General: appears SOB, no distress, appears at stated age Derm: warm, dry Head: atraumatic, normocephalic, symmetric Eyes: EOMI, no lid lag, anicteric sclera Mouth: no lip lesion, mucus membranes moist Cardiovascular: S1S2 reg, no murmur, midsternal surgical scar dressing c/d/i Lungs: Decreased BS bilateral, bibasilar crackles , no accessory muscle use Ext: no gross muscle atrophy, 1+ pitting bilateral lower extremity edema, no contractures Neuro: no focal neuro deficits Psych: Alert, oriented, appropriate affect +Mullins catheter in place Based on my assessment of this patient, this patient meets a high complexity level of care. Status post AV replacement POD 4 managed by Cardiothoracic surgery. Acute hypoxic respiratory failure likely due to pulmonary edema seen on CXR: Lasix 40 mg IV BID, Mucinex, Muromyst and DuoNeb PRN per CT surgery. DuoNeb PRN for SOB/wheezing. Sputum sample ordered. Monitor electrolytes and renal function while on Lasix. SIRS versus sepsis: Sepsis criteria met (leukocytosis and tachypnea). Sputum Cx showing rare PMN, moderate gram + bacilli and few gram + cocci. Discussed with CT surgery, start Vancomycin and Zosyn for concerns of HAP. Monitor Vancomycin trough and renal function. MRSA screen ordered. Blood culture and Procal ordered. COVID/Flu/RSV ordered. Acute blood loss anemia: Expected result of surgery. Trend daily. Consider transfusion if Hg < 7. Diabetes mellitus with hyperglycemia: Levemir 15 units HS and Novolog 5 units TID along with ISS. Accuchecks ACHS. Hypoglycemic precautions. Prerenal azotemia and metabolic alkalosis likely due to forced diuresis Transaminits: Stable. Monitor while patient is on statin. Hypertension: Metoprolol as below. CAD: ASA 325 mg PO QD. Lipitor 40 mg PO QD. Metoprolol 50 mg PO BID. Dyslipidemia: Lipitor as above. GERD: Protonix 40 mg PO BID. Resolved: Thrombocytopenia CODE STATUS: FULL CODE DVT Prophylaxis: Heparin SQ GI Prophylaxis: Protonix PO Designated medical POA if patient is not able to make medical decisions for themselves: I have reviewed the following community health consultant notes: Pulmonary, Cardiology, CT surgery I have reviewed the results of the following tests: CBC, CMP, POC glucose I have ordered the following tests: CBC, CMP, BCx, Procal, COVID/RSV/Flu I have discussed the care of this patient with the following independent historian: RN I have independently interpreted the following test below: CXR I have discussed the management of this patient with the following physician: Paul Ansari [place] JOE Objective - Vital Signs Vital signs: Vital Signs Temp 98.5 F 08/27/23 04:00 Pulse 79 08/27/23 07:00 Resp 30 H 08/27/23 07:00 BP 109/65 08/27/23 07:00 Pulse Ox 98 08/27/23 06:00 FiO2 30 08/26/23 04:00 Intake & Output 08/26/23 08/27/23 08/27/23 18:59 06:59 18:59 Intake Total 275.323 4621 546 Output Total 1695 1080 50 Balance -1190.965 196 496 Weight 111.8 kg Intake: IV 277 276 46 .9 NS pressure bags 57 36 6 Lactated Ringers 1,000 ml 220 240 40 @ 20 mls/hr IV .Q24H RONNIE Rx#:[id number] Intake, IV Titration 27.035 Amount Insulin Regular 100 unit 27.035 In Sodium Chloride 0.9% 100 ml @ Per Protocol IV .Q0M RONNIE Rx#:[id number] Oral 200 1000 500 Output: Chest Tube Drainage 50 Chest Tube Left 50 Urine 1645 1080 50 Other: Voiding Method Indwelling Catheter Indwelling Catheter External Catheter ABP, PAP, CO, CI - Last Documented Arterial Blood Pressure 109/53 Pulmonary Artery Pressure 46/20 Cardiac Output 4.3 Cardiac Index 2 - Labs CBC & Chem 7: 08/27/23 05:34 08/27/23 05:34 Labs: Abnormal Lab Results - Last 24 Hours (Table) 08/26/23 08/26/23 08/26/23 Range/Units 09:02 10:03 11:12 WBC (3.8-10.6) k/uL RBC (4.30-5.90) m/uL Hgb (13.0-17.5) gm/dL Hct (39.0-53.0) % RDW (11.5-15.5) % Neutrophils # (1.3-7.7) k/uL Monocytes # (0-1.0) k/uL Eosinophils # (0-0.7) k/uL Carbon Dioxide (22-30) mmol/L BUN (9-20) mg/dL Creatinine (0.66-1.25) mg/dL Glucose (74-99) mg/dL POC Glucose (mg/dL) 184 H 163 H 219 H (70-110) mg/dL Total Bilirubin (0.2-1.3) mg/dL ALT (4-49) U/L Total Protein (6.3-8.2) g/dL Albumin (3.5-5.0) g/dL 08/26/23 08/27/23 08/27/23 Range/Units 16:16 05:34 05:34 WBC 22.2 H (3.8-10.6) k/uL RBC 3.20 L (4.30-5.90) m/uL Hgb 9.5 L (13.0-17.5) gm/dL Hct 30.1 L (39.0-53.0) % RDW 17.3 H (11.5-15.5) % Neutrophils # 18.4 H (1.3-7.7) k/uL Monocytes # 1.3 H (0-1.0) k/uL Eosinophils # 0.8 H (0-0.7) k/uL Carbon Dioxide 35 H (22-30) mmol/L BUN 35 H (9-20) mg/dL Creatinine 0.63 L (0.66-1.25) mg/dL Glucose 126 H (74-99) mg/dL POC Glucose (mg/dL) 146 H (70-110) mg/dL Total Bilirubin 1.5 H (0.2-1.3) mg/dL ALT 64 H (4-49) U/L Total Protein 5.7 L (6.3-8.2) g/dL Albumin 3.4 L (3.5-5.0) g/dL 08/27/23 Range/Units 06:46 WBC (3.8-10.6) k/uL RBC (4.30-5.90) m/uL Hgb (13.0-17.5) gm/dL Hct (39.0-53.0) % RDW (11.5-15.5) % Neutrophils # (1.3-7.7) k/uL Monocytes # (0-1.0) k/uL Eosinophils # (0-0.7) k/uL Carbon Dioxide (22-30) mmol/L BUN (9-20) mg/dL Creatinine (0.66-1.25) mg/dL Glucose (74-99) mg/dL POC Glucose (mg/dL) 134 H (70-110) mg/dL Total Bilirubin (0.2-1.3) mg/dL ALT (4-49) U/L Total Protein (6.3-8.2) g/dL Albumin (3.5-5.0) g/dL Microbiology - Last 24 Hours (Table) 08/25/23 21:05 Gram Stain - Preliminary Sputum
--- NOTE | 2023-08-27 10:31 | XR ---
EXAM: XR chest 1V portable CLINICAL INDICATION:Male, 72 years old with history of Postop AVR; PH COMPARISON: 08/26/2023 TECHNIQUE: Chest single view. FINDINGS: The left chest tubes appear to have been removed. EKG leads overlie the chest. Sternotomy wires and a nchors redemonstrated. Left atrial appendage occlusion device redemonstrated. Stable cardiomediastinal silhouette. The heart appears enlarged. Central vascular congestion again no parth. Similar left basilar infiltrate or atelectasis. Slightly greater opacity at the right lung base with blunting of the costophrenic angle and obscuration of the diaphragm, with increased general haziness of the right lung, suspected to represent either edema or layering effusion. No pneumothorax is evide nt. Osseous structures appear stable. IMPRESSION: 1. Removal of left-sided chest tubes without evidence of pneumothorax. 2. Cardiomegaly with central vascular congestion, and slightly increased small to moderate sized rig ht pleural effusion.
[2023-08-27] MEDS: POTASSIUM CHLORIDE ER 20 MEQ TAB.ER PO SCH ×2 (10:54→16:20)
--- NOTE | 2023-08-27 11:09 | P.PN ---
Subjective Progress Note Date: 08/27/23 HISTORY OF PRESENTING ILLNESS This is a pleasant 72-year-old with past medical history significant for CAD with prior PCI of OM1 branch 2021, hypertension, hyperlipidemia, diabetes mellitus type 2, prior prostate cancer he and history of GI bleed and severe aortic stenosis. He follows in the office with Dr. Benson. Patient presented for elective surgical aortic valve replacement 08/22 which was completed successfully with a 29 mm Zheng Inspiris with aortic valve root enlargement. He was extubated and weaned from vasopressors with cardiac output in the 4.8 L/m range and cardiac index 2.2. She currently admits to significant chest pain around his incision and with deep inspiration. Does not have much of an appetite. Blood pressure borderline. Remains on amiodarone and in normal sinus rhythm. He did have some mild decrease in urine output and was placed on albumin with increasing urine output. 08/24 Patient seen and examined. Patient denies any chest pain or pressure. He is having poor inspiratory effort however and x-ray shows worsened bilateral edema. He was given Lasix 20 mg IV total 2 with some urine output however overall not significantly negative over last 24 hours. Creatinine has remained stable. EKG concerning for minimal ST elevation, possible pericarditis however he denies any chest pain. Remains in sinus rhythm. Metoprolol was increased. Does have increased respiratory rate in the upper 20s and 30s. His prior CVP not majorly elevated and so his cortis in place as well as left chest tube. 08/25 Patient is seen and examined. He remains in the intensive care unit. Blood pressure 124/53, heart rate 80, pulse ox 93% on 1 L. He has been afebrile. Repeat blood work reveals WBC 23.3, hemoglobin 9.2. Sodium 138, potassium 4.7, BUN 33 creatinine 0.66. proBNP 2700. Mildly elevated liver function test. Repeat chest x-ray reveals persistent left-sided chest tubes without pneumo. Persistent cardiomegaly with central vascular congestion and small to moderate size right pleural effusion. No significant change. Patient states he feels a little short of breath but better from yesterday. He has been urinating well. He is utilizing IS. He denies chest pain. 08/26 Patient is seen and examined. He remains in intensive care unit. Blood pressure 101/56, heart rate is in the 80s, pulse ox 96% on 2 L nasal cannula. Patient is afebrile. Repeat blood work reveals WBC 22.2, hemoglobin 9.5. Sodium 137, potassium 3.9, BUN 35 creatinine 0.63. Magnesium 1.9. CTS ordered a dose of Diamox and 1 dose of IV Lasix 40 mg this morning. Patient states he fe els a little better after a shower. He has ambulated, found sitting in reclines. Left CT removed yesterday. PHYSICAL EXAMINATION Vital signs reviewed. CONSTITUTIONAL: No apparent distress, however tachypnic and mild increased work of breathing HEENT: Head is normocephalic. Pupils are equal, round. Sclerae anicteric. Mucous membranes of the mouth are moist. No JVD. No carotid bruit. CHEST EXAMINATION: Decreased breath sounds bilaterally HEART EXAMINATION: Regular rate and rhythm. S1, S2 heard. No murmurs, gallops or rub. ABDOMEN: Soft, nontender. Positive bowel sounds. EXTREMITIES: 2+ peripheral pulses, Bilat lower extremity edema and no calf tenderness. NEUROLOGIC EXAMINATION: Patient is awake, alert and oriented x3. ASSESSMENT Severe aortic stenosis status post surgical aortic valve replacement 08/22 with aortic root enlargement Acute on chronic respiratory failure with worsening chest Xray, possible ARDS vs CHF Acute on chronic diastolic heart failure Minimal diffuse ST elevation without reciprocal changes, may be early pericarditis CAD with prior history PCI Hypertension Hyperlipidemia Anemia/acute blood loss anemia Diabetes mellitus type 2 History of prostate cancer History of GI bleed PLAN Patient is s/p diamox and IV Lasix Monitor TALAT, daily weights, electrolytes and renal function. EKG does show concern of minimal ST elevation without reciprocal changes and may be early pericarditis however not having typical pain. Repeat EKG will be reviewed. Continue to monitor closely Nurse practitioner note has been reviewed, I agree with documented findings and plan of care. Patient was seen and examined. Objective - Vital Signs Vital signs: Vital Signs Temp 98.3 F 08/27/23 08:00 Pulse 84 08/27/23 09:00 Resp 25 H 08/27/23 09:00 BP 101/56 08/27/23 09:00 Pulse Ox 96 08/27/23 09:00 FiO2 30 08/26/23 04:00 Intake & Output 08/26/23 08/27/23 08/27/23 18:59 06:59 18:59 Intake Total 951.843 1019 546 Output Total 1695 1080 150 Balance -1190.965 196 396 Weight 111.8 kg Intake: IV 277 276 46 .9 NS pressure bags 57 36 6 Lactated Ringers 1,000 ml 220 240 40 @ 20 mls/hr IV .Q24H RONNIE Rx#:[id number] Intake, IV Titration 27.035 Amount Insulin Regular 100 unit 27.035 In Sodium Chloride 0.9% 100 ml @ Per Protocol IV .Q0M RONNIE Rx#:[id number] Oral 200 1000 500 Output: Chest Tube Drainage 50 Chest Tube Left 50 Urine 1645 1080 150 Other: Voiding Method Indwelling Catheter Indwelling Catheter External Catheter ABP, PAP, CO, CI - Last Documented Arterial Blood Pressure 109/53 Pulmonary Artery Pressure 46/20 Cardiac Output 4.3 Cardiac Index 2 - Labs CBC & Chem 7: 08/27/23 05:34 08/27/23 05:34 Labs: Abnormal Lab Results - Last 24 Hours (Table) 08/26/23 08/26/23 08/26/23 Range/Units 10:03 11:12 16:16 WBC (3.8-10.6) k/uL RBC (4.30-5.90) m/uL Hgb (13.0-17.5) gm/dL Hct (39.0-53.0) % RDW (11.5-15.5) % Neutrophils # (1.3-7.7) k/uL Monocytes # (0-1.0) k/uL Eosinophils # (0-0.7) k/uL Carbon Dioxide (22-30) mmol/L BUN (9-20) mg/dL Creatinine (0.66-1.25) mg/dL Glucose (74-99) mg/dL POC Glucose (mg/dL) 163 H 219 H 146 H (70-110) mg/dL Total Bilirubin (0.2-1.3) mg/dL ALT (4-49) U/L Total Protein (6.3-8.2) g/dL Albumin (3.5-5.0) g/dL 08/27/23 08/27/23 08/27/23 Range/Units 05:34 05:34 06:46 WBC 22.2 H (3.8-10.6) k/uL RBC 3.20 L (4.30-5.90) m/uL Hgb 9.5 L (13.0-17.5) gm/dL Hct 30.1 L (39.0-53.0) % RDW 17.3 H (11.5-15.5) % Neutrophils # 18.4 H (1.3-7.7) k/uL Monocytes # 1.3 H (0-1.0) k/uL Eosinophils # 0.8 H (0-0.7) k/uL Carbon Dioxide 35 H (22-30) mmol/L BUN 35 H (9-20) mg/dL Creatinine 0.63 L (0.66-1.25) mg/dL Glucose 126 H (74-99) mg/dL POC Glucose (mg/dL) 134 H (70-110) mg/dL Total Bilirubin 1.5 H (0.2-1.3) mg/dL ALT 64 H (4-49) U/L Total Protein 5.7 L (6.3-8.2) g/dL Albumin 3.4 L (3.5-5.0) g/dL Microbiology - Last 24 Hours (Table) 08/25/23 21:05 Gram Stain - Preliminary Sputum
[2023-08-27 11:27] LABS: Glucose,Whole Blood 157 mg/dL (70-110)
[2023-08-27] MEDS: PIPERACILLIN-TAZOBACTAM 3.375 GM in SODIUM CHLORIDE 0.9% 100 ML IVPB SCH (11:53)
[2023-08-27] MEDS: VANCOMYCIN 2,000 MG in SODIUM CHLORIDE 0.9% 500 ML 500 ML IVPB SCH (12:38)
[2023-08-27] MEDS: MAGNESIUM SULFATE-D5W PMX 1 GM in DEXTROSE/WATER 1 100ML.BAG IVPB ONE (14:56)
[2023-08-27 16:17] LABS: Glucose,Whole Blood 102 mg/dL (70-110)
[2023-08-27 20:25] LABS: Glucose,Whole Blood 150 mg/dL (70-110)
[2023-08-28 06:46] LABS: Glucose,Whole Blood 158 mg/dL (70-110)
[2023-08-28 06:50] LABS: ALT 53 U/L (4-49); AST 42 U/L (17-59); African American GFR (CKD) >90 (>60 ml/min/1.73 sqM); Albumin 3.3 g/dL (3.5-5.0); Alkaline Phosphatase 82 U/L (38-126); Anion Gap 4 mmol/L; Blood Urea Nitrogen 28 mg/dL (9-20); Calcium 8.3 mg/dL (8.4-10.2); Carbon Dioxide 33 mmol/L (22-30); Chloride 98 mmol/L (98-107); Glucose 115 mg/dL (74-99); Non-African American GFR(CKD) >90 (>60 ml/min/1.73 sqM); Potassium 3.9 mmol/L (3.5-5.1); Sodium 135 mmol/L (137-145); Total Bilirubin 1.8 mg/dL (0.2-1.3)
[2023-08-28] MEDS: POTASSIUM BICARBONATE/CIT AC 20 MEQ TABLET.EFF NG-TUBE SCH (06:57)
[2023-08-28 07:09] LABS: Anisocytosis Slight; Basophils # (A) 0.1 k/uL (0-0.2); Basophils % (A) 1 %; Eosinophils # (A) 0.9 k/uL (0-0.7); Eosinophils % (A) 5 %; HCT 30.4 % (39.0-53.0); HGB 9.7 gm/dL (13.0-17.5); Hypochromasia Slight; Lymphocytes # (A) 1.4 k/uL (1.0-4.8); Lymphocytes % (A) 7 %; MCH 30.1 pg (25.0-35.0); MCHC 32.1 g/dL (31.0-37.0); MCV 93.9 fL (80.0-100.0); Mean Platelet Volume 8.4; Monocytes # (A) 1.4 k/uL (0-1.0); Monocytes % (A) 7 %; Neutrophils # (A) 16.7 k/uL (1.3-7.7); Neutrophils % (A) 80 %; Platelet Count 257 k/uL (150-450); RBC 3.23 m/uL (4.30-5.90); RDW 17.5 % (11.5-15.5); WBC 20.8 k/uL (3.8-10.6)
--- NOTE | 2023-08-28 07:34 | XR ---
EXAMINATION TYPE: XR chest 2V DATE OF EXAM: 08/28/2023 COMPARISON: 08/27/2023 TECHNIQUE: PA and lateral views submitted. HISTORY: PostaVR FINDINGS: Median sternotomy changes with atrial appendage. There is cardiac valve replacement surgery. Elevated right hemidiaphragm with bilateral consolidation and pleural effusion greater on the right. Mild jany tral venous congestion suspected. There is marked cardiomegaly. No pneumothorax. Arthropathy of the s houlders and degenerative change of the spine. IMPRESSION: 1. Stable bilateral consolidation and pleural effusion. Underlying CHF in the differential diagnosis.
--- NOTE | 2023-08-28 08:03 | P.PN ---
Subjective Progress Note Date: 08/28/23 Principal diagnosis: Symptomatic calcific tricuspid aortic stenosis. Past medical history significant for coronary artery disease status post PCI to his obtuse marginal coronary artery in 2021, hypertension, hyperlipidemia, diabetes mellitus type 2, prostate cancer, GI bleed, hard of hearing and is a lifetime non-smoker. POD #5 Aortic valve replacement with 29 mm Zheng Inspiris bovine pericardial valve, root enlargement with Hemashield patch (Héctor Whitfield technique), epiaortic ultrasound, ligation of left atrial appendage with 35mm AtriCure clip and plates and screws for sternal closure. Postoperative acute blood loss anemia, expected given hemodilution and cardiopulmonary bypass. The patient was seen and examined in follow-up today August 28, 2023 at his bedside in the intensive care unit. He is currently sitting up to the bedside chair, is awake, alert, oriented x 3 and is in no acute apparent distress. He has been afebrile in the last 24 hours. He denies any complaints of shortness of breath or pain at this time. Oxygen saturations are 98% on 2 L nasal cannula and he is achieving 1500 mL on his incentive spirometry with encouragement. Bedside telemetry is showing normal sinus rhythm heart rate 78 bpm. He remains hemodynamically stable and is currently on no inotropic or pressor support. He has been up ambulating in the intensive care unit hallway with standby assistance from nursing and therapy staff and tolerating well. He reports he is going farther each day. Tolerated first postoperative shower yesterday. WBC count is trending down and is 20.8 today, BUN 28 creatinine 0.66. Laboratory and chest x-ray results reviewed. Objective - Vital Signs Vital signs: Vital Signs Temp 98.2 F 08/28/23 04:00 Pulse 78 08/28/23 07:43 Resp 13 08/28/23 07:00 BP 99/60 08/28/23 07:00 Pulse Ox 98 08/28/23 07:00 FiO2 30 08/26/23 04:00 Intake & Output 08/27/23 08/28/23 08/28/23 18:59 06:59 18:59 Intake Total 2246 Output Total 2200 1350 0 Balance 46 -1350 0 Weight 111.3 kg Intake: IV 746 .9 NS pressure bags 6 Lactated Ringers 1,000 ml 40 @ 20 mls/hr IV .Q24H RONNIE Rx#:[id number] Magnesium Sulfate-D5w Pmx 100 1 gm In Dextrose/Water 1 100ml.bag @ 100 mls/hr IVPB ONCE ONE Rx#: [id number] Piperacillin-Tazobactam 3 100 .375 gm In Sodium Chloride 0.9% 100 ml @ 25 mls/hr IVPB Q8H [facility] Rx#: [id number] Vancomycin 2,000 mg In 500 Sodium Chloride 0.9% 500 ml 500 ml @ 167 mls/hr IVPB Q12H [facility] Rx#: [id number] Oral 1500 Output: Urine 2200 1350 0 Other: Voiding Method External Catheter External Catheter # Bowel Movements 1 1 ABP, PAP, CO, CI - Last Documented Arterial Blood Pressure 109/53 Pulmonary Artery Pressure 46/20 Cardiac Output 4.3 Cardiac Index 2 - Exam CONSTITUTIONAL: Sitting up to the bedside chair in the intensive care unit, appears comfortable, cooperative, no apparent acute distress. HEENT: Neck is supple, no JVD, no lymphadenopathy. RESPIRATORY: Lungs sounds essentially clear throughout, diminished to his bilateral bases, right greater than left. Respirations are tachypneic, symmetrical and nonlabored. Currently on 2 L nasal cannula with oxygen saturations 98%. Able to achieve 1500 mL on his incentive spirometry. Strong cough productive cough with whalen tenacious sputum. CARDIOVASCULAR: Regular rhythm and rate. S1 and S2 present, negative for S3, gallop or murmur. Sternum is stable. Bedside telemetry showing normal sinus rhythm heart rate 78 bpm. Palpable peripheral pulses bilaterally, +1 edema to his bilateral lower extremities. No calf pain or tenderness noted. Heart hugger in place with patient demonstrating appropriate use. Knee-high CHARMAINE hose and sequential compression devices in place to his bilateral lower extremities. GASTROINTESTINAL: Abdomen soft, nontender, nondistended. Active bowel sounds present 4 quadrants. Tolerating diet. Passing flatus. No guarding or rigidity. GENITOURINARY: External catheter in place, urine output 1000 mL in the last 8 hours. INTEGUMENTARY: Jaundiced, warm and dry with no evidence of clubbing or cyanosis. Midline sternal incision clean dry and well approximated, covered w ith dry intact dressing. NEUROLOGIC: Cranial nerves II through XII intact. No focal deficits. MUSKULOSKELETAL: Able to move all extremities, strength equal bilaterally, generalized weakness. PSYCHIATRIC: Alert and oriented to person place and time, appropriate affect, intact judgment and insight. INVASIVE LINES AND TUBES: Atrial and ventricular epicardial pacemaker wires present, and are grounded. - Allied health notes Allied health notes reviewed: nursing - Labs CBC & Chem 7: 08/28/23 05:43 08/28/23 05:43 Labs: Abnormal Lab Results - Last 24 Hours (Table) 08/27/23 08/27/23 08/27/23 Range/Units 09:05 11:27 20:23 WBC (3.8-10.6) k/uL RBC (4.30-5.90) m/uL Hgb (13.0-17.5) gm/dL Hct (39.0-53.0) % RDW (11.5-15.5) % Neutrophils # (1.3-7.7) k/uL Monocytes # (0-1.0) k/uL Eosinophils # (0-0.7) k/uL Sodium (137-145) mmol/L Carbon Dioxide (22-30) mmol/L BUN (9-20) mg/dL Glucose (74-99) mg/dL POC Glucose (mg/dL) 157 H 150 H (70-110) mg/dL Calcium (8.4-10.2) mg/dL Total Bilirubin (0.2-1.3) mg/dL ALT (4-49) U/L Total Protein (6.3-8.2) g/dL Albumin (3.5-5.0) g/dL Procalcitonin 0.22 H (0.02-0.09) ng/mL 08/28/23 08/28/23 08/28/23 Range/Units 05:43 05:43 06:45 WBC 20.8 H (3.8-10.6) k/uL RBC 3.23 L (4.30-5.90) m/uL Hgb 9.7 L (13.0-17.5) gm/dL Hct 30.4 L (39.0-53.0) % RDW 17.5 H (11.5-15.5) % Neutrophils # 16.7 H (1.3-7.7) k/uL Monocytes # 1.4 H (0-1.0) k/uL Eosinophils # 0.9 H (0-0.7) k/uL Sodium 135 L (137-145) mmol/L Carbon Dioxide 33 H (22-30) mmol/L BUN 28 H (9-20) mg/dL Glucose 115 H (74-99) mg/dL POC Glucose (mg/dL) 158 H (70-110) mg/dL Calcium 8.3 L (8.4-10.2) mg/dL Total Bilirubin 1.8 H (0.2-1.3) mg/dL ALT 53 H (4-49) U/L Total Protein 6.0 L (6.3-8.2) g/dL Albumin 3.3 L (3.5-5.0) g/dL Procalcitonin (0.02-0.09) ng/mL Microbiology - Last 24 Hours (Table) 08/25/23 21:05 Gram Stain - Preliminary Sputum Sputum Culture - Preliminary - Imaging and Cardiology Chest x-ray: report reviewed, image reviewed Assessment and Plan Assessment: Symptomatic calcific tricuspid aortic stenosis, status post aortic valve replacement with a 29 mm Zheng Inspiris bovine pericardial valve with root enlargement with a hemashield patch Héctor Whitfield technique Coronary artery disease status post PCI to his obtuse marginal coronary artery in 2021 Hypertension Hyperlipidemia, triglycerides 213, HDL 28.7 Diabetes mellitus type 2, preoperative hemoglobin A1C 6.6% History of prostate cancer History of GI bleed Hard of hearing Lifetime non-smoker, preoperative FEV1 2.27 L predicted value, 85% Postoperative acute blood loss anemia, expected given hemodilution and cardiopulmonary bypass Elevated transaminase, trending down Plan: Continue to maximize medical therapy with aspirin, and beta-david. Will increase metoprolol tartrate as tolerated with hold parameters. Bronchodilator management per pulmonary/critical care medicine recommendations. Encourage incentive spirometry use 10 times every hour while awake. Increase activity, ambulate as tolerated. PT/OT/cardiac rehab following. Will monitor daily labs and chest x-rays. Electrolyte replacement per protocol. GI/DVT prophylaxis. Continue Protonix 40 mg p.o. AC twice daily due to the patient's history of GI bleed. Insulin management per internal medicine, Patient is a diabetic, with a preoperative hemoglobin A1c 6.6% Pain control with current medication regimen. Will avoid Toradol at this time due to the patient's history of GI bleed. Diamox 250 mg IV x 1 now, Zaroxolyn 2.5 mg p.o. x 1 now, potassium chloride 10 mEq p.o. x 1 now. Continue to monitor strict accurate intake and output. May bladder scan every 6 hours and as needed postvoid residual. If greater than 300 mL of urine may s traight cath. Sputum culture preliminary results showing many normal respiratory robert. WBC count trending down. Continue to hold statin until liver enzymes normalized. Patient takes Repatha at home. More recommendations to follow based on patient's clinical course. Time with Patient: Greater than 30
[2023-08-28] MEDS: POTASSIUM CHLORIDE ER 10 MEQ TAB.ER.PRT PO STA (08:15)
[2023-08-28] MEDS: metOLazone 2.5 MG TAB PO SCH (08:21)
--- NOTE | 2023-08-28 10:01 | P.PN ---
Subjective Progress Note Date: 08/28/23 72 year old M with PMH of CAD, HLD, HTN, DM, GERD, h/o GI bleed, h/o prostate CA, aortic stenosis presents to [facility] for elective surgery. He underwent AV replacement with Dr. Glaser on 08/22. [facility] consulted for medical management of this patient. He was extubated on 08/22. 08/23 Patient was seen and examined. He reports moderate pain at the site on incision. Currently on NS at 20 cc/hr. Insulin drip running at 5.5 units/hr. CBC WBC 15.8, Hg 9.3, Hct 38.6, Plt 145. CMP Cl 110, glu 104, AST 61, total protein 5.5. Mag 2.3. Ionized Ca 4.6. CT surgery note reviewed, DC right IJ Hanna Ileana, maximize medical therapy with ASA, statin, beta david. CXR done today shows mild pulmonary vascular congestion. POC glucose 119-168 over the past 24H. 08/24 Patient was seen and examined. Patient reports shortness of breath and cough productive of brown sputum. He is on 1.5L NC. Insulin drip running at 6 units/hr. CXR shows pulmonary edema and he has been started on Lasix 20 mg IV BID for 2 doses, Mucinex, Muromyst and DuoNeb PRN by CT surgery. Mediastinal chest tubes discontinued today. CBC shows WBC 23.4, Hg 9.3, Hct 29.7. CMP BUN 21, Cr 0.61, glu 113, T. Bili 1.5, AST 77, total protein 5.7. POC glucose 123- 178 over the past 24H. 08/25 Patient was seen and examined. Continued SOB. He is on 1L NC. Insulin drip running at 7.5 units/hr. CXR shows pulmonary edema with right pleural effusion and Lasix increased to 40 mg IV BID x 2 doses. CBC shows WBC 23.3, Hg 9.2, Hct 28.7. CMP BUN 33, glu 105, T. Bili 1.8, AST 89, ALT 84, total protein 5.6. POC glucose 92-203 over the past 24H. 08/26 Patient was seen and examined. Continued SOB with tachypnea, no real improvement. He is on 2L NC. R IJ cordis and L chest tube removed, Mullins catheter discontinued. Insulin drip switched to Levemir 15 units HS and Novolog 5 units TID with ISS yesterday. CXR shows persistent pulmonary edema with right pleural effusion, maintained on Lasix 40 mg IV BID. Negative 994 cc fluid balance over the past 24H. Weight 116.8 kg (08/23) - 111.8 kg (08/26. CBC shows WBC 22.2, Hg 9.5, Hct 30.1. CMP bicarb 35, BUN 35, Cr. 0.63, glu 126, T. Bili 1.5, ALT 64, total protein 5.7, alb 3.4. POC glucose 128-219 over the past 24H. 08/27 Patient was seen and examined. Continued SOB with tachypnea, no real improvement. Started on Vancomycin and Zosyn yesterday for concerns of PNA. Procal mildly elevated at 0.22, COVID/RSV/Flu negative. Sputum Cx shows no S. aureus or P. aeruginosa recovered, Vancomycin discontinued. Currently on Levemir 15 units HS and Novolog 5 units TID with ISS yesterday. POC glucose 102-219 over the past 24H requiring 4 units Novolog on the sliding scale. CXR shows persistent pulmonary edema with right pleural effusion, Lasix IV discontinued 08/26. CT surgery has ordered Acetazolamide 250 mg IV x 1 along with Mag sulfate 1g IV, Metolazone 2.5 mg PO x 1 and 20 meq KCl PO x 1. Negative 1304 cc fluid balance over the past 24H. Weight 116.8 kg (08/23) - 111.3 kg (08/27). CBC shows WBC 20.8, Hg 9.7, Hct 30.4. CMP Na 135, bicarb 33, BUN 28, glu 115, Ca 8.3, T. Bili 1.8, ALT 53, total protein 6, alb 3.3. General: appears SOB, no distress, appears at stated age Derm: warm, dry Head: atraumatic, normocephalic, symmetric Eyes: EOMI, no lid lag, anicteric sclera Mouth: no lip lesion, mucus membranes moist Cardiovascular: S1S2 reg, no murmur, midsternal surgical scar dressing c/d/i Lungs: Decreased BS bilateral, bibasilar crackles , no accessory muscle use Ext: no gross muscle atrophy, 1+ pitting bilateral lower extremity edema, no contractures Neuro: no focal neuro deficits Psych: Alert, oriented, appears defeated Based on my assessment of this patient, this patient meets a high complexity level of care. Status post AV replacement POD 5 managed by Cardiothoracic surgery. Acute hypoxic respiratory failure likely due to pulmonary edema seen on CXR: Status post Lasix IV (08/23-08/26). Mucinex, and DuoNeb PRN per CT surgery. SIRS versus sepsis: Sepsis criteria met (leukocytosis and tachypnea). Procal 0.22 mildly elevated. COVID/RSV/Flu negative. Sputum sample showing normal respiratory robert. Received one dose of Vancomycin on 08/26, continued on Zosyn 3.375g IV TID (D2). MRSA screen ordered. Follow BCx. Acute blood loss anemia: Expected result of surgery. Trend daily. Consider transfusion if Hg < 7. Diabetes mellitus with hyperglycemia: Levemir 15 units HS and Novolog 5 units TID along with ISS. Accuchecks ACHS. Hypoglycemic precautions. Prerenal azotemia and metabolic alkalosis likely due to forced diuresis. Transaminits: Stable. Monitor while patient is on statin. Hypertension: Metoprolol as below. CAD: ASA 325 mg PO QD. Lipitor 40 mg PO QD. Metoprolol 50 mg PO BID. Dyslipidemia: Lipitor as above. GERD: Protonix 40 mg PO BID. Resolved: Thrombocytopenia CODE STATUS: FULL CODE DVT Prophylaxis: Heparin SQ GI Prophylaxis: Protonix PO Designated medical POA if patient is not able to make medical decisions for themselves: I have reviewed the following cloud consultant notes: Pulmonary, Cardiology, CT surgery I have reviewed the results of the following tests: CBC, CMP, POC glucose, Procal, COVID/RSV/Flu I have ordered the following tests: CBC, CMP, BCx pending I have discussed the care of this patient with the following independent historian: RN I have independently interpreted the following test below: CXR I have discussed the management of this patient with the following physician: Objective - Vital Signs Vital signs: Vital Signs Temp 98.3 F 08/28/23 08:00 Pulse 69 08/28/23 09:00 Resp 28 H 08/28/23 09:00 BP 115/66 08/28/23 08:00 Pulse Ox 94 L 08/28/23 09:00 FiO2 30 08/26/23 04:00 Intake & Output 08/27/23 08/28/23 08/28/23 18:59 06:59 18:59 Intake Total 2246 Output Total 2200 1350 0 Balance 46 -1350 0 Weight 111.3 kg Intake: IV 746 .9 NS pressure bags 6 Lactated Ringers 1,000 ml 40 @ 20 mls/hr IV .Q24H [facility] Rx#:[id number] Magnesium Sulfate-D5w Pmx 100 1 gm In Dextrose/Water 1 100ml.bag @ 100 mls/hr IVPB ONCE ONE Rx#: [id number] Piperacillin-Tazobactam 3 100 .375 gm In Sodium Chloride 0.9% 100 ml @ 25 mls/hr IVPB Q8H [facility] Rx#: [id number] Vancomycin 2,000 mg In 500 Sodium Chloride 0.9% 500 ml 500 ml @ 167 mls/hr IVPB Q12H [facility] Rx#: [id number] Oral 1500 Output: Urine 2200 1350 0 Other: Voiding Method External Catheter External Catheter External Catheter # Bowel Movements 1 1 ABP, PAP, CO, CI - Last Documented Arterial Blood Pressure 109/53 Pulmonary Artery Pressure 46/20 Cardiac Output 4.3 Cardiac Index 2 - Labs CBC & Chem 7: 08/28/23 05:43 08/28/23 05:43 Labs: Abnormal Lab Results - Last 24 Hours (Table) 08/27/23 08/27/23 08/27/23 Range/Units 09:05 11:27 20:23 WBC (3.8-10.6) k/uL RBC (4.30-5.90) m/uL Hgb (13.0-17.5) gm/dL Hct (39.0-53.0) % RDW (11.5-15.5) % Neutrophils # (1.3-7.7) k/uL Monocytes # (0-1.0) k/uL Eosinophils # (0-0.7) k/uL Sodium (137-145) mmol/L Carbon Dioxide (22-30) mmol/L BUN (9-20) mg/dL Glucose (74-99) mg/dL POC Glucose (mg/dL) 157 H 150 H (70-110) mg/dL Calcium (8.4-10.2) mg/dL Total Bilirubin (0.2-1.3) mg/dL ALT (4-49) U/L Total Protein (6.3-8.2) g/dL Albumin (3.5-5.0) g/dL Procalcitonin 0.22 H (0.02-0.09) ng/mL 08/28/23 08/28/23 08/28/23 Range/Units 05:43 05:43 06:45 WBC 20.8 H (3.8-10.6) k/uL RBC 3.23 L (4.30-5.90) m/uL Hgb 9.7 L (13.0-17.5) gm/dL Hct 30.4 L (39.0-53.0) % RDW 17.5 H (11.5-15.5) % Neutrophils # 16.7 H (1.3-7.7) k/uL Monocytes # 1.4 H (0-1.0) k/uL Eosinophils # 0.9 H (0-0.7) k/uL Sodium 135 L (137-145) mmol/L Carbon Dioxide 33 H (22-30) mmol/L BUN 28 H (9-20) mg/dL Glucose 115 H (74-99) mg/dL POC Glucose (mg/dL) 158 H (70-110) mg/dL Calcium 8.3 L (8.4-10.2) mg/dL Total Bilirubin 1.8 H (0.2-1.3) mg/dL ALT 53 H (4-49) U/L Total Protein 6.0 L (6.3-8.2) g/dL Albumin 3.3 L (3.5-5.0) g/dL Procalcitonin (0.02-0.09) ng/mL Microbiology - Last 24 Hours (Table) 08/25/23 21:05 Gram Stain - Final Sputum Sputum Culture - Final
[2023-08-28 10:58] LABS: Glucose,Whole Blood 182 mg/dL (70-110)
--- NOTE | 2023-08-28 11:16 | P.CONS ---
History of Present Illness - Reason for Consult Consult date: 08/28/23 rehab recommendations - Chief Complaint s/p surgery - History of Present Illness Mr Alvarez is a 72 y/o male, right-handed, who lives with his significant other in a home with 1 YARA. Prior to admission, patient was independent with mobilty and ADLs, drives. In addition to his S.O., he has step-daughters from a past marriage that can help. He presented to the hospital on 08/23/23 for an elective aortic valve replacement secondary to Symptomatic calcific tricuspid aortic stenosis. Past medical history significant for coronary artery disease status post PCI to his obtuse marginal coronary artery in 2021, hypertension, hyperlipidemia, diabetes mellitus type 2, prostate cancer, GI bleed, hard of hearing and is a lifetime non-smoker. Patient did have postoperative acute blood loss anemia, expected given hemodilution and cardiopulmonary bypass. He is on abx, WBC improving. PM&R consulted for rehab recommendations, patient was seen by therapies 08/24 and 08/25; needing min assist with transfers, mod assist with gait 80ft, UB dressing mod assist, LB dressing max to total assist, bathing max assist. He is tired today, has some SOB at times, chest pain from incision. Denies PATEL, CP otherwise, abdominal pain or other pain complaints. His LBM was this am. Review of Systems negative unless stated above in HPI Past Medical History Past Medical History: Cancer, Diabetes Mellitus, GERD/Reflux, Hearing Disorder / Deafness, Hyperlipidemia, Hypertension, Osteoarthritis (OA) Additional Past Medical History / Comment(s): HX. MENIERE'S. HX. HIATAL HERNIA. HX. 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 HX ARTHRITIS- IN HANDS,FINGERS & SHOULDERS. NEW DX PROSTATE CANCER ABOUT 2021 History of Any Multi-Drug Resistant Organisms: None Reported Past Surgical History: Heart Catheterization Additional Past Surgical History / Comment(s): DEVIATED SEPTUM SX. COLONOSCOPY Past Anesthesia/Blood Transfusion Reactions: No Reported Reaction Additional Past Anesthesia/Blood Transfusion Reaction / Comm: robert hx blood tranfusion Smoking Status: Never smoker - Past Family History Mother Family Medical History: No Reported History Medications and Allergies Home Medications Medication Instructions Recorded Confirmed Type Omeprazole [PriLOSEC] 20 mg PO AC-LUNCH 07/11/13 08/23/23 History Benazepril [Lotensin] 10 mg PO DAILY 09/29/21 08/21/23 History Glimepiride [Amaryl] 2 mg PO QAM 09/29/21 08/23/23 History Pioglitazone [Actos] 15 mg PO HS 09/29/21 08/23/23 History amLODIPine [Norvasc] 5 mg PO DAILY 09/29/21 08/22/23 History Aspirin 81 mg PO DAILY #60 tab 06/09/23 08/23/23 Rx Glimepiride [Amaryl] 4 mg PO HS 08/18/23 08/23/23 History "Cholesterol Med" 1 dose SQ Q90D 08/21/23 08/23/23 History Allergies Allergy/AdvReac Type Severity Reaction Status Date / Time Gkmjupn-QXA-HtM Reductase AdvReac MUSCLE Verified 08/23/23 05:49 Inhibitor CRAMPS IN [Geseodc-Rrv-Njh Reductase LEGS Inhibitor] Physical Exam Vitals: Vital Signs Temp Pulse Resp BP Pulse Ox 08/28/23 10:00 76 26 H 105/58 94 L 08/28/23 09:00 69 28 H 94 L 08/28/23 08:00 98.3 F 78 23 115/66 97 08/28/23 07:58 77 08/28/23 07:43 78 08/28/23 07:00 76 13 99/60 98 08/28/23 06:00 72 18 99/64 96 08/28/23 05:00 72 7 L 101/54 96 08/28/23 04:00 98.2 F 72 23 99/60 97 08/28/23 03:00 73 26 H 94/64 96 08/28/23 02:00 72 22 102/67 99 08/28/23 01:00 73 21 93/55 99 08/28/23 00:01 73 27 H 104/65 98 08/28/23 00:00 97.9 F 72 23 104/65 98 08/27/23 23:00 71 27 H 124/56 98 08/27/23 22:00 68 24 106/66 99 08/27/23 21:00 76 28 H 101/52 99 08/27/23 20:55 75 08/27/23 20:34 76 08/27/23 20:00 97.8 F 75 28 H 156/65 98 06/30/24 19:00 77 28 H 117/59 99 08/27/23 18:00 76 25 H 99 08/27/23 17:00 76 28 H 121/74 98 08/27/23 16:19 75 08/27/23 16:05 75 08/27/23 16:00 98.0 F 74 26 H 130/69 98 08/27/23 15:00 76 22 120/65 97 08/27/23 14:00 76 24 120/62 96 08/27/23 13:00 75 24 99 08/27/23 12:38 74 08/27/23 12:25 68 08/27/23 12:00 98.4 F 76 14 98 Intake and Output 08/27/23 08/28/23 08/28/23 22:59 06:59 14:59 Intake Total 700 300 Output Total 950 1000 250 Balance -250 -1000 50 Intake: IV 200 Magnesium Sulfate-D5w Pmx 100 1 gm In Dextrose/Water 1 100ml.bag @ 100 mls/hr IVPB ONCE ONE Rx#: [id number] Piperacillin-Tazobactam 3 100 .375 gm In Sodium Chloride 0.9% 100 ml @ 25 mls/hr IVPB Q8H [facility] Rx#: [id number] Oral 500 300 Output: Urine 950 1000 250 Other: Voiding Method External Catheter External Catheter External Catheter # Bowel Movements 1 Weight 111.3 kg General: WDWN, male, NAD Head: Normocephalic, atraumatic. Eyes: Symmetric Ears: Symmetric. Hearing decreased Mouth: Clear. Neck: Supple. Cardiac: Regular rate. Calves supple, non tender, + LE edema Lungs: Breathing comfortably on 2L O2. Chest symmetric. Abdomen: Soft, nontender. Extremities: Arthritic changes consistent with age. Neurological: Alert and oriented x 4. Speech is clear and fluent without paraphasic errors, though soft and slightly delayed Cranial nerves: CN II-XII: intact. Sensation: Intact and symmetrical limbs. Musculoskeletal: ROM WFL EXCEPT: shoulder not tested MMT UE Sh Abd EE EF FABD WE HG Right nt >3 >3 4 4 Left nt >3 >3 4 4 MMT LE HF KE DF EHL Right 5 5 5 5 Left 5 5 5 5 Skin: Skin intact where visible to head, neck, and bilateral upper and lower extremities EXCEPT: sternal incision c/d/i Psych: Calm, cooperative Results CBC & Chem 7: 08/28/23 05:43 08/28/23 10:39 Labs: Abnormal Lab Results - Last 24 Hours (Table) 08/27/23 08/27/23 08/27/23 Range/Units 09:05 11:27 20:23 WBC (3.8-10.6) k/uL RBC (4.30-5.90) m/uL Hgb (13.0-17.5) gm/dL Hct (39.0-53.0) % RDW (11.5-15.5) % Neutrophils # (1.3-7.7) k/uL Monocytes # (0-1.0) k/uL Eosinophils # (0-0.7) k/uL Sodium (137-145) mmol/L Carbon Dioxide (22-30) mmol/L BUN (9-20) mg/dL Glucose (74-99) mg/dL POC Glucose (mg/dL) 157 H 150 H (70-110) mg/dL Calcium (8.4-10.2) mg/dL Total Bilirubin (0.2-1.3) mg/dL ALT (4-49) U/L Total Protein (6.3-8.2) g/dL Albumin (3.5-5.0) g/dL Procalcitonin 0.22 H (0.02-0.09) ng/mL 08/28/23 08/28/23 08/28/23 Range/Units 05:43 05:43 06:45 WBC 20.8 H (3.8-10.6) k/uL RBC 3.23 L (4.30-5.90) m/uL Hgb 9.7 L (13.0-17.5) gm/dL Hct 30.4 L (39.0-53.0) % RDW 17.5 H (11.5-15.5) % Neutrophils # 16.7 H (1.3-7.7) k/uL Monocytes # 1.4 H (0-1.0) k/uL Eosinophils # 0.9 H (0-0.7) k/uL Sodium 135 L (137-145) mmol/L Carbon Dioxide 33 H (22-30) mmol/L BUN 28 H (9-20) mg/dL Glucose 115 H (74-99) mg/dL POC Glucose (mg/dL) 158 H (70-110) mg/dL Calcium 8.3 L (8.4-10.2) mg/dL Total Bilirubin 1.8 H (0.2-1.3) mg/dL ALT 53 H (4-49) U/L Total Protein 6.0 L (6.3-8.2) g/dL Albumin 3.3 L (3.5-5.0) g/dL Procalcitonin (0.02-0.09) ng/mL 08/28/23 Range/Units 10:56 WBC (3.8-10.6) k/uL RBC (4.30-5.90) m/uL Hgb (13.0-17.5) gm/dL Hct (39.0-53.0) % RDW (11.5-15.5) % Neutrophils # (1.3-7.7) k/uL Monocytes # (0-1.0) k/uL Eosinophils # (0-0.7) k/uL Sodium (137-145) mmol/L Carbon Dioxide (22-30) mmol/L BUN (9-20) mg/dL Glucose (74-99) mg/dL POC Glucose (mg/dL) 182 H (70-110) mg/dL Calcium (8.4-10.2) mg/dL Total Bilirubin (0.2-1.3) mg/dL ALT (4-49) U/L Total Protein (6.3-8.2) g/dL Albumin (3.5-5.0) g/dL Procalcitonin (0.02-0.09) ng/mL Microbiology - Last 24 Hours (Table) 08/25/23 21:05 Gram Stain - Final Sputum Sputum Culture - Final Assessment and Plan Assessment: # Cardiac debility secondary to elective aortic valve replacement secondary to Symptomatic calcific tricuspid aortic stenosis #Impaired gait and ADLs secondary to above # Post operative anemia -Hgb 9.7 # Leukocystosis -on Zosyn # Comorbidities: coronary artery disease status post PCI, hypertension, hyperlipidemia, diabetes mellitus type 2, prostate cancer, GI bleed # Pain Management -Tylenol prn # DVT -ASA 325 mg QD, SQ heparin # Your medical dx and management Dispo: Patient is performing below his baseline level of function, has a supportive significant other. Recommending IPR for continued rehab when medically stable. Patient seen and examined by Dr Power, note prepped by Gale Isabel PA-C
[2023-08-28] MEDS: POTASSIUM CHLORIDE ER 20 MEQ TAB.ER PO SCH ×2 (11:38→18:08)
--- NOTE | 2023-08-28 12:57 | P.PN ---
Subjective Progress Note Date: 08/28/23 This is a 72-year-old male patient with a history of GI bleeding, prostate cancer with previous radiation. He had been having symptoms of progressive dyspnea on exertion and extreme fatigue. He was found to have critical aortic stenosis and was brought in today for aortic valve replacement. He had und ergone aortic valve replacement with a 29 mm Zheng Inspiris bovine pericardial valve and root enlargement with Hemashield patchas well as a left atrial appendage ligation with a 35 mm atrial cure clip. He is seen postoperatively in the intensive care unit. He is intubated on the mechanical ventilator and assist-control mode at a rate of 14, tidal volume 500, FiO2 100% and a PEEP of 10. Blood gases revealed a PaO2 of 248, pCO2 of 47 and a pH of 7.31. He has a mediastinal, right and left pleural chest tubes in place. Pacer wires in place. Right IJ Hoffman-Ileana catheter in place. Cardiac output 4.5. Cardiac index 2.1. PA pressure 51/34, CVP 25. He is on an insulin drip at 2 units/h. He is sedated on propofol 20 mcg/kg/min. He has lactated Ringer's at 50 MLS per hour. Chest x-ray reveals catheters and lines in place. No evidence of pneumothorax. White count 19.5. Hemoglobin 8.7. Platelets 123. INR 1.7. Sodium 141. Potassium 4.4. Bicarb 22. BUN 14. Creatinine 0.59. Glucose 146. The patient is seen today August 24, 2023 in follow-up in the intensive care unit. He is currently awake and alert in no acute distress. Sitting up in a chair. Maintaining good O2 saturations in the 90s on 2 L/min per nasal cannula. He is receiving lactated Ringer's at 20 MLS per hour. He remains on an insulin drip at 5.5 units/h. Cardiac output 4.8. Cardiac index 2.2. PA pressures 46/20. CVP 11. Today's chest x-ray reveals postsurgical changes with mild pulmonary edema. Chest tubes remain in place. White count 15.8. Hemoglobin 9.3. Platelets 145. Sodium 139. Potassium 4.6. Bicarb 24. BUN 17. Creatinine 0.67. Glucose 126. AST 61. ALT 24. Albumin 3.8. He is working well with the incentive spirometer. He remains on bronchodilators. Heparin for DVT prophylax is. The patient is seen today August 25, 2023 in follow-up in the intensive care unit. Postoperative day #2. He is currently sitting up in a chair at the bedside. Awake and alert in no acute distress. He is maintaining O2 saturations in the 90s on 2 L/min per nasal cannula. He has lactated Ringer's at KVO. Insulin drip at 6 units/h. Chest x-ray revealed similar mild pulmonary edema. Chest t ubes remains in place without pneumothorax. He is working fairly well with the incentive spirometer. White count 23.4. Hemoglobin 9.3. Platelets 157. Sodium 139. Potassium 4.9. Bicarb 29. BUN 21. Creatinine 0.61. Glucose 113. AST 77. ALT 47. He is continued on bronchodilators. Heparin for DVT prophylaxis. On Lasix 20 mg IV twice daily. The patient is seen today August 26, 2023 in follow-up in the intensive care unit. Postoperative day #3. He is awake and alert in no acute distress. Maintaining good O2 saturations in the 90s on 2 L/min per nasal cannula. He is currently sitting up in a chair. He continues to be short of breath with minimal exertion. Chest x-ray is showing slight improvement in the fluid volume overload. He is currently on Lasix 40 mg IV every 12 hours. He is on lactated Ringer's at KVO. Insulin drip at 4.5 units/h. He is pulling approximately 750-1000 on the incentive spirometer. Left chest tube remains in place. He is continued on DuoNeb inhalations, Mucinex. Heparin for DVT prophylaxis. He is currently in a +1.2 L balance. White count 23.3. Hemoglobin 9.2. Sodium 138. Potassium 4.7. Bicarb 29. BUN 33. Creatinine 0.66. Glucose 105. The patient is seen today August 27, 2023 in follow-up in the intensive care unit. Postoperative day #4. He is sitting up in a chair. Awake and alert in no acute distress. Breathing easier today compared to yesterday. He is maintaining good O2 saturations in the 90s on 2 L/min per nasal cannula. Lactated Ringer's at 10 MLS per hour. He remains on Lasix 40 mg IV push every 12 hours. His chest x-ray continues to show significant fluid volume overload. He is currently in a -1 L balance. White count 22.2. Hemoglobin 9.5. Platelets 257. Sodium 137. Potassium 3.9. Bicarb 35. BUN 35. Creatinine 0.63. Glucose 126. He is working well with the incentive spirometer. He remains on bronchodilators. Remains on Mucinex. Heparin for DVT prophylaxis. Sputum culture showing moderate gram-positive bacilli. Procalcitonin pending. He has been initiated on vancomycin and Zosyn per CT services. On 08/28/2023, I am seeing the patient for a follow-up. The patient is doing well and has no specific complaints. The patient is currently postop day #6 following an aortic valve replacement. He is morbidly obese and he has a body mass index of 39.6. Chest tubes have been removed and a follow-up chest x-ray from today shows development of right-sided pleural effusion and the patient remains on oxygen 2 L/min nasal cannula with a pulse ox of 98%. Cardiac rhythm is sinus. He is on no pressors. White cell count is 20 with a hemoglobin 9.7 and a platelet count of 257. BUN is 28 with a creatinine of 0.6 and a sodium levels at 135. Remains on aspirin. Remains on beta-blockers and the patient is currently on metoprolol at a dose of 50 mg p.o. twice a day. He remains on Leve jigna insulin 15 units at bedtime along with NovoLog/scale coverage. The viral screen has been negative. The patient was started on empiric antibiotic coverage with IV Zosyn regarding his underlying leukocytosis. He is elevated transaminase levels have been downtrending. No other significant events overnight. Objective - Vital Signs Vital signs: Vital Signs Temp 98.3 F 08/28/23 08:00 Pulse 75 08/28/23 11:14 Resp 25 H 08/28/23 11:00 BP 95/56 08/28/23 11:00 Pulse Ox 98 08/28/23 11:00 FiO2 30 08/26/23 04:00 Intake & Output 08/27/23 08/28/23 08/28/23 18:59 06:59 18:59 Intake Total 2246 400 Output Total 2200 1350 550 Balance 46 -1350 -150 Weight 111.3 kg Intake: IV 746 100 .9 NS pressure bags 6 Lactated Ringers 1,000 ml 40 @ 20 mls/hr IV .[facility]H [facility] Rx#:[id number] Magnesium Sulfate-D5w Pmx 100 1 gm In Dextrose/Water 1 100ml.bag @ 100 mls/hr IVPB ONCE ONE Rx#: [id number] Piperacillin-Tazobactam 3 100 100 .375 gm In Sodium Chloride 0.9% 100 ml @ 25 mls/hr IVPB Q8H [facility] Rx#: [id number] Vancomycin 2,000 mg In 500 Sodium Chloride 0.9% 500 ml 500 ml @ 167 mls/hr IVPB Q12H [facility] Rx#: [id number] Oral 1500 300 Output: Urine 2200 1350 550 Other: Voiding Method External Catheter External Catheter External Catheter # Bowel Movements 1 1 ABP, PAP, CO, CI - Last Documented Arterial Blood Pressure 109/53 Pulmonary Artery Pressure 46/20 Cardiac Output 4.3 Cardiac Index 2 - Exam CONSTITUTIONAL: Sitting up to the bedside chair in the intensive care unit, appears comfortable, cooperative, no apparent acute distress. HEENT: Neck is supple, no JVD, no lymphadenopathy. RESPIRATORY: Lungs sounds essentially clear throughout, diminished to his bilateral bases, right greater than left. Respirations are tachypneic, symmetrical and nonlabored. Currently on 2 L nasal cannula with oxygen saturations 98%. Able to achieve 1500 mL on his incentive spirometry. Strong cough productive cough with whalen tenacious sputum. CARDIOVASCULAR: Regular rhythm and rate. S1 and S2 present, negative for S3, gallop or murmur. Sternum is stable. Bedside telemetry showing normal sinus rhythm heart rate 78 bpm. Palpable peripheral pulses bilaterally, +1 edema to his bilateral lower extremities. No calf pain or tenderness noted. Heart hugger in place with patient demonstrating appropriate use. Knee-high CHARMAINE hose and sequential compression devices in place to his bilateral lower extremities. GASTROINTESTINAL: Abdomen soft, nontender, nondistended. Active bowel sounds present 4 quadrants. Tolerating diet. Passing flatus. No guarding or rigidity. GENITOURINARY: External catheter in place, urine output 1000 mL in the last 8 hours. INTEGUMENTARY: Jaundiced, warm and dry with no evidence of clubbing or cyanosis . Midline sternal incision clean dry and well approximated, covered with dry intact dressing. NEUROLOGIC: Cranial nerves II through XII intact. No focal deficits. MUSKULOSKELETAL: Able to move all extremities, strength equal bilaterally, generalized weakness. PSYCHIATRIC: Alert and oriented to person place and time, appropriate affect, intact judgment and insight. INVASIVE LINES AND TUBES: Atrial and ventricular epicardial pacemaker wires present, and are grounded. - Labs CBC & Chem 7: 08/28/23 05:43 08/28/23 10:39 Labs: Abnormal Lab Results - Last 24 Hours (Table) 08/27/23 08/27/23 08/27/23 Range/Units 09:05 11:27 20:23 WBC (3.8-10.6) k/uL RBC (4.30-5.90) m/uL Hgb (13.0-17.5) gm/dL Hct (39.0-53.0) % RDW (11.5-15.5) % Neutrophils # (1.3-7.7) k/uL Monocytes # (0-1.0) k/uL Eosinophils # (0-0.7) k/uL Sodium (137-145) mmol/L Carbon Dioxide (22-30) mmol/L BUN (9-20) mg/dL Glucose (74-99) mg/dL POC Glucose (mg/dL) 157 H 150 H (70-110) mg/dL Calcium (8.4-10.2) mg/dL Total Bilirubin (0.2-1.3) mg/dL ALT (4-49) U/L Total Protein (6.3-8.2) g/dL Albumin (3.5-5.0) g/dL Procalcitonin 0.22 H (0.02-0.09) ng/mL 08/28/23 08/28/23 08/28/23 Range/Units 05:43 05:43 06:45 WBC 20.8 H (3.8-10.6) k/uL RBC 3.23 L (4.30-5.90) m/uL Hgb 9.7 L (13.0-17.5) gm/dL Hct 30.4 L (39.0-53.0) % RDW 17.5 H (11.5-15.5) % Neutrophils # 16.7 H (1.3-7.7) k/uL Monocytes # 1.4 H (0-1.0) k/uL Eosinophils # 0.9 H (0-0.7) k/uL Sodium 135 L (137-145) mmol/L Carbon Dioxide 33 H (22-30) mmol/L BUN 28 H (9-20) mg/dL Glucose 115 H (74-99) mg/dL POC Glucose (mg/dL) 158 H (70-110) mg/dL Calcium 8.3 L (8.4-10.2) mg/dL Total Bilirubin 1.8 H (0.2-1.3) mg/dL ALT 53 H (4-49) U/L Total Protein 6.0 L (6.3-8.2) g/dL Albumin 3.3 L (3.5-5.0) g/dL Procalcitonin (0.02-0.09) ng/mL 08/28/23 Range/Units 10:56 WBC (3.8-10.6) k/uL RBC (4.30-5.90) m/uL Hgb (13.0-17.5) gm/dL Hct (39.0-53.0) % RDW (11.5-15.5) % Neutrophils # (1.3-7.7) k/uL Monocytes # (0-1.0) k/uL Eosinophils # (0-0.7) k/uL Sodium (137-145) mmol/L Carbon Dioxide (22-30) mmol/L BUN (9-20) mg/dL Glucose (74-99) mg/dL POC Glucose (mg/dL) 182 H (70-110) mg/dL Calcium (8.4-10.2) mg/dL Total Bilirubin (0.2-1.3) mg/dL ALT (4-49) U/L Total Protein (6.3-8.2) g/dL Albumin (3.5-5.0) g/dL Procalcitonin (0.02-0.09) ng/mL Microbiology - Last 24 Hours (Table) 08/25/23 21:05 Gram Stain - Final Sputum Sputum Culture - Final Assessment and Plan Plan: Severe aortic stenosis status post aortic valve replacement with a 29 mm Zheng Inspiris bovine pericardial valve, root enlargement with Hemashield patch and ligation of the left atrial appendage with a 35 mm atrial cure clip. Postoperative day # 5 Right-sided pleural effusion is evident on today's chest x-ray Anemia and thrombocytopenia, expected outcome of surgery, stabilized Leukocytosis, suspect reactive, currently on empiric antibiotic coverage with IV Zosyn Diabetes mellitus, type II, currently on Levemir Gastroesophageal reflux disease Hypertension History of prostate cancer status post radiation History of rectal bleeding from radiation proctitis Plan: Will monitor the right-sided pleural effusion consider thoracentesis if no improvement Continue IV Zosyn Procalcitonin level is at 0.22 continue aspirin Continue metoprolol Working well with the incentive spirometer Continue bronchodilators Continue heparin for DVT prophylaxis Titrate down the FiO2 as tolerated Increase his activity as tolerated We will continue to follow
[2023-08-28] MEDS: ALBUMIN HUMAN 25% 50 ML in EMPTY BAG 1 BAG IVPB ONE (16:18)
[2023-08-28] MEDS: FUROSEMIDE 10 MG/ML 4 ML VIAL IV SCH (16:24)
[2023-08-28 16:27] LABS: Glucose,Whole Blood 150 mg/dL (70-110)
[2023-08-28 16:40] LABS: Glucose,Whole Blood 151 mg/dL (70-110)
[2023-08-28 18:49] LABS: Appearance,Urine Clear (Clear); Bilirubin,Urine Negative (Negative); Blood,Urine Negative (Negative); Color,Urine Light Yellow; Glucose,Urine (UA) Negative (Negative); Ketones,Urine Negative (Negative); Leukocyte Esterase,Urine Negative (Negative); Nitrite,Urine Negative (Negative); Protein,Urine Negative (Negative)
[2023-08-28 19:46] LABS: Glucose,Whole Blood 202 mg/dL (70-110)
[2023-08-28] MEDS: METOPROLOL TARTRATE 50 MG TAB PO SCH (20:22)
--- NOTE | 2023-08-29 00:07 | P.PN ---
Subjective Progress Note Date: 08/29/23 HISTORY OF PRESENTING ILLNESS This is a pleasant 72-year-old with past medical history significant for CAD with prior PCI of OM1 branch 2021, hypertension, hyperlipidemia, diabetes mellitus type 2, prior prostate cancer he and history of GI bleed and severe aortic stenosis. He follows in the office with Dr. Benson. Patient presented for elective surgical aortic valve replacement 08/22 which was completed successfully with a 29 mm Zheng Inspiris with aortic valve root enlargement. He was extubated and weaned from vasopressors with cardiac output in the 4.8 L/m range and cardiac index 2.2. She currently admits to significant chest pain around his incision and with deep inspiration. Does not have much of an appetite. Blood pressure borderline. Remains on amiodarone and in normal sinus rhythm. He did have some mild decrease in urine output and was placed on albumin with increasing urine output. 08/24 Patient seen and examined. Patient denies any chest pain or pressure. He is having poor inspiratory effort however and x-ray shows worsened bilateral edema. He was given Lasix 20 mg IV total 2 with some urine output however overall not significantly negative over last 24 hours. Creatinine has remained stable. EKG concerning for minimal ST elevation, possible pericarditis however he denies any chest pain. Remains in sinus rhythm. Metoprolol was increased. Does have increased respiratory rate in the upper 20s and 30s. His prior CVP not majorly elevated and so his cortis in place as well as left chest tube. 08/25 Patient is seen and examined. He remains in the intensive care unit. Blood pressure 124/53, heart rate 80, pulse ox 93% on 1 L. He has been afebrile. Repeat blood work reveals WBC 23.3, hemoglobin 9.2. Sodium 138, potassium 4.7, BUN 33 creatinine 0.66. proBNP 2700. Mildly elevated liver function test. Repeat chest x-ray reveals persistent left-sided chest tubes without pneumo. Persistent cardiomegaly with central vascular congestion and small to moderate size right pleural effusion. No significant change. Patient states he feels a little short of breath but better from yesterday. He has been urinating well. He is utilizing IS. He denies chest pain. 08/26 Patient is seen and examined. He remains in intensive care unit. Blood pressure 101/56, heart rate is in the 80s, pulse ox 96% on 2 L nasal cannula. Patient is afebrile. Repeat blood work reveals WBC 22.2, hemoglobin 9.5. Sodium 137, potassium 3.9, BUN 35 creatinine 0.63. Magnesium 1.9. CTS ordered a dose of Diamox and 1 dose of IV Lasix 40 mg this morning. Patient states he feels a little better after a shower. He has ambulated, found sitting in reclines. Left CT removed yesterday. 08/28/23 Hemoglobin and renal function stable. Good urine output. Patient was able to ambulate in the unit. Denies any excessive chest pain. Does report some chest pain with deep breathing. Prior ECG showed some ST changes concerning of possible pericarditis. For now we will continue to monitor. PHYSICAL EXAMINATION Vital signs reviewed. CONSTITUTIONAL: No apparent distress, however tachypnic and mild increased work of breathing HEENT: Head is normocephalic. Pupils are equal, round. Sclerae anicteric. Mucous membranes of the mouth are moist. No JVD. No carotid bruit. CHEST EXAMINATION: Decreased breath sounds bilaterally HEART EXAMINATION: Regular rate and rhythm. S1, S2 heard. mild systolic murmurs, gallops or rub, ABDOMEN: Soft, nontender. Positive bowel sounds. EXTREMITIES: 2+ peripheral pulses, Bilat lower extremity edema 1+ NEUROLOGIC EXAMINATION: Patient is awake, alert and oriented x3. ASSESSMENT Severe aortic stenosis status post surgical aortic valve replacement 08/22 with aortic root enlargement Acute on chronic respiratory failure with worsening chest Xray, possible ARDS vs CHF Acute on chronic diastolic heart failure Minimal diffuse ST elevation without reciprocal changes, may be early pericarditis CAD with prior history PCI Hypertension Hyperlipidemia Anemia/acute blood loss anemia Diabetes mellitus type 2 History of prostate cancer History of GI bleed PLAN Monitor TALAT, daily weights, electrolytes and renal function. Continue current cardiac medications Reevaluate tomorrow with repeat ECG to see if patient persist to have any clinical suspicion for pericarditis Objective - Vital Signs Vital signs: Vital Signs Temp 98.4 F 08/28/23 20:00 Pulse 79 08/28/23 23:00 Resp 21 08/28/23 23:00 BP 112/54 08/28/23 23:00 Pulse Ox 96 08/28/23 23:00 FiO2 30 08/26/23 04:00 Intake & Output 08/28/23 08/28/23 08/29/23 06:59 18:59 06:59 Intake Total 1800 Output Total 1350 1500 1800 Balance -1350 300 -1800 Weight 111.3 kg Intake: IV 150 Albumin Human 25% 50 ml 50 In Empty Bag 1 bag @ 50 mls/hr IVPB ONCE ONE Rx#: [id number] Piperacillin-Tazobactam 3 100 .375 gm In Sodium Chloride 0.9% 100 ml @ 25 mls/hr IVPB Q8H [facility] Rx#: [id number] Oral 1650 Output: Urine 1350 1500 1800 Other: Voiding Method External Catheter External Catheter External Catheter # Bowel Movements 1 ABP, PAP, CO, CI - Last Documented Arterial Blood Pressure 109/53 Pulmonary Artery Pressure 46/20 Cardiac Output 4.3 Cardiac Index 2 - Labs CBC & Chem 7: 08/28/23 05:43 08/28/23 10:39 Labs: Abnormal Lab Results - Last 24 Hours (Table) 08/28/23 08/28/23 08/28/23 Range/Units 05:43 05:43 06:45 WBC 20.8 H (3.8-10.6) k/uL RBC 3.23 L (4.30-5.90) m/uL Hgb 9.7 L (13.0-17.5) gm/dL Hct 30.4 L (39.0-53.0) % RDW 17.5 H (11.5-15.5) % Neutrophils # 16.7 H (1.3-7.7) k/uL Monocytes # 1.4 H (0-1.0) k/uL Eosinophils # 0.9 H (0-0.7) k/uL Sodium 135 L (137-145) mmol/L Carbon Dioxide 33 H (22-30) mmol/L BUN 28 H (9-20) mg/dL Glucose 115 H (74-99) mg/dL POC Glucose (mg/dL) 158 H (70-110) mg/dL Calcium 8.3 L (8.4-10.2) mg/dL Total Bilirubin 1.8 H (0.2-1.3) mg/dL ALT 53 H (4-49) U/L Total Protein 6.0 L (6.3-8.2) g/dL Albumin 3.3 L (3.5-5.0) g/dL 08/28/23 08/28/23 08/28/23 Range/Units 10:56 16:26 16:38 WBC (3.8-10.6) k/uL RBC (4.30-5.90) m/uL Hgb (13.0-17.5) gm/dL Hct (39.0-53.0) % RDW (11.5-15.5) % Neutrophils # (1.3-7.7) k/uL Monocytes # (0-1.0) k/uL Eosinophils # (0-0.7) k/uL Sodium (137-145) mmol/L Carbon Dioxide (22-30) mmol/L BUN (9-20) mg/dL Glucose (74-99) mg/dL POC Glucose (mg/dL) 182 H 150 H 151 H (70-110) mg/dL Calcium (8.4-10.2) mg/dL Total Bilirubin (0.2-1.3) mg/dL ALT (4-49) U/L Total Protein (6.3-8.2) g/dL Albumin (3.5-5.0) g/dL 08/28/23 Range/Units 19:44 WBC (3.8-10.6) k/uL RBC (4.30-5.90) m/uL Hgb (13.0-17.5) gm/dL Hct (39.0-53.0) % RDW (11.5-15.5) % Neutrophils # (1.3-7.7) k/uL Monocytes # (0-1.0) k/uL Eosinophils # (0-0.7) k/uL Sodium (137-145) mmol/L Carbon Dioxide (22-30) mmol/L BUN (9-20) mg/dL Glucose (74-99) mg/dL POC Glucose (mg/dL) 202 H (70-110) mg/dL Calcium (8.4-10.2) mg/dL Total Bilirubin (0.2-1.3) mg/dL ALT (4-49) U/L Total Protein (6.3-8.2) g/dL Albumin (3.5-5.0) g/dL Microbiology - Last 24 Hours (Table) 08/27/23 09:05 Blood Culture - Preliminary Blood 08/27/23 09:18 Blood Culture - Preliminary Blood 08/25/23 21:05 Gram Stain - Final Sputum Sputum Culture - Final
[2023-08-29 06:25] LABS: Glucose,Whole Blood 196 mg/dL (70-110)
[2023-08-29 06:40] LABS: African American GFR (CKD) >90 (>60 ml/min/1.73 sqM); Anion Gap 9 mmol/L; Blood Urea Nitrogen 31 mg/dL (9-20); Calcium 9.1 mg/dL (8.4-10.2); Carbon Dioxide 34 mmol/L (22-30); Chloride 94 mmol/L (98-107); Glucose 127 mg/dL (74-99); Non-African American GFR(CKD) 80 (>60 ml/min/1.73 sqM); Sodium 137 mmol/L (137-145)
[2023-08-29 06:43] LABS: Anisocytosis Slight; Basophils # (A) 0.3 k/uL (0-0.2); Basophils % (A) 1 %; Eosinophils # (A) 1.2 k/uL (0-0.7); Eosinophils % (A) 5 %; HCT 34.9 % (39.0-53.0); HGB 10.9 gm/dL (13.0-17.5); Hypochromasia Slight; Lymphocytes # (A) 1.8 k/uL (1.0-4.8); Lymphocytes % (A) 8 %; MCH 29.8 pg (25.0-35.0); MCHC 31.3 g/dL (31.0-37.0); MCV 95.1 fL (80.0-100.0); Mean Platelet Volume 8.2; Monocytes # (A) 1.6 k/uL (0-1.0); Monocytes % (A) 7 %; Neutrophils # (A) 17.8 k/uL (1.3-7.7); Neutrophils % (A) 78 %; Platelet Count 326 k/uL (150-450); RBC 3.67 m/uL (4.30-5.90); RDW 17.3 % (11.5-15.5)
--- NOTE | 2023-08-29 07:27 | XR ---
EXAMINATION TYPE: XR chest 1V portable DATE OF EXAM: 08/29/2023 COMPARISON: 08/27/2023, 08/28/2023 HISTORY: Postop TECHNIQUE: Single frontal view of the chest is obtained. FINDINGS: Median sternotomy changes with atrial appendage. There is cardiac valve replacement surger y. Elevated right hemidiaphragm with bilateral consolidation and pleural effusion greater on the righ t. Mild central venous congestion suspected. There is marked cardiomegaly. No pneumothorax. Arthropat hy of the shoulders and degenerative change of the spine. IMPRESSION: Increasing right-sided consolidation with bilateral effusion correlate for CHF versus pn eumonia.
[2023-08-29] MEDS: FUROSEMIDE 10 MG/ML 4 ML VIAL IV SCH (08:52)
[2023-08-29] MEDS: POTASSIUM CHLORIDE ER 10 MEQ TAB.ER.PRT PO SCH (08:57)
--- NOTE | 2023-08-29 10:35 | P.PN ---
Subjective Progress Note Date: 08/29/23 Principal diagnosis: 72 year old M with PMH of CAD, HLD, HTN, DM, GERD, h/o GI bleed, h/o prostate CA, aortic stenosis presents to [facility] for elective surgery. He underwent AV replacement with Dr. Glaser on 08/22. [facility] consulted for medical management of this patient. He was extubated on 08/22. 08/23 Patient was seen and examined. He reports moderate pain at the site on incision. Currently on NS at 20 cc/hr. Insulin drip running at 5.5 units/hr. CBC WBC 15.8, Hg 9.3, Hct 38.6, Plt 145. CMP Cl 110, glu 104, AST 61, total protein 5.5. Mag 2.3. Ionized Ca 4.6. CT surgery note reviewed, DC right IJ [place] Ileana, maximize medical therapy with ASA, statin, beta david. CXR done today shows mild pulmonary vascular congestion. POC glucose 119-168 over the past 24H. 08/24 Patient was seen and examined. Patient reports shortness of breath and cough productive of brown sputum. He is on 1.5L NC. Insulin drip running at 6 units/hr. CXR shows pulmonary edema and he has been started on Lasix 20 mg IV BID for 2 doses, Mucinex, Muromyst and DuoNeb PRN by CT surgery. Mediastinal chest tubes discontinued today. CBC shows WBC 23.4, Hg 9.3, Hct 29.7. CMP BUN 21, Cr 0.61, glu 113, T. Bili 1.5, AST 77, total protein 5.7. POC glucose 123- 178 over the past 24H. 08/25 Patient was seen and examined. Continued SOB. He is on 1L NC. Insulin drip running at 7.5 units/hr. CXR shows pulmonary edema with right pleural effusion and Lasix increased to 40 mg IV BID x 2 doses. CBC shows WBC 23.3, Hg 9.2, Hct 28.7. CMP BUN 33, glu 105, T. Bili 1.8, AST 89, ALT 84, total protein 5.6. POC glucose 92-203 over the past 24H. 08/26 Patient was seen and examined. Continued SOB with tachypnea, no real improvement. He is on 2L NC. R IJ cordis and L chest tube removed, Mullins catheter discontinued. Insulin drip switched to Levemir 15 units HS and Novolog 5 units TID with ISS yesterday. CXR shows persistent pulmonary edema with right pleural effusion, maintained on Lasix 40 mg IV BID. Negative 994 cc fluid balance over the past 24H. Weight 116.8 kg (08/23) - 111.8 kg (08/26. CBC shows WBC 22.2, Hg 9.5, Hct 30.1. CMP bicarb 35, BUN 35, Cr. 0.63, glu 126, T. Bili 1.5, ALT 64, total protein 5.7, alb 3.4. POC glucose 128-219 over the past 24H. Up in chair, no shortness of breath normal no vomiting. Objective - Vital Signs Vital signs: Vital Signs Temp 97.5 F L 08/29/23 08:00 Pulse 80 08/29/23 10:00 Resp 24 08/29/23 10:00 BP 110/53 08/29/23 10:00 Pulse Ox 98 08/29/23 10:00 FiO2 30 08/26/23 04:00 Intake & Output 08/28/23 08/29/23 08/29/23 18:59 06:59 18:59 Intake Total 1800 Output Total 1500 3050 175 Balance 300 -3050 -175 Weight 107.3 kg Intake: IV 150 Albumin Human 25% 50 ml 50 In Empty Bag 1 bag @ 50 mls/hr IVPB ONCE ONE Rx#: [id number] Piperacillin-Tazobactam 3 100 .375 gm In Sodium Chloride 0.9% 100 ml @ 25 mls/hr IVPB Q8H [facility] Rx#: [id number] Oral 1650 Output: Urine 1500 3050 175 Other: Voiding Method External Catheter External Catheter # Voids 0 ABP, PAP, CO, CI - Last Documented Arterial Blood Pressure 109/53 Pulmonary Artery Pressure 46/20 Cardiac Output 4.3 Cardiac Index 2 - Exam General: Awake alert oriented 3, not in distress Derm: warm, dry Head: atraumatic, normocephalic, symmetric Eyes: EOMI, no lid lag, anicteric sclera Mouth: no lip lesion, mucus membranes moist Cardiovascular: S1S2 reg, no murmur, midsternal surgical scar dressing c/d/i Lungs: Decreased BS bilateral,No wheezing Ext: no gross muscle atrophy, trace pitting bilateral lower extremity edema, no contractures Neuro: no focal neuro deficits Psych: Alert, oriented, appears defeated - Labs CBC & Chem 7: 08/29/23 06:01 08/29/23 06:01 Labs: Abnormal Lab Results - Last 24 Hours (Table) 08/28/23 08/28/23 08/28/23 Range/Units 10:56 16:26 16:38 WBC (3.8-10.6) k/uL RBC (4.30-5.90) m/uL Hgb (13.0-17.5) gm/dL Hct (39.0-53.0) % RDW (11.5-15.5) % Neutrophils # (1.3-7.7) k/uL Monocytes # (0-1.0) k/uL Eosinophils # (0-0.7) k/uL Basophils # (0-0.2) k/uL Chloride (98-107) mmol/L Carbon Dioxide (22-30) mmol/L BUN (9-20) mg/dL Glucose (74-99) mg/dL POC Glucose (mg/dL) 182 H 150 H 151 H (70-110) mg/dL 08/28/23 08/29/23 08/29/23 Range/Units 19:44 06:01 06:01 WBC 23.0 H (3.8-10.6) k/uL RBC 3.67 L (4.30-5.90) m/uL Hgb 10.9 L (13.0-17.5) gm/dL Hct 34.9 L (39.0-53.0) % RDW 17.3 H (11.5-15.5) % Neutrophils # 17.8 H (1.3-7.7) k/uL Monocytes # 1.6 H (0-1.0) k/uL Eosinophils # 1.2 H (0-0.7) k/uL Basophils # 0.3 H (0-0.2) k/uL Chloride 94 L (98-107) mmol/L Carbon Dioxide 34 H (22-30) mmol/L BUN 31 H (9-20) mg/dL Glucose 127 H (74-99) mg/dL POC Glucose (mg/dL) 202 H (70-110) mg/dL 08/29/23 Range/Units 06:23 WBC (3.8-10.6) k/uL RBC (4.30-5.90) m/uL Hgb (13.0-17.5) gm/dL Hct (39.0-53.0) % RDW (11.5-15.5) % Neutrophils # (1.3-7.7) k/uL Monocytes # (0-1.0) k/uL Eosinophils # (0-0.7) k/uL Basophils # (0-0.2) k/uL Chloride (98-107) mmol/L Carbon Dioxide (22-30) mmol/L BUN (9-20) mg/dL Glucose (74-99) mg/dL POC Glucose (mg/dL) 196 H (70-110) mg/dL Microbiology - Last 24 Hours (Table) 08/27/23 09:05 Blood Culture - Preliminary Blood 08/27/23 09:18 Blood Culture - Preliminary Blood 08/25/23 21:05 Gram Stain - Final Sputum Sputum Culture - Final Assessment and Plan Plan: Status post AV replacement POD 6 managed by Cardiothoracic surgery. Acute hypoxic respiratory failure likely due to pulmonary edema seen on CXR: Status post Lasix IV (08/23-08/26). Mucinex, and DuoNeb PRN per CT surgery. Resolved, continue to monitor. SIRS versus sepsis: Sepsis criteria met (leukocytosis and tachypnea). Procal 0.22 mildly elevated. COVID/RSV/Flu negative. Sputum sample showing normal respiratory robert. Received one dose of Vancomycin on 08/26, continued on Zosyn 3.375g IV TID . MRSA screen ordered. Follow BCx. Acute blood loss anemia: Expected result of surgery. Trend daily. Consider transfusion if Hg < 7. Diabetes mellitus with hyperglycemia, Type II: Levemir 15 units HS and Novolog 5 units TID along with ISS. Accuchecks ACHS. Hypoglycemic precautions. Prerenal azotemia and metabolic alkalosis likely due to forced diuresis. Transaminits: Stable. Monitor while patient is on statin. Hypertension: Metoprolol as below. CAD: ASA 325 mg PO QD. Lipitor 40 mg PO QD. Metoprolol 50 mg PO BID. Dyslipidemia: Lipitor as above. GERD: Protonix 40 mg PO BID. Resolved: Thrombocytopenia Disposition: Remains in ICU
[2023-08-29 11:43] LABS: Glucose,Whole Blood 207 mg/dL (70-110)
--- NOTE | 2023-08-29 12:36 | P.PN ---
Subjective Progress Note Date: 08/29/23 This is a 72-year-old male patient with a history of GI bleeding, prostate cancer with previous radiation. He had been having symptoms of progressive dyspnea on exertion and extreme fatigue. He was found to have critical aortic stenosis and was brought in today for aortic valve replacement. He had und ergone aortic valve replacement with a 29 mm Zheng Inspiris bovine pericardial valve and root enlargement with Hemashield patchas well as a left atrial appendage ligation with a 35 mm atrial cure clip. He is seen postoperatively in the intensive care unit. He is intubated on the mechanical ventilator and assist-control mode at a rate of 14, tidal volume 500, FiO2 100% and a PEEP of 10. Blood gases revealed a PaO2 of 248, pCO2 of 47 and a pH of 7.31. He has a mediastinal, right and left pleural chest tubes in place. Pacer wires in place. Right IJ [place]-Ileana catheter in place. Cardiac output 4.5. Cardiac index 2.1. PA pressure 51/34, CVP 25. He is on an insulin drip at 2 units/h. He is sedated on propofol 20 mcg/kg/min. He has lactated Ringer's at 50 MLS per hour. Chest x-ray reveals catheters and lines in place. No evidence of pneumothorax. White count 19.5. Hemoglobin 8.7. Platelets 123. INR 1.7. Sodium 141. Potassium 4.4. Bicarb 22. BUN 14. Creatinine 0.59. Glucose 146. The patient is seen today August 24, 2023 in follow-up in the intensive care unit. He is currently awake and alert in no acute distress. Sitting up in a chair. Maintaining good O2 saturations in the 90s on 2 L/min per nasal cannula. He is receiving lactated Ringer's at 20 MLS per hour. He remains on an insulin drip at 5.5 units/h. Cardiac output 4.8. Cardiac index 2.2. PA pressures 46/20. CVP 11. Today's chest x-ray reveals postsurgical changes with mild pulmonary edema. Chest tubes remain in place. White count 15.8. Hemoglobin 9.3. Platelets 145. Sodium 139. Potassium 4.6. Bicarb 24. BUN 17. Creatinine 0.67. Glucose 126. AST 61. ALT 24. Albumin 3.8. He is working well with the incentive spirometer. He remains on bronchodilators. Heparin for DVT prophylax is. The patient is seen today August 25, 2023 in follow-up in the intensive care unit. Postoperative day #2. He is currently sitting up in a chair at the bedside. Awake and alert in no acute distress. He is maintaining O2 saturations in the 90s on 2 L/min per nasal cannula. He has lactated Ringer's at KVO. Insulin drip at 6 units/h. Chest x-ray revealed similar mild pulmonary edema. Chest t ubes remains in place without pneumothorax. He is working fairly well with the incentive spirometer. White count 23.4. Hemoglobin 9.3. Platelets 157. Sodium 139. Potassium 4.9. Bicarb 29. BUN 21. Creatinine 0.61. Glucose 113. AST 77. ALT 47. He is continued on bronchodilators. Heparin for DVT prophylaxis. On Lasix 20 mg IV twice daily. The patient is seen today August 26, 2023 in follow-up in the intensive care unit. Postoperative day #3. He is awake and alert in no acute distress. Maintaining good O2 saturations in the 90s on 2 L/min per nasal cannula. He is currently sitting up in a chair. He continues to be short of breath with minimal exertion. Chest x-ray is showing slight improvement in the fluid volume overload. He is currently on Lasix 40 mg IV every 12 hours. He is on lactated Ringer's at KVO. Insulin drip at 4.5 units/h. He is pulling approximately 750-1000 on the incentive spirometer. Left chest tube remains in place. He is continued on DuoNeb inhalations, Mucinex. Heparin for DVT prophylaxis. He is currently in a +1.2 L balance. White count 23.3. Hemoglobin 9.2. Sodium 138. Potassium 4.7. Bicarb 29. BUN 33. Creatinine 0.66. Glucose 105. The patient is seen today August 27, 2023 in follow-up in the intensive care unit. Postoperative day #4. He is sitting up in a chair. Awake and alert in no acute distress. Breathing easier today compared to yesterday. He is maintaining good O2 saturations in the 90s on 2 L/min per nasal cannula. Lactated Ringer's at 10 MLS per hour. He remains on Lasix 40 mg IV push every 12 hours. His chest x-ray continues to show significant fluid volume overload. He is currently in a -1 L balance. White count 22.2. Hemoglobin 9.5. Platelets 257. Sodium 137. Potassium 3.9. Bicarb 35. BUN 35. Creatinine 0.63. Glucose 126. He is working well with the incentive spirometer. He remains on bronchodilators. Remains on Mucinex. Heparin for DVT prophylaxis. Sputum culture showing moderate gram-positive bacilli. Procalcitonin pending. He has been initiated on vancomycin and Zosyn per CT services. On 08/28/2023, I am seeing the patient for a follow-up. The patient is doing well and has no specific complaints. The patient is currently postop day #6 following an aortic valve replacement. He is morbidly obese and he has a body mass index of 39.6. Chest tubes have been removed and a follow-up chest x-ray from today shows development of right-sided pleural effusion and the patient remains on oxygen 2 L/min nasal cannula with a pulse ox of 98%. Cardiac rhythm is sinus. He is on no pressors. White cell count is 20 with a hemoglobin 9.7 and a platelet count of 257. BUN is 28 with a creatinine of 0.6 and a sodium levels at 135. Remains on aspirin. Remains on beta-blockers and the patient is currently on metoprolol at a dose of 50 mg p.o. twice a day. He remains on Leve jigna insulin 15 units at bedtime along with NovoLog/scale coverage. The viral screen has been negative. The patient was started on empiric antibiotic coverage with IV Zosyn regarding his underlying leukocytosis. He is elevated transaminase levels have been downtrending. No other significant events overnight. 08/29/2023, the patient is being seen for a follow-up. The patient is currently on 1 L of oxygen by nasal cannula. Chest x-ray shows possibly development of right-sided consolidation/effusion and there is also findings consistent with CHF. The white cell count of 23 with a hemoglobin 10.9 and a platelet count of 326. Sodium is at 137, BUN 51 with a creatinine of 0.9. The patient is hemodynamically stable. Cardiac rhythm is sinus. He is not motivated. Mobility is limited at this point in time. He remains on Lasix 20 mg IV every 12 hours. He is on aspirin. He is on metoprolol 25 mg p.o. twice a day. He is also on Levemir insulin 15 units and a sliding scale insulin coverage. Remains weak and quite debilitated. He is afebrile. His procalcitonin level was 0.22. Objective - Vital Signs Vital signs: Vital Signs Temp 97.9 F 08/29/23 04:00 Pulse 79 08/29/23 08:31 Resp 22 08/29/23 07:00 BP 103/63 08/29/23 07:00 Pulse Ox 97 08/29/23 08:21 FiO2 30 08/26/23 04:00 Intake & Output 08/28/23 08/29/23 08/29/23 18:59 06:59 18:59 Intake Total 1800 Output Total 1500 3050 0 Balance 300 -3050 0 Weight 107.3 kg Intake: IV 150 Albumin Human 25% 50 ml 50 In Empty Bag 1 bag @ 50 mls/hr IVPB ONCE ONE Rx#: [id number] Piperacillin-Tazobactam 3 100 .375 gm In Sodium Chloride 0.9% 100 ml @ 25 mls/hr IVPB Q8H [facility] Rx#: [id number] Oral 1650 Output: Urine 1500 3050 0 Other: Voiding Method External Catheter External Catheter ABP, PAP, CO, CI - Last Documented Arterial Blood Pressure 109/53 Pulmonary Artery Pressure 46/20 Cardiac Output 4.3 Cardiac Index 2 - Exam CONSTITUTIONAL: Sitting up to the bedside chair in the intensive care unit, appears comfortable, cooperative, no apparent acute distress. Patient is currently on 1 L of oxygen by nasal cannula HEENT: Neck is supple, no JVD, no lymphadenopathy. RESPIRATORY: Lungs sounds essentially clear throughout, diminished to his bilateral bases, right greater than left. Respirations are tachypneic, symmetrical and nonlabored. CARDIOVASCULAR: Regular rhythm and rate. S1 and S2 present, negative for S3, gallop or murmur. Sternum is stable. Bedside telemetry showing normal sinus rhythm heart rate 78 bpm. Palpable peripheral pulses bilaterally, +1 edema to his bilateral lower extremities. No calf pain or tenderness noted. Heart hugger in place with patient demonstrating appropriate use. Knee-high CHARMAINE hose and sequential compression devices in place to his bilateral lower extremities. GASTROINTESTINAL: Abdomen soft, nontender, nondistended. Active bowel sounds present 4 quadrants. Tolerating diet. Passing flatus. No guarding or rigidity. GENITOURINARY: External catheter in place, urine output 1000 mL in the last 8 hours. INTEGUMENTARY: Jaundiced, warm and dry with no evidence of clubbing or cyanosis. Midline sternal incision clean dry and well approximated, covered with dry intact dressing. NEUROLOGIC: Cranial nerves II through XII intact. No focal deficits. MUSKULOSKELETAL: Able to move all extremities, strength equal bilaterally, generalized weakness. PSYCHIATRIC: Alert and oriented to person place and time, appropriate affect, intact judgment and insight. INVASIVE LINES AND TUBES: Atrial and ventricular epicardial pacemaker wires present, and are grounded. - Labs CBC & Chem 7: 08/29/23 06:01 08/29/23 06:01 Labs: Abnormal Lab Results - Last 24 Hours (Table) 08/28/23 08/28/23 08/28/23 Range/Units 10:56 16:26 16:38 WBC (3.8-10.6) k/uL RBC (4.30-5.90) m/uL Hgb (13.0-17.5) gm/dL Hct (39.0-53.0) % RDW (11.5-15.5) % Neutrophils # (1.3-7.7) k/uL Monocytes # (0-1.0) k/uL Eosinophils # (0-0.7) k/uL Basophils # (0-0.2) k/uL Chloride (98-107) mmol/L Carbon Dioxide (22-30) mmol/L BUN (9-20) mg/dL Glucose (74-99) mg/dL POC Glucose (mg/dL) 182 H 150 H 151 H (70-110) mg/dL 08/28/23 08/29/23 08/29/23 Range/Units 19:44 06:01 06:01 WBC 23.0 H (3.8-10.6) k/uL RBC 3.67 L (4.30-5.90) m/uL Hgb 10.9 L (13.0-17.5) gm/dL Hct 34.9 L (39.0-53.0) % RDW 17.3 H (11.5-15.5) % Neutrophils # 17.8 H (1.3-7.7) k/uL Monocytes # 1.6 H (0-1.0) k/uL Eosinophils # 1.2 H (0-0.7) k/uL Basophils # 0.3 H (0-0.2) k/uL Chloride 94 L (98-107) mmol/L Carbon Dioxide 34 H (22-30) mmol/L BUN 31 H (9-20) mg/dL Glucose 127 H (74-99) mg/dL POC Glucose (mg/dL) 202 H (70-110) mg/dL 08/29/23 Range/Units 06:23 WBC (3.8-10.6) k/uL RBC (4.30-5.90) m/uL Hgb (13.0-17.5) gm/dL Hct (39.0-53.0) % RDW (11.5-15.5) % Neutrophils # (1.3-7.7) k/uL Monocytes # (0-1.0) k/uL Eosinophils # (0-0.7) k/uL Basophils # (0-0.2) k/uL Chloride (98-107) mmol/L Carbon Dioxide (22-30) mmol/L BUN (9-20) mg/dL Glucose (74-99) mg/dL POC Glucose (mg/dL) 196 H (70-110) mg/dL Microbiology - Last 24 Hours (Table) 08/27/23 09:05 Blood Culture - Preliminary Blood 08/27/23 09:18 Blood Culture - Preliminary Blood 08/25/23 21:05 Gram Stain - Final Sputum Sputum Culture - Final Assessment and Plan Plan: Severe aortic stenosis status post aortic valve replacement with a 29 mm Zheng Inspiris bovine pericardial valve, root enlargement with Hemashield patch and ligation of the left atrial appendage with a 35 mm atrial cure clip. Postoperative day # 6 Right-sided pleural effusion is evident on today's chest x-ray, along with some atelectatic changes. Pneumonia is doubtful. Anemia and thrombocytopenia, expected outcome of surgery, stabilized Leukocytosis, suspect reactive, procalcitonin level is at 0.22 Diabetes mellitus, type II, currently on Levemir Gastroesophageal reflux disease Hypertension History of prostate cancer status post radiation History of rectal bleeding from radiation proctitis Plan: Will monitor the right-sided pleural effusion consider thoracentesis if no improvement Obtain ultrasound of the right chest Procalcitonin level is at 0.22 continue aspirin Continue metoprolol Working well with the incentive spirometer Continue bronchodilators Physical therapy Continue heparin for DVT prophylaxis Titrate down the FiO2 as tolerated Increase his activity as tolerated We will continue to follow
--- NOTE | 2023-08-29 13:11 | US ---
EXAMINATION TYPE: US chest DATE OF EXAM: 08/29/2023 COMPARISON: NONE CLINICAL INDICATION: Male, 72 years old with history of plueral effusion; Plueral effusion TECHNIQUE: Targeted ultrasound of the posterior lower bilateral hemithoraces EXAM MEASUREMENTS: Right Pleural Effusion pocket size: 3.9 cm Right skin surface to fluid distance: 2.9 cm Right side marked for possible thoracentesis outside the dept. IMPRESSIONS: Tiny bilateral pleural effusion
--- NOTE | 2023-08-29 15:13 | P.PN ---
Subjective Progress Note Date: 08/29/23 Principal diagnosis: Symptomatic calcific tricuspid aortic stenosis. Past medical history significant for coronary artery disease status post PCI to his obtuse marginal coronary artery in 2021, hypertension, hyperlipidemia, diabetes mellitus type 2, prostate cancer, GI bleed, hard of hearing and is a lifetime non-smoker. POD #6 Aortic valve replacement with 29 mm Zheng Inspiris bovine pericardial valve, root enlargement with Hemashield patch (Héctor Whitfield technique), epiaortic ultrasound, ligation of left atrial appendage with 35mm AtriCure clip and plates and screws for sternal closure. Postoperative acute blood loss anemia, expected given hemodilution and cardiopulmonary bypass. The patient was seen and examined in follow-up today August 29, 2023 at his bedside in the intensive care unit. He is currently sitting up to the bedside chair, is awake, alert, oriented x 3 and is in no acute apparent distress. The patient denies any complaints of shortness of breath at this time, reports he feels tired, and is complaining of some surgical type pain currently rating his pain 2-3 out of 10 on the pain scale. Oxygen saturations are 97% on 2 L nasal cannula and he is achieving 1000 mL on his incentive spirometry with much encouragement. The patient reports he just got back from walking in the intensive care unit hallway and tolerated well with standby assistance from nursing staff. He remains hemodynamically stable and is currently on no inotropic or pressor support. He has been afebrile in the last 24 hours. Blood cultures show no growth after 24 hours. Sputum culture showed many normal respiratory robert. Atrial and ventricular epicardial pacemaker wires remain in place and are grounded. Laboratory and chest x-ray results were reviewed. Objective - Vital Signs Vital signs: Vital Signs Temp 97.9 F 08/29/23 04:00 Pulse 74 08/29/23 07:00 Resp 22 08/29/23 07:00 BP 103/63 08/29/23 07:00 Pulse Ox 97 08/29/23 07:00 FiO2 30 08/26/23 04:00 Intake & Output 08/28/23 08/29/23 08/29/23 18:59 06:59 18:59 Intake Total 1800 Output Total 1500 3050 0 Balance 300 -3050 0 Weight 107.3 kg Intake: IV 150 Albumin Human 25% 50 ml 50 In Empty Bag 1 bag @ 50 mls/hr IVPB ONCE ONE Rx#: [id number] Piperacillin-Tazobactam 3 100 .375 gm In Sodium Chloride 0.9% 100 ml @ 25 mls/hr IVPB Q8H [facility] Rx#: [id number] Oral 1650 Output: Urine 1500 3050 0 Other: Voiding Method External Catheter External Catheter ABP, PAP, CO, CI - Last Documented Arterial Blood Pressure 109/53 Pulmonary Artery Pressure 46/20 Cardiac Output 4.3 Cardiac Index 2 - Exam CONSTITUTIONAL: Sitting up to the bedside chair in the intensive care unit, appears comfortable, cooperative, no apparent acute distress. HEENT: Neck is supple, no JVD, no lymphadenopathy. RESPIRATORY: Lungs sounds essentially clear throughout, diminished to his bilateral bases, right greater than left. Respirations are tachypneic, symmetrical and nonlabored. Currently on 2 L nasal cannula with oxygen saturations 97%. Able to achieve 1000 mL on his incentive spirometry. Strong cough. CARDIOVASCULAR: Regular rhythm and rate. S1 and S2 present, negative for S3, gallop or murmur. Sternum is stable. Bedside telemetry showing normal sinus rhythm heart rate 78 bpm. Palpable peripheral pulses bilaterally, +1 edema to his bilateral lower extremities. No calf pain or tenderness noted. Heart hugger in place with patient demonstrating appropriate use. Knee-high CHARMAINE hose and sequential compression devices in place to his bilateral lower extremities. GASTROINTESTINAL: Abdomen soft, nontender, nondistended. Active bowel sounds present 4 quadrants. Tolerating diet. Passing flatus. No guarding or rigidity. Bowel movement today 08/29/2023 GENITOURINARY: External catheter in place, urine output 1250 mL in the last 8 hours. INTEGUMENTARY: Skin warm and dry with no evidence of clubbing or cyanosis. Midline sternal incision clean dry and well approximated, covered with dry intact dressing. NEUROLOGIC: Cranial nerves II through XII intact. No focal deficits. MUSKULOSKELETAL: Able to move all extremities, strength equal bilaterally, generalized weakness. PSYCHIATRIC: Alert and oriented to person place and time, appropriate affect, intact judgment and insight. INVASIVE LINES AND TUBES: Atrial and ventricular epicardial pacemaker wires present, and are grounded. - Allied health notes Allied health notes reviewed: nursing - Labs CBC & Chem 7: 08/29/23 06:01 08/29/23 06:01 Labs: Abnormal Lab Results - Last 24 Hours (Table) 08/28/23 08/28/23 08/28/23 Range/Units 10:56 16:26 16:38 WBC (3.8-10.6) k/uL RBC (4.30-5.90) m/uL Hgb (13.0-17.5) gm/dL Hct (39.0-53.0) % RDW (11.5-15.5) % Neutrophils # (1.3-7.7) k/uL Monocytes # (0-1.0) k/uL Eosinophils # (0-0.7) k/uL Basophils # (0-0.2) k/uL Chloride (98-107) mmol/L Carbon Dioxide (22-30) mmol/L BUN (9-20) mg/dL Glucose (74-99) mg/dL POC Glucose (mg/dL) 182 H 150 H 151 H (70-110) mg/dL 08/28/23 08/29/23 08/29/23 Range/Units 19:44 06:01 06:01 WBC 23.0 H (3.8-10.6) k/uL RBC 3.67 L (4.30-5.90) m/uL Hgb 10.9 L (13.0-17.5) gm/dL Hct 34.9 L (39.0-53.0) % RDW 17.3 H (11.5-15.5) % Neutrophils # 17.8 H (1.3-7.7) k/uL Monocytes # 1.6 H (0-1.0) k/uL Eosinophils # 1.2 H (0-0.7) k/uL Basophils # 0.3 H (0-0.2) k/uL Chloride 94 L (98-107) mmol/L Carbon Dioxide 34 H (22-30) mmol/L BUN 31 H (9-20) mg/dL Glucose 127 H (74-99) mg/dL POC Glucose (mg/dL) 202 H (70-110) mg/dL 08/29/23 Range/Units 06:23 WBC (3.8-10.6) k/uL RBC (4.30-5.90) m/uL Hgb (13.0-17.5) gm/dL Hct (39.0-53.0) % RDW (11.5-15.5) % Neutrophils # (1.3-7.7) k/uL Monocytes # (0-1.0) k/uL Eosinophils # (0-0.7) k/uL Basophils # (0-0.2) k/uL Chloride (98-107) mmol/L Carbon Dioxide (22-30) mmol/L BUN (9-20) mg/dL Glucose (74-99) mg/dL POC Glucose (mg/dL) 196 H (70-110) mg/dL Microbiology - Last 24 Hours (Table) 08/27/23 09:05 Blood Culture - Preliminary Blood 08/27/23 09:18 Blood Culture - Preliminary Blood 08/25/23 21:05 Gram Stain - Final Sputum Sputum Culture - Final - Imaging and Cardiology Chest x-ray: report reviewed, image reviewed Assessment and Plan Assessment: Symptomatic calcific tricuspid aortic stenosis, status post aortic valve replacement with a 29 mm Zheng Inspiris bovine pericardial valve with root enlargement with a hemashield patch Héctor Whitfield technique Coronary artery disease status post PCI to his obtuse marginal coronary artery in 2021 Hypertension Hyperlipidemia, triglycerides 213, HDL 28.7 Diabetes mellitus type 2, preoperative hemoglobin A1C 6.6% History of prostate cancer History of GI bleed Hard of hearing Lifetime non-smoker, preoperative FEV1 2.27 L predicted value, 85% Postoperative acute blood loss anemia, expected given hemodilution and cardiopulmonary bypass Elevated transaminase, trending down Plan: Continue to maximize medical therapy with aspirin, and beta-david. Will increase metoprolol tartrate as tolerated with hold parameters. Bronchodilator management per pulmonary/critical care medicine recommendations. Encourage incentive spirometry use 10 times every hour while awake. Increase activity, ambulate as tolerated. PT/OT/cardiac rehab following. Will monitor daily labs and chest x-rays. Electrolyte replacement per protocol. GI/DVT prophylaxis. Continue Protonix 40 mg p.o. AC twice daily due to the patient's history of GI bleed. Insulin management per internal medicine, Patient is a diabetic, with a preoperative hemoglobin A1c 6.6% Pain control with current medication regimen. Will avoid Toradol at this time due to the patient's history of GI bleed. Diuretics changed to Lasix 20 mg IV twice daily. Potassium and chloride 10 mEq p.o. twice daily while on Lasix. Continue to monitor strict accurate intake and output. May bladder scan every 6 hours and as needed postvoid residual. If greater than 300 mL of urine may straight cath. Blood culture show no growth after 24 hours. WBC count today is 23.0. Patient remains afebrile. Continue to hold statin until liver enzymes normalized. Patient takes Repatha at home. Discharge planning is in place, anticipate discharge to inpatient rehab within the next 24 to 48 hours. Inpatient rehab consult noted and appreciated. More recommendations to follow based on patient's clinical course. Time with Patient: Greater than 30
[2023-08-29 16:41] LABS: Glucose,Whole Blood 212 mg/dL (70-110)
--- NOTE | 2023-08-29 18:55 | P.PN ---
Subjective Progress Note Date: 08/29/23 HISTORY OF PRESENTING ILLNESS This is a pleasant 72-year-old with past medical history significant for CAD with prior PCI of OM1 branch 2021, hypertension, hyperlipidemia, diabetes mellitus type 2, prior prostate cancer he and history of GI bleed and severe aortic stenosis. He follows in the office with Dr. Benson. Patient presented for elective surgical aortic valve replacement 08/22 which was completed successfully with a 29 mm Zheng Inspiris with aortic valve root enlargement. He was extubated and weaned from vasopressors with cardiac output in the 4.8 L/m range and cardiac index 2.2. She currently admits to significant chest pain around his incision and with deep inspiration. Does not have much of an appetite. Blood pressure borderline. Remains on amiodarone and in normal sinus rhythm. He did have some mild decrease in urine output and was placed on albumin with increasing urine output. 08/24 Patient seen and examined. Patient denies any chest pain or pressure. He is having poor inspiratory effort however and x-ray shows worsened bilateral edema. He was given Lasix 20 mg IV total 2 with some urine output however overall not significantly negative over last 24 hours. Creatinine has remained stable. EKG concerning for minimal ST elevation, possible pericarditis however he denies any chest pain. Remains in sinus rhythm. Metoprolol was increased. Does have increased respiratory rate in the upper 20s and 30s. His prior CVP not majorly elevated and so his cortis in place as well as left chest tube. 08/25 Patient is seen and examined. He remains in the intensive care unit. Blood pressure 124/53, heart rate 80, pulse ox 93% on 1 L. He has been afebrile. Repeat blood work reveals WBC 23.3, hemoglobin 9.2. Sodium 138, potassium 4.7, BUN 33 creatinine 0.66. proBNP 2700. Mildly elevated liver function test. Repeat chest x-ray reveals persistent left-sided chest tubes without pneumo. Persistent cardiomegaly with central vascular congestion and small to moderate size right pleural effusion. No significant change. Patient states he feels a little short of breath but better from yesterday. He has been urinating well. He is utilizing IS. He denies chest pain. 08/26 Patient is seen and examined. He remains in intensive care unit. Blood pressure 101/56, heart rate is in the 80s, pulse ox 96% on 2 L nasal cannula. Patient is afebrile. Repeat blood work reveals WBC 22.2, hemoglobin 9.5. Sodium 137, potassium 3.9, BUN 35 creatinine 0.63. Magnesium 1.9. CTS ordered a dose of Diamox and 1 dose of IV Lasix 40 mg this morning. Patient states he feels a little better after a shower. He has ambulated, found sitting in reclines. Left CT removed yesterday. 08/28/23 Hemoglobin and renal function stable. Good urine output. Patient was able to ambulate in the unit. Denies any excessive chest pain. Does report some chest pain with deep breathing. Prior ECG showed some ST changes concerning of possible pericarditis. For now we will continue to monitor. August 29, 2023 Patient seen at bedside. Alert oriented, not in acute distress, surgical type chest pain 2/10 intensity. Using incentive spirometer. Hemodynamically stable, epicardial pacemaker wires remain in place. Possibility of getting the epicardial pacemaker tomorrow BP 97/55, heart rate 84 bpm hemoglobin 10.9, creatinine 0.9 No concerns of atrial fibrillation telemetry monitoring PHYSICAL EXAMINATION Vital signs reviewed. CONSTITUTIONAL: No apparent distress, however tachypnic and mild increased work of breathing HEENT: Head is normocephalic. Pupils are equal, round. Sclerae anicteric. Mucous membranes of the mouth are moist. No JVD. No carotid bruit. CHEST EXAMINATION: Decreased breath sounds bilaterally HEART EXAMINATION: Regular rate and rhythm. S1, S2 heard. mild systolic murmurs, gallops or rub, ABDOMEN: Soft, nontender. Positive bowel sounds. EXTREMITIES: 2+ peripheral pulses, Bilat lower extremity edema 1+ NEUROLOGIC EXAMINATION: Patient is awake, alert and oriented x3. ASSESSMENT Severe aortic stenosis status post surgical aortic valve replacement 08/22 with aortic root enlargement Acute on chronic respiratory failure with worsening chest Xray, possible ARDS vs CHF Acute on chronic diastolic heart failure Minimal diffuse ST elevation without reciprocal changes, may be early pericarditis CAD with prior history PCI Hypertension Hyperlipidemia Anemia/acute blood loss anemia Diabetes mellitus type 2 History of prostate cancer History of GI bleed PLAN Monitor TALAT, daily weights, electrolytes and renal function. Continue current cardiac medications We will continue to follow. Objective - Vital Signs Vital signs: Vital Signs Temp 98.3 F 08/29/23 17:00 Pulse 84 08/29/23 18:00 Resp 26 H 08/29/23 18:00 BP 97/55 08/29/23 18:00 Pulse Ox 99 08/29/23 18:00 FiO2 30 08/29/23 11:59 Intake & Output 08/28/23 08/29/23 08/29/23 18:59 06:59 18:59 Intake Total 1800 500 Output Total 1500 3050 1300 Balance 300 -3050 -800 Weight 107.3 kg Intake: IV 150 Albumin Human 25% 50 ml 50 In Empty Bag 1 bag @ 50 mls/hr IVPB ONCE ONE Rx#: [id number] Piperacillin-Tazobactam 3 100 .375 gm In Sodium Chloride 0.9% 100 ml @ 25 mls/hr IVPB Q8H [facility] Rx#: [id number] Oral 1650 500 Output: Urine 1500 3050 1300 Other: Voiding Method External Catheter External Catheter External Catheter # Voids 0 ABP, PAP, CO, CI - Last Documented Arterial Blood Pressure 109/53 Pulmonary Artery Pressure 46/20 Cardiac Output 4.3 Cardiac Index 2 - Labs CBC & Chem 7: 08/29/23 06:01 08/29/23 06:01 Labs: Abnormal Lab Results - Last 24 Hours (Table) 08/28/23 08/29/23 08/29/23 Range/Units 19:44 06:01 06:01 WBC 23.0 H (3.8-10.6) k/uL RBC 3.67 L (4.30-5.90) m/uL Hgb 10.9 L (13.0-17.5) gm/dL Hct 34.9 L (39.0-53.0) % RDW 17.3 H (11.5-15.5) % Neutrophils # 17.8 H (1.3-7.7) k/uL Monocytes # 1.6 H (0-1.0) k/uL Eosinophils # 1.2 H (0-0.7) k/uL Basophils # 0.3 H (0-0.2) k/uL Chloride 94 L (98-107) mmol/L Carbon Dioxide 34 H (22-30) mmol/L BUN 31 H (9-20) mg/dL Glucose 127 H (74-99) mg/dL POC Glucose (mg/dL) 202 H (70-110) mg/dL 08/29/23 08/29/23 08/29/23 Range/Units 06:23 11:41 16:40 WBC (3.8-10.6) k/uL RBC (4.30-5.90) m/uL Hgb (13.0-17.5) gm/dL Hct (39.0-53.0) % RDW (11.5-15.5) % Neutrophils # (1.3-7.7) k/uL Monocytes # (0-1.0) k/uL Eosinophils # (0-0.7) k/uL Basophils # (0-0.2) k/uL Chloride (98-107) mmol/L Carbon Dioxide (22-30) mmol/L BUN (9-20) mg/dL Glucose (74-99) mg/dL POC Glucose (mg/dL) 196 H 207 H 212 H (70-110) mg/dL Microbiology - Last 24 Hours (Table) 08/27/23 09:05 Blood Culture - Preliminary Blood 08/27/23 09:18 Blood Culture - Preliminary Blood 08/27/23 11:28 Nasal Screen MRSA/MSSA - Final Nasal Swab
[2023-08-29 20:02] LABS: Glucose,Whole Blood 132 mg/dL (70-110)
[2023-08-30 06:30] LABS: Glucose,Whole Blood 132 mg/dL (70-110)
--- NOTE | 2023-08-30 07:42 | XR ---
EXAMINATION TYPE: XR chest 2V DATE OF EXAM: 08/30/2023 COMPARISON: 08/29/2023 TECHNIQUE: PA and lateral views submitted. HISTORY: Postop CABG FINDINGS: Median sternotomy changes with atrial appendage clip. There is cardiac valve replacement surgery. Korina vated right hemidiaphragm with bilateral consolidation and pleural effusion greater on the right. Mil d central venous congestion not excluded. There is marked cardiomegaly. No pneumothorax. Arthropathy of the shoulders and degenerative change of the spine. IMPRESSION: 1. Interval reduction in the amount of pleural fluid and consolidation on the right with persistent b ilateral pleural effusion and basilar consolidation. Correlate for improving pulmonary edema. Underly ing pneumonia not excluded.
[2023-08-30 07:43] LABS: African American GFR (CKD) >90 (>60 ml/min/1.73 sqM); Anion Gap 6 mmol/L; Blood Urea Nitrogen 30 mg/dL (9-20); Carbon Dioxide 37 mmol/L (22-30); Chloride 92 mmol/L (98-107); Glucose 128 mg/dL (74-99); Non-African American GFR(CKD) 86 (>60 ml/min/1.73 sqM); Potassium 3.2 mmol/L (3.5-5.1); Sodium 135 mmol/L (137-145)
[2023-08-30 07:51] LABS: Anisocytosis Slight; HCT 35.8 % (39.0-53.0); HGB 11.3 gm/dL (13.0-17.5); Hypochromasia Slight; MCH 29.4 pg (25.0-35.0); MCHC 31.6 g/dL (31.0-37.0); Platelet Count 352 k/uL (150-450); Poikilocytosis Slight; RBC 3.85 m/uL (4.30-5.90); RDW 17.6 % (11.5-15.5); WBC 20.2 k/uL (3.8-10.6)
[2023-08-30 08:33] LABS: Band Neutrophils % 1 %; Eosinophils # (M) 1.21 k/uL (0-0.7); Lymphocytes # (M) 2.02 k/uL (1.0-4.8); Metamyelocytes # (M) 0.61 k/uL (0); Metamyelocytes % 3 %; Monocytes # (M) 1.41 k/uL (0-1.0); Myelocytes % 1 %; Neutrophils % (M) 74 %; Nucleated Red Blood Cells 0 /100 WBC (0-0); Total Cells Counted 200
[2023-08-30 08:34] LABS: Polychromasia Present
--- NOTE | 2023-08-30 08:49 | P.PN ---
Subjective Progress Note Date: 08/30/23 Principal diagnosis: Symptomatic calcific tricuspid aortic stenosis. Past medical history significant for coronary artery disease status post PCI to his obtuse marginal coronary artery in 2021, hypertension, hyperlipidemia, diabetes mellitus type 2, prostate cancer, GI bleed, hard of hearing and is a lifetime non-smoker. POD #7 Aortic valve replacement with 29 mm Zheng Inspiris bovine pericardial valve, root enlargement with Hemashield patch (Héctor Whitfield technique), epiaortic ultrasound, ligation of left atrial appendage with 35mm AtriCure clip and plates and screws for sternal closure. Postoperative acute blood loss anemia, expected given hemodilution and cardiopulmonary bypass. The patient was seen and examined in follow-up today August 30, 2023 at his bedside in the intensive care unit. He is currently sitting up to the bedside chair, is awake, alert, oriented x 3 and is in no acute apparent distress. He denies any complaints of shortness of breath or pain at this time, and reports that this is the best he has felt since surgery. He ambulated in the intensive care unit hallway this morning with standby assistance from nursing staff and tolerated well. Oxygen saturations are 98% on 2 L nasal cannula and he is achieving 1500 mL on his incentive spirometry with encouragement. Bedside telemetry is showing normal sinus rhythm heart rate 84 bpm. The patient's white count is trending down today 20.2, the patient has had a chronically elevated white count even prior to surgery with a WBC count on August 01, 2023 of 24.1. The patient remains afebrile, sputum culture and blood cultures remain to show no growth. The patient remains hemodynamically stable and is currently on no inotropic or pressor support. Laboratory and chest x-ray results reviewed. Objective - Vital Signs Vital signs: Vital Signs Temp 98.4 F 08/30/23 04:00 Pulse 83 08/30/23 07:00 Resp 26 H 08/30/23 07:00 BP 102/65 08/30/23 07:00 Pulse Ox 98 08/30/23 07:00 FiO2 30 08/29/23 11:59 Intake & Output 08/29/23 08/30/23 08/30/23 18:59 06:59 18:59 Intake Total 500 Output Total 1300 900 0 Balance -800 -900 0 Weight 107.1 kg Intake: Oral 500 Output: Urine 1300 900 0 Other: Voiding Method External Catheter External Catheter # Voids 0 ABP, PAP, CO, CI - Last Documented Arterial Blood Pressure 109/53 Pulmonary Artery Pressure 46/20 Cardiac Output 4.3 Cardiac Index 2 - Exam CONSTITUTIONAL: Sitting up to the bedside chair in the intensive care unit, appears comfortable, cooperative, no apparent acute distress. HEENT: Neck is supple, no JVD, no lymphadenopathy. RESPIRATORY: Lungs sounds essentially clear throughout, diminished to his bilateral bases, right greater than left. Respirations are tachypneic, symmetrical and nonlabored. Currently on 2 L nasal cannula with oxygen saturations 98%. Able to achieve 1500 mL on his incentive spirometry. Strong cough. CARDIOVASCULAR: Regular rhythm and rate. S1 and S2 present, negative for S3, gallop or murmur. Sternum is stable. Bedside telemetry showing normal sinus rhythm heart rate 84 bpm. Palpable peripheral pulses bilaterally, trace edema to his bilateral lower extremities. No calf pain or tenderness noted. Heart hugger in place with patient demonstrating appropriate use. Knee-high CHARMAINE hose and sequential compression devices in place to his bilateral lower extremities. GASTROINTESTINAL: Abdomen soft, nontender, nondistended. Active bowel sounds present 4 quadrants. Tolerating diet. Passing flatus. No guarding or rigidity. Bowel movement 08/28/2023. GENITOURINARY: External catheter in place, urine output 500 mL in the last 8 hours. INTEGUMENTARY: Skin warm and dry with no evidence of clubbing or cyanosis. Midline sternal incision clean dry and well approximated, covered with dry intact dressing. NEUROLOGIC: Cranial nerves II through XII intact. No focal deficits. MUSKULOSKELETAL: Able to move all extremities, strength equal bilaterally, generalized weakness. PSYCHIATRIC: Alert and oriented to person place and time, appropriate affect, intact judgment and insight. INVASIVE LINES AND TUBES: Atrial and ventricular epicardial pacemaker wires present, and are grounded. - Allied health notes Allied health notes reviewed: nursing - Labs CBC & Chem 7: 08/30/23 07:12 08/30/23 07:12 Labs: Abnormal Lab Results - Last 24 Hours (Table) 08/29/23 08/29/23 08/29/23 Range/Units 11:41 16:40 20:00 WBC (3.8-10.6) k/uL RBC (4.30-5.90) m/uL Hgb (13.0-17.5) gm/dL Hct (39.0-53.0) % RDW (11.5-15.5) % Sodium (137-145) mmol/L Potassium (3.5-5.1) mmol/L Chloride (98-107) mmol/L Carbon Dioxide (22-30) mmol/L BUN (9-20) mg/dL Glucose (74-99) mg/dL POC Glucose (mg/dL) 207 H 212 H 132 H (70-110) mg/dL 08/30/23 08/30/23 08/30/23 Range/Units 06:28 07:12 07:12 WBC 20.2 H (3.8-10.6) k/uL RBC 3.85 L (4.30-5.90) m/uL Hgb 11.3 L (13.0-17.5) gm/dL Hct 35.8 L (39.0-53.0) % RDW 17.6 H (11.5-15.5) % Sodium 135 L (137-145) mmol/L Potassium 3.2 L (3.5-5.1) mmol/L Chloride 92 L (98-107) mmol/L Carbon Dioxide 37 H (22-30) mmol/L BUN 30 H (9-20) mg/dL Glucose 128 H (74-99) mg/dL POC Glucose (mg/dL) 132 H (70-110) mg/dL Microbiology - Last 24 Hours (Table) 08/27/23 09:05 Blood Culture - Preliminary Blood 08/27/23 09:18 Blood Culture - Preliminary Blood 08/27/23 11:28 Nasal Screen MRSA/MSSA - Final Nasal Swab - Imaging and Cardiology Chest x-ray: report reviewed, image reviewed Assessment and Plan Assessment: Symptomatic calcific tricuspid aortic stenosis, status post aortic valve replacement with a 29 mm Zheng Inspiris bovine pericardial valve with root enlargement with a hemashield patch Héctor Whitfield technique Coronary artery disease status post PCI to his obtuse marginal coronary artery in 2021 Hypertension Hyperlipidemia, triglycerides 213, HDL 28.7 Diabetes mellitus type 2, preoperative hemoglobin A1C 6.6% History of prostate cancer History of GI bleed Hard of hearing Lifetime non-smoker, preoperative FEV1 2.27 L predicted value, 85% Postoperative acute blood loss anemia, expected given hemodilution and cardiopulmonary bypass Elevated transaminase, resolved Leukocytosis of unknown etiology, chronically elevated since August 01, 2023 labs Plan: Continue to maximize medical therapy with aspirin, and beta-david. Will increase metoprolol tartrate as tolerated with hold parameters. Bronchodilator management per pulmonary/critical care medicine recommendations. Encourage incentive spirometry use 10 times every hour while awake. Increase activity, ambulate as tolerated. PT/OT/cardiac rehab following. Will monitor daily labs and chest x-rays. Electrolyte replacement per protocol. GI/DVT prophylaxis. Continue Protonix 40 mg p.o. AC twice daily due to the patient's history of GI bleed. Insulin management per internal medicine, Patient is a diabetic, with a preoperative hemoglobin A1c 6.6% Pain control with current medication regimen. Will avoid Toradol at this time due to the patient's history of GI bleed. Diuretics changed to Lasix 40 mg p.o. daily. Potassium and chloride 20 mEq p.o. daily while on Lasix. Continue to monitor strict accurate intake and output. May bladder scan every 6 hours and as needed postvoid residual. If greater than 300 mL of urine may straight cath. Blood culture show no growth after48 hours. WBC count trending down today is 20.2. Patient remains afebrile. Continue to hold statin, patient has intolerance to statins. Patient takes Repatha at home. Discharge planning is in place, anticipate discharge to inpatient rehab within the next 24 to 48 hours. We will remove his atrial and ventricular epicardial pacemaker wires today. Bedrest for 1 hour post pacemaker wire removal. More recommendations to follow based on patient's clinical course. Time with Patient: Greater than 30
[2023-08-30] MEDS: FUROSEMIDE 40 MG TAB PO SCH (08:53)
[2023-08-30] MEDS: POTASSIUM CHLORIDE ER 20 MEQ TAB.ER PO SCH (08:54)
[2023-08-30] MEDS: POTASSIUM BICARBONATE/CIT AC 20 MEQ TABLET.EFF NG-TUBE SCH (08:54)
--- NOTE | 2023-08-30 10:30 | P.PN ---
Subjective Progress Note Date: 08/30/23 Principal diagnosis: 72 year old M with PMH of CAD, HLD, HTN, DM, GERD, h/o GI bleed, h/o prostate CA, aortic stenosis presents to [facility] for elective surgery. He underwent AV replacement with Dr. Glaser on 08/22. [facility] Physicians consulted for medical management of this patient. He was extubated on 08/22. 08/23 Patient was seen and examined. He reports moderate pain at the site on incision. Currently on NS at 20 cc/hr. Insulin drip running at 5.5 units/hr. CBC WBC 15.8, Hg 9.3, Hct 38.6, Plt 145. CMP Cl 110, glu 104, AST 61, total protein 5.5. Mag 2.3. Ionized Ca 4.6. CT surgery note reviewed, DC right IJ [place] Ileana, maximize medical therapy with ASA, statin, beta david. CXR done today shows mild pulmonary vascular congestion. POC glucose 119-168 over the past 24H. 08/24 Patient was seen and examined. Patient reports shortness of breath and cough productive of brown sputum. He is on 1.5L NC. Insulin drip running at 6 units/hr. CXR shows pulmonary edema and he has been started on Lasix 20 mg IV BID for 2 doses, Mucinex, Muromyst and DuoNeb PRN by CT surgery. Mediastinal chest tubes discontinued today. CBC shows WBC 23.4, Hg 9.3, Hct 29.7. CMP BUN 21, Cr 0.61, glu 113, T. Bili 1.5, AST 77, total protein 5.7. POC glucose 123- 178 over the past 24H. 08/25 Patient was seen and examined. Continued SOB. He is on 1L NC. Insulin drip running at 7.5 units/hr. CXR shows pulmonary edema with right pleural effusion and Lasix increased to 40 mg IV BID x 2 doses. CBC shows WBC 23.3, Hg 9.2, Hct 28.7. CMP BUN 33, glu 105, T. Bili 1.8, AST 89, ALT 84, total protein 5.6. POC glucose 92-203 over the past 24H. 08/26 Patient was seen and examined. Continued SOB with tachypnea, no real improvement. He is on 2L NC. R IJ cordis and L chest tube removed, Mullins catheter discontinued. Insulin drip switched to Levemir 15 units HS and Novolog 5 units TID with ISS yesterday. CXR shows persistent pulmonary edema with right pleural effusion, maintained on Lasix 40 mg IV BID. Negative 994 cc fluid balance over the past 24H. Weight 116.8 kg (08/23) - 111.8 kg (08/26. CBC shows WBC 22.2, Hg 9.5, Hct 30.1. CMP bicarb 35, BUN 35, Cr. 0.63, glu 126, T. Bili 1.5, ALT 64, total protein 5.7, alb 3.4. POC glucose 128-219 over the past 24H. Up in chair, no shortness of breath normal Remains afebrile, no nausea no vomiting no dizziness. Objective - Vital Signs Vital signs: Vital Signs Temp 97.6 F 08/30/23 08:00 Pulse 86 08/30/23 10:00 Resp 27 H 08/30/23 10:00 BP 106/63 08/30/23 10:00 Pulse Ox 98 08/30/23 10:00 FiO2 30 08/29/23 11:59 Intake & Output 08/29/23 08/30/23 08/30/23 18:59 06:59 18:59 Intake Total 500 Output Total 1300 900 300 Balance -800 -900 -300 Weight 107.1 kg Intake: Oral 500 Output: Urine 1300 900 300 Other: Voiding Method External Catheter External Catheter External Catheter # Voids 0 0 ABP, PAP, CO, CI - Last Documented Arterial Blood Pressure 109/53 Pulmonary Artery Pressure 46/20 Cardiac Output 4.3 Cardiac Index 2 - Exam General: Awake alert oriented 3, not in distress Derm: warm, dry Head: atraumatic, normocephalic, symmetric Eyes: EOMI, no lid lag, anicteric sclera Mouth: no lip lesion, mucus membranes moist Cardiovascular: S1S2 reg, no murmur, midsternal surgical scar dressing c/d/i Lungs: Decreased BS bilateral,No wheezing Ext: no gross muscle atrophy, trace pitting bilateral lower extremity edema, no contractures Neuro: no focal neuro deficits Psych: Alert, oriented, appears defeated - Labs CBC & Chem 7: 08/30/23 07:12 08/30/23 07:12 Labs: Abnormal Lab Results - Last 24 Hours (Table) 08/29/23 08/29/23 08/29/23 Range/Units 11:41 16:40 20:00 WBC (3.8-10.6) k/uL RBC (4.30-5.90) m/uL Hgb (13.0-17.5) gm/dL Hct (39.0-53.0) % RDW (11.5-15.5) % Neutrophils # (Manual) (1.3-7.7) k/uL Monocytes # (Manual) (0-1.0) k/uL Eosinophils # (Manual) (0-0.7) k/uL Metamyelocytes # (Man) (0) k/uL Myelocytes # (Manual) (0) k/uL Sodium (137-145) mmol/L Potassium (3.5-5.1) mmol/L Chloride (98-107) mmol/L Carbon Dioxide (22-30) mmol/L BUN (9-20) mg/dL Glucose (74-99) mg/dL POC Glucose (mg/dL) 207 H 212 H 132 H (70-110) mg/dL 08/30/23 08/30/23 08/30/23 Range/Units 06:28 07:12 07:12 WBC 20.2 H (3.8-10.6) k/uL RBC 3.85 L (4.30-5.90) m/uL Hgb 11.3 L (13.0-17.5) gm/dL Hct 35.8 L (39.0-53.0) % RDW 17.6 H (11.5-15.5) % Neutrophils # (Manual) 15.10 H (1.3-7.7) k/uL Monocytes # (Manual) 1.41 H (0-1.0) k/uL Eosinophils # (Manual) 1.21 H (0-0.7) k/uL Metamyelocytes # (Man) 0.61 H (0) k/uL Myelocytes # (Manual) 0.20 H (0) k/uL Sodium 135 L (137-145) mmol/L Potassium 3.2 L (3.5-5.1) mmol/L Chloride 92 L (98-107) mmol/L Carbon Dioxide 37 H (22-30) mmol/L BUN 30 H (9-20) mg/dL Glucose 128 H (74-99) mg/dL POC Glucose (mg/dL) 132 H (70-110) mg/dL Microbiology - Last 24 Hours (Table) 08/27/23 09:05 Blood Culture - Preliminary Blood 08/27/23 09:18 Blood Culture - Preliminary Blood 08/27/23 11:28 Nasal Screen MRSA/MSSA - Final Nasal Swab Assessment and Plan Plan: Status post AV replacement POD managed by Cardiothoracic surgery.Gradual improvement. Acute hypoxic respiratory failure likely due to pulmonary edema seen on CXR: Status post Lasix IV (08/23-08/26). Mucinex, and DuoNeb PRN per CT surgery. Reso lved, continue to monitor. SIRS versus sepsis: Sepsis criteria met (leukocytosis and tachypnea). Procal 0.22 mildly elevated. COVID/RSV/Flu negative. Sputum sample showing normal respiratory robert. Received one dose of Vancomycin on 08/26, continued on Zosyn 3.375g IV TID .WBC remains at 20. Acute blood loss anemia: Expected result of surgery. Trend daily. Consider transfusion if Hg < 7.Hemoglobin 11.3 Diabetes mellitus with hyperglycemia, Type II: Levemir 15 units HS and Novolog 5 units TID along with ISS. Accuchecks ACHS. Hypoglycemic precautions. Prerenal azotemia and metabolic alkalosis likely due to forced diuresis. Transaminits: Stable. Monitor while patient is on statin. Hypertension: Metoprolol as below. CAD: ASA 325 mg PO QD. Lipitor 40 mg PO QD. Metoprolol 50 mg PO BID. Dyslipidemia: Lipitor as above. GERD: Protonix 40 mg PO BID. Resolved: Thrombocytopenia Disposition: Remains in ICU, Likely transfer to medical floor today.
[2023-08-30 11:32] LABS: Glucose,Whole Blood 185 mg/dL (70-110)
[2023-08-30 12:51] VITALS: TEMP 97.1
--- NOTE | 2023-08-30 13:20 | P.DS ---
Providers Date of admission: 08/23/23 05:35 Expected date of discharge: 08/30/23 Attending physician: Javi Glaser Consults: 08/23/23 12:58 Consult Physician Routine Consulting Provider: Guido Rebolledo Consult Reason/Comments: Process Safety Engineer Consult: post cardiac surgery Do you want consulting provider notified?: Yes Consult Physician Routine Consulting Provider: Sami Esparza Consult Reason/Comments: Home School Teacher Consult: post cardiac surgery Do you want consulting provider notified?: Yes Consult Physician Routine Consulting Provider: Gale Pérez Consult Reason/Comments: rock lucia; Neville patient Do you want consulting provider notified?: Yes 08/28/23 07:57 Consult Physician Routine Consulting Provider: Tru Cortes Consult Reason/Comments: Evaluation for inpatient rehab Do you want consulting provider notified?: Yes Primary care physician: David Neville MD Hospital Course: FINAL DIAGNOSIS: Symptomatic calcific tricuspid aortic stenosis, status post aortic valve replacement with a 29 mm Zheng Inspiris bovine pericardial valve with root enlargement with a hemashield patch Héctor Whitfield technique Coronary artery disease status post PCI to his obtuse marginal coronary artery in 2021 Hypertension Hyperlipidemia, triglycerides 213, HDL 28.7 Diabetes mellitus type 2, preoperative hemoglobin A1C 6.6% Mnire's disease History of prostate cancer History of GI bleed Hard of hearing Lifetime non-smoker, preoperative FEV1 2.27 L predicted value, 85% Postoperative acute blood loss anemia, expected given hemodilution and cardiopulmonary bypass Elevated transaminase, resolved Leukocytosis of unknown etiology, chronically elevated since August 01, 2023 labs Medical debility PRINCIPAL PROCEDURE: 1. Aortic valve replacement with a 29 mm Zheng Inspiris bovine pericardial valve 2. Root enlargement with Hemashield patch (Héctor Whitfield technique) 3. Epiaortic ultrasound 4. Ligation of left atrial appendage with a 35 mm Atricure clip 5. Plates and screws for sternal closure 6. Intraoperative transesophageal echocardiogram performed by anesthesia HISTORY OF PRESENT ILLNESS: This is a 72-year-old gentleman who follows on an outpatient basis with Dr. David Neville for his primary care and Dr. Benson for his cardiology care. The patient has a known history of progressive aortic valve stenosis which has been followed closely by Dr. Benson. Recently, the patient has had complaints of worsening dyspnea on exertion and fatigue. He recently underwent a transthoracic 2D echocardiogram in May 2023 which demonstrated severe aortic valve stenosis with preserved left ventricular function with an ejection fraction of 50%, a peak gradient of 69.38 mmHg and the mean gradient of 40.40 mmHg, a V-max of 3.9 m/s, mild mitral valve regurgitation and trace tr icuspid valve regurgitation. The patient also underwent a heart catheterization in May 2023 which demonstrated calcified coronary arteries, patent stent in the left circumflex coronary artery, chronically occluded right PLV, mild disease to his left anterior descending coronary artery and severe aortic valve stenosis. Patient does have a history of GI bleeding, with preoperative GI workup completed and underwent a colonoscopy on July 31, 2023 and was found to have radiation proctitis and underwent some cauterization. A repeat sigmoidoscopy was performed several days later and demonstrated stability at that time. Due to the patient's aortic valve stenosis he was seen in the TAVR clinic for shared decision making between the fire alarm dispatcher and cardiac surgeon and at that time it was discussed with the patient he would be better served with surgical aortic valve replacement. Risks and benefits of surgery were discussed with the patient including the STS risk or and knowing and underst anding the risks the patient wished to proceed with the surgical option. HOSPITAL COURSE: The patient was brought to the hospital electively on 08/23/23, taken to the preoperative area, prepared in the usual fashion, and subsequently taken to the operating room where Dr. Glaser performed aortic valve with a 29 mm Zheng Inspiris bovine pericardial valve and a root enlargement with a Hemashield patch (Héctor Whitfield technique). Upon completion of surgery the patient was transferred to the cardiovascular intensive care unit where he was recovered and monitored hemodynamically. He was subsequently extubated, all lines, tubes, and drips were discontinued when appropriate, and transfer orders were placed to the third floor cardiac stepdown unit, although due to lack of bed availability on the third floor cardiac stepdown unit was kept in the intensive care unit until discharge. He was evaluated for inpatient rehab due to some medical debility and will be transferred to inpatient rehab at [facility] today on postoperative day #7. His oxygen was titrated down, he is currently on 2 L nasal cannula, he continued to work with physical and occupational therapy, he was tolerating oral diet, and his pain was controlled. He received written and verbal instruction regarding his medications, activity restrictions, signs and symptoms requiring physician notification, and follow-up appointments. Patient Condition at Discharge: Stable Plan - Discharge Summary Discharge Rx Participant: No New Discharge Prescriptions: New RX: Aspirin 325 mg PO DAILY tab RX: Ipratropium-Albuterol Nebulize [Duoneb 0.5 mg-3 mg/3 ml Soln] 3 ml INHALATION RT-QID each RX: Potassium Chloride ER [K-Dur 20] 20 meq PO DAILY tab RX: Furosemide [Lasix] 40 mg PO DAILY tab RX: Metoprolol Tartrate [Lopressor] 25 mg PO BID tab RX: Magnesium Hydroxide [Milk of Magnesia] 2,400 mg PO BID PRN ml PRN Reason: Constipation RX: guaiFENesin [Mucinex] 1,200 mg PO Q12HR tab RX: INSULIN ASPART (NovoLOG) [NovoLOG (formulary)] 0 unit SQ ACHS each RX: Pantoprazole [Protonix] 40 mg PO AC-BID tab RX: Sennosides-Docusate Sodium [Senokot-S] 2 each PO HS PRN tab PRN Reason: Constipation RX: Ipratropium-Albuterol Nebulize [Duoneb 0.5 mg-3 mg/3 ml Soln] 3 ml INHALATION RT-Q2H PRN each PRN Reason: Shortness Of Breath Or Wheezing RX: Insulin Detemir (Levemir) [Levemir] 15 unit SQ HS each RX: INSULIN ASPART (NovoLOG) [NovoLOG (formulary)] 5 unit SQ AC-TID each RX: Acetaminophen Tab [Tylenol] 650 mg PO Q4HR PRN tab PRN Reason: Fever And/ Or Pain Continue "Cholesterol Med" 1 dose SQ Q90D #0 Discontinued RX: Omeprazole [PriLOSEC] 20 mg PO AC-LUNCH RX: Benazepril [Lotensin] 10 mg PO DAILY RX: amLODIPine [Norvasc] 5 mg PO DAILY RX: Pioglitazone [Actos] 15 mg PO HS RX: Glimepiride [Amaryl] 2 mg PO QAM Glimepiride [Amaryl] 4 mg PO HS RX: Aspirin 81 mg PO DAILY #60 tab Discharge Medication List "Cholesterol Med" 1 dose SQ Q90D #0 08/30/23 [Rx] RX: Acetaminophen Tab [Tylenol] 650 mg PO Q4HR PRN tab 08/30/23 [Rx] RX: Aspirin 325 mg PO DAILY tab 08/30/23 [Rx] RX: Furosemide [Lasix] 40 mg PO DAILY tab 08/30/23 [Rx] RX: INSULIN ASPART (NovoLOG) [NovoLOG (formulary)] 0 unit SQ ACHS each 08/30/23 [Rx] RX: INSULIN ASPART (NovoLOG) [NovoLOG (formulary)] 5 unit SQ AC-TID each 08/30/23 [Rx] RX: Insulin Detemir (Levemir) [Levemir] 15 unit SQ HS each 08/30/23 [Rx] RX: Ipratropium-Albuterol Nebulize [Duoneb 0.5 mg-3 mg/3 ml Soln] 3 ml INHALATION RT-Q2H PRN each 08/30/23 [Rx] RX: Ipratropium-Albuterol Nebulize [Duoneb 0.5 mg-3 mg/3 ml Soln] 3 ml I NHALATION RT-QID each 08/30/23 [Rx] RX: Magnesium Hydroxide [Milk of Magnesia] 2,400 mg PO BID PRN ml 08/30/23 [Rx] RX: Metoprolol Tartrate [Lopressor] 25 mg PO BID tab 08/30/23 [Rx] RX: Pantoprazole [Protonix] 40 mg PO AC-BID tab 08/30/23 [Rx] RX: Potassium Chloride ER [K-Dur 20] 20 meq PO DAILY tab 08/30/23 [Rx] RX: Sennosides-Docusate Sodium [Senokot-S] 2 each PO HS PRN tab 08/30/23 [Rx] RX: guaiFENesin [Mucinex] 1,200 mg PO Q12HR tab 08/30/23 [Rx] Follow up Appointment(s)/Referral(s): Anastacio Benson MD [STAFF PHYSICIAN] - 2 Weeks (Please follow-up with once discharged from inpatient rehab) Rehab [facility]Card[facility] [NON-STAFF] [facility] ([facility] to [facility] a visit once discharged from inpatient rehab) David Neville MD [Primary Care Provider] - 1 Week (Please follow-up with Dr. Neville once discharged from inpatient rehab) Javi Glaser MD [STAFF PHYSICIAN] - 3 Weeks (Please follow-up with Dr. Glaser once discharged from inpatient rehab) Guido Rebolledo DO [Doctor of Osteopathic Medicine] - 3 Weeks (Please follow-up with Dr. Rebolledo once discharged from inpatient rehab) Ambulatory/Diagnostic Orders: Complete Blood Count w/diff [LAB.AMB] Time Frame: 3 Days, Location: None Selected Comprehensive Metabolic Panel [LAB.AMB] Time Frame: 3 Days, Location: None Selected Activity/Diet/Wound Care/Special Instructions: Discharge to Inpatient Rehab: [facility] Second Floor Rehab Unit [address] [facility] [address] DISCHARGE INSTRUCTIONS: 1. No driving for 4 weeks, or until physician gives their ok. 2. The patient should sleep in their own bed, no medical bed needed. 3. Stairs are not an issue. If the bedroom is upstairs, it is advised that the patient go up at night and down in the morning for the first week. Go slowly, using handrail and take 1 step at a time. 4. CHARMAINE hose are to be worn for 30 days post surgery or until physician discontinues. 5. Heart hugger is to be worn 100% of the time until physician discontinues.(except when showering) 6. No lifting, pushing, or pulling more than 10 pounds for 12 weeks. The physician will advise of any restriction changes. 7. The patient is expected to continue the prescribed walking program. 8. Continue pain control per as needed orders. 9. Continue with incentive spirometry and splinting/heart hugger until otherwise directed by the physician. 10. Must shower daily using liquid antibacterial soap 11. Routine sternal incision care. No powders, lotions, ointments on incisions. No dressings are necessary on incisions unless they are draining. Dermabond tape is to remain on sternal incision until surgeon follow-up. 12. Please call surgeon/FRAME BENDER for temp greater than 101 F or purulent drainage from incisions. 13. You should weigh yourself daily, record and bring log with you to follow up appointments. 14. All prescriptions given by surgeon for 30 days. Refills need to be filled through fire alarm dispatcher/primary care physician. 15. A Red armband has been placed on the patient. It should be worn for 30 days post discharge from surgery and will be removed by the cardiac surgeons. If an ER visit is necessary, please make sure the number on the Red armband is called before going to ER. 16. You have been referred to and are expected to begin Cardiac Rehab in approximately 4-6 weeks. 17. Quitting smoking is the most important step you can take to improve your health. For additional information and assistance to quit smoking, please call the [place] tobacco quit line (4-286-MJHJ-NOW/ ) or online: [email or web address] 18. Please consult Dr. Benson for cardiology care once arrives to [facility] inpatient rehab. 19. Will need a drawn CBC and CMP on Monday, September 02, 2023. HOME HEALTH SERVICES TO PROVIDE: RN SKILLED HOME CARE SERVICES FOR POST-OP SURGICAL PATIENTS WITH THE FOLLOWING: Coronary Artery Bypass Surgery (CABG), Mitral Valve Replacement/Repair ( MVR), Aortic Valve Replacement/Repair (AVR) RN TO CONTINUE EDUCATION FROM ``ROAD TO A HEALTH HEART PATIENT EDUCATION MANUAL (GIVEN TO PATIENT IN THE HOSPITAL) MEDICATION RECONCILIATION WITH EDUCATION NEEDED ON FIRST HOME VISIT EMPHASIZE IMPORTANCE OF WEARING BREAST SUPPORT/HEART HUGGER ENCOURAGE USE OF INCENTIVE SPIROMETER 10 X EVERY HOUR WHILE AWAKE ENCOURAGE UTILIZATION OF LOWER EXTREMITY COMPRESSION STOCKINGS/CHARMAINE HOSE and ELEVATE LEGS ABOVE LEVEL OF HEART WHILE AT REST. ENCOURAGE AMBULATION 3-5x/day INCREASING TOLERATES, WHILE AVOIDING EXTREMES IN TEMPERATURE FREQUENCY: RN TO OPEN THE PATIENT WITHIN 24 HOURS OF DISCHARGE FROM THE HOSPITAL WITH TELEHEALTH INSTALLED AT [facility], RN TO VISIT 2-3 X A WEEK FOR 4 WEEKS ESTABLISHED BY PATIENT NEEDS. LABORATORY: CBC, CMP TO BE DRAWN ON THE THIRD DAY HOME, (RAN STAT) FAX RESULTS TO [phone]. TELEHEALTH PARAMETERS: WEIGHT: NOTIFY MD OF WEIGHT GAIN OF 2 LBS IN 24 HOURS OR 5 LBS IN ONE WEEK HR: NOTIFY MD OF HR <55 BPM OR HR>100 BPM BP: NOTIFY MD IF BP <90/55 OR BP>140/100 O2 SAT: NOTIFY MD IF PO2<93% ON ROOM AIR SEND TELEHEALTH REPORT TO [place]ES AND LAND SUPERVISOR AND CARDIOVASCULAR SURGEON THE FIRST WEEK OF CARE AND THEN BI-WEEKLY. PLEASE ADDITIONALLY COMMUNICATE ANY ABNORMALS AND NEW FINDINGS TO THE SURGEONS OFFICE. Discharge Disposition: OTHER INSTITUTION NOT DEFINED
--- NOTE | 2023-08-30 13:50 | P.PN ---
Subjective Progress Note Date: 08/30/23 This is a 72-year-old male patient with a history of GI bleeding, prostate cancer with previous radiation. He had been having symptoms of progressive dyspnea on exertion and extreme fatigue. He was found to have critical aortic stenosis and was brought in today for aortic valve replacement. He had und ergone aortic valve replacement with a 29 mm Zheng Inspiris bovine pericardial valve and root enlargement with Hemashield patchas well as a left atrial appendage ligation with a 35 mm atrial cure clip. He is seen postoperatively in the intensive care unit. He is intubated on the mechanical ventilator and assist-control mode at a rate of 14, tidal volume 500, FiO2 100% and a PEEP of 10. Blood gases revealed a PaO2 of 248, pCO2 of 47 and a pH of 7.31. He has a mediastinal, right and left pleural chest tubes in place. Pacer wires in place. Right IJ Faulkner-Ileana catheter in place. Cardiac output 4.5. Cardiac index 2.1. PA pressure 51/34, CVP 25. He is on an insulin drip at 2 units/h. He is sedated on propofol 20 mcg/kg/min. He has lactated Ringer's at 50 MLS per hour. Chest x-ray reveals catheters and lines in place. No evidence of pneumothorax. White count 19.5. Hemoglobin 8.7. Platelets 123. INR 1.7. Sodium 141. Potassium 4.4. Bicarb 22. BUN 14. Creatinine 0.59. Glucose 146. The patient is seen today August 24, 2023 in follow-up in the intensive care unit. He is currently awake and alert in no acute distress. Sitting up in a chair. Maintaining good O2 saturations in the 90s on 2 L/min per nasal cannula. He is receiving lactated Ringer's at 20 MLS per hour. He remains on an insulin drip at 5.5 units/h. Cardiac output 4.8. Cardiac index 2.2. PA pressures 46/20. CVP 11. Today's chest x-ray reveals postsurgical changes with mild pulmonary edema. Chest tubes remain in place. White count 15.8. Hemoglobin 9.3. Platelets 145. Sodium 139. Potassium 4.6. Bicarb 24. BUN 17. Creatinine 0.67. Glucose 126. AST 61. ALT 24. Albumin 3.8. He is working well with the incentive spirometer. He remains on bronchodilators. Heparin for DVT prophylax is. The patient is seen today August 25, 2023 in follow-up in the intensive care unit. Postoperative day #2. He is currently sitting up in a chair at the bedside. Awake and alert in no acute distress. He is maintaining O2 saturations in the 90s on 2 L/min per nasal cannula. He has lactated Ringer's at KVO. Insulin drip at 6 units/h. Chest x-ray revealed similar mild pulmonary edema. Chest t ubes remains in place without pneumothorax. He is working fairly well with the incentive spirometer. White count 23.4. Hemoglobin 9.3. Platelets 157. Sodium 139. Potassium 4.9. Bicarb 29. BUN 21. Creatinine 0.61. Glucose 113. AST 77. ALT 47. He is continued on bronchodilators. Heparin for DVT prophylaxis. On Lasix 20 mg IV twice daily. The patient is seen today August 26, 2023 in follow-up in the intensive care unit. Postoperative day #3. He is awake and alert in no acute distress. Maintaining good O2 saturations in the 90s on 2 L/min per nasal cannula. He is currently sitting up in a chair. He continues to be short of breath with minimal exertion. Chest x-ray is showing slight improvement in the fluid volume overload. He is currently on Lasix 40 mg IV every 12 hours. He is on lactated Ringer's at KVO. Insulin drip at 4.5 units/h. He is pulling approximately 750-1000 on the incentive spirometer. Left chest tube remains in place. He is continued on DuoNeb inhalations, Mucinex. Heparin for DVT prophylaxis. He is currently in a +1.2 L balance. White count 23.3. Hemoglobin 9.2. Sodium 138. Potassium 4.7. Bicarb 29. BUN 33. Creatinine 0.66. Glucose 105. The patient is seen today August 27, 2023 in follow-up in the intensive care unit. Postoperative day #4. He is sitting up in a chair. Awake and alert in no acute distress. Breathing easier today compared to yesterday. He is maintaining good O2 saturations in the 90s on 2 L/min per nasal cannula. Lactated Ringer's at 10 MLS per hour. He remains on Lasix 40 mg IV push every 12 hours. His chest x-ray continues to show significant fluid volume overload. He is currently in a -1 L balance. White count 22.2. Hemoglobin 9.5. Platelets 257. Sodium 137. Potassium 3.9. Bicarb 35. BUN 35. Creatinine 0.63. Glucose 126. He is working well with the incentive spirometer. He remains on bronchodilators. Remains on Mucinex. Heparin for DVT prophylaxis. Sputum culture showing moderate gram-positive bacilli. Procalcitonin pending. He has been initiated on vancomycin and Zosyn per CT services. On 08/28/2023, I am seeing the patient for a follow-up. The patient is doing well and has no specific complaints. The patient is currently postop day #6 following an aortic valve replacement. He is morbidly obese and he has a body mass index of 39.6. Chest tubes have been removed and a follow-up chest x-ray from today shows development of right-sided pleural effusion and the patient remains on oxygen 2 L/min nasal cannula with a pulse ox of 98%. Cardiac rhythm is sinus. He is on no pressors. White cell count is 20 with a hemoglobin 9.7 and a platelet count of 257. BUN is 28 with a creatinine of 0.6 and a sodium levels at 135. Remains on aspirin. Remains on beta-blockers and the patient is currently on metoprolol at a dose of 50 mg p.o. twice a day. He remains on Leve jigna insulin 15 units at bedtime along with NovoLog/scale coverage. The viral screen has been negative. The patient was started on empiric antibiotic coverage with IV Zosyn regarding his underlying leukocytosis. He is elevated transaminase levels have been downtrending. No other significant events overnight. 08/29/2023, the patient is being seen for a follow-up. The patient is currently on 1 L of oxygen by nasal cannula. Chest x-ray shows possibly development of right-sided consolidation/effusion and there is also findings consistent with CHF. The white cell count of 23 with a hemoglobin 10.9 and a platelet count of 326. Sodium is at 137, BUN 51 with a creatinine of 0.9. The patient is hemodynamically stable. Cardiac rhythm is sinus. He is not motivated. Mobility is limited at this point in time. He remains on Lasix 20 mg IV every 12 hours. He is on aspirin. He is on metoprolol 25 mg p.o. twice a day. He is also on Levemir insulin 15 units and a sliding scale insulin coverage. Remains weak and quite debilitated. He is afebrile. His procalcitonin level was 0.22. On today's evaluation of 72,024, seen the patient for a follow-up. Patient is doing well. No specific complaints. The plan is to release this patient to [facility] today. He is doing well on 2 L of oxygen by nasal cannula with pulse ox of 97%. Chest x-ray from today shows improvement in the aeration and reduction of the pleural fluid specially on the right. Noted ultrasound of the chest was done yesterday and there was no sizable effusion for thoracentesis. The patient has no chest pain. Surgical wound is dry clean and intact. The patient's cardiac rhythm is sinus. There was a concern 20 with a hemoglobin of 11.3 and a platelet count of 352. BUN 30 with a creatinine of 0.8 and a sodium levels of 135. Objective - Vital Signs Vital signs: Vital Signs Temp 97.6 F 08/30/23 08:00 Pulse 84 08/30/23 11:06 Resp 27 H 08/30/23 10:00 BP 106/63 08/30/23 10:00 Pulse Ox 98 08/30/23 10:00 FiO2 30 08/29/23 11:59 Intake & Output 08/29/23 08/30/23 08/30/23 18:59 06:59 18:59 Intake Total 500 Output Total 1300 900 300 Balance -800 -900 -300 Weight 107.1 kg Intake: Oral 500 Output: Urine 1300 900 300 Other: Voiding Method External Catheter External Catheter External Catheter # Voids 0 0 ABP, PAP, CO, CI - Last Documented Arterial Blood Pressure 109/53 Pulmonary Artery Pressure 46/20 Cardiac Output 4.3 Cardiac Index 2 - Exam CONSTITUTIONAL: Sitting up to the bedside chair in the intensive care unit, appears comfortable, cooperative, no apparent acute distress. Patient is currently on 1 L of oxygen by nasal cannula HEENT: Neck is supple, no JVD, no lymphadenopathy. RESPIRATORY: Lungs sounds essentially clear throughout, diminished to his bilateral bases, right greater than left. Respirations are tachypneic, symmetrical and nonlabored. CARDIOVASCULAR: Regular rhythm and rate. S1 and S2 present, negative for S3, gallop or murmur. Sternum is stable. Bedside telemetry showing normal sinus rhythm heart rate 78 bpm. Palpable peripheral pulses bilaterally, +1 edema to his bilateral lower extremities. No calf pain or tenderness noted. Heart hugger in place with patient demonstrating appropriate use. Knee-high CHARMAINE hose and sequential compression devices in place to his bilateral lower extremities. GASTROINTESTINAL: Abdomen soft, nontender, nondistended. Active bowel sounds present 4 quadrants. Tolerating diet. Passing flatus. No guarding or rigidity. GENITOURINARY: External catheter in place, urine output 1000 mL in the last 8 hours. INTEGUMENTARY: Jaundiced, warm and dry with no evidence of clubbing or cyanosis. Midline sternal incision clean dry and well approximated, covered with dry intact dressing. NEUROLOGIC: Cranial nerves II through XII intact. No focal deficits. MUSKULOSKELETAL: Able to move all extremities, strength equal bilaterally, generalized weakness. PSYCHIATRIC: Alert and oriented to person place and time, appropriate affect, intact judgment and insight. INVASIVE LINES AND TUBES: Atrial and ventricular epicardial pacemaker wires present, and are grounded. - Labs CBC & Chem 7: 08/30/23 07:12 08/30/23 12:36 Labs: Abnormal Lab Results - Last 24 Hours (Table) 08/29/23 08/29/23 08/29/23 Range/Units 11:41 16:40 20:00 WBC (3.8-10.6) k/uL RBC (4.30-5.90) m/uL Hgb (13.0-17.5) gm/dL Hct (39.0-53.0) % RDW (11.5-15.5) % Neutrophils # (Manual) (1.3-7.7) k/uL Monocytes # (Manual) (0-1.0) k/uL Eosinophils # (Manual) (0-0.7) k/uL Metamyelocytes # (Man) (0) k/uL Myelocytes # (Manual) (0) k/uL Sodium (137-145) mmol/L Potassium (3.5-5.1) mmol/L Chloride (98-107) mmol/L Carbon Dioxide (22-30) mmol/L BUN (9-20) mg/dL Glucose (74-99) mg/dL POC Glucose (mg/dL) 207 H 212 H 132 H (70-110) mg/dL 08/30/23 08/30/23 08/30/23 Range/Units 06:28 07:12 07:12 WBC 20.2 H (3.8-10.6) k/uL RBC 3.85 L (4.30-5.90) m/uL Hgb 11.3 L (13.0-17.5) gm/dL Hct 35.8 L (39.0-53.0) % RDW 17.6 H (11.5-15.5) % Neutrophils # (Manual) 15.10 H (1.3-7.7) k/uL Monocytes # (Manual) 1.41 H (0-1.0) k/uL Eosinophils # (Manual) 1.21 H (0-0.7) k/uL Metamyelocytes # (Man) 0.61 H (0) k/uL Myelocytes # (Manual) 0.20 H (0) k/uL Sodium 135 L (137-145) mmol/L Potassium 3.2 L (3.5-5.1) mmol/L Chloride 92 L (98-107) mmol/L Carbon Dioxide 37 H (22-30) mmol/L BUN 30 H (9-20) mg/dL Glucose 128 H (74-99) mg/dL POC Glucose (mg/dL) 132 H (70-110) mg/dL Microbiology - Last 24 Hours (Table) 08/27/23 09:05 Blood Culture - Preliminary Blood 08/27/23 09:18 Blood Culture - Preliminary Blood 08/27/23 11:28 Nasal Screen MRSA/MSSA - Final Nasal Swab Assessment and Plan Plan: Severe aortic stenosis status post aortic valve replacement with a 29 mm Zheng Inspiris bovine pericardial valve, root enlargement with Hemashield patch and ligation of the left atrial appendage with a 35 mm atrial cure clip. Postoperative day # 7 Right-sided pleural effusion is evident on today's chest x-ray, along with some atelectatic changes. Pneumonia is doubtful. Anemia and thrombocytopenia, expected outcome of surgery, stabilized Leukocytosis, suspect reactive, procalcitonin level is at 0.22 Diabetes mellitus, type II, currently on Levemir Gastroesophageal reflux disease Hypertension History of prostate cancer status post radiation History of rectal bleeding from radiation proctitis Plan: Chest x-ray is improved and the patient has known sizable pleural effusion continue aspirin Continue metoprolol Working well with the incentive spirometer Continue bronchodilators Physical therapy Continue heparin for DVT prophylaxis Titrate down the FiO2 as tolerated Increase his activity as tolerated We will continue to follow The patient will be discharged to [facility] today. Cleared from the pulmonary standpoint. Will need aggressive physical therapy, rehabilitation, walk-ing and pulmonary toileting.
[2023-08-30 14:30] VITALS: BP 99/49; RESP 22
[2023-08-30 15:10] VITALS: PULSE 83
== END 2023-08-30 15:35 | DRG 219 ==
LOC: 2ORMAIN 05:35 → 2SICU 12:23
PROVIDERS: ADMIT Thoracic Surgery (Cardiothoracic Vascular Surgery); ATTEND Thoracic Surgery (Cardiothoracic Vascular Surgery)
PROC: B24BZZ4 Ultrasonography of Heart with Aorta, Transesophageal (ICD-10-PCS; 2023-08-23)
PROC: 02UX0JZ Supplement Thoracic Aorta, Ascending/Arch with Synthetic Substitute, Open Approach (ICD-10-PCS; principal; 2023-08-23 08:00)
PROC: 02RF08Z Replacement of Aortic Valve with Zooplastic Tissue, Open Approach (ICD-10-PCS; principal; 2023-08-23 08:00)
PROC: 02L70CK Occlusion of Left Atrial Appendage with Extraluminal Device, Open Approach (ICD-10-PCS; principal; 2023-08-23 08:00)
PROC: 5A1221Z Performance of Cardiac Output, Continuous (ICD-10-PCS; principal; 2023-08-23 08:00)
PROC: 05HD33Z Insertion of Infusion Device into Right Cephalic Vein, Percutaneous Approach (ICD-10-PCS; 2023-08-28)
DX: I35.0 Nonrheumatic aortic (valve) stenosis (principal); I50.33 Acute on chronic diastolic (congestive) heart failure; J96.21 Acute and chronic respiratory failure with hypoxia; Z68.41 Body mass index [BMI] 40.0-44.9, adult; E87.3 Alkalosis; D62 Acute posthemorrhagic anemia; D69.6 Thrombocytopenia, unspecified; E66.01 Morbid (severe) obesity due to excess calories; I11.0 Hypertensive heart disease with heart failure; E11.65 Type 2 diabetes mellitus with hyperglycemia; I25.10 Atherosclerotic heart disease of native coronary artery without angina pectoris; I25.84 Coronary atherosclerosis due to calcified coronary lesion; E78.5 Hyperlipidemia, unspecified; D72.829 Elevated white blood cell count, unspecified; H91.91 Unspecified hearing loss, right ear; K21.9 Gastro-esophageal reflux disease without esophagitis; M19.042 Primary osteoarthritis, left hand; M19.041 Primary osteoarthritis, right hand; M19.012 Primary osteoarthritis, left shoulder; M19.011 Primary osteoarthritis, right shoulder; K44.9 Diaphragmatic hernia without obstruction or gangrene; R26.9 Unspecified abnormalities of gait and mobility; R74.01 Elevation of levels of liver transaminase levels; Z79.82 Long term (current) use of aspirin; Z79.84 Long term (current) use of oral hypoglycemic drugs; Z79.899 Other long term (current) drug therapy; Z85.46 Personal history of malignant neoplasm of prostate; Z92.3 Personal history of irradiation; Z95.5 Presence of coronary angioplasty implant and graft; Z71.3 Dietary counseling and surveillance; Z88.8 Allergy status to other drugs, medicaments and biological substances
CPT/HCPCS: 36410; 71045; 71046; 76604; 76937; 80048; 80053; 81003; 82330; 82805; 83605; 83735; 83880; 84132; 84145; 85025; 85610; 85730; 86850; 86891; 86900; 86901; 86920; 87040; 87070; 87205; 87636; 88305; 88311; 94002; 94640

== ENCOUNTER → 2023-12-12 | Outpatient (CLI) | payer MEDICARE, BC ==
[2023-12-12 15:12] LABS: HCT 44.1 % (39.6-50.0); HGB 13.8 g/dL (13.0-17.0); MCH 27.3 pg (27.0-32.0); MCHC 31.3 g/dL (32.0-37.0); MCV 87.2 FL (80.0-97.0); Mean Platelet Volume 9.8 FL (9.5-12.2); NRBC Per 100 WBC 0 X 10*3/uL (0.00-0.01); Platelet Count 244 X 10*3/uL (140-440); RBC 5.06 X 10*6/uL (4.40-5.60); RDW 19.3 % (11.5-14.5); WBC 8.02 X 10*3/uL (4.50-10.00)
[2023-12-12 15:29] LABS: NT-Pro-B-Type Natriuretic Pept 485 pg/mL (0-450)
[2023-12-12 15:40] LABS: ALT 73 U/L (10-49); AST 146 U/L (14-35); Albumin 4.1 g/dL (3.8-4.9); Albumin/Globulin Ratio 1.52 Ratio (1.60-3.17); Alkaline Phosphatase 136 U/L (41-126); BUN/Creat Ratio 24.75 Ratio (12.00-20.00); Blood Urea Nitrogen 19.8 mg/dL (9.0-27.0); Calcium 9.1 mg/dL (8.7-10.3); Carbon Dioxide 27.1 mmol/L (21.6-31.8); Chloride 103 mmol/L (96-109); Globulin 2.7 g/dL (1.6-3.3); Glucose 137 mg/dL (70-110); LDL Cholesterol,Calculated 62.3 mg/dL (0.0-131.0); Potassium 5.3 mmol/L (3.5-5.5); Sodium 141 mmol/L (135-145); Total Bilirubin 1.8 mg/dL (0.3-1.2); Total Protein 6.8 g/dL (6.2-8.2)
== END | disposition home or self-care (01) ==
LOC: LABWHC1 08:48
PROVIDERS: ATTEND Internal Medicine Interventional Cardiology
CPT/HCPCS: 36415; 80053; 80061; 83880; 85027